=== PATIENT | female | born 1940 | race Caucasian/White ===

== ENCOUNTER 2020-11-10 10:55 | Outpatient (REF) | payer MEDICARE, SELFPAY ==
[2020-11-10 13:52] LABS: MANUAL DIFF FLAG NO
[2020-11-10 13:57] LABS: Basophils Percent Auto 0.5 % (0-2); Eosinophils Absolute Auto 0.3 X10*3/uL (0.0-0.4); Eosinophils Percent Auto 3.8 % (0-4); Hematocrit 45.2 % (37-47); Hemoglobin 14.2 g/dl (12.0-16.0); Imm Gran Abs Auto 0.02 X10*3/uL (0.00-0.03); Imm Gran Pct Auto 0.2 % (0.0-0.4); Lymphocytes Absolute Auto 2.7 X10*3/uL (1.2-4.9); Lymphocytes Percent Auto 29.9 % (20-40); Mean Corpuscular HGB Conc 31.4 g/dl (31.0-35.0); Mean Corpuscular Hemoglobin 29.6 pg (27.0-33.0); Mean Corpuscular Volume 94.2 fL (80-98); Mean Platelet Volume 10.6 fL (9.4-12.3); Monocytes Absolute Auto 0.9 X10*3/uL (0.1-1.2); Monocytes Percent Auto 9.7 % (2-11); Neutrophils Percent Auto 55.9 % (45-73); Platelet Count 286 X10*3/uL (160-400); Red Cell Distribution Width 12.8 % (11.0-16.0); White Blood Count 8.9 X10*3/uL (4.8-10.8)
[2020-11-10 14:20] LABS: Alanine Aminotransferase 17 U/L (0-31); Albumin Level 4.1 g/dL (3.5-5.0); Alkaline Phosphatase 73 U/L (39-117); Anion Gap 13 (12-20); Aspartate Amino Transferase 18 U/L (5-31); Bilirubin Total 0.7 mg/dL (0.0-1.0); Blood Urea Nitrogen 15 mg/dL (9-16); Calcium 9.2 mg/dL (8.4-10.2); Carbon Dioxide 27 mmol/L (22-29); Chloride 104 mmol/L (96-108); Estimated Glomerular Filt Rate > 60; Glucose Random 82 mg/dL (60-115); Magnesium 2.2 mg/dL (1.6-2.6); Potassium 4.8 mmol/l (3.3-5.1); Sodium 139 mmol/L (135-145); Total Protein 6.7 g/dL (6.5-8.0)
== END 2020-11-10 10:56 | disposition home or self-care (01) ==
LOC: HO.10HDL 10:55
PROVIDERS: PCP Internal Medicine; Visit Provider Internal Medicine
DX: E78.00 Pure hypercholesterolemia, unspecified (principal); I10 Essential (primary) hypertension; M85.80 Other specified disorders of bone density and structure, unspecified site; R25.2 Cramp and spasm
CPT/HCPCS: 36415; 80053; 82306; 83735; 85025

== ENCOUNTER 2021-01-19 11:13 | Inpatient (IN) | payer MEDICARE, SELFPAY ==
[2021-01-19] VITALS (10 sets, daily range): BP systolic 111–130; BP diastolic 48–82; PULSE 84–131; RESP 12–18; TEMP 36.9–37.2; O2SAT 96–99; BMI 25.9
--- NOTE | ~2021-01-19 | XR_ITS ---
EXAMINATION: XR CHEST CLINICAL INFORMATION: Palpitations. COMPARISON: 04/12/2018 TECHNIQUE: Frontal view of the chest was obtained. FINDINGS: No cardiomegaly. Mediastinum or ashleigh are stable in appearance. There is peribronchial thickening in the medial aspect of the bilateral upper lobes, which appears similar as compared to the prior study. No effusion or pulmonary edema. There is hazy patchy opacity in the left lung base retrocardiac region, which may represent atelectasis. No pneumothorax is seen. Moderate leftward curvature of the thoracic spine. No acute osseous abnormality seen. XR/XR chest 1V IMPRESSION: Left basilar hazy patchy opacity from atelectasis/infiltrate.
--- NOTE | ~2021-01-19 | NM_ITS ---
Myocardial perfusion study Indication: Recurrent chest pain to evaluate for myocardial ischemia Technique: The patient was brought in for a Lexiscan perfusion study on 01/22/2021. Patient performed low-level exercise and was injected 0.4 mg of Lexiscan intravenously. Within a minute of injection, 25 mCi of sestamibi was given intravenously. Images were obtained using the SPECT gamma camera interlaced with the gating device. Images were obtained in supine position. Resting perfusion study was performed on 01/23/2021. Patient was administered 25 mCi of sestamibi intravenously at rest. Images were then obtained in supine position. Images obtained with and without CT attenuation. Total DLP 112 mGy-cm Images were processed with the software and compared side to side in short axis, horizontal long axis and vertical long axis views. Findings: The stress perfusion study showed on non attenuated images moderately reduced uptake in the distal lateral and minimally reduced uptake in the apex of the LV myocardium. Attenuation corrected images show minimally reduced uptake in the apex of the LV myocardium some thinning of the distal lateral wall.. The gated study shows normal LV systolic function with calculated LVEF of greater than 70 %. LV cavity is normal size. The gated study shows normal systolic wall thickening and contraction of segments. Resting study shows no significant change in perfusion pattern compared to stress perfusion study. Gating at rest reveals normal wall motion with ejection fraction at 56%. The findings are consistent with normal myocardial perfusion. NM/NM coleman perf SPECT rest & str Impression: 1. Myocardial perfusion imaging study shows normal myocardial perfusion 2. Gated LVEF is greater than 70% 3. Transient ischemic dilatation not present EKG is nondiagnostic for ischemia
--- NOTE | 2021-01-19 11:28 | ECG_ITS ---
Test Reason : PALPITATIONS Blood Pressure : / mmHG Vent. Rate : 130 BPM Atrial Rate : 130 BPM P-R Int : 194 ms QRS Dur : 086 ms QT Int : 348 ms P-R-T Axes : 079 039 -06 degrees QTc Int : 512 ms Atrial flutter/tachycardia with 2:1 conduction with PVC Abnormal ECG When compared with ECG of 12-APR-2018 05:43, Atrial flutter/tachycardia has replaced NSR Premature ventricular complexes are now Present Premature atrial complexes are no longer Present Vent. rate has increased BY 53 BPM Referred By: Kami Torres Electronically Signed By:NAZ BANG MD
--- NOTE | 2021-01-19 11:52 | ED.ARRPALP ---
HPI - Arrhythmia/Palpitations General Chief Complaint: Arrhythmia/Palpitations Stated Complaint: palpitations Time Seen by Provider: 01/19/21 11:52 Source: patient Mode of arrival: ambulatory Limitations: no limitations History of Present Illness MD complaint: palpitations Onset (ago): week(s) (3 weeks but worse last night) Duration: intermittent Severity: moderate Context: occurred during rest and occurred during exertion Arrhythmia history: atrial fibrillation (one episode that resolved in the past) Associated symptoms: shortness of breath Related Data Home Medications Medication Instructions Recorded Confirmed amlodipine 5 mg PO BEDTIME 01/19/21 01/19/21 aspirin 81 mg PO BEDTIME 01/19/21 01/19/21 atorvastatin 10 mg PO BEDTIME 01/19/21 01/19/21 dicyclomine 10 mg PO QID PRN 01/19/21 01/19/21 lorazepam 0.5 mg PO BEDTIME 01/19/21 01/19/21 mometasone 1 appl TOPICAL BID PRN 01/19/21 01/19/21 vitamin B complex [B Complex] 1 cap PO BEDTIME 01/19/21 01/19/21 Allergies Allergy/AdvReac Type Severity Reaction Status Date / Time Sulfa (Sulfonamide Allergy Unknown RASH Verified 01/19/21 11:22 Antibiotics) Review of Systems Review of Systems: Constitutional : No Fever, No Chills ENT/Mouth : No sore throat, No Rhinorrhea, No Swallowing Difficulty Eyes: No Eye Pain, No Swelling, No Redness Cardiovascular : No Chest Pain, positive SOB, No Orthopnea, no Edema, pos palpitations Respiratory : No Cough, No Sputum, No Wheezing, positive dyspnea Gastrointestinal : No Nausea, No Vomiting, No Diarrhea, No abdominal Pain, No Hematochezia, No Melena Genitourinary : No Dysuria, No Urinary Frequency, No Hematuria Musculoskeletal : No joint pain, No Myalgias Skin : No Skin Lesions, No rash Neuro : No Weakness, No Numbness, No Dizziness, No Headache Psych : No Anxiety/Panic, No Depression Heme/Lymph: No Bruising, No Lymphadenopathy Endocrine : No Polyuria, No Polydipsia All other systems reviewed and are negative PMFSH Past Medical History Attestation statement: The following information was validated with the patient. Medical History Afib High cholesterol HTN (hypertension) Kidney stone Mitral valve disorder Surgical History H/O: hysterectomy Social History Social History (Updated 01/19/21 @ 12:35 by Kami Torres DO) Smoking Status: Never smoker Use of substances other than those prescribed or required for medical reasons: No Advance Directives: No Advance Directives Information Provided: Yes Physical Exam Vital Signs: Vital Signs: Last Vital Signs Temp 98.4 F 01/19/21 11:23 Pulse 123 H 01/19/21 15:09 Resp 16 01/19/21 15:09 BP 123/78 01/19/21 15:09 Pulse Ox 99 01/19/21 12:43 Body Mass Index 25.9 Appearance: Alert. Oriented X3. No acute distress. Eyes: Pupils equal, round and reactive to light. ENT: Pharynx normal. Neck: Normal inspection. Neck supple. CVS: tachycardic irregular heart rate and rhythm. Pulses normal. Respiratory: No respiratory distress. Breath sounds normal. Abdomen: Soft and nontender. Skin: Skin warm and dry. Normal skin color. Normal skin turgor. Extremities: No lower extremity edema. No calf ttp Neuro: Oriented X 3. No motor deficit. No sensory deficit. Course Course Course Narrative: repeat EKG aflutter with variable AV block - responded well to lopressor will dose with PO metoprolol patient's HAS-BLED score is 2, CHADSvasc2 = 4 we discussed anticoagulation she does not want coumadin as she does not feel she can make her appointments for lab draws - discussed reasons why to anticoagulate and risks of bleeding repeat 2.5mg IV lopressor HR went back up to 120 HR down to 90s HR back up to 120s will need admission for rate control at this time MDM - Arrhythmia/Palpitations MDM Narrative Medical decision making narrative: 80 yo female with symptomatic tachycardia no chest pain but felt short of breath last night and c/o palpitations worsening EKG ? underlying aflutter - will obtain labs, CXR, give IV lopressor repeat EKG once HR has slowed down, has no bleeding issues could go on AC therapy Lab Data Result diagrams: 01/19/21 12:19 01/19/21 12:19 Labs: Lab Results 02/23/21 02/23/21 02/23/21 Range/Units 12:19 12:19 12:19 WBC 7.2 (4.8-10.8) X10*3/uL RBC 4.71 (4.20-5.50) X10*6/uL Hgb 14.3 (12.0-16.0) g/dl Hct 43.9 (37-47) % MCV 93.2 (80-98) fL MCH 30.4 (27.0-33.0) pg MCHC 32.6 (31.0-35.0) g/dl RDW 12.8 (11.0-16.0) % Plt Count 248 (160-400) X10*3/uL MPV 10.9 (9.4-12.3) fL Immature Gran % (Auto) 0.1 (0.0-0.4) % Neut % (Auto) 57.1 (45-73) % Lymph % (Auto) 30.5 (20-40) % [place] % (Auto) 10.0 (2-11) % Eos % (Auto) 1.7 (0-4) % Baso % (Auto) 0.6 (0-2) % Lymph # (Auto) 2.2 (1.2-4.9) X10*3/uL [place] # (Auto) 0.7 (0.1-1.2) X10*3/uL Eos # (Auto) 0.1 (0.0-0.4) X10*3/uL Baso # (Auto) 0.0 (0.0-0.2) X10*3/uL Abs Immat Gran (auto) 0.01 (0.00-0.03) X10*3/uL Absolute Neuts (auto) 4.1 (2.0-8.3) X10*3/uL Absolute Nucleated RBC 0.000 (0.0-0.012) X10*3/uL Nucleated RBC % (auto) 0.0 (0.0-0.2) /100WBC PT 12.8 (10.8-13.0) SEC INR 1.1 (0.9-1.1) APTT 31.2 (24.1-38.0) SEC D-Dimer 223 NG/ML Sodium 143 (135-145) mmol/L Potassium 3.9 (3.3-5.1) mmol/L Chloride 107 (96-108) mmol/L Carbon Dioxide 26 (22-29) mmol/L Anion Gap 14 (12-20) BUN 11 (9-16) mg/dL Creatinine 0.80 (0.5-1.4) mg/dL Estim Creat Clear Calc 49.4 Estimated GFR > 60 Random Glucose 95 (60-115) mg/dL Calcium 9.4 (8.4-10.2) mg/dL Magnesium 2.0 (1.6-2.6) mg/dL Total Bilirubin 0.9 (0.0-1.0) mg/dL Direct Bilirubin 0.3 (0.0-0.5) mg/dL AST 17 (5-31) U/L ALT 14 (0-31) U/L Alkaline Phosphatase 69 (39-117) U/L Troponin I High Sens (<3.5-17.0) ng/L B-Natriuretic Peptide (<100) pg/mL Total Protein 6.9 (6.5-8.0) g/dL Albumin 4.3 (3.5-5.0) g/dL TSH 1.57 (0.32-4.0) uIU/mL COVID-19 (GUILLERMO) (Negative) COVID-19 Clin Com 01/19/21 01/19/21 Range/Units 12:19 12:19 WBC (4.8-10.8) X10*3/uL RBC (4.20-5.50) X10*6/uL Hgb (12.0-16.0) g/dl Hct (37-47) % MCV (80-98) fL MCH (27.0-33.0) pg MCHC (31.0-35.0) g/dl RDW (11.0-16.0) % Plt Count (160-400) X10*3/uL MPV (9.4-12.3) fL Immature Gran % (Auto) (0.0-0.4) % Neut % (Auto) (45-73) % Lymph % (Auto) (20-40) % [place] % (Auto) (2-11) % Eos % (Auto) (0-4) % Baso % (Auto) (0-2) % Lymph # (Auto) (1.2-4.9) X10*3/uL [place] # (Auto) (0.1-1.2) X10*3/uL Eos # (Auto) (0.0-0.4) X10*3/uL Baso # (Auto) (0.0-0.2) X10*3/uL Abs Immat Gran (auto) (0.00-0.03) X10*3/uL Absolute Neuts (auto) (2.0-8.3) X10*3/uL Absolute Nucleated RBC (0.0-0.012) X10*3/uL Nucleated RBC % (auto) (0.0-0.2) /100WBC PT (10.8-13.0) SEC INR (0.9-1.1) APTT (24.1-38.0) SEC D-Dimer NG/ML Sodium (135-145) mmol/L Potassium (3.3-5.1) mmol/L Chloride (96-108) mmol/L Carbon Dioxide (22-29) mmol/L Anion Gap (12-20) BUN (9-16) mg/dL Creatinine (0.5-1.4) mg/dL Estim Creat Clear Calc Estimated GFR Random Glucose (60-115) mg/dL Calcium (8.4-10.2) mg/dL Magnesium (1.6-2.6) mg/dL Total Bilirubin (0.0-1.0) mg/dL Direct Bilirubin (0.0-0.5) mg/dL AST (5-31) U/L ALT (0-31) U/L Alkaline Phosphatase (39-117) U/L Troponin I High Sens < 3.5 (<3.5-17.0) ng/L B-Natriuretic Peptide 182 H (<100) pg/mL Total Protein (6.5-8.0) g/dL Albumin (3.5-5.0) g/dL TSH (0.32-4.0) uIU/mL COVID-19 (GUILLERMO) Negative (Negative) COVID-19 Clin Com See Note ECG Data Attestation: I personally reviewed and interpreted this ECG as follows: ECG interpretation date: 01/19/21 ECG interpretation time: 11:54 Interpretation: Rate: 130 Rhythm: naro complex tachycardia with PVCs Isabela: normal Normal QRS complex. ST T wave : nonspecific, no SNOW qTC: prolonged prior studies: no acute ischemia The study has been interpreted contemporaneously by me. . EKG #2 Rate: 90s Rhythm: aflutter with variable block and PVCs Isabela: normal Normal P waves. Normal SARAH. Normal QRS complex. ST T wave : nonspecific no SNOW qTC: normal prior studies: changed from prior The study has been interpreted contemporaneously by me. . Discharge Plan Discharge Clinical Impression: Acute dyspnea Atrial flutter Qualifiers: Atrial flutter type: unspecified Qualified Code(s): I48.92 - Unspecified atrial flutter Patient Disposition: Admitted As Inpatient
[2021-01-19] MEDS: Metoprolol Tartrate 5 MG/5 ML VIAL IVPUSH (12:26)
[2021-01-19 12:31] LABS: MANUAL DIFF FLAG NO
--- NOTE | 2021-01-19 12:32 | ECG_ITS ---
Test Reason : ARRYTHYMIA Blood Pressure : / mmHG Vent. Rate : 094 BPM Atrial Rate : 254 BPM P-R Int : 000 ms QRS Dur : 090 ms QT Int : 378 ms P-R-T Axes : 085 023 005 degrees QTc Int : 472 ms Atrial flutter with variable A-V block with premature ventricular or aberrantly conducted complexes Abnormal ECG When compared with ECG of 19-JAN-2021 11:28, Vent. rate has decreased Referred By: Kami Torres Electronically Signed By:NAZ BANG MD
[2021-01-19 12:43] LABS: Basophils Percent Auto 0.6 % (0-2); Eosinophils Absolute Auto 0.1 X10*3/uL (0.0-0.4); Eosinophils Percent Auto 1.7 % (0-4); Hematocrit 43.9 % (37-47); Hemoglobin 14.3 g/dl (12.0-16.0); Imm Gran Abs Auto 0.01 X10*3/uL (0.00-0.03); Imm Gran Pct Auto 0.1 % (0.0-0.4); Lymphocytes Absolute Auto 2.2 X10*3/uL (1.2-4.9); Lymphocytes Percent Auto 30.5 % (20-40); Mean Corpuscular HGB Conc 32.6 g/dl (31.0-35.0); Mean Corpuscular Hemoglobin 30.4 pg (27.0-33.0); Mean Corpuscular Volume 93.2 fL (80-98); Mean Platelet Volume 10.9 fL (9.4-12.3); Monocytes Absolute Auto 0.7 X10*3/uL (0.1-1.2); Neutrophils Absolute Auto 4.1 X10*3/uL (2.0-8.3); Neutrophils Percent Auto 57.1 % (45-73); Platelet Count 248 X10*3/uL (160-400); Red Blood Count 4.71 X10*6/uL (4.20-5.50); Red Cell Distribution Width 12.8 % (11.0-16.0); White Blood Count 7.2 X10*3/uL (4.8-10.8)
[2021-01-19] MEDS: Metoprolol Tartrate 25 MG TABLET PO (12:54)
[2021-01-19 12:56] LABS: INTERNATIONAL NORM RATIO 1.1 (0.9-1.1); Prothrombin Time 12.8 SEC (10.8-13.0)
[2021-01-19 12:59] LABS: D Dimer 223 NG/ML; Partial Thromboplastin Time 31.2 SEC (24.1-38.0)
[2021-01-19 13:01] LABS: COVID-19 Test Negative (Negative); IDNOW Serial# 9DD0AD1C
[2021-01-19 13:11] LABS: Alanine Aminotransferase 14 U/L (0-31); Albumin Level 4.3 g/dL (3.5-5.0); Alkaline Phosphatase 69 U/L (39-117); Anion Gap 14 (12-20); Aspartate Amino Transferase 17 U/L (5-31); Bilirubin Direct 0.3 mg/dL (0.0-0.5); Bilirubin Total 0.9 mg/dL (0.0-1.0); Blood Urea Nitrogen 11 mg/dL (9-16); Calcium 9.4 mg/dL (8.4-10.2); Carbon Dioxide 26 mmol/L (22-29); Chloride 107 mmol/L (96-108); Creatinine Clr Calc Pharmacy 49.4; Estimated Glomerular Filt Rate > 60; Glucose Random 95 mg/dL (60-115); Potassium 3.9 mmol/L (3.3-5.1); Sodium 143 mmol/L (135-145); Total Protein 6.9 g/dL (6.5-8.0)
[2021-01-19 13:18] LABS: B Type Natriuretic Peptide 182 pg/mL (<100); Troponin-I High Sensitivity < 3.5 ng/L (<3.5-17.0)
[2021-01-19 13:33] LABS: Thyroid Stimulating Hormone 1.57 uIU/mL (0.32-4.0)
[2021-01-19] MEDS: Metoprolol Tartrate 5 MG/5 ML VIAL 2.5 MG IVPUSH (15:05)
--- NOTE | 2021-01-19 15:17 | PC.NURSE ---
Spoke to daughter Michelle, updated on plan of care with verbal permission of pt. Plan to give additional smaller dose of Metoprolol as HR trending back up to 120s, ?admission
--- NOTE | 2021-01-19 15:18 | PC.NURSE ---
Contact for daughter [phone], will be pts ride home
--- NOTE | 2021-01-19 16:20 | PC.NURSE ---
HR varies but noted from 75-120, plan for admission
[2021-01-19] MEDS: Aspirin Enteric Coated 81 MG TABLET.DR PO (21:24)
[2021-01-19] MEDS: Atorvastatin Calcium 10 MG TABLET PO (21:24)
[2021-01-19] MEDS: LORazepam 0.5 MG TABLET PO (21:24)
[2021-01-19] MEDS: Enoxaparin Sodium 60 MG/0.6 ML SYRINGE 65 MG SUBCUT (21:25)
--- NOTE | 2021-01-19 21:46 | PC.NURSE ---
Addendum entered by Herrera Lopez RN 01/20/21 00:21: Cardizem drip stopped hr below 90. hr at 75. Addendum entered by Herrera Lopez RN 01/20/21 00:18: Report received from mayra William rn. pt on cardizem drip at 10mg/hr, but did not scan. Cardizem drip rate at 5 mg/hr at this time. HR 75-80. Report given to newsroom intern. clear speech. rr even and unlabored. nad. Original Note: diltiazem started
[2021-01-19 22:51] LABS: Hematocrit 43.5 % (37-47); Hemoglobin 14.1 g/dl (12.0-16.0); Mean Corpuscular HGB Conc 32.4 g/dl (31.0-35.0); Mean Corpuscular Hemoglobin 30.1 pg (27.0-33.0); Mean Corpuscular Volume 92.9 fL (80-98); Mean Platelet Volume 10.5 fL (9.4-12.3); Platelet Count 245 X10*3/uL (160-400); Red Blood Count 4.68 X10*6/uL (4.20-5.50); White Blood Count 9.6 X10*3/uL (4.8-10.8)
--- NOTE | 2021-01-19 22:54 | MHC.CM.PN ---
CM met with pt. IMM 01/19/21. A&Ox3. Very pleasant woman. Very talkative. Lives alone and is very independent. Has no services and still drives short distances. Has supportive family that live near by. HCP reviewed and completed. Son, Damian Parada, HCP ([phone]) and daughter, Michelle Valdes ([phone]) as alternate. Uploaded into [employer]. Copies given to pt. Expect home without services. Family to provide transportation home. CM to follow for d/c needs.
[2021-01-19 22:58] LABS: INTERNATIONAL NORM RATIO 1.1 (0.9-1.1); Prothrombin Time 13.3 SEC (10.8-13.0)
[2021-01-19 23:00] LABS: Partial Thromboplastin Time 36.5 SEC (24.1-38.0)
[2021-01-20] VITALS (10 sets, daily range): BP systolic 88–115; BP diastolic 47–74; PULSE 76–129; RESP 13–19; TEMP 36.6–37.3; O2SAT 93–98
[2021-01-20] MEDS: 0.9 % Sodium Chloride Flush 3 ML SYRINGE IVFLUSH ×3 (00:14→14:46)
[2021-01-20] MEDS: dilTIAZem HCL 125 MG in 0.9 % Sodium Chloride 100 ML IVCONT (00:16)
[2021-01-20 04:34] LABS: MANUAL DIFF FLAG NO
[2021-01-20 04:35] LABS: Basophils Absolute Auto 0.1 X10*3/uL (0.0-0.2); Basophils Percent Auto 0.6 % (0-2); Eosinophils Absolute Auto 0.2 X10*3/uL (0.0-0.4); Eosinophils Percent Auto 2.5 % (0-4); Hematocrit 41.2 % (37-47); Hemoglobin 13.6 g/dl (12.0-16.0); Imm Gran Abs Auto 0.02 X10*3/uL (0.00-0.03); Imm Gran Pct Auto 0.2 % (0.0-0.4); Lymphocytes Absolute Auto 3.1 X10*3/uL (1.2-4.9); Lymphocytes Percent Auto 36.1 % (20-40); Mean Corpuscular Hemoglobin 30.6 pg (27.0-33.0); Mean Corpuscular Volume 92.6 fL (80-98); Mean Platelet Volume 10.5 fL (9.4-12.3); Monocytes Absolute Auto 0.8 X10*3/uL (0.1-1.2); Monocytes Percent Auto 9.3 % (2-11); Neutrophils Absolute Auto 4.5 X10*3/uL (2.0-8.3); Neutrophils Percent Auto 51.3 % (45-73); Platelet Count 227 X10*3/uL (160-400); Red Blood Count 4.45 X10*6/uL (4.20-5.50); Red Cell Distribution Width 12.9 % (11.0-16.0); White Blood Count 8.7 X10*3/uL (4.8-10.8)
[2021-01-20 05:01] LABS: Anion Gap 12 (12-20); Blood Urea Nitrogen 15 mg/dL (9-16); Calcium 9.2 mg/dL (8.4-10.2); Carbon Dioxide 26 mmol/L (22-29); Chloride 107 mmol/L (96-108); Creatinine Clr Calc Pharmacy 51.3; Estimated Glomerular Filt Rate > 60; Glucose Random 97 mg/dL (60-115); Potassium 4.3 mmol/L (3.3-5.1); Sodium 141 mmol/L (135-145)
--- NOTE | 2021-01-20 06:25 | PM.IMHP ---
History of Present Illness Date of Service: 01/19/21 Chief Complaint: Palpitations This is an 80-year-old female with past medical history of hypertension, hyperlipidemia, mitral valve regurg,anxiety who presents to the hospital with complaints of racing heart. Patient reports that she went to her PCP with this complaint and he asked her to come to the hospital. This started the night prior to presentation. She was not able to measure her heart rate which is felt a racing heart with dizziness, lightheadedness, and nausea. She did not have any change in vision, no headache, no shortness of breath, She also felt pressure in the chest that lasted for 20 minutes and resolved spontaneously. Although patient reports no previous similar episodes she does have a recorded history in EMR of and on stained AFib. Patient is not on any anticoagulation. She otherwise reports that she has been in good health prior to this, has no shortness of breath, no cough, no abdominal pain, no vomiting, no diarrhea, no lower extremity edema no urinary symptoms. On arrival to the ED hemodynamically stable with heart rate in the 130s, patient received multiple doses of IV metoprolol with no resolution. Blood pressure stable satting 99% on room air Labs unremarkable with troponin negative, BNP slightly elevated at 182. Chest x-ray shows left basilar hazy patchy opacity from atelectasis/infiltrate Review of Systems Review of Systems: Yes all other systems are reviewed and are negative [facility], LAT[facility] Medical History (Updated 01/20/21 @ 06:39 by Duane Ace MD) Afib High cholesterol HTN (hypertension) Kidney stone Mitral valve disorder Pertinent family history: CT in father, CHF in mother Surgical History (Updated 01/20/21 @ 06:31 by Duane Ace MD) H/O lithotripsy H/O: hysterectomy History of carpal tunnel release Social History (Updated 01/19/21 @ 12:35 by Kami Torres DO) Smoking Status: Never smoker Use of substances other than those prescribed or required for medical reasons: No Advance Directives: No Advance Directives Information Provided: Yes service: No Current occupational status: retired Meds Allergies Allergy/AdvReac Type Severity Reaction Status Date / Time Sulfa (Sulfonamide Allergy Unknown RASH Verified 01/19/21 11:22 Antibiotics) Active Medications: Current Medications Generic Name Dose Route Start Last Admin Trade Name Freq PRN Reason Stop Dose Admin Acetaminophen 650 mg 01/19/21 20:47 Acetaminophen 325 Mg Tablet PO Q6H PRN Pain, Mild (Pain Scale 1-3) Aspirin 81 mg 01/19/21 21:00 01/19/21 21:24 Aspirin Enteric Coated 81 Mg Tablet. PO 81 mg BEDTIME RACHEAL Administration Atorvastatin Calcium 10 mg 01/19/21 21:00 01/19/21 21:24 Atorvastatin Calcium 10 Mg Tablet PO 10 mg BEDTIME RACHEAL Administration Dicyclomine HCl 10 mg 01/19/21 20:47 Dicyclomine Hcl 10 Mg Capsule PO QID PRN Abdominal Discomfort Docusate Sodium 100 mg 01/19/21 20:47 Docusate Sodium 100 Mg Capsule PO DAILY PRN Constipation Diltiazem HCl 125 mg/ Sodium 125 mls @ 0 mls/hr 01/19/21 20:47 01/20/21 06:22 Chloride IVCONT 10 mg/hr .Q0M RACHEAL 10 mls/hr Titration Protocol Per Protocol Lorazepam 0.5 mg 01/19/21 21:00 01/19/21 21:24 Lorazepam 0.5 Mg Tablet PO 0.5 mg BEDTIME RACHEAL Administration Ondansetron HCl 4 mg 01/19/21 20:47 Ondansetron Hcl 4 Mg/2 Ml Vial IVPUSH Q8H PRN Nausea and Vomiting Pharmacy Consult 1 each 01/19/21 12:05 Consult Rx Perform Med Rec MISCELLANE ONCE PRN Consult order Sodium Chloride 3 ml 01/20/21 00:00 01/20/21 00:14 0.9 % Sodium Chloride Flush 3 Ml Syringe IVFLUSH 3 ml QSHIFT RACHEAL Administration Home Medications Medication Instructions Recorded Confirmed Last Taken Type amlodipine 5 mg PO BEDTIME 01/19/21 01/19/21 01/18/21 History aspirin 81 mg PO BEDTIME 01/19/21 01/19/21 01/18/21 History atorvastatin 10 mg PO BEDTIME 01/19/21 01/19/21 01/18/21 History dicyclomine 10 mg PO QID PRN 01/19/21 01/19/21 Unknown History lorazepam 0.5 mg PO BEDTIME 01/19/21 01/19/21 01/19/21 History mometasone 1 appl TOPICAL BID PRN 01/19/21 01/19/21 Unknown History vitamin B complex [B Complex] 1 cap PO BEDTIME 01/19/21 01/19/21 01/18/21 History Physical Exam Vital Signs and Narrative: Vital Signs: Last Vital Signs Temp 98 F 01/20/21 06:07 Pulse 111 H 01/20/21 06:07 Resp 14 01/20/21 06:07 BP 114/60 01/20/21 06:07 Pulse Ox 98 01/20/21 06:07 Body Mass Index 25.9 Const: General: cooperative and no acute distress Orientation/consciousness: patient oriented x3 Eyes: General: appearance normal, both eyes and all related structures Resp: Effort & Inspection: normal respiratory effort and able to speak in complete sentences Cardio: Other: Tachycardic, irregular rhythm GI: Palpation (GI): Soft to palpation Auscultation: normal bowel sounds Skin: General skin exam: no rashes or lesions noted Neuro: General: patient oriented x3 Cognition (Neuro): normal cognition Extrem: General: Yes normal to inspection and Yes no pedal edema Results Labs CBC and Chem 7: 01/20/21 04:28 01/20/21 04:28 Labs: Laboratory Results - last 24 hr 01/19/21 01/19/21 01/19/21 12:19 12:19 12:19 MCV 93.2 MCH 30.4 MCHC 32.6 RDW 12.8 Plt Count 248 MPV 10.9 Immature Gran % (Auto) 0.1 Neut % (Auto) 57.1 Lymph % (Auto) 30.5 [place] % (Auto) 10.0 Eos % (Auto) 1.7 Baso % (Auto) 0.6 Lymph # (Auto) 2.2 [place] # (Auto) 0.7 Eos # (Auto) 0.1 Baso # (Auto) 0.0 Abs Immat Gran (auto) 0.01 Absolute Neuts (auto) 4.1 Absolute Nucleated RBC 0.000 Nucleated RBC % (auto) 0.0 PT 12.8 INR 1.1 APTT 31.2 D-Dimer 223 Anion Gap 14 Estim Creat Clear Calc 49.4 Estimated GFR > 60 Random Glucose 95 Calcium 9.4 Magnesium 2.0 Total Bilirubin 0.9 Direct Bilirubin 0.3 AST 17 ALT 14 Alkaline Phosphatase 69 Troponin I High Sens B-Natriuretic Peptide Total Protein 6.9 Albumin 4.3 TSH 1.57 COVID-19 (GUILLERMO) COVID-19 Clin Com 01/19/21 01/19/21 01/19/21 12:19 12:19 22:41 MCV 92.9 MCH 30.1 MCHC 32.4 RDW 13.0 Plt Count 245 MPV 10.5 Immature Gran % (Auto) Neut % (Auto) Lymph % (Auto) [place] % (Auto) Eos % (Auto) Baso % (Auto) Lymph # (Auto) [place] # (Auto) Eos # (Auto) Baso # (Auto) Abs Immat Gran (auto) Absolute Neuts (auto) Absolute Nucleated RBC 0.000 Nucleated RBC % (auto) 0.0 PT INR APTT D-Dimer Anion Gap Estim Creat Clear Calc Estimated GFR Random Glucose Calcium Magnesium Total Bilirubin Direct Bilirubin AST ALT Alkaline Phosphatase Troponin I High Sens < 3.5 B-Natriuretic Peptide 182 H Total Protein Albumin TSH COVID-19 (GUILLERMO) Negative COVID Clin Com See Note 01/19/21 01/20/21 01/20/21 22:41 04:28 04:28 MCV 92.6 MCH 30.6 MCHC 33.0 RDW 12.9 Plt Count 227 MPV 10.5 Immature Gran % (Auto) 0.2 Neut % (Auto) 51.3 Lymph % (Auto) 36.1 [place] % (Auto) 9.3 Eos % (Auto) 2.5 Baso % (Auto) 0.6 Lymph # (Auto) 3.1 [place] # (Auto) 0.8 Eos # (Auto) 0.2 Baso # (Auto) 0.1 Abs Immat Gran (auto) 0.02 Absolute Neuts (auto) 4.5 Absolute Nucleated RBC 0.000 Nucleated RBC % (auto) 0.0 PT 13.3 H INR 1.1 APTT 36.5 D-Dimer Anion Gap 12 Estim Creat Clear Calc 51.3 Estimated GFR > 60 Random Glucose 97 Calcium 9.2 Magnesium Total Bilirubin Direct Bilirubin AST ALT Alkaline Phosphatase Troponin I High Sens B-Natriuretic Peptide Total Protein Albumin TSH COVID-19 (GUILLERMO) COVID-19 Clin Com ECG Interpretation: EKG showed atrial flutter with variable AV block with PVCs, Imaging Radiologist's Impressions: Impressions Chest X-Ray 01/19/21 12:06 IMPRESSION: Left basilar hazy patchy opacity from atelectasis/infiltrate. Assessment and Plan (1) Atrial flutter: Qualifiers: Atrial flutter type: unspecified Qualified Code(s): I48.92 - Unspecified atrial flutter Status: Acute This is an 80-year-old female with past medical history of mitral valve regurg, hypertension who presents to the hospital with complaints of palpitation found to have a flutter with RVR # a flutter - EMR recorded history of AFib although patient aware, - not on any anticoagulation and is not on rate control - currently heart rate in the 130s with stable blood pressure Plan: - will start her on Cardizem drip - discussed the benefit and risk of anticoagulation, patient agreeable to 1 dose of Lovenox until further discussion with body bumper - will obtain echocardiogram - consult cardiology # hypertension - will hold amlodipine given Cardizem drip can resume once Cardizem drip has been titrated off # hyperlipidemia - continue statin # history of mitral valve regurg - reports last echo was 2 years ago DVT prophylaxis: Lovenox
--- NOTE | 2021-01-20 10:11 | PM.CNCAR ---
History of Present Illness History of Present Illness Date of Service: 01/20/21 Requesting physician: Yovanny Amos Consult reason: other (Palpitations, atrial flutter) Chief complaint: A flutter with RVR Narrative: Thank you for calling us in consult on Saundra garcias She is 80-year-old woman with prior history of paroxysmal atrial fibrillation, hypertension, hyperlipidemia and mild mitral regurgitation. She present the hospital with 3 week history of palpitations. She says about a 3 weeks ago when there was of big snowstorm she shows no and after started noticing palpitations. Initially the palpitations were on and off without any clear pattern. She had no associated symptoms of lightheadedness, syncope, shortness of breath. However 2 days ago she noticed that her palpitations were persistent. She went to her primary care physician's office yesterday and she was wheeled over to the emergency room yesterday. She was noted to be in atrial flutter with rapid ventricular response. She was started on Cardizem drip with initial improvement and Cardizem drip was held. When I saw her she was again tachycardia could heart rate of 130 beats per minute. She is not having any major distress. She denies any lightheadedness, syncope. No orthopnea, PND. She got a dose of Lovenox yesterday. She is currently not on oral anticoagulation, I think this is her preference. However she was not much aware of atrial fibrillation. She takes all her medications at home. She is extremely functional at home. She has no symptoms of exertional chest pain or shortness of breath prior to these episodes. Review of Systems Constitutional: Constitutional: Reports no additional constitutional complaints Cardiovascular: Cardiovascular: Denies chest pain, Reports palpitations and Denies dyspnea Respiratory: Respiratory: Denies cough and Denies dyspnea Gastrointestinal: Gastrointestinal: Reports no additional gastrointestinal complaints Genitourinary: Genitourinary: Reports no additional female genitourinary complaints Musculoskeletal: Musculoskeletal: Reports no additional musculoskeletal complaints Neurologic: Reports system reviewed and no additional complaints, except as documented Psychiatric: Psychiatric: Reports no additional psychiatric complaints Endocrine: Endocrine: Reports no additional endocrine complaints and Reports palpitations Hematologic/Lymphatic: Hematologic/Lymphatic: Reports no additional hematologic/lymphatic complaints Allergic/Immunologic: Allergic/Immunologic: Reports no additional allergic/immunologic complaints PMFSH Past Medical History Medical History Afib High cholesterol HTN (hypertension) Kidney stone Mitral valve disorder Surgical History Surgical History H/O lithotripsy H/O: hysterectomy History of carpal tunnel release Social History Social History Smoking Status: Never smoker Use of substances other than those prescribed or required for medical reasons: No Advance Directives: No Advance Directives Information Provided: Yes service: No Current occupational status: retired Meds Allergies Allergy/AdvReac Type Severity Reaction Status Date / Time Sulfa (Sulfonamide Allergy Unknown RASH Verified 01/19/21 11:22 Antibiotics) Active Medications: Current Medications Generic Name Dose Route Start Last Admin Trade Name Freq PRN Reason Stop Dose Admin Acetaminophen 650 mg 01/19/21 20:47 Acetaminophen 325 Mg Tablet PO Q6H PRN Pain, Mild (Pain Scale 1-3) Apixaban 5 mg 01/20/21 09:15 Apixaban 5 Mg Tablet PO BID RACHEAL Atorvastatin Calcium 10 mg 01/19/21 21:00 01/19/21 21:24 Atorvastatin Calcium 10 Mg Tablet PO 10 mg BEDTIME RACHEAL Administration Dicyclomine HCl 10 mg 01/19/21 20:47 Dicyclomine Hcl 10 Mg Capsule PO QID PRN Abdominal Discomfort Docusate Sodium 100 mg 01/19/21 20:47 Docusate Sodium 100 Mg Capsule PO DAILY PRN Constipation Diltiazem HCl 125 mg/ Sodium 125 mls @ 0 mls/hr 01/19/21 20:47 01/20/21 06:43 Chloride IVCONT 0 mg/hr .Q0M RACHEAL 0 mls/hr Titration Protocol Per Protocol Lorazepam 0.5 mg 01/19/21 21:00 01/19/21 21:24 Lorazepam 0.5 Mg Tablet PO 0.5 mg BEDTIME RACHEAL Administration Ondansetron HCl 4 mg 01/19/21 20:47 Ondansetron Hcl 4 Mg/2 Ml Vial IVPUSH Q8H PRN Nausea and Vomiting Pharmacy Consult 1 each 01/19/21 12:05 Consult Rx Perform Med Rec MISCELLANE ONCE PRN Consult order Sodium Chloride 3 ml 01/20/21 00:00 01/20/21 07:38 0.9 % Sodium Chloride Flush 3 Ml Syringe IVFLUSH 3 ml QSHIFT [facility] Administration Home Medications Medication Instructions Recorded Confirmed Last Taken Type amlodipine 5 mg PO BEDTIME 01/19/21 01/19/21 01/18/21 History aspirin 81 mg PO BEDTIME 01/19/21 01/19/21 01/18/21 History atorvastatin 10 mg PO BEDTIME 01/19/21 01/19/21 01/18/21 History dicyclomine 10 mg PO QID PRN 01/19/21 01/19/21 Unknown History lorazepam 0.5 mg PO BEDTIME 01/19/21 01/19/21 01/19/21 History mometasone 1 appl TOPICAL BID PRN 01/19/21 01/19/21 Unknown History vitamin B complex [B Complex] 1 cap PO BEDTIME 01/19/21 01/19/21 01/18/21 History Physical Exam Vital Signs: Vital Signs: Last Vital Signs Temp 98.0 F 01/20/21 08:00 Pulse 129 H 01/20/21 08:00 Resp 15 01/20/21 08:00 BP 111/68 01/20/21 08:00 Pulse Ox 93 01/20/21 08:00 Body Mass Index 25.9 Const: General: cooperative, comfortable, no acute distress, alert, awake and anxious Nutritional Appearance: average body habitus Orientation/consciousness: patient oriented x3 Limitations: no limitations HENMT: Head: Yes normocephalic and Yes atraumatic Neck: Neck: Yes trachea midline, Yes supple and Yes no JVD Resp: Effort & Inspection: normal respiratory effort Auscultation: clear to auscultation bilaterally Cardio: Jugular venous distension: no JVD Palpation: normal PMI Rate: regular rate and tachycardic Rhythm: abnormal rhythm Heart sounds: S1 normal heart sound present and S2 normal heart sound present GI: Auscultation: normal bowel sounds Skin: General skin exam: no rashes or lesions noted Neuro: General: patient oriented x3 and no focal motor deficits Extrem: General: Yes no clubbing, cyanosis or edema Psych: Appearance: grossly normal Results Labs and Meds Result diagrams: 01/20/21 04:28 01/20/21 04:28 Lab results: Laboratory Results - last 24 hr 01/19/21 01/19/21 01/19/21 12:19 12:19 12:19 WBC 7.2 RBC 4.71 Hgb 14.3 Hct 43.9 MCV 93.2 MCH 30.4 MCHC 32.6 RDW 12.8 Plt Count 248 MPV 10.9 Immature Gran % (Auto) 0.1 Neut % (Auto) 57.1 Lymph % (Auto) 30.5 Finney % (Auto) 10.0 Eos % (Auto) 1.7 Baso % (Auto) 0.6 Lymph # (Auto) 2.2 Finney # (Auto) 0.7 Eos # (Auto) 0.1 Baso # (Auto) 0.0 Abs Immat Gran (auto) 0.01 Absolute Neuts (auto) 4.1 Absolute Nucleated RBC 0.000 Nucleated RBC % (auto) 0.0 PT 12.8 INR 1.1 APTT 31.2 D-Dimer 223 Sodium 143 Potassium 3.9 Chloride 107 Carbon Dioxide 26 Anion Gap 14 BUN 11 Creatinine 0.80 Estim Creat Clear Calc 49.4 Estimated GFR > 60 Random Glucose 95 Calcium 9.4 Magnesium 2.0 Total Bilirubin 0.9 Direct Bilirubin 0.3 AST 17 ALT 14 Alkaline Phosphatase 69 Troponin I High Sens B-Natriuretic Peptide Total Protein 6.9 Albumin 4.3 TSH 1.57 COVID-19 (GUILLERMO) COVID-[employer] 01/19/21 01/19/21 01/19/21 12:19 12:19 22:41 WBC 9.6 RBC 4.68 Hgb 14.1 Hct 43.5 MCV 92.9 MCH 30.1 MCHC 32.4 RDW 13.0 Plt Count 245 MPV 10.5 Immature Gran % (Auto) Neut % (Auto) Lymph % (Auto) Finney % (Auto) Eos % (Auto) Baso % (Auto) Lymph # (Auto) Finney # (Auto) Eos # (Auto) Baso # (Auto) Abs Immat Gran (auto) Absolute Neuts (auto) Absolute Nucleated RBC 0.000 Nucleated RBC % (auto) 0.0 PT INR APTT D-Dimer Sodium Potassium Chloride Carbon Dioxide Anion Gap BUN Creatinine Estim Creat Clear Calc Estimated GFR Random Glucose Calcium Magnesium Total Bilirubin Direct Bilirubin AST ALT Alkaline Phosphatase Troponin I High Sens < 3.5 B-Natriuretic Peptide 182 H Total Protein Albumin TSH COVID-19 (GUILLERMO) Negative [email or web address] Clin Com See Note 01/19/21 01/20/21 01/20/21 22:41 04:28 04:28 WBC 8.7 RBC 4.45 Hgb 13.6 Hct 41.2 MCV 92.6 MCH 30.6 MCHC 33.0 RDW 12.9 Plt Count 227 MPV 10.5 Immature Gran % (Auto) 0.2 Neut % (Auto) 51.3 Lymph % (Auto) 36.1 Finney % (Auto) 9.3 Eos % (Auto) 2.5 Baso % (Auto) 0.6 Lymph # (Auto) 3.1 Finney # (Auto) 0.8 Eos # (Auto) 0.2 Baso # (Auto) 0.1 Abs Immat Gran (auto) 0.02 Absolute Neuts (auto) 4.5 Absolute Nucleated RBC 0.000 Nucleated RBC % (auto) 0.0 PT 13.3 H INR 1.1 APTT 36.5 D-Dimer Sodium 141 Potassium 4.3 Chloride 107 Carbon Dioxide 26 Anion Gap 12 BUN 15 Creatinine 0.77 Estim Creat Clear Calc 51.3 Estimated GFR > 60 Random Glucose 97 Calcium 9.2 Magnesium Total Bilirubin Direct Bilirubin AST ALT Alkaline Phosphatase Troponin I High Sens B-Natriuretic Peptide Total Protein Albumin TSH COVID-19 (GUILLERMO) COVID-19 Clin Com EKG shows atrial flutter with 2 is to 1 conduction, repeat EKG shows atrial flutter with variable conduction. Imaging Radiologist's impression: Impressions Chest X-Ray 01/19/21 12:06 IMPRESSION: Left basilar hazy patchy opacity from atelectasis/infiltrate. Assessment and Plan (1) Atrial flutter: Qualifiers: Atrial flutter type: unspecified Qualified Code(s): I48.92 - Unspecified atrial flutter Status: Acute Atrial flutter, recent onset at least for 3 weeks duration. Initially symptoms on and off currently persistent atrial flutter for the last 48 hours at least. She did get 1 dose of Lovenox. However she is out of the window for trying to convert her now without further guidance either by DAVID or 3-4 weeks of anticoagulation. We discussed at length about pathophysiology of atrial flutter. Triggers appears to be sudden exertion with shoveling snow. We discussed about rate control approach is versus rhythm control approach. She is currently not excited about undergoing synchronized cardioversion. We discussed that will start with rate control. Will start on IV Cardizem drip for now. Also concomitantly start on low-dose metoprolol orally. If her symptoms are controlled with rate control and she is feeling well, can be discharged home on rate control therapy. However she remains difficult to control despite adequate rate control therapy, will pursue urgent cardioversion, david guided. This was discussed with her. She is agreeable. Plan was also discussed with her daughter over the phone. CHADSVASc score of 4. Had a long discussion about need for oral anticoagulation for stroke prophylaxis. Aspirin is not adequate therapy. This was discussed with her. She is agreeable. Will start on Eliquis 5 mg b.i.d.. Aspirin will be discontinued to reduce bleeding risk. Minimal elevation BNP, most likely related to atrial flutter. She is not in overt heart failure at this time. Obtain echocardiogram to assess LV systolic and diastolic function once heart rate is better controlled. (2) HTN (hypertension): Status: Acute Hypertension, well optimized. Will continue to monitor. Continue rate control therapy as above. Hold her home antihypertensives at this point in time. Will follow the patient. Thank you for allowing us to partake in her care Procedures Date of Service Date of Service: 01/20/21
[2021-01-20] MEDS: dilTIAZem HCL 125 MG in 0.9 % Sodium Chloride 100 ML 10 MG IVCONT (10:15)
[2021-01-20] MEDS: Apixaban 5 MG TABLET PO ×2 (10:21→20:37)
--- NOTE | 2021-01-20 12:21 | HO.PM.IMPN ---
Subjective Subjective Date of Service: 01/20/21 Interval History: Patient resting in bed denies chest pain or shortness of breath, wants to be home with her family, telemonitor shows persistent atrial fibrillation with ventricular rate fluctuating between 100 to 130 General no headache, no dizziness, no fever chills. CVS no chest pain, no palpitation. Respiratory no cough, no sob Gastrointestinal no nausea, no vomiting, no abdominal pain Physical Exam Vital Signs: Vital Signs: Last Vital Signs Temp 98.0 F 01/20/21 08:00 Pulse 110 H 01/20/21 12:00 Resp 19 01/20/21 12:00 BP 96/47 L 01/20/21 12:00 Pulse Ox 95 01/20/21 12:00 Body Mass Index 25.9 General patient resting comfortably in no acute distress. Neck is supple no JVD. CVS irregular rate rhythm, Respiratory lungs clear to auscultation, no respiratory distress, no wheeze, no rhonchi. Gastrointestinal abdomen soft, nontender, bowel sounds audible, no guarding , no rigidity. Extremities no clubbing cyanosis or edema. Neuro nonfocal Skin no rash Objective Data Current Medications Generic Name Dose Route Start Last Admin Trade Name Freq PRN Reason Stop Dose Admin Acetaminophen 650 mg 01/19/21 20:47 Acetaminophen 325 Mg Tablet PO Q6H PRN Pain, Mild (Pain Scale 1-3) Apixaban 5 mg 01/20/21 09:15 01/20/21 10:21 Apixaban 5 Mg Tablet PO 5 mg BID RACHEAL Administration Atorvastatin Calcium 10 mg 01/19/21 21:00 01/19/21 21:24 Atorvastatin Calcium 10 Mg Tablet PO 10 mg BEDTIME RACHEAL Administration Dicyclomine HCl 10 mg 01/19/21 20:47 Dicyclomine Hcl 10 Mg Capsule PO QID PRN Abdominal Discomfort Docusate Sodium 100 mg 01/19/21 20:47 Docusate Sodium 100 Mg Capsule PO DAILY PRN Constipation Diltiazem HCl 125 mg/ Sodium 125 mls @ 0 mls/hr 01/19/21 20:47 01/20/21 10:15 Chloride IVCONT 10 mg/hr .Q0M RACHEAL 10 mls/hr Administration Protocol Per Protocol Lorazepam 0.5 mg 01/19/21 21:00 01/19/21 21:24 Lorazepam 0.5 Mg Tablet PO 0.5 mg BEDTIME RACHEAL Administration Ondansetron HCl 4 mg 01/19/21 20:47 Ondansetron Hcl 4 Mg/2 Ml Vial IVPUSH Q8H PRN Nausea and Vomiting Pharmacy Consult 1 each 01/19/21 12:05 Consult Rx Perform Med Rec MISCELLANE ONCE PRN Consult order Sodium Chloride 3 ml 01/20/21 00:00 01/20/21 07:38 0.9 % Sodium Chloride Flush 3 Ml Syringe IVFLUSH 3 ml QSHIFT RACHEAL Administration Labs CBC & Chem 7: 01/20/21 04:28 01/20/21 04:28 Assessment and Plan (1) HTN (hypertension): Status: Acute (2) Atrial flutter: Status: Acute Assessment and Plan: 80-year-old female with past medical history of mitral valve regurg, hypertension who presents to the hospital with complaints of palpitation found to have a flutter with RVR # aflutter with rapid RVR Symptoms of dizziness resolved patient continue to have palpitation, case discussed with Dr. Connor from Cardiology will resume IV Cardizem drip, Eliquis started for anticoagulation chadvasc 4 TSH within normal range, follow echo, if patient heart rate improved and she is asymptomatic and patient will be discharged home otherwise will undergo AMMY cardioversion. Continue tele monitor and close follow up. # hypertension blood pressure soft this morning, home dose of amlodipine discontinued since patient on Cardizem drip, will add beta-blockers if BP allows. # hyperlipidemia continue statin. # history of mitral valve regurg will follow echocardiogram. DVT prophylaxis: Eliquis.
[2021-01-20] MEDS: Metoprolol Tartrate 25 MG TABLET PO ×2 (14:45→20:37)
[2021-01-20 20:06] LABS: INTERNATIONAL NORM RATIO 1.3 (0.9-1.1); Prothrombin Time 15.3 SEC (10.8-13.0)
[2021-01-20] MEDS: Atorvastatin Calcium 10 MG TABLET PO (20:37)
[2021-01-20] MEDS: LORazepam 0.5 MG TABLET PO (20:37)
--- NOTE | 2021-01-20 20:47 | CA_ITS ---
Transthoracic Echocardiogram Patient (Last, First, Middle): Saundra Parada, Gender: Female Date of : 1940 Age: 80 Procedure Date: 01/20/2021 Procedure Type: Transthoracic Echocardiogram [place] [facility] [place] Height: 157.48 cm Weight: 64.41 kg BSA: 1.65 m2 Heart Rate: bpm BP: 131 / 79 mmHg Health Promotion Manager: Referring MD: Duane Ace MD Coal Grader: Claudy Rojas MD Symptoms: A flutter with RVR Study Quality: Good ECG Rhythm: Atrial Fibrillation Conclusions: - 1. Normal LV systolic function 2. Moderate left atrial enlargement 3. Moderate mitral and tricuspid regurgitation 4. Ayaf-fc-[id number] elevation of right ventricular systolic pressure 5. No pericardial effusion Findings Left Ventricle Normal left ventricular size, thickness, and systolic function. The visually estimated ejection fraction is between 60-65%. Diastolic function is indeterminate on the basis of available data. Right Ventricle Normal right ventricular cavity size and systolic function. Atria The left atrium is moderately dilated. There is no evidence of interatrial shunt. The right atrium is mildly dilated. Aortic Valve There is mild calcification of the aortic valve. There is no aortic valve stenosis. There is no aortic valve regurgitation. Mitral Valve There is mild anterior and posterior mitral leaflet thickening. There is mild mitral annular calcification. There is moderate mitral valve regurgitation. There is no mitral valve stenosis. Pulmonic Valve The pulmonic valve was not well visualized. Tricuspid Valve Likely normal tricuspid valve structure and function. There is moderate tricuspid valve regurgitation. The right ventricular systolic pressure is 45 mmHg. Normal right atrial pressure. Mild to moderate pulmonary hypertension is present. Great Vessels All visible segments of the aorta are normal in size. The pulmonary artery was not well visualized. Venous The inferior vena cava is normal in size and collapses greater than 50% with inspiration. Pericardium/Pleural There is no evidence of pericardial effusion. Prior Study Comparison Changes noted compared to prior study dated: 04/12/2018. Mitral regurgitation appears to be moderate. RV systolic pressure is elevated Measurements 2D Linear Measurements IVSd: 1.34 0.6-0.9/0.6-1.0 cm LVIDd: 3.16 3.9-5.3/4.2-5.9 cm LVIDd Index: 1.92 2.4-3.2/2.2-3.1 cm/m2 LVIDs: 2.12 2.0-3.6 cm LVPWd: 1.31 0.7-1.1 cm Ao Root: 2.70 2.1-3.5 cm LA Diam: 4.40 2.7-3.8/3.0-4.0 cm LAIDs Index: 2.67 1.5-2.3 cm/m2 LV Mass: 171.15 67-162/88-224 g LV Mass Index: 103.73 43-95/49-115 g/m2 LVOT Diam: 1.90 3.0+(-)1.3 cm Mitral Valve MV Pk E: 1.62 MV Decel Time: 137.00 E'Lateral: 13.50 E'Medial: 7.64 E/E' Med: 21.20 E/E' Lat: 12.00 PHT: 40.00 MVA PHT: 5.50 Decel [place]: 11.83 MR Vol - PW Dopp: 21.08 MR VTI: 1.24 MR ERO: 17.00 MR Alias Willi: 0.39 MR RAD: 0.60 Aortic Valve AoV Pk Willi: 3.44 AoV Mn Willi: 2.53 AoV VTI: 0.77 AoV Pk Grad: 47.00 Aov Mn Grad: 40.00 HERMELINDO Cont.VTI: 0.53 LVOT LVOT Pk Willi: 0.94 LVOT Mn Willi: 0.64 LVOT VTI: 0.15 LVOT Pk Grad: 4.00 LVOT Mn Grad: 2.00 LVOT Diam: 1.90 LVOT Area: 2.84 Diastolic Function MV Pk E: 1.62 E'Medial: 7.64 E/E' Med: 21.20 E' Laterial: 13.50 E/E' Lat: 12.00 Tricuspid Valve TR Pk Willi: 3.04 TR Pk Grad: 37.00 RA Press: 8.00 RVSP: 45.00 Great Vessels Aorta Ao Root-2D: 2.70 2.0-3.7 cm Ao Asc: 3.10 2.1-3.4 cm Pulmonary Valve PV Pk Willi: 0.87 Peak PV Grad: 3.00 Updated in Other Vendor System with Status of Final Claudy Rojas MD electronically signed on 01/20/2021 2:09:56 PM with status of Final
[2021-01-21] VITALS (12 sets, daily range): BP systolic 92–123; BP diastolic 49–62; PULSE 62–114; RESP 14–18; TEMP 36.6–37.2; O2SAT 95–96
--- NOTE | 2021-01-21 | ECG_ITS ---
Test Reason : CHEST PAIN Blood Pressure : / mmHG Vent. Rate : 092 BPM Atrial Rate : 258 BPM P-R Int : 000 ms QRS Dur : 084 ms QT Int : 364 ms P-R-T Axes : 076 019 -10 degrees QTc Int : 450 ms Atrial flutter with variable A-V block Abnormal ECG When compared to the previous EKG of No significant changes seen Referred By: Yovanny Amos Electronically Signed By:NAZ BANG MD
[2021-01-21] MEDS: 0.9 % Sodium Chloride Flush 3 ML SYRINGE IVFLUSH ×3 (03:12→15:08)
[2021-01-21] MEDS: Apixaban 5 MG TABLET PO ×2 (08:53→20:59)
[2021-01-21] MEDS: Metoprolol Tartrate 25 MG TABLET PO ×3 (08:53→21:00)
[2021-01-21] MEDS: dilTIAZem HCL 125 MG in 0.9 % Sodium Chloride 100 ML 10 MG IVCONT (08:58)
--- NOTE | 2021-01-21 10:04 | PM.PNCARD ---
Subjective Subjective Date of Service: 01/21/21 Principal diagnosis: Atrial flutter, recurrent. Interval history: Patient converted spontaneously to sinus rhythm yesterday. However overnight converted back into atrial flutter/fibrillation with rapid ventricular response. She continues to have rapid heart rate. No hemodynamic compromise. No shortness of breath or chest discomfort. No lightheadedness, syncope. Review of Systems Constitutional: Reports no additional constitutional complaints Cardiovascular: Denies chest pain and Denies dyspnea Respiratory: Reports no additional respiratory complaints and Denies dyspnea Gastrointestinal: Reports no additional gastrointestinal complaints Genitourinary: Reports no additional female genitourinary complaints Reports system reviewed and no additional complaints, except as documented Psychiatric: Reports no additional psychiatric complaints Endocrine: Reports no additional endocrine complaints Physical Exam Vital Signs: Last Vital Signs Temp 98.4 F 01/21/21 08:00 Pulse 114 H 01/21/21 08:53 Resp 15 01/21/21 08:00 BP 110/62 01/21/21 08:53 Pulse Ox 95 01/21/21 08:00 Body Mass Index 25.9 Const General: cooperative, comfortable and no acute distress Nutritional Appearance: average body habitus Orientation/consciousness: patient oriented x3 Neck Neck: Yes trachea midline, Yes supple and Yes no JVD Resp Effort & Inspection: normal respiratory effort Auscultation: clear to auscultation bilaterally Cardio Rate: tachycardic Rhythm: abnormal rhythm irregularly irregular Heart sounds: S1 normal heart sound present and S2 normal heart sound present Skin General skin exam: no rashes or lesions noted Neuro General: patient oriented x3 and no focal motor deficits Extrem General: Yes no clubbing, cyanosis or edema Psych Appearance: grossly normal Results Labs and Meds Result diagrams: 01/20/21 04:28 01/20/21 04:28 Lab results: Laboratory Results - last 24 hr 01/20/21 19:45 PT 15.3 H INR 1.3 H Progress Note: A&P Assessment and plan (1) Atrial flutter: Status: Acute Assessment and Plan: Recurrent paroxysmal atrial flutter with rapid ventricular response difficult to control. Patient converted spontaneously with rate control yesterday. If she does that again today with IV Cardizem drip which should be started soon and p.o. metoprolol, switch to oral antiarrhythmic drug therapy with Multaq 400 mg b.i.d.. Please let me know as soon as possible as patient converted back to sinus rhythm will start her antiarrhythmic drug therapy. If she remains in atrial flutter with [id number] rate, maintain NPO past midnight and will perform AMMY guided cardioversion tomorrow to make sure she does not have any intracardiac thrombi prior to cardioversion. We discussed the risks, benefits, alternatives to AMMY as well as cardioversion details with the patient. She understands agrees. Continue full oral anticoagulation with Eliquis. Will follow the patient. Fall Risk Details Current Medications: Current Medications Generic Name Dose Route Start Last Admin Trade Name Freq PRN Reason Stop Dose Admin Acetaminophen 650 mg 01/19/21 20:47 Acetaminophen 325 Mg Tablet PO Q6H PRN Pain, Mild (Pain Scale 1-3) Apixaban 5 mg 01/20/21 09:15 01/21/21 08:53 Apixaban 5 Mg Tablet PO 5 mg BID RACHEAL Administration Atorvastatin Calcium 10 mg 01/19/21 21:00 01/20/21 20:37 Atorvastatin Calcium 10 Mg Tablet PO 10 mg BEDTIME RACHEAL Administration Dicyclomine HCl 10 mg 01/19/21 20:47 Dicyclomine Hcl 10 Mg Capsule PO QID PRN Abdominal Discomfort Docusate Sodium 100 mg 01/19/21 20:47 Docusate Sodium 100 Mg Capsule PO DAILY PRN Constipation Diltiazem HCl 125 mg/ Sodium 125 mls @ 0 mls/hr 01/19/21 20:47 01/21/21 09:51 Chloride IVCONT 5 mg/hr .Q0M RACHEAL 5 mls/hr Titration Protocol Per Protocol Lorazepam 0.5 mg 01/19/21 21:00 01/20/21 20:37 Lorazepam 0.5 Mg Tablet PO 0.5 mg BEDTIME RACHEAL Administration Metoprolol Tartrate 25 mg 01/20/21 12:55 01/21/21 08:53 Metoprolol Tartrate 25 Mg Tablet PO 25 mg BID RACHEAL Administration Protocol Ondansetron HCl 4 mg 01/19/21 20:47 Ondansetron Hcl 4 Mg/2 Ml Vial IVPUSH Q8H PRN Nausea and Vomiting Pharmacy Consult 1 each 01/19/21 12:05 Consult Rx Perform Med Rec MISCELLANE ONCE PRN Consult order Sodium Chloride 3 ml 01/20/21 00:00 01/21/21 08:53 0.9 % Sodium Chloride Flush 3 Ml Syringe IVFLUSH 3 ml QSHIFT RACHEAL Administration Time Spent With Patient Time: Total time spent is greater than 50% in coordination of care (as documented) at patient's floor/unit and/or counseling patient: Time with patient: 25 - 35 minutes Procedures Date of Service Date of Service: 01/21/21
--- NOTE | 2021-01-21 10:43 | ECG_ITS ---
Test Reason : RHYTHM CHANGE Blood Pressure : / mmHG Vent. Rate : 067 BPM Atrial Rate : 267 BPM P-R Int : 000 ms QRS Dur : 088 ms QT Int : 402 ms P-R-T Axes : 080 020 034 degrees QTc Int : 424 ms Atrial flutter with variable A-V block Low voltage QRS Abnormal ECG When compared with ECG of 19-JAN-2021 12:34, ST no longer depressed in Anterior leads QT has shortened Referred By: Yovanny Amos Electronically Signed By:NAZ BANG MD
--- NOTE | 2021-01-21 13:11 | P.PNIM_ITS ---
Subjective Subjective Date of Service: 01/21/21 Interval History: No acute complaints this morning complaining of heart racing with activity otherwise no chest pain no shortness of breath no acute issues overnight patient converted to normal sinus rhythm but subsequently reverted back to atrial fibrillation ROS General no headache, no dizziness, no fever chills. CVS no chest pain, palpitation with activity. Respiratory no cough, no sob Gastrointestinal no nausea, no vomiting, no abdominal pain Physical Exam Vital Signs: Vital Signs: Last Vital Signs Temp 98.9 F 01/21/21 12:00 Pulse 64 01/21/21 12:30 Resp 16 01/21/21 12:00 BP 103/55 L 01/21/21 12:00 Pulse Ox 96 01/21/21 12:00 Body Mass Index 25.9 General patient resting comfortably in no acute distress. Neck is supple no JVD. CVS irregular rate rhythm, Respiratory lungs clear to auscultation, no respiratory distress, no wheeze, no rhonchi. Gastrointestinal abdomen soft, nontender, bowel sounds audible, no guarding , no rigidity. Extremities no clubbing cyanosis or edema. Neuro nonfocal Skin no rash Objective Data Current Medications Generic Name Dose Route Start Last Admin Trade Name Freq PRN Reason Stop Dose Admin Acetaminophen 650 mg 01/19/21 20:47 Acetaminophen 325 Mg Tablet PO Q6H PRN Pain, Mild (Pain Scale 1-3) Apixaban 5 mg 01/20/21 09:15 01/21/21 08:53 Apixaban 5 Mg Tablet PO 5 mg BID RACHEAL Administration Atorvastatin Calcium 10 mg 01/19/21 21:00 01/20/21 20:37 Atorvastatin Calcium 10 Mg Tablet PO 10 mg BEDTIME RACHEAL Administration Dicyclomine HCl 10 mg 01/19/21 20:47 Dicyclomine Hcl 10 Mg Capsule PO QID PRN Abdominal Discomfort Docusate Sodium 100 mg 01/19/21 20:47 Docusate Sodium 100 Mg Capsule PO DAILY PRN Constipation Diltiazem HCl 125 mg/ Sodium 125 mls @ 0 mls/hr 01/19/21 20:47 01/21/21 09:51 Chloride IVCONT 5 mg/hr .Q0M RACHEAL 5 mls/hr Titration Protocol Per Protocol Lorazepam 0.5 mg 01/19/21 21:00 01/20/21 20:37 Lorazepam 0.5 Mg Tablet PO 0.5 mg BEDTIME RACHEAL Administration Metoprolol Tartrate 25 mg 01/20/21 12:55 01/21/21 08:53 Metoprolol Tartrate 25 Mg Tablet PO 25 mg BID RACHEAL Administration Protocol Ondansetron HCl 4 mg 01/19/21 20:47 Ondansetron Hcl 4 Mg/2 Ml Vial IVPUSH Q8H PRN Nausea and Vomiting Pharmacy Consult 1 each 01/19/21 12:05 Consult Rx Perform Med Rec MISCELLANE ONCE PRN Consult order Sodium Chloride 3 ml 01/20/21 00:00 01/21/21 08:53 0.9 % Sodium Chloride Flush 3 Ml Syringe IVFLUSH 3 ml QSHIFT RACHEAL Administration Labs CBC & Chem 7: 01/20/21 04:28 01/20/21 04:28 Assessment and Plan (1) HTN (hypertension): Status: Acute (2) Atrial flutter: Status: Acute (3) Acute dyspnea: Status: Acute Assessment and Plan: 80-year-old female with past medical history of mitral valve regurg, h ypertension who presents to the hospital with complaints of palpitation found to have a flutter with RVR # aflutter with rapid RVR Patient converted to normal sinus rhythm yesterday but reverted back to atrial flutter with rapid ventricular rate this morning therefore will re- initiate IV Cardizem drip and continue metoprolol Symptoms of dizziness resolved patient continue to have palpitation with activity, case discussed with Dr. Connor from Cardiology he recommend to restart IV Cardizem drip, and if patient converted to normal sinus rhythm he recommend Multaq 400 mg b.i.d., but if patient remains in atrial flutter with difficult to control ventricular rate patient will undergo AMMY guided cardioversion TSH within normal range, echo, showed EF 60-65%, with moderate left atrial e nlargement and moderate mitral and tricuspid regurg NPO after midnight. Continue tele monitor and close follow up. # hypertension blood pressure soft this morning, home dose of amlodipine dis continued since patient on Cardizem drip, cont. beta-blockers . # hyperlipidemia continue statin. # history of mitral valve regurg DVT prophylaxis: Eliquis.
--- NOTE | 2021-01-21 15:03 | MHC.CM.NN ---
Met with pt to review d/c plan: Pt continues to support original plan of home, no services and family support with outpt f/u.
[2021-01-21] MEDS: ondansetron HCL 4 MG/2 ML VIAL IVPUSH (15:08)
[2021-01-21] MEDS: Morphine Sulfate 2 MG/ML CARTRIDGE 1 MG IVPUSH (16:24)
[2021-01-21 16:46] LABS: Troponin-I High Sensitivity < 3.5 ng/L (<3.5-17.0)
--- NOTE | 2021-01-21 19:01 | PC.NURSE ---
1505: Pt Hr 130s, bp 136/78, nausea, and c/o 10/10 chest pressure. Cardizem gtt restarted, Zofran given per EMAR. MD haganconnected, order for EKG, 1mg morphine and additional dose of metoprolol ordered. Cardizem gtt titrated per emar. Nausea resolved, pain down to 4/10, HR 60-70s
--- NOTE | 2021-01-21 20:55 | ECG_ITS ---
Test Reason : CHEST PRESSURE Blood Pressure : / mmHG Vent. Rate : 082 BPM Atrial Rate : 254 BPM P-R Int : 000 ms QRS Dur : 092 ms QT Int : 394 ms P-R-T Axes : 085 031 030 degrees QTc Int : 460 ms Atrial flutter with variable A-V block Low voltage QRS Cannot rule out Anterior infarct , age undetermined When compared to the previous EKG of No significant changes seen Referred By: Yovanny Amos Electronically Signed By:NAZ BANG MD
[2021-01-21] MEDS: Atorvastatin Calcium 10 MG TABLET PO (20:58)
[2021-01-21] MEDS: LORazepam 0.5 MG TABLET PO (20:59)
[2021-01-22] VITALS (11 sets, daily range): BP systolic 95–122; BP diastolic 44–78; PULSE 58–121; RESP 12–22; TEMP 36.9–37.4; O2SAT 91–96
--- NOTE | 2021-01-22 | CA_ITS ---
Acquisition Time: 2021-01-22 13:16:53 Total Exercise Time: 00:02:00 Test Indications: Abnormal ECG Medications: SEE EMAR Protocol: LEXISCAN Max HR: 137 BPM 97% of Pred: 140 BPM Max BP: 130/064 mmHG Max Work Load: 1.0 METS Pharmacological stress test using Lexiscan while lying. Pt tolerated well, reported sx of feeling fatiqued and palpitations. A-fib rate in 80's and up to 137 post lexiscan ingection. Pt on cardizem drip. HR in 130's at 14 min in recovery. Drip increased to 10/hr from 8/hr. 10 mg of cardizem IV given. HR down to 110-120's. EKG non-diagnostic for ischemia. Normotensive response to test. Nuclear images to follow. Test reviewed with Dr. Rojas. Referred By: Elenita May Overread By:
[2021-01-22] MEDS: 0.9 % Sodium Chloride Flush 3 ML SYRINGE IVFLUSH ×2 (01:16→20:50)
--- NOTE | 2021-01-22 04:54 | PC.NURSE ---
Approximately 2114 patient HR elevated momentarily to 120's but complained of 8/10 chest pressure. HR down 80-100's Atrial flutter. EKG completed, chest pressure improving scheduled bedtime meds given. MD notified. continue to monitor.
[2021-01-22] MEDS: Apixaban 5 MG TABLET PO ×2 (09:25→20:40)
[2021-01-22] MEDS: Metoprolol Tartrate 25 MG TABLET PO ×2 (09:25→16:57)
--- NOTE | 2021-01-22 09:33 | ECG_ITS ---
Test Reason : CP Blood Pressure : / mmHG Vent. Rate : 090 BPM Atrial Rate : 267 BPM P-R Int : 000 ms QRS Dur : 082 ms QT Int : 354 ms P-R-T Axes : 000 024 -01 degrees QTc Int : 433 ms Atrial flutter with variable A-V block Abnormal ECG When compared with ECG of 21-JAN-2021 20:55, No significant change was found Referred By: Yovanny Amos Electronically Signed By:NAZ BANG MD
[2021-01-22 10:41] LABS: Anion Gap 11 (12-20); Blood Urea Nitrogen 13 mg/dL (9-16); Calcium 9.3 mg/dL (8.4-10.2); Carbon Dioxide 27 mmol/L (22-29); Chloride 107 mmol/L (96-108); Estimated Glomerular Filt Rate > 60; Glucose Random 102 mg/dL (60-115); Potassium 4.3 mmol/L (3.3-5.1); Sodium 141 mmol/L (135-145)
[2021-01-22 10:45] LABS: B Type Natriuretic Peptide 141 pg/mL (<100); Troponin-I High Sensitivity < 3.5 ng/L (<3.5-17.0)
--- NOTE | 2021-01-22 11:09 | P.PNCA_ITS ---
Subjective Subjective Date of Service: 01/22/21 <ROMAN Lo - Last Filed: 01/22/21 12:30> 01/22/21 <Claudy Rjoas MD - Last Filed: 01/22/21 13:15> Principal diagnosis: Atrial flutter, recurrent, CP <ROMAN Lo - Last Filed: 01/22/21 12:30> Interval history: Cardiology follow up for Aflutter, reports CP. Seen at 0830. Today she reports having chest pressure yesterday late afternoon and evening. This am with mild residual pressure. She noticed it more when her heart rates were very elevated. She can feel heart palpitation. Breathing more comfortable. No cough, no orthopnea. Upset and fearful over her current condition. NPO this am. <ROMAN Lo - Last Filed: 01/22/21 12:30> Review of Systems Review of Systems as above <ROMAN Lo - Last Filed: 01/22/21 12:30> Yes all other systems are reviewed and are negative <ROMAN Lo - Last Filed: 01/22/21 12:30> Physical Exam Vital Signs: Last Vital Signs Temp 98.5 F 01/22/21 07:50 Pulse 121 H 01/22/21 09:25 Resp 12 01/22/21 07:50 BP 116/75 01/22/21 09:25 Pulse Ox 95 01/22/21 07:50 Body Mass Index 25.9 <ROMAN Lo - Last Filed: 01/22/21 12:30> Const General: cooperative, alert and awake <ROMAN Lo - Last Filed: 01/22/21 12:30> Orientation/consciousness: patient oriented x3 <ROMAN Lo - Last Filed: 01/22/21 12:30> Neck Neck: Yes normal visual inspection <ROMAN Lo Last Filed: 01/22/21 12:30> Resp Effort & Inspection: normal respiratory effort, able to speak in complete sentences and not labored <ROMAN Lo - Last Filed: 01/22/21 12:30> Auscultation: clear to auscultation bilaterally, no crackles, no rales, no rhonchi and no wheezes <Elenita Jama ROMAN May - Last Filed: 01/22/21 12:30> Cardio Other: heart tones irregularly irregular, rapid <Elenita Jama SYLVIA MayC - Last Filed: 01/22/21 12:30> Jugular venous distension: JVD present <Elenita Jama SYLVIA MayC - Last Filed: 01/22/21 12:30> Palpation: normal PMI <Elenita GaliciaSYLVIA higginbothamC - Last Filed: 01/22/21 12:30> Heart sounds: S1 normal heart sound present and S2 normal heart sound present <Elenita Evita ROMAN Krishna - Last Filed: 01/22/21 12:30> Peripheral pulses: Peripheral pulses 2+ throughout <Elenita Jama SYLVIA MayC - Last Filed: 01/22/21 12:30> GI Inspection: Yes normal to inspection <Elenita Jama SYLVIA MayC - Last Filed: 01/22/21 12:30> Neuro General: patient oriented x3 <Elenita Jama SYLVIA MayC - Last Filed: 01/22/21 12:30> Extrem General: Yes normal to inspection and No edema <Elenita Jama SYLVIA MayC - Last Filed: 01/22/21 12:30> Results Labs and Meds Result diagrams: : 01/20/21 04:28 01/22/21 10:02 <Elenita Jama ROMAN May - Last Filed: 01/22/21 12:30> Lab results: Laboratory Results - last 24 hr 01/21/21 01/22/21 01/22/21 16:10 10:02 10:02 Sodium 141 Potassium 4.3 Chloride 107 Carbon Dioxide 27 Anion Gap 11 L BUN 13 Creatinine 0.79 Estim Creat Clear Calc 50.0 Estimated GFR > 60 Random Glucose 102 Calcium 9.3 Troponin I High Sens < 3.5 < 3.5 B-Natriuretic Peptide 141 H <Elenita Jama SYLVIA MayC - Last Filed: 01/22/21 12:30> Progress Note: A&P Assessment and plan (1) Atrial flutter: Status: Acute <ROMAN Lo - Last Filed: 01/22/21 12:30> Assessment and Plan: Hx afib in past. Admit with 3 weeks of palpitations and increased sob. EKG/ Tele showing atrial flutter with elevate rates. Echo shows normal EF, mod LA enlargment, mod MR/ TR. On Diltiazem drip for rate control and usual home Metoprolol. Started on Eliquis for anticoagulation. Tele showing elevated rates this am. Diltizem drip titrate up. Given dose of Digoxin 0.25mg IV x1. Reports chest discomfort and palpitation. Plan was for AMMY CVR today however having episodes of CP. Ischemia needs to be ruled out first. Ongoing tele monitoring. Continue to treat for rate control. <ROMAN Lo - Last Filed: 01/22/21 12:30> Atrial flutter with difficult control rate, part of the issues patient's anxiety. Treat anxiety effectively and use p.r.n. Ativan as needed. With given 1 mg of Ativan her heart rate reduced significantly. Advised her with stress reduction and anxiety control by herself. Continue current rate control IV Cardizem drip and will give 1 dose of digoxin. If remains with difficult control will require AMMY guided cardioversion. This was discussed with her. <Claudy Rojas MD - Last Filed: 01/22/21 13:15> (2) Chest discomfort: Status: Acute <ROMAN Lo - Last Filed: 01/22/21 12:30> Assessment and Plan: Reports of chest pressure around 5p yesterday lasting 1.5 hr and around 9p lasting 0.5 hr. This am has some mild residual pressure. Will check Troponin and EKG this am. If no acute findings, then plan for pharm nuclear stress test to eval for ischemia. Continue metoprolol. Not given aspirin as she is on Eliquis. <ROMAN Lo - Last Filed: 01/22/21 12:30> Chest pressure last night without any EKG changes and troponin being flat. Given her multiple risk factors would pursue myocardial perfusion manage rule out any significant myocardial ischemia that may impact both management of atrial flutter acutely as well as in the long run. Will perform stress perfusion study today and rest perfusion study tomorrow. Further treatment based on the findings. Will follow with patient closely. <Claudy Rojas MD - Last Filed: 01/22/21 13:15> (3) HTN (hypertension): Status: Acute <ROMAN Lo - Last Filed: 01/22/21 12:30> Assessment and Plan: controlled at present. Continue close monitoring with her rate slowing medications. <ROMAN Lo - Last Filed: 01/22/21 12:30> Fall Risk Details Current Medications: Current Medications Generic Name Dose Route Start Last Admin Trade Name Freq PRN Reason Stop Dose Admin Acetaminophen 650 mg 01/19/21 20:47 Acetaminophen 325 Mg Tablet PO Q6H PRN Pain, Mild (Pain Scale 1-3) Apixaban 5 mg 01/20/21 09:15 01/22/21 09:25 Apixaban 5 Mg Tablet PO 5 mg BID RACHEAL Administration Atorvastatin Calcium 10 mg 01/19/21 21:00 01/21/21 20:58 Atorvastatin Calcium 10 Mg Tablet PO 10 mg BEDTIME RACHEAL Administration Dicyclomine HCl 10 mg 01/19/21 20:47 Dicyclomine Hcl 10 Mg Capsule PO QID PRN Abdominal Discomfort Docusate Sodium 100 mg 01/19/21 20:47 Docusate Sodium 100 Mg Capsule PO DAILY PRN Constipation Diltiazem HCl 125 mg/ Sodium 125 mls @ 0 mls/hr 01/19/21 20:47 01/22/21 09:29 Chloride IVCONT 15 mg/hr .Q0M RACHEAL 15 mls/hr Titration Protocol Per Protocol Lorazepam 0.5 mg 01/19/21 21:00 01/21/21 20:59 Lorazepam 0.5 Mg Tablet PO 0.5 mg BEDTIME RACHEAL Administration Metoprolol Tartrate 25 mg 01/21/21 16:15 01/22/21 09:25 Metoprolol Tartrate 25 Mg Tablet PO 25 mg TID RACHEAL Administration Protocol Morphine Sulfate 1 mg 01/22/21 09:29 Morphine Sulfate 2 Mg/Ml Cartridge IVPUSH Q6H PRN Chest Pain Ondansetron HCl 4 mg 01/19/21 20:47 01/21/21 15:08 Ondansetron Hcl 4 Mg/2 Ml Vial IVPUSH 4 mg Q8H PRN Administration Nausea and Vomiting Pharmacy Consult 1 each 01/19/21 12:05 Consult Rx Perform Med Rec MISCELLANE ONCE PRN Consult order Sodium Chloride 3 ml 01/20/21 00:00 01/22/21 09:28 0.9 % Sodium Chloride Flush 3 Ml Syringe IVFLUSH Not Given QSHIFT RACHEAL <ROMAN Lo - Last Filed: 01/22/21 12:30> Time Spent With Patient Time: Total time spent is greater than 50% in coordination of care (as documented) at patient's floor/unit and/or counseling patient: 20 <ROMAN Lo - Last Filed: 01/22/21 12:30> Time with patient: 15 - 24 minutes <ROMAN Lo - Last Filed: 01/22/21 12:30> Procedures Date of Service Date of Service: 01/22/21 <ROMAN Lo - Last Filed: 01/22/21 12:30>
[2021-01-22] MEDS: LORazepam 0.5 MG TABLET PO ×2 (11:28→20:40)
--- NOTE | 2021-01-22 13:47 | P.PNIM_ITS ---
Subjective Subjective Date of Service: 01/22/21 Interval History: Patient having intermittent chest pain currently improved, feels anxious complaining of back pain no bowel movement since admission has history of chronic irritable bowel disease. ROS General no headache, no dizziness, no fever chills. CVS intermittent chest pain, palpitation . Respiratory no cough, no sob Gastrointestinal no nausea, no vomiting, no abdominal pain Physical Exam Vital Signs: Vital Signs: Last Vital Signs Temp 98.9 F 01/22/21 12:00 Pulse 70 01/22/21 12:00 Resp 21 H 01/22/21 12:00 BP 115/44 L 01/22/21 12:00 Pulse Ox 95 01/22/21 12:00 Body Mass Index 25.9 General no acute distress. Neck is supple no JVD. CVS irregular rate rhythm, Respiratory lungs clear to auscultation, no respiratory distress, no wheeze, no rhonchi. Gastrointestinal abdomen soft, nontender, bowel sounds audible, no guarding , no rigidity. Extremities no clubbing cyanosis or edema. Neuro nonfocal Skin no rash Objective Data Current Medications Generic Name Dose Route Start Last Admin Trade Name Freq PRN Reason Stop Dose Admin Acetaminophen 650 mg 01/19/21 20:47 Acetaminophen 325 Mg Tablet PO Q6H PRN Pain, Mild (Pain Scale 1-3) Apixaban 5 mg 01/20/21 09:15 01/22/21 09:25 Apixaban 5 Mg Tablet PO 5 mg BID RACHEAL Administration Atorvastatin Calcium 10 mg 01/19/21 21:00 01/21/21 20:58 Atorvastatin Calcium 10 Mg Tablet PO 10 mg BEDTIME RACHEAL Administration Dicyclomine HCl 10 mg 01/19/21 20:47 Dicyclomine Hcl 10 Mg Capsule PO QID PRN Abdominal Discomfort Docusate Sodium 100 mg 01/19/21 20:47 Docusate Sodium 100 Mg Capsule PO DAILY PRN Constipation Diltiazem HCl 125 mg/ Sodium 125 mls @ 0 mls/hr 01/19/21 20:47 01/22/21 09:29 Chloride IVCONT 15 mg/hr .Q0M RACHEAL 15 mls/hr Titration Protocol Per Protocol Lorazepam 0.5 mg 01/19/21 21:00 01/21/21 20:59 Lorazepam 0.5 Mg Tablet PO 0.5 mg BEDTIME RACHEAL Administration Metoprolol Tartrate 25 mg 01/21/21 16:15 01/22/21 09:25 Metoprolol Tartrate 25 Mg Tablet PO 25 mg TID RACHEAL Administration Protocol Morphine Sulfate 1 mg 01/22/21 09:29 Morphine Sulfate 2 Mg/Ml Cartridge IVPUSH Q6H PRN Chest Pain Ondansetron HCl 4 mg 01/19/21 20:47 01/21/21 15:08 Ondansetron Hcl 4 Mg/2 Ml Vial IVPUSH 4 mg Q8H PRN Administration Nausea and Vomiting Pharmacy Consult 1 each 01/19/21 12:05 Consult Rx Perform Med Rec MISCELLANE ONCE PRN Consult order Sodium Chloride 3 ml 01/20/21 00:00 01/22/21 09:28 0.9 % Sodium Chloride Flush 3 Ml Syringe IVFLUSH Not Given QSHIFT [facility] Labs CBC & Chem 7: 01/20/21 04:28 01/22/21 10:02 Assessment and Plan (1) Chest discomfort: Status: Acute (2) HTN (hypertension): Status: Acute (3) Atrial flutter: Status: Acute Assessment and Plan: 80-year-old female with past medical history of mitral valve regurg, hypertension who presents to the hospital with complaints of palpitation found to have a flutter with RVR # aflutter with rapid RVR Patient converted to normal sinus rhythm transiently in 1st 24 hours,but reverted back to atrial flutter with rapid ventricular rate, patient symptomatic with palpitations and chest pain Continue IV Cardizem drip and metoprolol, continue Eliquis for chads vascular score of 4 TSH within normal range, echo, showed EF 60-65%, with moderate left atrial enlargement and moderate mitral and tricuspid regurg Continue tele monitor and close follow up. Further management plan as per Cardiology # chest pain intermittently likely related to elevated ventricular rate obtained EKG with episode of chest pain it showed no acute ischemia and troponin were negative cont. Aspirin, beta-blockers and Eliquis further management as per Cardiology # hypertension blood pressure soft this morning, home dose of amlodipine discontinued since patient on Cardizem drip, cont. beta-blockers . # hyperlipidemia continue statin. # history of mitral valve regurg DVT prophylaxis: Eliquis.
[2021-01-22] MEDS: Morphine Sulfate 2 MG/ML CARTRIDGE 1 MG IVPUSH (14:01)
[2021-01-22] MEDS: dilTIAZem HCL 125 MG in 0.9 % Sodium Chloride 100 ML 15 MG IVCONT (16:55)
[2021-01-22] MEDS: Atorvastatin Calcium 10 MG TABLET PO (20:40)
[2021-01-22] MEDS: Lidocaine 4 % Patch ADH..PATCH 0.5 PATCH TRANSDERMA (20:41)
[2021-01-23] VITALS (15 sets, daily range): BP systolic 96–114; BP diastolic 55–66; PULSE 81–131; RESP 18–20; TEMP 36.7–38.2; O2SAT 92–95
[2021-01-23] MEDS: 0.9 % Sodium Chloride Flush 3 ML SYRINGE IVFLUSH ×3 (07:14→23:59)
[2021-01-23] MEDS: Metoprolol Tartrate 25 MG TABLET PO ×4 (07:20→22:21)
[2021-01-23] MEDS: Apixaban 5 MG TABLET PO ×2 (07:20→22:21)
--- NOTE | 2021-01-23 11:19 | PC.NURSE ---
Addendum entered by Melania Hercules RN 01/23/21 12:12: BACK FROM NUCLEAR MED Original Note: OFF UNIT TO NUCLEAR MED
--- NOTE | 2021-01-23 12:08 | PM.PNCARD ---
Subjective Subjective Date of Service: 01/23/21 Principal diagnosis: Atrial flutter, recurrent, CP Interval history: Patient currently not having chest discomfort. Awaiting full completion of myocardial perfusion imaging, resting being performed today. Remains in atrial flutter with very variable rate response and with stress/anxiety goes up very high up to 140 beats per minute. No palpitations. Review of Systems Constitutional: Reports no additional constitutional complaints Cardiovascular: Reports no additional cardiovascular complaints Respiratory: Reports no additional respiratory complaints Genitourinary: Reports no additional female genitourinary complaints Musculoskeletal: Reports no additional musculoskeletal complaints Reports system reviewed and no additional complaints, except as documented Psychiatric: Reports anxiety Physical Exam Vital Signs: Last Vital Signs Temp 98.7 F 01/23/21 07:18 Pulse 102 H 01/23/21 11:17 Resp 20 01/23/21 11:17 BP 114/58 L 01/23/21 11:17 Pulse Ox 95 01/23/21 11:17 Body Mass Index 25.9 Const General: cooperative, alert and awake Orientation/consciousness: patient oriented x3 Neck Neck: Yes trachea midline, Yes supple and Yes no JVD Resp Effort & Inspection: normal respiratory effort Auscultation: clear to auscultation bilaterally Cardio Rhythm: abnormal rhythm irregularly irregular Heart sounds: S1 normal heart sound present and S2 normal heart sound present Skin General skin exam: no rashes or lesions noted Neuro General: patient oriented x3 Psych Appearance: grossly normal Results Labs and Meds Result diagrams: 01/20/21 04:28 01/22/21 10:02 Progress Note: A&P Assessment and plan (1) Chest discomfort: Status: Acute Assessment and Plan: Chest discomfort could be related to atrial flutter with rapid ventricular response. However myocardial ischemia needs to be ruled out. Awaiting full testing with myocardial perfusion imaging to be completed today. We reviewed the results. This is negative will can not pursue treatment of atrial flutter. (2) Atrial flutter: Status: Acute Assessment and Plan: Will digitalize today with 0.25 mg IV push times 3 doses every 6 hours. Continue metoprolol p.o. dose. Antianxiety treatment should be provided. P.r.n. Cardizem IV pushes. Continue full oral anticoagulation with Eliquis. If remains difficult control may require AMMY guided cardioversion. Will follow with the patient. Fall Risk Details Current Medications: Current Medications Generic Name Dose Route Start Last Admin Trade Name Freq PRN Reason Stop Dose Admin Acetaminophen 650 mg 01/19/21 20:47 Acetaminophen 325 Mg Tablet PO Q6H PRN Pain, Mild (Pain Scale 1-3) Apixaban 5 mg 01/20/21 09:15 01/23/21 07:20 Apixaban 5 Mg Tablet PO 5 mg BID RACHEAL Administration Atorvastatin Calcium 10 mg 01/19/21 21:00 01/22/21 20:40 Atorvastatin Calcium 10 Mg Tablet PO 10 mg BEDTIME RACHEAL Administration Dicyclomine HCl 10 mg 01/19/21 20:47 Dicyclomine Hcl 10 Mg Capsule PO QID PRN Abdominal Discomfort Docusate Sodium 100 mg 01/19/21 20:47 Docusate Sodium 100 Mg Capsule PO DAILY PRN Constipation Diltiazem HCl 125 mg/ Sodium 125 mls @ 0 mls/hr 01/19/21 20:47 01/22/21 20:29 Chloride IVCONT 0 mg/hr .Q0M RACHEAL 0 mls/hr Titration Protocol Per Protocol Lorazepam 0.5 mg 01/19/21 21:00 01/22/21 20:40 Lorazepam 0.5 Mg Tablet PO 0.5 mg BEDTIME RACHEAL Administration Metoprolol Tartrate 25 mg 01/22/21 17:00 01/23/21 07:20 Metoprolol Tartrate 25 Mg Tablet PO 25 mg QID RACHEAL Administration Protocol Morphine Sulfate 1 mg 01/22/21 09:29 01/22/21 14:01 Morphine Sulfate 2 Mg/Ml Cartridge IVPUSH 1 mg Q6H PRN Administration Chest Pain Ondansetron HCl 4 mg 01/19/21 20:47 01/21/21 15:08 Ondansetron Hcl 4 Mg/2 Ml Vial IVPUSH 4 mg Q8H PRN Administration Nausea and Vomiting Pharmacy Consult 1 each 01/19/21 12:05 Consult Rx Perform Med Rec MISCELLANE ONCE PRN Consult order Sodium Chloride 3 ml 01/20/21 00:00 01/23/21 07:14 0.9 % Sodium Chloride Flush 3 Ml Syringe IVFLUSH 3 ml QSHIFT RACHEAL Administration Time Spent With Patient Time: Total time spent is greater than 50% in coordination of care (as documented) at patient's floor/unit and/or counseling patient: Time with patient: 25 - 35 minutes Procedures Date of Service Date of Service: 01/23/21
--- NOTE | 2021-01-23 12:15 | HO.PM.IMPN ---
Subjective Subjective Date of Service: 01/23/21 Interval History: Patient resting comfortably denies any chest pain, no palpitations, no other acute issues overnight tele monitor shows persistent atrial flutter with heart rate fluctuating from 80-120 ROS General no headache, no dizziness, no fever chills. CVS intermittent palpitation, no chest pain . Respiratory no cough, no sob Gastrointestinal no nausea, no vomiting, no abdominal pain Physical Exam Vital Signs: Vital Signs: Last Vital Signs Temp 98.7 F 01/23/21 07:18 Pulse 102 H 01/23/21 11:17 Resp 20 01/23/21 11:17 BP 114/58 L 01/23/21 11:17 Pulse Ox 95 01/23/21 11:17 Body Mass Index 25.9 General no acute distress, appears anxious. Neck is supple no JVD. CVS irregular rate rhythm, Respiratory lungs clear to auscultation, no respiratory distress, no wheeze, no rhonchi. Gastrointestinal abdomen soft, nontender, bowel sounds audible, no guarding , no rigidity. Extremities no clubbing cyanosis or edema. Neuro nonfocal Skin no rash Objective Data Current Medications Generic Name Dose Route Start Last Admin Trade Name Freq PRN Reason Stop Dose Admin Acetaminophen 650 mg 01/19/21 20:47 Acetaminophen 325 Mg Tablet PO Q6H PRN Pain, Mild (Pain Scale 1-3) Apixaban 5 mg 01/20/21 09:15 01/23/21 07:20 Apixaban 5 Mg Tablet PO 5 mg BID RACHEAL Administration Atorvastatin Calcium 10 mg 01/19/21 21:00 01/22/21 20:40 Atorvastatin Calcium 10 Mg Tablet PO 10 mg BEDTIME RACHEAL Administration Dicyclomine HCl 10 mg 01/19/21 20:47 Dicyclomine Hcl 10 Mg Capsule PO QID PRN Abdominal Discomfort Digoxin 0.25 mg 01/23/21 12:15 Digoxin 0.5 Mg/2 Ml Ampul IVPUSH 01/24/21 00:16 Q6H RACHEAL Docusate Sodium 100 mg 01/19/21 20:47 Docusate Sodium 100 Mg Capsule PO DAILY PRN Constipation Diltiazem HCl 125 mg/ Sodium 125 mls @ 0 mls/hr 01/19/21 20:47 01/22/21 20:29 Chloride IVCONT 0 mg/hr .Q0M RACHEAL 0 mls/hr Titration Protocol Per Protocol Lorazepam 0.5 mg 01/19/21 21:00 01/22/21 20:40 Lorazepam 0.5 Mg Tablet PO 0.5 mg BEDTIME RACHEAL Administration Metoprolol Tartrate 25 mg 01/22/21 17:00 01/23/21 07:20 Metoprolol Tartrate 25 Mg Tablet PO 25 mg QID RACHEAL Administration Protocol Morphine Sulfate 1 mg 01/22/21 09:29 01/22/21 14:01 Morphine Sulfate 2 Mg/Ml Cartridge IVPUSH 1 mg Q6H PRN Administration Chest Pain Ondansetron HCl 4 mg 01/19/21 20:47 01/21/21 15:08 Ondansetron Hcl 4 Mg/2 Ml Vial IVPUSH 4 mg Q8H PRN Administration Nausea and Vomiting Pharmacy Consult 1 each 01/19/21 12:05 Consult Rx Perform Med Rec MISCELLANE ONCE PRN Consult order Sodium Chloride 3 ml 01/20/21 00:00 01/23/21 07:14 0.9 % Sodium Chloride Flush 3 Ml Syringe IVFLUSH 3 ml QSHIFT RACHEAL Administration Labs CBC & Chem 7: 01/20/21 04:28 01/22/21 10:02 Assessment and Plan (1) Chest discomfort: Status: Acute (2) HTN (hypertension): Status: Acute (3) Atrial flutter: Status: Acute Assessment and Plan: 80-year-old female with past medical history of mitral valve regurg, hypertension who presents to the hospital with complaints of palpitation found to have a flutter with RVR # aflutter with rapid RVR Patient remains in atrial flutter with variable ventricular rate currently on metoprolol 25 mg q.6 hours and IV Cardizem no further episode of chest discomfort. Case discussed with Dr. Rojas he recommend IV digoxin 0.25 mg q.6 hours x3 doses and continue beta-tony Continue Eliquis for chads vascular score of 4 TSH within normal range, echo, showed EF 60-65%, with moderate left atrial enlargement and moderate mitral and tricuspid regurg Continue tele monitor and close follow up. If patient continued to have atrial flutter with difficult to control ventricular rate will undergo AMMY # chest pain intermittently likely related to elevated ventricular rate obtained EKG with episode of chest pain it showed no acute ischemia and troponin were negative cont. Aspirin, beta-blockers and Eliquis , patient undergoing Lexiscan stress test to rule out ischemia. # hypertension blood pressure soft this morning, home dose of amlodipine discontinued since patient on beta-blockers . # hyperlipidemia continue statin. # history of mitral valve regurg # DVT prophylaxis: Eliquis.
[2021-01-23] MEDS: Digoxin 0.5 MG/2 ML AMPUL 0.25 MG IVPUSH ×3 (13:01→23:59)
[2021-01-23] MEDS: Acetaminophen 325 MG TABLET 650 MG PO (15:44)
--- NOTE | 2021-01-23 16:04 | PC.NURSE ---
temp 100.8 orally, heart rate 127 , BP 102/66, )2sat 92 % on RA. , Lungs sounds clear, right lower arm and AC area has some redness, there is a hardened area in the right AC. DR Zuniga was notified. : give the Tylenol now, Right arm will be evaluated by
[2021-01-23] MEDS: Docusate Sodium 100 MG CAPSULE PO (17:04)
--- NOTE | 2021-01-23 18:43 | ECG_ITS ---
Test Reason : RHYTH Blood Pressure : / mmHG Vent. Rate : 081 BPM Atrial Rate : 357 BPM P-R Int : 000 ms QRS Dur : 090 ms QT Int : 382 ms P-R-T Axes : 000 010 016 degrees QTc Int : 443 ms Atrial fibrillation Cannot rule out Inferior infarct , age undetermined Abnormal ECG When compared to the previous EKG of 22 jan 2021, rhythm change from flutter to fibrillation. Referred By: Yovanny Amos Electronically Signed By:JASMINE WILEY
[2021-01-23] MEDS: LORazepam 0.5 MG TABLET PO (22:21)
[2021-01-23] MEDS: Atorvastatin Calcium 10 MG TABLET PO (22:21)
[2021-01-24] VITALS (7 sets, daily range): BP systolic 110–124; BP diastolic 52–68; PULSE 84–118; RESP 18–24; TEMP 37.1–37.4; O2SAT 94–97
--- NOTE | 2021-01-24 03:54 | PC.NURSE ---
CARE ASSUMED 23:15...ALERT..ORIENTED X3...RESPIRATIONS EASY ON ROOM AIR...FINAL DOSE IV DIGOXIN GIVEN AT HS...ATRIAL FLUTTER HR 80'S...OOB TO COMMODE AND VOIDED [place] URINE--BRUSHED TEETH AFTERWARDS...C/O REDNESS AND ITCHY SENSATION TO RIGHT FOREARM WRIST TO AC...MD PREVIOUSLY EVALUATED PER SHIFT REPORT...DAUGHTER CALLED OVERNIGHT AND RELATED DAUGHTER HAD RASH FROM TEMPORARY ID BAND WHEN SHE BROUGHT MOTHER TO HOSPITAL...NEW NAME-BAND OBTAINED...MESH NETTING TO FOREARM AND BAND PLACED OVER DOUBLE LAYER OF MESH..TO MONITOR RESPONSE
[2021-01-24 05:15] LABS: Hematocrit 41.5 % (37-47); Hemoglobin 13.4 g/dl (12.0-16.0); Mean Corpuscular HGB Conc 32.3 g/dl (31.0-35.0); Mean Corpuscular Hemoglobin 30.1 pg (27.0-33.0); Mean Corpuscular Volume 93.3 fL (80-98); Mean Platelet Volume 10.9 fL (9.4-12.3); Platelet Count 229 X10*3/uL (160-400); Red Blood Count 4.45 X10*6/uL (4.20-5.50); Red Cell Distribution Width 12.6 % (11.0-16.0); White Blood Count 10.2 X10*3/uL (4.8-10.8)
[2021-01-24] MEDS: Metoprolol Tartrate 25 MG TABLET PO ×2 (07:55→12:50)
[2021-01-24] MEDS: Apixaban 5 MG TABLET PO (07:55)
[2021-01-24] MEDS: 0.9 % Sodium Chloride Flush 3 ML SYRINGE IVFLUSH (07:55)
[2021-01-24] MEDS: Lidocaine 4 % Patch ADH..PATCH 1 PATCH TRANSDERMA (09:11)
--- NOTE | 2021-01-24 09:48 | PC.NURSE ---
PT OOB TO COMMODE, HR DECREASED TO 40S WHILE HAVING BM. PT BECAME SWEATY. XL BM NOTED. PT BACK TO BED AND RESTING COMFORTABLY. MD NOTIFIED OF EVENT. HR 80S ONCE BACK IN BED. WILL CONTINUE TO MONITOR.
[2021-01-24] MEDS: Digoxin 0.125 MG TABLET PO (10:11)
--- NOTE | 2021-01-24 11:13 | PM.PNCARD ---
Subjective Subjective Date of Service: 01/24/21 Principal diagnosis: Atrial flutter, recurrent, CP Interval history: This morning while having a large bowel movement patient had near syncopal event with bradycardia consistent with vagal episode. Currently feeling well. Rate is much better control with digoxin introduction. Review of Systems Cardiovascular: Denies chest pain Respiratory: Reports no additional respiratory complaints Gastrointestinal: Reports no additional gastrointestinal complaints Musculoskeletal: Reports no additional musculoskeletal complaints Reports system reviewed and no additional complaints, except as documented Psychiatric: Reports anxiety Hematologic/Lymphatic: Reports no additional hematologic/lymphatic complaints Physical Exam Vital Signs: Last Vital Signs Temp 98.8 F 01/24/21 07:54 Pulse 84 01/24/21 10:11 Resp 18 01/24/21 07:54 BP 120/59 L 01/24/21 07:55 Pulse Ox 94 01/24/21 07:54 Body Mass Index 25.9 Const General: cooperative, comfortable, no acute distress, alert and awake Nutritional Appearance: average body habitus Orientation/consciousness: patient oriented x3 Neck Neck: Yes trachea midline, Yes supple and Yes no JVD Resp Effort & Inspection: normal respiratory effort Auscultation: clear to auscultation bilaterally Cardio Jugular venous distension: no JVD Rhythm: abnormal rhythm irregularly irregular Heart sounds: S1 normal heart sound present and S2 normal heart sound present Skin General skin exam: no rashes or lesions noted Neuro General: patient oriented x3 and no focal motor deficits Extrem General: Yes no clubbing, cyanosis or edema Psych Appearance: grossly normal Affect: Anxious affect present Results Labs and Meds Result diagrams: 01/24/21 04:51 01/22/21 10:02 Lab results: Laboratory Results - last 24 hr 01/24/21 04:51 WBC 10.2 RBC 4.45 Hgb 13.4 Hct 41.5 MCV 93.3 MCH 30.1 MCHC 32.3 RDW 12.6 Plt Count 229 MPV 10.9 Absolute Nucleated RBC 0.000 Nucleated RBC % (auto) 0.0 Imaging Radiologist's impression: Impressions Myocardial Perfusion Scan Nuc Med 01/22/21 11:07 Impression: 1. Myocardial perfusion imaging study shows normal myocardial perfusion 2. Gated LVEF is greater than 70% 3. Transient ischemic dilatation not present EKG is nondiagnostic for ischemia Progress Note: A&P Assessment and plan (1) Atrial flutter: Status: Acute Assessment and Plan: New onset atrial flutter with adequate rate control at current time. Continue dual rate control therapy with metoprolol andFull oral anticoagulation with Eliquis. Metoprolol can be switched to 50 mg b.i.d.. Ambulate later today and if rate is adequately controlled can be discharged home with outpatient Holter monitor. Will postpone AMMY guided cardioversion as her rate is adequately controlled. There is no active evidence of myocardial ischemia and/or congestive heart failure. Will eventually most likely require cardioversion in 3 weeks time after adequate anticoagulation. This was discussed with her. She understands and agrees. Blood pressure is well optimized at current time. Vagal episode related to large bowel movement. No interventions required for the same. Fall Risk Details Current Medications: Current Medications Generic Name Dose Route Start Last Admin Trade Name Freq PRN Reason Stop Dose Admin Acetaminophen 650 mg 01/19/21 20:47 01/23/21 15:44 Acetaminophen 325 Mg Tablet PO 650 mg Q6H PRN Administration Pain, Mild (Pain Scale 1-3) Apixaban 5 mg 01/20/21 09:15 01/24/21 07:55 Apixaban 5 Mg Tablet PO 5 mg BID RACHEAL Administration Atorvastatin Calcium 10 mg 01/19/21 21:00 01/23/21 22:21 Atorvastatin Calcium 10 Mg Tablet PO 10 mg BEDTIME RACHEAL Administration Dicyclomine HCl 10 mg 01/19/21 20:47 Dicyclomine Hcl 10 Mg Capsule PO QID PRN Abdominal Discomfort Digoxin 0.125 mg 01/24/21 09:00 01/24/21 10:11 Digoxin 0.125 Mg Tablet PO 0.125 mg DAILY RACHEAL Administration Docusate Sodium 100 mg 01/19/21 20:47 01/23/21 17:04 Docusate Sodium 100 Mg Capsule PO 100 mg DAILY PRN Administration Constipation Lidocaine 1 patch 01/24/21 09:00 01/24/21 09:11 Lidocaine 4 % Patch Adh..Patch TRANSDERMA 1 patch DAILY RACHEAL Administration Protocol Lorazepam 0.5 mg 01/19/21 21:00 01/23/21 22:21 Lorazepam 0.5 Mg Tablet PO 0.5 mg BEDTIME RACHEAL Administration Metoprolol Tartrate 25 mg 01/22/21 17:00 01/24/21 07:55 Metoprolol Tartrate 25 Mg Tablet PO 25 mg QID RACHEAL Administration Protocol Morphine Sulfate 1 mg 01/22/21 09:29 01/22/21 14:01 Morphine Sulfate 2 Mg/Ml Cartridge IVPUSH 1 mg Q6H PRN Administration Chest Pain Ondansetron HCl 4 mg 01/19/21 20:47 01/21/21 15:08 Ondansetron Hcl 4 Mg/2 Ml Vial IVPUSH 4 mg Q8H PRN Administration Nausea and Vomiting Pharmacy Consult 1 each 01/19/21 12:05 Consult Rx Perform Med Rec MISCELLANE ONCE PRN Consult order Sodium Chloride 3 ml 01/20/21 00:00 01/24/21 07:55 0.9 % Sodium Chloride Flush 3 Ml Syringe IVFLUSH 3 ml QSHIFT RACHEAL Administration Time Spent With Patient Time: Total time spent is greater than 50% in coordination of care (as documented) at patient's floor/unit and/or counseling patient: Time with patient: 25 - 35 minutes Procedures Date of Service Date of Service: 01/24/21
--- NOTE | 2021-01-24 12:03 | PM.DS ---
DS: Providers Provider Date of Service: 01/24/21 Date of admission: 01/19/21 20:16 Primary care physician: Agustin Martínez MD Consults: 01/19/21 20:47 Consult to Cardiology Routine Consulting Provider: Claudy Rojas Reason for consultation: new onset A flutter w RVR Has provider been notified: No DS: Diagnosis Discharge Diagnosis (1) Atrial flutter: Status: Acute DS: Medications Discharge Medications Home Medications: Home Medications Medication Instructions Recorded Confirmed atorvastatin 10 mg PO BEDTIME 01/19/21 01/19/21 dicyclomine 10 mg PO QID PRN 01/19/21 01/19/21 lorazepam 0.5 mg PO BEDTIME 01/19/21 01/19/21 mometasone 1 appl TOPICAL BID PRN 01/19/21 01/19/21 vitamin B complex 1 cap PO BEDTIME 01/19/21 01/19/21 Previous Rx's Medication Instructions Recorded apixaban [Eliquis] 5 mg PO BID #60 tab 01/24/21 digoxin 0.125 mg PO DAILY #30 tab 01/24/21 metoprolol tartrate 50 mg PO BID #60 tab 01/24/21 DS: Summary Hospital Course Hospital Course: History of presenting illness 80-year-old female with past medical history of hypertension, hyperlipidemia, mitral valve regurg,anxiety who presents to the hospital with complaints of racing heart. Patient reports that she went to her PCP with this complaint and he asked her to come to the hospital. This started the night prior to presentation. She was not able to measure her heart rate which is felt a racing heart with dizziness, lightheadedness, and nausea. She did not have any change in vision, no headache, no shortness of breath, She also felt pressure in the chest that lasted for 20 minutes and resolved spontaneously. Although patient reports no previous similar episodes she does have a recorded history in EMR of and on stained AFib. Patient is not on any anticoagulation. She otherwise reports that she has been in good health prior to this, has no shortness of breath, no cough, no abdominal pain, no vomiting, no diarrhea, no lower extremity edema no urinary symptoms. On arrival to the ED hemodynamically stable with heart rate in the 130s, patient received multiple doses of IV metoprolol with no resolution. Blood pressure stable satting 99% on room air Labs unremarkable with troponin negative, BNP slightly elevated at 182. Chest x-ray shows left basilar hazy patchy opacity from atelectasis/infiltrate Hospital course Atrial flutter with rapid ventricular response Patient was admitted to intermediate care unit and was treated with IV Cardizem drip patient converted to normal sinus rhythm transiently and reverted back to atrial flutter therefore was placed on metoprolol 25 mg q.i.d. due to persistent rapid ventricular rate digoxin loading dose was given patient ventricular rate has now stabilized somewhere between 80-120 range currently she is asymptomatic with no chest pain or shortness of breath therefore being discharged home on by mouth digoxin, metoprolol 50 mg b.i.d. and Eliquis for anticoagulation due to chads vascular score of 4 patient has been instructed to follow-up with Cardiology for outpatient Holter monitor and possible cardioversion after 3 weeks. Chest pain due to episodes of chest pain with rapid ventricular response patient underwent Lexiscan stress test that showed no evidence of ischemia, aspirin discontinued patient has been continued on beta-blockers and statins Hypertension well controlled Back pain recommend to use Tylenol Time Spent with Patient Time attestation: Total time spent providing and/or coordinating discharge services: Discharge coordination time: Greater than 30 minutes Physical Exam Vital Signs: Vital Signs: Last Vital Signs Temp 98.8 F 01/24/21 07:54 Pulse 99 01/24/21 11:45 Resp 24 H 01/24/21 11:45 BP 114/68 01/24/21 11:45 Pulse Ox 97 01/24/21 11:45 Body Mass Index 25.9 General no acute distress, appears anxious. Neck is supple no JVD. CVS irregular rate rhythm, Respiratory lungs clear to auscultation, no respiratory distress, no wheeze, no rhonchi. Gastrointestinal abdomen soft, nontender, bowel sounds audible, no guarding , no rigidity. Extremities no edema. Right upper extremity mild induration and erythema at site of prior IV, small area of redness at wrist, consistent with skin irritation Neuro nonfocal Skin no rash DS: Data Data Completed and Pending Labs on day of discharge: Laboratory Results - last 24 hr 01/24/21 04:51 WBC 10.2 RBC 4.45 Hgb 13.4 Hct 41.5 MCV 93.3 MCH 30.1 MCHC 32.3 RDW 12.6 Plt Count 229 MPV 10.9 Absolute Nucleated RBC 0.000 Nucleated RBC % (auto) 0.0 Discharge Plan Discharge Patient Disposition: Home, Self-Care Referrals: Agustin Martínez MD [Primary Care Provider] - Discharge Medications: New digoxin 125 mcg (0.125 mg) Tablet 0.125 mg PO DAILY Qty: 30 RF: 0 Eliquis 5 mg Tablet 5 mg PO BID Qty: 60 RF: 0 metoprolol tartrate 25 mg Tablet 50 mg PO BID Qty: 60 RF: 0 Continued atorvastatin 10 mg Tablet 10 mg PO BEDTIME RF: 0 lorazepam 0.5 mg Tablet 0.5 mg PO BEDTIME RF: 0 mometasone 0.1 % Ointment 1 appl TOPICAL BID PRN (Reason: Rash) RF: 0 dicyclomine 10 mg Capsule 10 mg PO QID PRN (Reason: Abdominal Discomfort) RF: 0 vitamin B complex Capsule 1 cap PO BEDTIME RF: 0 Discontinued amlodipine 5 mg Tablet 5 mg PO BEDTIME RF: 0 aspirin 81 mg Tablet,Delayed Release (Dr/Ec) 81 mg PO BEDTIME RF: 0 Discharge Orders: Discharge Order (Routine); Ordered 01/24/21 Ordered By: Yovanny Amos Diet: advance to usual diet Activity on Discharge: As tolerated Stand Alone Forms: Patient Portal Discharge page Care Plan Goals: Return to hospital with any symptoms of chest pain, shortness of breath lightheadedness dizziness or sensation of passing out, stop using Norvasc Health Concerns: Atrial flutter Plan of Treatment: Outpatient follow-up with PCP and Cardiology
--- NOTE | 2021-01-24 12:13 | PC.NURSE ---
AMBULATED IN [facility] WITH RN TO MONITOR HR. PEAK HR WAS 105. MD NOTIFIED OF RESULTS.
--- NOTE | 2021-01-24 13:00 | MHC.CM.PN ---
Received notification patient will be discharged today. Met with patient. IMM explained and signed. Patient verified she will be returning home without services and her family will transport home. Continue to monitor for d/c needs.
== END 2021-01-24 13:40 | disposition home or self-care (01) | DRG 310 ==
LOC: HO.ED 15:58 → HO.EDOVER 21:11 → HO.ICU 23:02 → HO.IMC 01-24 10:27 → HO.ICU 01-24 12:19
PROVIDERS: Nurse Practitioner Family; Admitting Provider Internal Medicine; Emergency Provider Emergency Medicine; PCP Internal Medicine; Visit Provider Hospitalist
DX: I48.92 Unspecified atrial flutter (principal); I10 Essential (primary) hypertension; R55 Syncope and collapse; Z20.822 Contact with and (suspected) exposure to COVID-19; Z87.442 Personal history of urinary calculi; Z79.01 Long term (current) use of anticoagulants; Z79.899 Other long term (current) drug therapy
CPT/HCPCS: 36415; 71045; 78452; 80048; 80076; 83735; 83880; 84443; 84484; 85025; 85027; 85379; 85610; 85730; 87635; 93005; 93017; 93306; 96374; 96376; 99285; A9500; J0280; J1160; J1650; J2270; J2405; J2785

== ENCOUNTER 2021-02-20 07:32 | Outpatient (REF) | payer MEDICARE, SELFPAY ==
[2021-02-20 08:16] LABS: MANUAL DIFF FLAG NO
[2021-02-20 08:19] LABS: Basophils Percent Auto 0.5 % (0-2); Eosinophils Absolute Auto 0.3 X10*3/uL (0.0-0.4); Eosinophils Percent Auto 3.9 % (0-4); Hematocrit 46.7 % (37-47); Hemoglobin 14.9 g/dl (12.0-16.0); Imm Gran Abs Auto 0.01 X10*3/uL (0.00-0.03); Imm Gran Pct Auto 0.2 % (0.0-0.4); Lymphocytes Absolute Auto 2.3 X10*3/uL (1.2-4.9); Lymphocytes Percent Auto 36.3 % (20-40); Mean Corpuscular HGB Conc 31.9 g/dl (31.0-35.0); Mean Corpuscular Hemoglobin 30.3 pg (27.0-33.0); Mean Corpuscular Volume 95.1 fL (80-98); Mean Platelet Volume 10.7 fL (9.4-12.3); Monocytes Absolute Auto 0.6 X10*3/uL (0.1-1.2); Monocytes Percent Auto 8.8 % (2-11); Neutrophils Absolute Auto 3.2 X10*3/uL (2.0-8.3); Neutrophils Percent Auto 50.3 % (45-73); Platelet Count 220 X10*3/uL (160-400); Red Blood Count 4.91 X10*6/uL (4.20-5.50); Red Cell Distribution Width 13.2 % (11.0-16.0); White Blood Count 6.4 X10*3/uL (4.8-10.8)
[2021-02-20 08:44] LABS: Alanine Aminotransferase 17 U/L (0-31); Albumin Level 4.2 g/dL (3.5-5.0); Alkaline Phosphatase 71 U/L (39-117); Anion Gap 15 (12-20); Aspartate Amino Transferase 16 U/L (5-31); Bilirubin Total 0.9 mg/dL (0.0-1.0); Blood Urea Nitrogen 12 mg/dL (9-16); C Reactive Protein 0.19 mg/dL (< or = 0.50); Calcium 9.4 mg/dL (8.4-10.2); Carbon Dioxide 27 mmol/L (22-29); Chloride 105 mmol/L (96-108); Estimated Glomerular Filt Rate > 60; Glucose Random 109 mg/dL (60-115); Magnesium 2.2 mg/dL (1.6-2.6); Potassium 4.5 mmol/L (3.3-5.1); Sodium 142 mmol/L (135-145); Total Protein 6.7 g/dL (6.5-8.0)
[2021-02-20 09:07] LABS: Free T4 (Free Thyroxine) 0.98 ng/dL (0.71-1.85)
== END 2021-02-20 07:33 | disposition home or self-care (01) ==
LOC: HO.LAB 07:32
PROVIDERS: PCP Internal Medicine; Visit Provider Internal Medicine
DX: I10 Essential (primary) hypertension (principal); R00.2 Palpitations; I48.92 Unspecified atrial flutter
CPT/HCPCS: 36415; 80053; 83735; 84439; 85025; 86140

== ENCOUNTER → 2021-03-09 09:20 | Outpatient (BNVA) | payer MEDICARE, SELFPAY | PROVIDERS: PCP Internal Medicine; Visit Provider Nurse Practitioner Family | DX: R07.89 Other chest pain (principal); I48.92 Unspecified atrial flutter; I10 Essential (primary) hypertension; Z79.899 Other long term (current) drug therapy | CPT/HCPCS: 93005; 99212 ==

== ENCOUNTER 2021-03-20 09:19 | Outpatient (REF) | payer MEDICARE, SELFPAY ==
[2021-03-20 12:07] LABS: Digoxin 0.3 ng/mL (0.8-2.0)
== END 2021-03-20 09:20 | disposition home or self-care (01) ==
LOC: HO.LAB 09:19
PROVIDERS: PCP Internal Medicine; Visit Provider Nurse Practitioner Family
DX: I48.92 Unspecified atrial flutter (principal); R06.00 Dyspnea, unspecified; Z79.899 Other long term (current) drug therapy
CPT/HCPCS: 36415; 80162

== ENCOUNTER → 2021-04-14 10:30 | Outpatient (BNVA) | payer MEDICARE, SELFPAY | PROVIDERS: PCP Internal Medicine; Visit Provider Nurse Practitioner Family | DX: I48.92 Unspecified atrial flutter (principal); R07.89 Other chest pain; I10 Essential (primary) hypertension | CPT/HCPCS: Q3014 ==

== ENCOUNTER 2021-05-07 10:06 | Day surgery (SDC) | payer MEDICARE, SELFPAY ==
--- NOTE | 2021-05-05 13:29 | HO.ANESPROP2 ---
Documented by User: Kaela Eagle 05/05/21 13:33 HPI - Anesthesia Eval Consult details Narrative: 80yo F for Cardioversion Eliquis for afib PMFSH Active Problems Active Problems: All Active Problems (Updated 03/09/21 @ 17:07 by Elenita May NP-C) Chest discomfort (Acute) Atrial flutter (Acute) Acute dyspnea (Acute) Past Medical History Medical History Afib High cholesterol HTN (hypertension) Kidney stone Mitral valve disorder Surgical History Surgical History H/O lithotripsy H/O: hysterectomy History of carpal tunnel release Social History Social History Household Members: None Housing: House Do you presently have visiting nurse or other home services: No Patient Tobacco Use Status: Never used Tobacco Second Hand Smoke Exposure: No Use of substances other than those prescribed or required for medical reasons: No Are you DNR?: No Advance Directives: Yes Advance Directives Information Provided: No Advance Directives on File: Yes Advance Directives Date on File: 05/07/21 Nutrition Risks: No Nutritional Risk Patient : No service: No Current occupational status: retired Meds Allergies Allergy/AdvReac Type Severity Reaction Status Date / Time Sulfa (Sulfonamide Allergy Unknown RASH Verified 04/14/21 10:34 Antibiotics) Home Medications Medication Instructions Recorded Confirmed Last Taken Type atorvastatin 10 mg PO BEDTIME 01/19/21 04/14/21 01/18/21 History dicyclomine 10 mg PO QID PRN 01/19/21 04/14/21 Unknown History lorazepam 0.5 mg PO BEDTIME 01/19/21 04/14/21 05/07/21 History mometasone 1 appl TOPICAL BID PRN 01/19/21 04/14/21 Unknown History vitamin B complex 1 cap PO BEDTIME 01/19/21 04/14/21 01/18/21 History Exam Exam Date and Time: May 05, 2021 1329 Pertinent Lab Results Pertinent Lab Results: Laboratory Tests 02/20/21 02/20/21 07:52 07:52 WBC 6.4 Hgb 14.9 Hct 46.7 Plt Count 220 Sodium 142 Potassium 4.5 Chloride 105 Carbon Dioxide 27 BUN 12 Creatinine 0.84 Narrative Narrative: ECHO 2020 Conclusions: - 1. Normal LV systolic function 2. Moderate left atrial enlargement 3. Moderate mitral and tricuspid regurgitation 4. [id number] elevation of right ventricular systolic pressure 5. No pericardial effusion EKG 02/2021 atrial flutter with variable AV block, rate 71, QTC 386 millisecond, low-voltage QRS Assessment and Plan Assessment Anesthesia Assessment: Chart Reviewed Documented by User: Marleni Kaba 05/07/21 12:16 PMFSH Past Medical History Medical History Afib High cholesterol HTN (hypertension) Kidney stone Mitral valve disorder Surgical History Surgical History H/O lithotripsy H/O: hysterectomy History of carpal tunnel release Social History Social History Household Members: None Housing: House Do you presently have visiting nurse or other home services: No Patient Tobacco Use Status: Never used Tobacco Second Hand Smoke Exposure: No Use of substances other than those prescribed or required for medical reasons: No Are you DNR?: No Advance Directives: Yes Advance Directives Information Provided: No Advance Directives on File: Yes Advance Directives Date on File: 05/07/21 Nutrition Risks: No Nutritional Risk Patient : No service: No Current occupational status: retired Meds Allergies Allergy/AdvReac Type Severity Reaction Status Date / Time Sulfa (Sulfonamide Allergy Unknown RASH Verified 04/14/21 10:34 Antibiotics) Home Medications Medication Instructions Recorded Confirmed Last Taken Type atorvastatin 10 mg PO BEDTIME 01/19/21 04/14/21 01/18/21 History dicyclomine 10 mg PO QID PRN 01/19/21 04/14/21 Unknown History lorazepam 0.5 mg PO BEDTIME 01/19/21 04/14/21 05/07/21 History mometasone 1 appl TOPICAL BID PRN 01/19/21 04/14/21 Unknown History vitamin B complex 1 cap PO BEDTIME 01/19/21 04/14/21 01/18/21 History Exam Airway Mallampati Class: II TM Dist: >3cm Neck ROM: Full Loose/Missing/Broken Teeth: No Heart: RRR Lungs: CTA Assessment and Plan Assessment Anesthesia Assessment: Anesthesia Plan Discussed and Chart Reviewed Final Anesthetic Review NPO: Yes ASA Class: III Final Preanesthetic Review: Meds/Allgs Chart Reviewed, Consent Obtained/Reviewed and Anes Risks/Benef Reviewed Patient Risk: Intermediate Procedure Risk: Intermediate Anesthetic Plan Anesthetic Plan: GA Disposition: Standard PACU
[2021-05-07] VITALS (8 sets, daily range): BP systolic 90–139; BP diastolic 49–69; PULSE 58–75; RESP 15–18; TEMP 36.8–36.9; O2SAT 96–99; BMI 25.2
[2021-05-07] MEDS: Lactated Ringers 1,000 ML 50 ML IVCONT (10:32)
--- NOTE | 2021-05-07 11:59 | MHC.SHP ---
Pre-Procedural Eval Section A The patient is an INPATIENT: No Changes since office visit: Yes Patient answered all questions; No Cold of Flu in the past 2 weeks, No New Medical Problems and No Changes in Medication Section B Chief Complaint: Paroxysmal Afib Allergies: Allergies Allergy/AdvReac Type Severity Reaction Status Date / Time Sulfa (Sulfonamide Allergy Unknown RASH Verified 04/14/21 10:34 Antibiotics) Plan I have reviewed the history and physical and performed a pertinent physical examination on my patient. No changes have occurred unless specified.
--- NOTE | 2021-05-07 12:04 | ECG_ITS ---
Test Reason : POST CARDIOVERSION Blood Pressure : / mmHG Vent. Rate : 057 BPM Atrial Rate : 057 BPM P-R Int : 204 ms QRS Dur : 080 ms QT Int : 420 ms P-R-T Axes : 071 005 020 degrees QTc Int : 408 ms Sinus bradycardia with Premature atrial complexes Low voltage QRS Cannot rule out Inferior infarct (cited on or before 23-JAN-2021) Abnormal ECG When compared with ECG of 23-JAN-2021 18:52, Sinus rhythm has replaced Atrial fibrillation Referred By: Claudy Rojas Electronically Signed By:CLAUDY RJOAS MD
--- NOTE | 2021-05-07 12:05 | HO.CARDIVERS ---
Cardioversion Procedure Note Cardioversion Date of Procedure: 05/07/2021 Ordering Provider: Elenita May Performing Provider: Myself Indication for Procedure: Persistent symptomatic atrial fibrillation Pre-Op Diagnosis: Same Post-Op Diagnosis: Sign out from Performed with Transesophageal Echo: No History: See history and physical Consent: Verbal and Written consent was obtained from the patient before starting and confirmed oral anticoagulation.. The patient was made aware of the risk of the procedure including benefits and alternatives. Procedure: After consent obtained, cardioversion pads were attached in AP configuration and the patient was sedated by the anesthesia team. Once adequate sedation achieved, patient was delivered 200 joules of biphasic synchronized energy x2. Complications: None Impression: Successful conversion to sinus bradycardia after 2nd attempt Recommendations: 1. 12 lead EKG 2. Continue full oral anticoagulation 3. Continue all medications 4. Follow-up in the office in 4 weeks after Holter monitor.
== END 2021-05-07 13:55 ==
LOC: HO.SSS 10:07
PROVIDERS: PCP Internal Medicine; Visit Provider Internal Medicine Cardiovascular Disease
PROC: 5A2204Z Restoration of Cardiac Rhythm, Single (ICD-10-PCS; principal; 2021-05-07 10:30)
DX: I48.19 Other persistent atrial fibrillation (principal); Z79.01 Long term (current) use of anticoagulants; I10 Essential (primary) hypertension; Z79.899 Other long term (current) drug therapy; Z88.2 Allergy status to sulfonamides
CPT/HCPCS: 92960; 93005

== ENCOUNTER 2021-05-10 17:02 | Outpatient (REF) | payer MEDICARE, SELFPAY ==
--- NOTE | ~2021-05-10 | XR_ITS ---
EXAMINATION: XR CHEST CLINICAL INFORMATION: Dyspnea COMPARISON: Chest x-ray 01/19/2021 TECHNIQUE: 2 views of the chest were obtained. FINDINGS: Lungs are clear. No pulmonary vascular congestion. There is no pleural effusion. The heart size is normal. The cardiac and mediastinal contours are normal. There are calcifications of the thoracic aorta. S-shaped scoliosis of the spine. There are multilevel degenerative changes of dorsal spine. XR/XR chest 2V IMPRESSION: There is no acute abnormality of the chest.
[2021-05-10 18:35] LABS: B Type Natriuretic Peptide 311 pg/mL (<100)
== END 2021-05-10 17:03 | disposition home or self-care (01) ==
LOC: HO.XRAY 17:02
PROVIDERS: PCP Internal Medicine; Visit Provider Internal Medicine Cardiovascular Disease
DX: R06.00 Dyspnea, unspecified (principal)
CPT/HCPCS: 36415; 71046; 83880

== ENCOUNTER 2021-05-11 16:50 | Outpatient (REF) | payer MEDICARE, SELFPAY ==
[2021-05-11 17:39] LABS: Influenza A PCR NEGATIVE (Negative); Influenza B PCR NEGATIVE (Negative); Resp Syncy Virus RNA Qual PCR NEGATIVE (Negative); SARS COV2 PCR INHOUSE NEGATIVE (Negative)
== END 2021-05-11 16:51 | disposition home or self-care (01) ==
LOC: HO.LNP 16:50
PROVIDERS: Visit Provider Internal Medicine
DX: Z20.822 Contact with and (suspected) exposure to COVID-19 (principal); R06.02 Shortness of breath; R50.9 Fever, unspecified
CPT/HCPCS: 0241U

== ENCOUNTER → 2021-05-21 10:00 | Outpatient (REF) | payer MEDICARE, SELFPAY ==
--- NOTE | 2021-05-21 14:30 | ECG_ITS ---
Hook-up date: 2021-05-21 10:14:00 Duration: 47:59:00 Test Indications: UNSPEC. ATRIAL FLUTTER Medications: 99507 QRS complexes 53 Ventricular ectopics which represent <1 % of total QRS comp. 401 Supraventricular ectopics which represent <1 % of total QRS comp. * Paced QRS complexs which represent % of total QRS comp. VENTRICULAR ECTOPY 46 Isolated 0 Bigeminal Cycles 0 Couplets 1 Runs 7 Beats in Runs 7 Beats LONGEST at 54 BPM at 23:51:28 2021-05-21 7 Beats FASTEST at 54 BPM at 23:51:28 2021-05-21 SUPRAVENTRICULAR ECTOPY 134 Isolated 19 Couplets 13 Runs 229 Beats in Runs 157 Beats LONGEST at 64 BPM at 17:18:19 2021-05-21 3 Beats FASTEST at 151 BPM at 07:33:03 2021-05-22 HEART RATES 59 MIN at 00:51:06 2021-05-22 57 AVG 79 MAX at 07:19:42 2021-05-22 LONGEST RR 1.6000 secs at 20:22:23 2021-05-21 S-T LEVELS Channel 1 - 128 mm at 10:14:00 2021-05-21 - 128 mm at 10:14:00 2021-05-21 Channel 2 - 128 mm at 10:14:00 2021-05-21 - 128 mm at 10:14:00 2021-05-21 Channel 3 - 128 mm at 02:93:31 -- - 128 mm at 02:93:31 Basic rhythm Normal sinus rhythm Frequent Sinus bradycardia , 75% of HR < 60 bpm One run of AIVR No sustained Atrial fibrillation Referred By: Claudy Rojas Overread By: CLUADY ROJAS MD
== END ==
LOC: HO.CARD 10:00
PROVIDERS: PCP Internal Medicine; Referring Provider Internal Medicine; Visit Provider Internal Medicine Cardiovascular Disease
DX: I48.92 Unspecified atrial flutter (principal)
CPT/HCPCS: 93226

== ENCOUNTER → 2021-06-07 15:25 | Outpatient (BNVA) | payer MEDICARE, SELFPAY | PROVIDERS: PCP Internal Medicine; Referring Provider Internal Medicine; Visit Provider Internal Medicine Cardiovascular Disease | DX: I48.92 Unspecified atrial flutter (principal) | CPT/HCPCS: 93005; 99212 ==

== ENCOUNTER 2021-06-09 12:00 | Day surgery (SDC) | payer MEDICARE, SELFPAY ==
--- NOTE | 2021-06-08 10:57 | HO.ANESPROP2 ---
Documented by User: Kaela Owusuney 06/08/21 10:59 HPI - Anesthesia Eval Consult details Narrative: 80yo F for Cardioversion Eliquis for afib Last cardioversion 05/07/21 with MAC PMFSH Active Problems Active Problems: All Active Problems (Updated 03/09/21 @ 17:07 by ROMAN Lo) Chest discomfort (Acute) Atrial flutter (Acute) Acute dyspnea (Acute) Past Medical History Medical History Afib High cholesterol HTN (hypertension) Kidney stone Mitral valve disorder Surgical History Surgical History H/O lithotripsy H/O: hysterectomy History of carpal tunnel release Social History Social History Household Members: None Housing: House Do you presently have visiting nurse or other home services: No Patient Tobacco Use Status: Never used Tobacco Second Hand Smoke Exposure: No Use of substances other than those prescribed or required for medical reasons: No Are you DNR?: No Advance Directives: Yes Advance Directives on File: Yes Advance Directives Date on File: 05/07/21 Recently lost weight without trying: Yes How much weight loss: 2-13 pounds Eating poorly because of decreased appetite: No Nutrition screen score: 3 Nutrition Risks: No Nutritional Risk Patient : No service: No Current occupational status: retired Meds Allergies Allergy/AdvReac Type Severity Reaction Status Date / Time Sulfa (Sulfonamide Allergy Intermediate RASH Verified 06/09/21 12:08 Antibiotics) Home Medications Medication Instructions Recorded Confirmed Last Taken Type atorvastatin 10 mg PO BEDTIME 01/19/21 06/07/21 01/18/21 History dicyclomine 10 mg PO QID PRN 01/19/21 06/07/21 Unknown History lorazepam 0.5 mg PO BEDTIME 01/19/21 06/07/21 06/09/21 06:45 History mometasone 1 appl TOPICAL BID PRN 01/19/21 06/07/21 Unknown History vitamin B complex 1 cap PO BEDTIME 01/19/21 06/07/21 01/18/21 History dronedarone [Multaq] mg PO BID 06/09/21 06/09/21 06:45 History Exam Exam Date and Time: June 08, 2021 1057 Narrative Narrative: ECHO 2020 Conclusions: - 1. Normal LV systolic function 2. Moderate left atrial enlargement 3. Moderate mitral and tricuspid regurgitation 4. [id number] elevation of right ventricular systolic pressure 5. No pericardial effusion EKG 02/2021 atrial flutter with variable AV block, rate 71, QTC 386 millisecond, low-voltage QRS Assessment and Plan Assessment Anesthesia Assessment: Chart Reviewed Documented by User: Patel Bush MD 06/09/21 13:03 PMFSH Past Medical History Medical History Afib High cholesterol HTN (hypertension) Kidney stone Mitral valve disorder Family History Family history of problems with anesthesia: No Surgical History Surgical History H/O lithotripsy H/O: hysterectomy History of carpal tunnel release History of Problems with Anesthesia: No Social History Social History Household Members: None Housing: House Do you presently have visiting nurse or other home services: No Patient Tobacco Use Status: Never used Tobacco Second Hand Smoke Exposure: No Use of substances other than those prescribed or required for medical reasons: No Are you DNR?: No Advance Directives: Yes Advance Directives on File: Yes Advance Directives Date on File: 05/07/21 Recently lost weight without trying: Yes How much weight loss: 2-13 pounds Eating poorly because of decreased appetite: No Nutrition screen score: 3 Nutrition Risks: No Nutritional Risk Patient : No service: No Current occupational status: retired Meds Allergies Allergy/AdvReac Type Severity Reaction Status Date / Time Sulfa (Sulfonamide Allergy Intermediate RASH Verified 06/09/21 12:08 Antibiotics) Home Medications Medication Instructions Recorded Confirmed Last Taken Type atorvastatin 10 mg PO BEDTIME 01/19/21 06/07/2101/18/21 History dicyclomine 10 mg PO QID PRN 01/19/21 06/07/21 Unknown History lorazepam 0.5 mg PO BEDTIME 01/19/21 06/07/21 06/09/21 06:45 History mometasone 1 appl TOPICAL BID PRN 01/19/21 06/07/21 Unknown History vitamin B complex 1 cap PO BEDTIME 01/19/21 06/07/21 01/18/21 History dronedarone [Multaq] mg PO BID 06/09/21 06/09/21 06:45 History Exam Airway Mallampati Class: II (Pt. has TMJ problems, mouth opening limited to 2 cm.) TM Dist: >3cm Neck ROM: Full Assessment and Plan Assessment Anesthesia Assessment: Anesthesia Plan Discussed and Chart Reviewed Final Anesthetic Review NPO: Yes ASA Class: III Final Preanesthetic Review: No Changes in Pt Med Stat, Meds/Allgs Chart Reviewed, Consent Obtained/Reviewed and Anes Risks/Benef Reviewed Patient Risk: Intermediate Procedure Risk: Low Anesthetic Plan Anesthetic Plan: MAC: and Agree w/ Assess. and Plan Disposition: Standard PACU
--- NOTE | 2021-06-09 10:26 | MHC.SHP ---
Pre-Procedural Eval Section A Date of Service: 06/09/21 The patient is an INPATIENT: No Changes since office visit: Yes Patient answered all questions; No Cold of Flu in the past 2 weeks, No New Medical Problems and No Changes in Medication The History & Physical has been completed within 30 days and I have reviewed it.: Yes Section B Chief Complaint: aflutter Allergies: Allergies Allergy/AdvReac Type Severity Reaction Status Date / Time Sulfa (Sulfonamide Allergy Unknown RASH Verified 04/14/21 10:34 Antibiotics) Plan I have reviewed the history and physical and performed a pertinent physical examination on my patient. No changes have occurred unless specified.
[2021-06-09 12:13] VITALS: BMI 24.5
[2021-06-09 12:24] VITALS: BP 116/73; PULSE 86; RESP 16; TEMP 36.6; O2SAT 98
[2021-06-09] MEDS: Lactated Ringers 1,000 ML 50 ML IVCONT (12:34)
--- NOTE | 2021-06-09 13:40 | ECG_ITS ---
Test Reason : CARDIOVVERSION Blood Pressure : / mmHG Vent. Rate : 057 BPM Atrial Rate : 057 BPM P-R Int : 178 ms QRS Dur : 080 ms QT Int : 466 ms P-R-T Axes : 057 002 018 degrees QTc Int : 453 ms Sinus bradycardia Low voltage QRS Borderline ECG When compared with ECG of 07-MAY-2021 12:19, Premature atrial complexes are no longer Present Referred By: Claudy Rojas Electronically Signed By:Williams Rosario
--- NOTE | 2021-06-09 13:40 | HO.CARDIVERS ---
Cardioversion Procedure Note Cardioversion Date of Procedure: 06/09/2021 Ordering Provider: Myself Performing Provider: Myself Indication for Procedure: Recurrent persistent atrial flutter, symptomatic Pre-Op Diagnosis: Same Post-Op Diagnosis: Sinus rhythm Performed with Transesophageal Echo: No History: See my note Consent: Verbal and Written consent was obtained from the patient before starting and confirming oral anticoagulation. The patient was made aware of the risk of of the procedure including risks, benefits, alternatives and 2nd opinion. Procedure: After consent obtained, cardioversion pads were attached in AP and the patient was sedated by the anesthesia team. Once adequate sedation achieved, patient was deliver 75 joules of biphasic synchronized energy in anteroposterior configuration. Complications: None Impression: Successful conversion to sinus rhythm Recommendations: 1. 12 lead EKG 2. Holter monitor in 2 weeks 3. Continue Multaq and Eliquis. 4. Office visit in 4 weeks
[2021-06-09 13:57] VITALS: BP 111/56; PULSE 57; RESP 15; TEMP 36.6; O2SAT 98
--- NOTE | 2021-06-09 14:00 | P.CONAN_ITS ---
[facility] Active Problems Active Problems: All Active Problems (Updated 03/09/21 @ 17:07 by Elenita palomares, [employer]) Chest discomfort (Acute) Atrial flutter (Acute) Acute dyspnea (Acute) Past Medical History Medical History Afib High cholesterol HTN (hypertension) Kidney stone Mitral valve disorder Family History Family history of problems with anesthesia: No Surgical History Surgical History H/O lithotripsy H/O: hysterectomy History of carpal tunnel release History of Problems with Anesthesia: No Social History Social History Household Members: None Housing: House Do you presently have visiting nurse or other home services: No Patient Tobacco Use Status: Never used Tobacco Second Hand Smoke Exposure: No Use of substances other than those prescribed or required for medical reasons: No Are you DNR?: No Advance Directives: Yes Advance Directives on File: Yes Advance Directives Date on File: 05/07/21 Recently lost weight without trying: Yes How much weight loss: 2-13 pounds Eating poorly because of decreased appetite: No Nutrition screen score: 3 Nutrition Risks: No Nutritional Risk Patient : No service: No Current occupational status: retired Meds Allergies Allergy/AdvReac Type Severity Reaction Status Date / Time Sulfa (Sulfonamide Allergy Intermediate RASH Verified 06/09/21 12:08 Antibiotics) Active Medications: Current Medications Generic Name Dose Route Start Last Admin Trade Name Freq PRN Reason Stop Dose Admin Acetaminophen 650 mg 06/09/21 13:04 Acetaminophen 325 Mg Tablet PO ONCE PRN Pain, Mild (Pain Scale 1-3) Lactated Ringer's 1,000 mls @ 50 mls/hr 06/09/21 12:00 06/09/21 12:34 Lr IVCONT 50 mls/hr .Q20H RACHEAL Administration Ondansetron HCl 4 mg 06/09/21 13:04 Ondansetron Hcl 4 Mg/2 Ml Vial IVPUSH ONCE PRN Nausea and Vomiting Sodium Chloride 3 ml 06/09/21 16:00 0.9 % Sodium Chloride Flush 3 Ml [facility] Home Medications Medication Instructions Recorded Confirmed Last Taken Type atorvastatin 10 mg PO BEDTIME 01/19/21 06/07/21 01/18/21 History dicyclomine 10 mg PO QID PRN 01/19/21 06/07/21 Unknown History lorazepam 0.5 mg PO BEDTIME 01/19/21 06/07/21 06/09/21 06:45 History mometasone 1 appl TOPICAL BID PRN 01/19/21 06/07/21 Unknown History vitamin B complex 1 cap PO BEDTIME 01/19/21 06/07/21 01/18/21 History Exam Exam Date and Time: June 09, 2021 1400 Height,Weight and Vital Signs: Height 5 ft 2 in Weight 60.781 kg Last Vital Signs Temp 97.8 F 06/09/21 12:24 Pulse 86 06/09/21 12:24 Resp 16 06/09/21 12:24 BP 116/73 06/09/21 12:24 Pulse Ox 98 06/09/21 12:24 Airway Mallampati Class: II (Pt. has TMJ pain, mouth open limited to 2 cm.) TM Dist: <=3cm Neck ROM: Full Loose/Missing/Broken Teeth: No Assessment and Plan Assessment Anesthesia Assessment: Anesthesia Plan Discussed and Chart Reviewed Final Anesthetic Review NPO: Yes ASA Class: III Final Preanesthetic Review: No Changes in Pt Med Stat, Meds/Allgs Chart Reviewed, Consent Obtained/Reviewed and Anes Risks/Benef Reviewed Patient Risk: Intermediate Procedure Risk: Low Anesthetic Plan Anesthetic Plan: MAC: and Agree w/ Assess. and Plan Disposition: Standard PACU
[2021-06-09 14:11] VITALS: BP 109/55; PULSE 58; RESP 16; O2SAT 98
== END 2021-06-09 14:40 ==
LOC: HO.SSS 12:03
PROVIDERS: PCP Internal Medicine; Visit Provider Internal Medicine Cardiovascular Disease
PROC: 5A2204Z Restoration of Cardiac Rhythm, Single (ICD-10-PCS; principal; 2021-06-09 13:30)
DX: I48.92 Unspecified atrial flutter (principal); Z79.01 Long term (current) use of anticoagulants; Z79.899 Other long term (current) drug therapy; Z88.2 Allergy status to sulfonamides; I10 Essential (primary) hypertension
CPT/HCPCS: 92960; 93005

== ENCOUNTER 2021-06-20 15:02 | Emergency (ER) | payer MEDICARE, SELFPAY ==
--- NOTE | 2021-06-20 | ECG_ITS ---
Test Reason : CHEST PAIN Blood Pressure : / mmHG Vent. Rate : 058 BPM Atrial Rate : 058 BPM P-R Int : 172 ms QRS Dur : 088 ms QT Int : 482 ms P-R-T Axes : 052 034 028 degrees QTc Int : 473 ms Sinus bradycardia Low voltage QRS Borderline ECG When compared with ECG of 09-JUN-2021 13:47, No significant change was found Referred By: Generic ED Physician Electronically Signed By:JASMINE WILEY
--- NOTE | ~2021-06-20 | XR_ITS ---
EXAMINATION: XR CHEST CLINICAL INFORMATION: Chest pain with shortness of breath COMPARISON: May 10, 2021 TECHNIQUE: 2 views of the chest were obtained. FINDINGS: There is no significant change in appearance of minimal bibasilar disease and what appears to be small bilateral pleural effusions left greater than right which are minimally larger than on previous study. No significant acute parenchymal disease is noted. No pneumothorax. Heart normal size. No evidence of pulmonary edema. XR/XR chest 2V IMPRESSION: Minimal basilar atelectasis with trace bilateral pleural effusions.
[2021-06-20 15:44] VITALS: BP 156/60; PULSE 57; RESP 18; TEMP 36.6; O2SAT 97; BMI 24.7
[2021-06-20 16:27] LABS: Basophils Percent Auto 0.5 % (0-2); Eosinophils Absolute Auto 0.3 X10*3/uL (0.0-0.4); Eosinophils Percent Auto 3.2 % (0-4); Hematocrit 40.6 % (37-47); Hemoglobin 13.1 g/dl (12.0-16.0); Imm Gran Abs Auto 0.03 X10*3/uL (0.00-0.03); Imm Gran Pct Auto 0.4 % (0.0-0.4); Lymphocytes Absolute Auto 1.9 X10*3/uL (1.2-4.9); Lymphocytes Percent Auto 23.8 % (20-40); MANUAL DIFF FLAG NO; Mean Corpuscular HGB Conc 32.3 g/dl (31.0-35.0); Mean Corpuscular Hemoglobin 30.3 pg (27.0-33.0); Mean Platelet Volume 9.8 fL (9.4-12.3); Monocytes Absolute Auto 0.6 X10*3/uL (0.1-1.2); Monocytes Percent Auto 7.6 % (2-11); Neutrophils Absolute Auto 5.2 X10*3/uL (2.0-8.3); Neutrophils Percent Auto 64.5 % (45-73); Platelet Count 301 X10*3/uL (160-400); Red Blood Count 4.32 X10*6/uL (4.20-5.50); White Blood Count 8.1 X10*3/uL (4.8-10.8)
--- NOTE | 2021-06-20 16:27 | ED_ITS ---
HPI - Chest Pain General Chief Complaint: Chest Pain Stated Complaint: CHEST PAIN Time Seen by Provider: 06/20/21 16:25 Source: patient and family Mode of arrival: ambulatory Limitations: no limitations History of Present Illness HPI narrative: 80-year-old female presents with prior history of AFib, hypertension, hyperlipidemia, mitral regurgitation, recent cardioversion on 05/07/2021 and 06/09/2021 presents with chest pressure and shortness of breath for several days. Stated that she was prescribed Lasix however was unable to pick the prescription up because the pharmacy stated that she could not take Lasix because of a sulfa allergy. complaint: chest pain Onset (ago): day(s) (2) Timing of current episode: episodic Prior episodes: Yes Onset: during rest Pain location: substernal Pain radiation: none Severity: mild Quality: tightness Relieving factors: nothing Exacerbating factors: exertion Context: recent surgery (Cardioversion) Associated symptoms: dyspnea Treatment prior to arrival: none Risk Factors Coronary artery disease risk factors: hyperlipidemia and hypertension Thoracic aortic dissection risk factors: none Related Data Home Medications Medication Instructions Recorded Confirmed atorvastatin 10 mg PO BEDTIME 01/19/21 06/07/21 dicyclomine 10 mg PO QID PRN 01/19/21 06/07/21 lorazepam 0.5 mg PO BEDTIME 01/19/21 06/07/21 mometasone 1 appl TOPICAL BID PRN 01/19/21 06/07/21 vitamin B complex 1 cap PO BEDTIME 01/19/21 06/07/21 Previous Rx's Medication Instructions Recorded Eliquis 5 mg PO BID #60 tab 01/24/21 metoprolol tartrate 50 mg PO BID #60 tab 01/24/21 silver sulfadiazine 1 % topical 1 appl TOPICAL BID #20 g 05/07/21 cream furosemide 20 mg tablet 20 mg PO DAILY #30 tab 05/11/21 dronedarone 400 mg tablet 400 mg PO Q12H #60 tab 06/07/21 furosemide [Lasix] 20 mg PO DAILY #15 tab 06/20/21 Allergies Allergy/AdvReac Type Severity Reaction Status Date / Time Sulfa (Sulfonamide Allergy Intermediate RASH Verified 06/09/21 12:08 Antibiotics) Review of Systems Review of Systems: Constitutional: No Fever, No Chills ENT/Mouth: No Ear Pain, No Hoarseness, No sore throat Eyes: No Eye Pain, No Swelling, No Redness, No Foreign Body Cardiovascular: Positive Chest Pain, positive SOB Respiratory: No Cough, No Dyspnea Gastrointestinal: No Nausea, No Vomiting, No Diarrhea, No abdominal Pain Genitourinary: No Dysuria, No Hematuria Musculoskeletal: positive joint pain, No Myalgias, No Joint Swelling Skin: No Skin lacerations, No rash Neuro: No Weakness, No Numbness, No Paresthesias, No Loss of Consciousness, No Dizziness, No Headache Psych: No Anxiety/Panic, No Depression Heme/Lymph: no easy bruising, no Lymphadenopathy Endocrine: No Polyuria, No Polydipsia Yes all other systems are reviewed and are negative [facility] Past Medical History Attestation statement: The following information was validated with the patient. Source: old records reviewed Medical History Afib High cholesterol HTN (hypertension) Kidney stone Mitral valve disorder Surgical History H/O lithotripsy H/O: hysterectomy History of carpal tunnel release Social History Social History Household Members: None Housing: House Do you presently have visiting nurse or other home services: No Patient Tobacco Use Status: Never used Tobacco Second Hand Smoke Exposure: No Advance Directives: Yes Advance Directives on File: Yes Advance Directives Date on File: 05/07/21 service: No Current occupational status: retired Physical Exam Vital Signs: Vital Signs: Last Vital Signs Temp 98.1 F 06/20/21 17:03 Pulse 54 06/20/21 17:03 Resp 16 06/20/21 17:03 BP 133/49 L 06/20/21 17:03 Pulse Ox 98 06/20/21 17:03 Body Mass Index 24.7 Appearance: Alert. Oriented X3. No acute distress. Head: Normal external exam. Normocephalic. Atraumatic. No Luong signs noted. No raccoon eyes noted Eyes: PERRLA. EOMI. Conjunctiva and sclera normal. Eyelids normal. ENT: Pharynx normal. Uvula midline. Moist mucous membranes. Neck: Normal inspection. Neck supple. No adenopathy. Thy CVS: Normal heart rate and rhythm. Mitral murmur noted. Pulses equal to all extremities. Respiratory: No respiratory distress. Painless inspiration. Lung sounds clear to auscultation all lobes. Chest nontender. No accessory muscle usage noted or decreased air movement noted. Abdomen: Soft and nontender. Bowel sounds normal in all 4 quadrants. No distention noted. No organomegaly noted. No visible injury noted. Back: No CVA tenderness. Full range of motion noted. Skin: Skin warm and dry. Normal skin color. Normal skin turgor. Extremities: No lower extremity edema. Extremities exhibit normal range of motion. Extremities nontender. Neuro: cranial nerves 2-12 intact, no focal neural deficits, strength 5/5 to all extremities, No motor deficit. No sensory deficit. Course Course Course Narrative: 80-year-old female presents with chest pressure and shortness of breath for the past 2 days. Patient is resting comfortably, respirations are even unlabored, no acute distress. Patient appears nontoxic. Labs are completed in the emergency department waiting room along with EKG. No significant changes the EKG compared to prior, troponins are 0, CBCs unremarkable. Will order BNP, as patient was prescribed Lasix but never started taking it. BNP is 438, chest x-ray shows small pleural effusions probably consistent with CHF, will give p.o. Lasix 40 mg and provide script for 20 mg Lasix tablets for home. She does have an appointment with Cardiology on Monday. She does understand that if symptoms return that she should return to the emergency department immediately. Patient was offered possible admission for evaluation, however patient stated that she feels fine and would really like to be sent home. Patient verbalized understanding of and agrees to plan of care discharge home. MDM - Chest Pain Differential Diagnosis Differential diagnosis: Likely pneumothorax, atypical chest pain, st elevation myocardial infarction, costochondritis and chest pain Differential diagnosis: CHF Medical Records Data Attestation: I reviewed the patient's medical records. Lab Data Attestation: I reviewed the patient's lab results. Result diagrams: 06/20/21 16:21 06/20/21 16:20 Labs: Lab Results 06/20/21 06/20/21 06/20/21 Range/Units 16:20 16:21 16:21 WBC 8.1 (4.8-10.8) X10*3/uL RBC 4.32 (4.20-5.50) X10*6/uL Hgb 13.1 (12.0-16.0) g/dl Hct 40.6 (37-47) % MCV 94.0 (80-98) fL MCH 30.3 (27.0-33.0) pg MCHC 32.3 (31.0-35.0) g/dl RDW 13.0 (11.0-16.0) % Plt Count 301 D (160-400) X10*3/uL MPV 9.8 (9.4-12.3) fL Immature Gran % (Auto) 0.4 (0.0-0.4) % Neut % (Auto) 64.5 (45-73) % Lymph % (Auto) 23.8 (20-40) % [place] % (Auto) 7.6 (2-11) % Eos % (Auto) 3.2 (0-4) % Baso % (Auto) 0.5 (0-2) % Lymph # (Auto) 1.9 (1.2-4.9) X10*3/uL [place] # (Auto) 0.6 (0.1-1.2) X10*3/uL Eos # (Auto) 0.3 (0.0-0.4) X10*3/uL Baso # (Auto) 0.0 (0.0-0.2) X10*3/uL Abs Immat Gran (auto) 0.03 (0.00-0.03) X10*3/uL Absolute Neuts (auto) 5.2 (2.0-8.3) X10*3/uL Absolute Nucleated RBC 0.000 (0.0-0.012) X10*3/uL Nucleated RBC % (auto) 0.0 (0.0-0.2) /100WBC Sodium 143 (135-145) mmol/L Potassium 4.8 (3.3-5.1) mmol/L Chloride 109 H (96-108) mmol/L Carbon Dioxide 27 (22-29) mmol/L Anion Gap 12 (12-20) BUN 11 (9-16) mg/dL Creatinine 0.86 (0.5-1.4) mg/dL Estim Creat Clear Calc 44.9 Estimated GFR > 60 Random Glucose 97 (60-115) mg/dL Calcium 9.4 (8.4-10.2) mg/dL Troponin I High Sens < 3.5 (<3.5-17.0) ng/L B-Natriuretic Peptide 438 H (<100) pg/mL Imaging Data Chest x-ray: Attestation: I personally reviewed and interpreted this imaging study as follows: Radiologist's impression: EXAMINATION: XR CHEST CLINICAL INFORMATION: Chest pain with shortness of breath COMPARISON: May 10, 2021 TECHNIQUE: 2 views of the chest were obtained. FINDINGS: There is no significant change in appearance of minimal bibasilar disease and what appears to be small bilateral pleural effusions left greater than right which are minimally larger than on previous study. No significant acute parenchymal disease is noted. No pneumothorax. Heart normal size. No evidence of pulmonary edema. XR/XR chest 2V IMPRESSION: Minimal basilar atelectasis with trace bilateral pleural effusions. ECG Data ECG #1: Attestation: I personally reviewed and interpreted this ECG as follows: ECG interpretation date: 06/20/21 ECG interpretation time: 15:10 Interpretation: Vent. rate 58 BPM [place] interval 172 ms QRS duration 88 ms QT/QTc 482/473 ms P-R-T axes 52 34 28 Sinus bradycardia Low voltage QRS Borderline ECG When compared with ECG of 09-JUN-2021 13:47, No significant change was found Scores Heart Score History: -1- moderately suspicious ECG: -1- non specific repolarization disturbance Age: -2- > or = 65 Risk factory: -1- 1 or 2 risk factors Troponin: -0- < or = normal limit Score: 5 Risk: 16.6% Discharge Plan Discharge Clinical Impression: Chest discomfort, Mild shortness of breath Patient Disposition: Home, Self-Care Instructions: Chest Pain (ED), Shortness of Breath (ED) Additional Instructions: You were evaluated for chest pain and shortness of breath. Your EKG is does not show any changes indicating ST elevation or depression indicating ischemia. There were no significant changes between the EKG today and prior EKGs. Your cardiac enzymes are negative. Your chest x-ray was consistent with prior exams showing atelectasis and mild bi basilar pleural effusions, consistent with fluid overload. Your BNP is elevated at 438. I gave you 1 dose of Lasix 40 mg p.o. today. I sent in a script for Lasix 20 mg to your pharmacy. I gave you 14 tablets, you must follo w-up with either Cardiology or your primary care for repeat lab work, and script refill. Please continue to follow-up with Dr. Rojas on Monday. Thank you for choosing this emergency department for evaluation. Please follow-up with primary care physician as needed. Return to the emergency depar tment for any new, concerning, or worsening symptoms. Prescriptions: New furosemide [Lasix] 20 mg tablet 20 mg PO DAILY Qty: 15 RF: 0 No Action silver sulfadiazine [Silvadene] 1 % cream 1 appl topical BID Qty: 20 RF: 0 furosemide [Lasix] 20 mg tablet 20 mg PO DAILY Qty: 30 RF: 1 atorvastatin 10 mg Tablet 10 mg PO BEDTIME RF: 0 lorazepam 0.5 mg Tablet 0.5 mg PO BEDTIME RF: 0 mometasone 0.1 % Ointment 1 appl TOPICAL BID PRN (Reason: Rash) RF: 0 dicyclomine 10 mg Capsule 10 mg PO QID PRN (Reason: Abdominal Discomfort) RF: 0 vitamin B complex Capsule 1 cap PO BEDTIME RF: 0 Eliquis 5 mg Tablet 5 mg PO BID Qty: 60 RF: 0 metoprolol tartrate 25 mg Tablet 50 mg PO BID Qty: 60 RF: 0 Multaq 400 mg tablet 400 mg PO Q12H Qty: 60 RF: 2 Interventions: ED Discharge Assessment Last Done: 06/20/21 17:37 Discharge Date/Time: 06/20/21 17:38
[2021-06-20 16:46] LABS: Anion Gap 12 (12-20); Blood Urea Nitrogen 11 mg/dL (9-16); Calcium 9.4 mg/dL (8.4-10.2); Carbon Dioxide 27 mmol/L (22-29); Chloride 109 mmol/L (96-108); Creatinine Clr Calc Pharmacy 44.9; Estimated Glomerular Filt Rate > 60; Glucose Random 97 mg/dL (60-115); Potassium 4.8 mmol/L (3.3-5.1); Sodium 143 mmol/L (135-145)
[2021-06-20 16:54] LABS: Troponin-I High Sensitivity < 3.5 ng/L (<3.5-17.0)
[2021-06-20 17:03] VITALS: BP 133/49; PULSE 54; RESP 16; TEMP 36.7; O2SAT 98
[2021-06-20 17:12] LABS: B Type Natriuretic Peptide 438 pg/mL (<100)
--- NOTE | 2021-06-20 17:38 | PC.NURSE ---
pt refusing offered dose of lasix here in er, concerned pt may have urinary incontinence before arriving home. sts they will bead picker prescription and begin this evening.
== END 2021-06-20 17:38 | disposition home or self-care (01) ==
PROVIDERS: Nurse Practitioner Family; Emergency Provider Emergency Medicine; PCP Internal Medicine
DX: R07.89 Other chest pain (principal); R06.02 Shortness of breath; I48.91 Unspecified atrial fibrillation; I10 Essential (primary) hypertension; E78.5 Hyperlipidemia, unspecified; Z79.02 Long term (current) use of antithrombotics/antiplatelets; Z79.899 Other long term (current) drug therapy; Z79.01 Long term (current) use of anticoagulants
CPT/HCPCS: 36415; 71046; 80048; 83880; 84484; 85025; 93005; 99283

== ENCOUNTER → 2021-06-25 09:23 | Outpatient (REF) | payer MEDICARE, SELFPAY ==
--- NOTE | 2021-06-25 10:56 | ECG_ITS ---
Hook-up date: 2021-06-25 09:46:00 Duration: 47:59:00 Test Indications: ATRIAL FLUTTER Medications: 38402 QRS complexes 6 Ventricular ectopics which represent <1 % of total QRS comp. 66 Supraventricular ectopics which represent <1 % of total QRS comp. * Paced QRS complexs which represent % of total QRS comp. VENTRICULAR ECTOPY 6 Isolated 0 Bigeminal Cycles 0 Couplets 0 Runs 0 Beats in Runs * Beats LONGEST at * BPM at :: -- * Beats FASTEST at * BPM at :: -- SUPRAVENTRICULAR ECTOPY 43 Isolated 3 Couplets 5 Runs 17 Beats in Runs 5 Beats LONGEST at 87 BPM at 00:25:22 2021-06-26 3 Beats FASTEST at 97 BPM at 04:58:03 2021-06-26 HEART RATES 48 MIN at 03:11:50 2021-06-26 52 AVG 74 MAX at 09:41:22 2021-06-26 LONGEST RR 1.6960 secs at 09:18:32 2021-06-26 S-T LEVELS Channel 1 - 128 mm at 09:46:00 2021-06-25 - 128 mm at 09:46:00 2021-06-25 Channel 2 - 128 mm at 09:46:00 2021-06-25 - 128 mm at 09:46:00 2021-06-25 Channel 3 - 128 mm at 02:90:51 -- - 128 mm at 02:90:51 Underlying rhythm is sinus bradycardia; Average ventricular rate 52/min; range 48-74/min; About 97% of the time, rate <60/min; Rare PACs/PVCs; Patient did not report any symptoms in the diary Referred By: Claudy Rojas Overread By: JASMINE WILEY
== END ==
LOC: HO.CARD 09:23
PROVIDERS: PCP Internal Medicine; Referring Provider Internal Medicine; Visit Provider Internal Medicine Cardiovascular Disease
DX: I48.92 Unspecified atrial flutter (principal)
CPT/HCPCS: 93226

== ENCOUNTER 2021-07-09 09:58 | Outpatient (REF) | payer MEDICARE, SELFPAY ==
[2021-07-09 12:04] LABS: Anion Gap 12 (12-20); Blood Urea Nitrogen 14 mg/dL (9-16); Calcium 9.6 mg/dL (8.4-10.2); Carbon Dioxide 28 mmol/L (22-29); Chloride 109 mmol/L (96-108); Estimated Glomerular Filt Rate > 60; Glucose Random 88 mg/dL (60-115); Potassium 4.6 mmol/L (3.3-5.1); Sodium 144 mmol/L (135-145)
[2021-07-09 12:10] LABS: B Type Natriuretic Peptide 346 pg/mL (<100)
== END 2021-07-09 09:59 | disposition home or self-care (01) ==
LOC: HO.LAB 09:58
PROVIDERS: PCP Internal Medicine; Referring Provider Internal Medicine; Visit Provider Internal Medicine Cardiovascular Disease
DX: R06.00 Dyspnea, unspecified (principal); I50.32 Chronic diastolic (congestive) heart failure; I48.92 Unspecified atrial flutter; Z79.899 Other long term (current) drug therapy
CPT/HCPCS: 36415; 80048; 83880; 93005; 99212

== ENCOUNTER 2021-07-24 07:49 | Outpatient (REF) | payer MEDICARE, SELFPAY ==
[2021-07-24 09:28] LABS: Anion Gap 11 (12-20); Blood Urea Nitrogen 14 mg/dL (9-16); Calcium 9.8 mg/dL (8.4-10.2); Carbon Dioxide 30 mmol/L (22-29); Chloride 104 mmol/L (96-108); Estimated Glomerular Filt Rate 55; Glucose Random 99 mg/dL (60-115); Sodium 141 mmol/L (135-145)
[2021-07-24 09:34] LABS: B Type Natriuretic Peptide 87 pg/mL (<100)
== END 2021-07-24 07:50 | disposition home or self-care (01) ==
LOC: HO.LAB 07:49
PROVIDERS: PCP Internal Medicine; Visit Provider Internal Medicine Cardiovascular Disease
DX: R07.89 Other chest pain (principal)
CPT/HCPCS: 36415; 80048; 83880

== ENCOUNTER → 2021-10-05 09:55 | Outpatient (BNVA) | payer MEDICARE, SELFPAY | PROVIDERS: PCP Internal Medicine; Referring Provider Internal Medicine; Visit Provider Internal Medicine Cardiovascular Disease | DX: I50.32 Chronic diastolic (congestive) heart failure (principal); I48.92 Unspecified atrial flutter | CPT/HCPCS: 93005; 99212 ==

== ENCOUNTER 2021-10-19 12:50 | Outpatient (REF) | payer MEDICARE, SELFPAY ==
[2021-10-20 11:36] LABS: Influenza A PCR NEGATIVE (Negative); Influenza B PCR NEGATIVE (Negative); Resp Syncy Virus RNA Qual PCR NEGATIVE (Negative); SARS COV2 PCR INHOUSE NEGATIVE (Negative)
== END 2021-10-19 12:51 | disposition home or self-care (01) ==
LOC: HO.LNP 12:50
PROVIDERS: Visit Provider Internal Medicine
DX: Z20.822 Contact with and (suspected) exposure to COVID-19 (principal)
CPT/HCPCS: 0241U

== ENCOUNTER 2021-12-11 08:32 | Outpatient (REF) | payer MEDICARE, SELFPAY ==
[2021-12-11 08:46] LABS: Hematocrit 44.8 % (37.0-47.0); Hemoglobin 14.5 g/dl (12.0-16.0); Mean Corpuscular HGB Conc 32.4 g/dl (31.0-35.0); Mean Corpuscular Hemoglobin 30.9 pg (27.0-33.0); Mean Corpuscular Volume 95.3 fL (80.0-98.0); Mean Platelet Volume 9.7 fL (9.4-12.3); Platelet Count 259 X10*3/uL (160-400); Red Cell Distribution Width 12.6 % (11.0-16.0); White Blood Count 7.6 X10*3/uL (4.8-10.8)
[2021-12-11 09:03] LABS: Anion Gap 12 (12-20); Blood Urea Nitrogen 11 mg/dL (9-16); Calcium 9.7 mg/dL (8.4-10.2); Carbon Dioxide 29 mmol/L (22-29); Chloride 105 mmol/L (96-108); Estimated Glomerular Filt Rate 59; Glucose Random 114 mg/dL (60-115); Magnesium 2.2 mg/dL (1.6-2.6); Potassium 4.5 mmol/L (3.3-5.1); Sodium 141 mmol/L (135-145)
[2021-12-11 09:07] LABS: B Type Natriuretic Peptide 154 pg/mL (<100)
== END 2021-12-11 08:33 | disposition home or self-care (01) ==
LOC: HO.LAB 08:32
PROVIDERS: PCP Internal Medicine; Visit Provider Internal Medicine Cardiovascular Disease
DX: I50.32 Chronic diastolic (congestive) heart failure (principal)
CPT/HCPCS: 36415; 80048; 83735; 83880; 85027

== ENCOUNTER 2021-12-30 08:07 | Outpatient (REF) | payer MEDICARE, SELFPAY ==
[2021-12-30 10:34] LABS: Appearance Urine HAZY; Color Urine YELLOW; Glucose Urine UA NEG (NEG); Leukocyte Esterase Urine NEG (NEG); Nitrite Urine NEG (NEG); Urine Blood NEG (NEG); Urine Ketones NEG (NEG); Urine Protein NEG (NEG-TRACE)
[2021-12-30 10:35] LABS: MANUAL DIFF FLAG NO
[2021-12-30 10:43] LABS: Basophils Percent Auto 0.5 % (0-2); Eosinophils Absolute Auto 0.5 X10*3/uL (0.0-0.4); Eosinophils Percent Auto 8.8 % (0-4); Hemoglobin 13.9 g/dl (12.0-16.0); Imm Gran Abs Auto 0.02 X10*3/uL (0.00-0.03); Imm Gran Pct Auto 0.3 % (0.0-0.4); Lymphocytes Absolute Auto 1.2 X10*3/uL (1.2-4.9); Lymphocytes Percent Auto 20.6 % (20-40); Mean Corpuscular HGB Conc 32.3 g/dl (31.0-35.0); Mean Corpuscular Hemoglobin 30.5 pg (27.0-33.0); Mean Corpuscular Volume 94.5 fL (80.0-98.0); Mean Platelet Volume 11.5 fL (9.4-12.3); Monocytes Absolute Auto 0.7 X10*3/uL (0.1-1.2); Monocytes Percent Auto 11.3 % (2-11); Neutrophils Absolute Auto 3.5 x10*3/uL (2.0-8.3); Neutrophils Percent Auto 58.5 % (45-73); Platelet Count 235 X10*3/uL (160-400); Red Blood Count 4.55 X10*6/uL (4.20-5.50); Red Cell Distribution Width 12.5 % (11.0-16.0)
[2021-12-30 10:49] LABS: Anion Gap 12 (12-20); Blood Urea Nitrogen 13 mg/dL (9-16); Calcium 9.5 mg/dL (8.4-10.2); Carbon Dioxide 28 mmol/L (22-29); Chloride 104 mmol/L (96-108); Estimated Glomerular Filt Rate 58; Glucose Random 101 mg/dL (60-115); Potassium 3.8 mmol/L (3.3-5.1); Sodium 140 mmol/L (135-145)
[2021-12-30 10:50] LABS: Magnesium 2.3 mg/dL (1.6-2.6)
[2021-12-30 11:04] LABS: B Type Natriuretic Peptide 107 pg/mL (<100)
== END 2021-12-30 08:08 | disposition home or self-care (01) ==
LOC: HO.10HDL 08:07
PROVIDERS: Nurse Practitioner Family; Absent Provider Internal Medicine; Visit Provider Internal Medicine Cardiovascular Disease
DX: I50.32 Chronic diastolic (congestive) heart failure (principal); I48.92 Unspecified atrial flutter; R30.0 Dysuria
CPT/HCPCS: 36415; 80048; 81003; 83735; 83880; 85025; 87086

== ENCOUNTER → 2022-01-04 10:21 | Outpatient (REF) | payer MEDICARE, SELFPAY ==
--- NOTE | 2022-01-04 10:25 | CA_ITS ---
Transthoracic Echocardiogram Patient (Last, First, Middle): Saundra Parada, Gender: Female Date of : 1940 Age: 81 Procedure Date: 01/04/2022 Procedure Type: Transthoracic Echocardiogram Location: OP Height: 157.48 cm Weight: 62.6 kg BSA: 1.63 m2 Heart Rate: bpm BP: 130 / 64 mmHg Adjunct Psychology Faculty Member: CHRISTOPHER Referring MD: Claudy Rojas MD Symptoms: I50.32 - Chronic diastolic (congestive) heart failure Study Quality: Fair ECG Rhythm: Sinus Conclusions: - The left ventricular systolic function is normal. The calculated ejection fraction is 60% by biplane method. - Evidence suggests grade II (moderate) diastolic dysfunction. - The left atrium is severely dilated. - There is mild calcification of the aortic valve. - There is mild mitral valve regurgitation. Findings Left Ventricle Normal left ventricular cavity size. The left ventricular systolic function is normal. The calculated ejection fraction is 60% by biplane method. There is no evidence of regional wall motion abnormalities. E/E prime ratio is >15, consistent with elevated filling pressures. Evidence suggests grade II (moderate) diastolic dysfunction. There is mild septal asymmetric hypertrophy. Right Ventricle Normal right ventricular cavity size and systolic function. Atria The left atrium is severely dilated. The right atrium is normal in size. Aortic Valve There is mild calcification of the aortic valve. There is no aortic valve stenosis. The peak aortic gradient is 9 mmHg.There is trace (trivial) aortic valve regurgitation. Mitral Valve There is mild anterior and posterior mitral leaflet thickening. The posterior mitral leaflet has restricted mobility. There is mild mitral valve regurgitation. There is no mitral valve stenosis. Pulmonic Valve The pulmonic valve was not well visualized. Tricuspid Valve Normal tricuspid valve structure. There is trace tricuspid valve regurgitation. The pulmonary artery systolic pressure is normal. Great Vessels The aorta was not well visualized. The aortic annulus is normal in size. Small plaque is seen in the sino tubular ridge. Venous The inferior vena cava is normal in size and collapses greater than 50% with inspiration. Pericardium/Pleural There is no evidence of pericardial effusion. Prior Study Comparison Changes noted compared to prior study dated: 01/20/2021. Measurements 2D Linear Measurements IVSd: 1.53 0.6-0.9/0.6-1.0 cm LVIDd: 4.49 3.9-5.3/4.2-5.9 cm LVIDd Index: 2.75 2.4-3.2/2.2-3.1 cm/m2 LVIDs: 3.05 2.0-3.6 cm LVPWd: 0.96 0.7-1.1 cm Ao Root: 2.80 2.1-3.5 cm LA Diam: 4.30 2.7-3.8/3.0-4.0 cm LAIDs Index: 2.64 1.5-2.3 cm/m2 LV Mass: 258.77 67-162/88-224 g LV Mass Index: 158.76 43-95/49-115 g/m2 LVOT Diam: 1.80 3.0+(-)1.3 cm 2D Systolic Function EF 4C: 65.80 >55% EF 2C: 51.90 >55% EF BiP: 60.40 >55% Mitral Valve MV Pk E: 1.32 MV PK A: 0.83 MV Decel Time: 211.00 E/A: 1.60 E'Lateral: 6.64 E'Medial: 6.53 E/E' Med: 20.20 E/E' Lat: 19.90 PHT: 62.00 MVA PHT: 3.55 Decel Sac: 6.27 MR Vol - PW Dopp: 10.35 MR VTI: 2.07 MR ERO: 5.00 MR Alias Willi: 0.23 MR RAD: 0.40 Aortic Valve AoV Pk Willi: 1.49 AoV Pk Grad: 9.00 AI Pk Willi: 3.03 AI Sac: 0.75 LVOT LVOT Pk Willi: 0.91 LVOT Mn Willi: 0.56 LVOT VTI: 0.20 LVOT Pk Grad: 3.00 LVOT Mn Grad: 2.00 LVOT Diam: 1.80 LVOT Area: 2.54 Diastolic Function MV Pk E: 1.32 MV Pk A: 0.83 E/A: 1.60 E'Medial: 6.53 E/E' Med: 20.20 E' Laterial: 6.64 E/E' Lat: 19.90 Right Ventricle TAPSE (mm): 2.12 TVS' Willi: 12.40 Tricuspid Valve TR Pk Willi: 2.74 TR Pk Grad: 30.00 RA Press: 3.00 RVSP: 33.00 Great Vessels Aorta Ao Root-2D: 2.80 2.0-3.7 cm Updated in Other Vendor System with Status of Final Efren Austin MD electronically signed on 01/05/2022 11:13:44 AM with status of Final
== END ==
LOC: HO.CARD 10:21
PROVIDERS: PCP Internal Medicine; Visit Provider Internal Medicine Cardiovascular Disease
DX: I50.32 Chronic diastolic (congestive) heart failure (principal)
CPT/HCPCS: 93306

== ENCOUNTER → 2022-01-06 09:34 | Outpatient (BNVA) | payer MEDICARE, SELFPAY | PROVIDERS: PCP Internal Medicine; Referring Provider Internal Medicine; Visit Provider Internal Medicine Cardiovascular Disease | DX: I48.92 Unspecified atrial flutter (principal); I50.32 Chronic diastolic (congestive) heart failure | CPT/HCPCS: 93005; 99212 ==

== ENCOUNTER 2022-02-26 07:47 | Outpatient (REF) | payer MEDICARE, SELFPAY ==
[2022-02-26 08:13] LABS: MANUAL DIFF FLAG NO
[2022-02-26 09:30] LABS: Appearance Urine CLEAR; Color Urine YELLOW; Glucose Urine UA NEG (NEG); Leukocyte Esterase Urine NEG (NEG); Nitrite Urine NEG (NEG); Urine Blood NEG (NEG); Urine Ketones NEG (NEG); Urine Protein NEG (NEG-TRACE)
[2022-02-26 09:31] LABS: Basophils Percent Auto 0.6 % (0-2); Eosinophils Absolute Auto 0.3 X10*3/uL (0.0-0.4); Eosinophils Percent Auto 3.5 % (0-4); Hematocrit 42.8 % (37.0-47.0); Hemoglobin 13.7 g/dl (12.0-16.0); Imm Gran Abs Auto 0.03 X10*3/uL (0.00-0.03); Imm Gran Pct Auto 0.4 % (0.0-0.4); Lymphocytes Absolute Auto 2.3 X10*3/uL (1.2-4.9); Lymphocytes Percent Auto 31.5 % (20-40); Mean Corpuscular Hemoglobin 30.5 pg (27.0-33.0); Mean Corpuscular Volume 95.3 fL (80.0-98.0); Mean Platelet Volume 10.8 fL (9.4-12.3); Monocytes Absolute Auto 0.7 X10*3/uL (0.1-1.2); Monocytes Percent Auto 10.3 % (2-11); Neutrophils Absolute Auto 3.9 x10*3/uL (2.0-8.3); Neutrophils Percent Auto 53.7 % (45-73); Platelet Count 248 X10*3/uL (160-400); Red Blood Count 4.49 X10*6/uL (4.20-5.50); Red Cell Distribution Width 12.7 % (11.0-16.0); White Blood Count 7.2 X10*3/uL (4.8-10.8)
[2022-02-26 09:56] LABS: B Type Natriuretic Peptide 192 pg/mL (<100)
[2022-02-26 10:02] LABS: Alanine Aminotransferase 38 U/L (0-31); Alkaline Phosphatase 58 U/L (39-117); Anion Gap 11 (12-20); Aspartate Amino Transferase 23 U/L (5-31); Bilirubin Total 0.9 mg/dL (0.0-1.0); Blood Urea Nitrogen 16 mg/dL (9-16); Calcium 9.4 mg/dL (8.4-10.2); Carbon Dioxide 29 mmol/L (22-29); Chloride 107 mmol/L (96-108); Cholesterol 164 mg/dL; Estimated Glomerular Filt Rate > 60; Glucose Fasting 89 mg/dL (60-99); HDL Cholesterol 59 mg/dL; LDL Cholesterol Calculated 90 mg/dl; Magnesium 2.3 mg/dL (1.6-2.6); Potassium 4.7 mmol/L (3.3-5.1); Sodium 142 mmol/L (135-145); Total Protein 6.5 g/dL (6.5-8.0); Triglycerides 78 mg/dL
== END 2022-02-26 07:48 | disposition home or self-care (01) ==
LOC: HO.LAB 07:47
PROVIDERS: PCP Internal Medicine; Visit Provider Internal Medicine
DX: I48.0 Paroxysmal atrial fibrillation (principal); I11.0 Hypertensive heart disease with heart failure; I50.9 Heart failure, unspecified; E78.00 Pure hypercholesterolemia, unspecified; Z87.442 Personal history of urinary calculi
CPT/HCPCS: 36415; 80053; 80061; 81003; 83735; 83880; 85025

== ENCOUNTER → 2022-04-05 09:17 | Outpatient (BNVA) | payer MEDICARE, SELFPAY | PROVIDERS: PCP Internal Medicine; Referring Provider Internal Medicine; Visit Provider Internal Medicine Cardiovascular Disease | DX: R00.1 Bradycardia, unspecified (principal) | CPT/HCPCS: 93005 ==

== ENCOUNTER → 2022-07-11 09:56 | Outpatient (BNVA) | payer MEDICARE, SELFPAY | PROVIDERS: PCP Internal Medicine; Referring Provider Internal Medicine; Visit Provider Internal Medicine Cardiovascular Disease | DX: R00.1 Bradycardia, unspecified (principal); I48.92 Unspecified atrial flutter; I50.32 Chronic diastolic (congestive) heart failure | CPT/HCPCS: 93005; 99212 ==

== ENCOUNTER 2022-10-25 11:05 | Outpatient (REF) | payer MEDICARE, SELFPAY ==
[2022-10-25 13:34] LABS: MANUAL DIFF FLAG NO
[2022-10-25 13:36] LABS: Basophils Percent Auto 0.5 % (0-2); Eosinophils Absolute Auto 0.3 X10*3/uL (0.0-0.4); Eosinophils Percent Auto 4.5 % (0-4); Hematocrit 43.9 % (37.0-47.0); Hemoglobin 14.1 g/dl (12.0-16.0); Imm Gran Abs Auto 0.02 X10*3/uL (0.00-0.03); Imm Gran Pct Auto 0.3 % (0.0-0.4); Lymphocytes Absolute Auto 2.7 X10*3/uL (1.2-4.9); Lymphocytes Percent Auto 36.6 % (20-40); Mean Corpuscular HGB Conc 32.1 g/dl (31.0-35.0); Mean Corpuscular Hemoglobin 30.4 pg (27.0-33.0); Mean Corpuscular Volume 94.6 fL (80.0-98.0); Mean Platelet Volume 10.5 fL (9.4-12.3); Monocytes Absolute Auto 0.7 X10*3/uL (0.1-1.2); Monocytes Percent Auto 9.5 % (2-11); Neutrophils Absolute Auto 3.5 x10*3/uL (2.0-8.3); Neutrophils Percent Auto 48.6 % (45-73); Platelet Count 243 X10*3/uL (160-400); Red Blood Count 4.64 X10*6/uL (4.20-5.50); Red Cell Distribution Width 12.6 % (11.0-16.0); White Blood Count 7.3 X10*3/uL (4.8-10.8)
[2022-10-25 13:53] LABS: Alanine Aminotransferase 18 U/L (0-31); Alkaline Phosphatase 60 U/L (39-117); Anion Gap 11 (12-20); Aspartate Amino Transferase 16 U/L (5-31); Bilirubin Total 0.9 mg/dL (0.0-1.0); Blood Urea Nitrogen 13 mg/dL (9-16); Calcium 9.5 mg/dL (8.4-10.2); Carbon Dioxide 30 mmol/L (22-29); Chloride 102 mmol/L (96-108); Estimated Glomerular Filt Rate > 60; Glucose Random 86 mg/dL (60-115); Potassium 4.6 mmol/L (3.3-5.1); Sodium 138 mmol/L (135-145); Total Protein 6.5 g/dL (6.5-8.0)
== END 2022-10-25 11:06 | disposition home or self-care (01) ==
LOC: HO.10HDL 11:05
PROVIDERS: Visit Provider Internal Medicine
DX: I48.0 Paroxysmal atrial fibrillation (principal); I11.0 Hypertensive heart disease with heart failure; I50.9 Heart failure, unspecified; R30.0 Dysuria
CPT/HCPCS: 36415; 80053; 85025

== ENCOUNTER → 2023-01-03 09:14 | Outpatient (REF) | payer MEDICARE, SELFPAY ==
--- NOTE | 2023-01-03 09:31 | CA_ITS ---
Transthoracic Echocardiogram Patient (Last, First, Middle): Saundra Parada, Gender: Female Date of : 1940 Age: 82 Procedure Date: 01/03/2023 Procedure Type: Transthoracic Echocardiogram Location: OP Height: 157.48 cm Weight: 63.5 kg BSA: 1.64 m2 Heart Rate: bpm BP: 130 / 70 mmHg Basketball Assembler: TO/VH Referring MD: Claudy Rojas MD Car Stereo Installer: Claudy Rojas MD Symptoms: I50.32 - Chronic diastolic (congestive) heart failure Study Quality: Fair ECG Rhythm: Sinus Conclusions: - 1. Normal LV systolic function with grade 2 diastolic dysfunction 2. Moderately dilated left atrium 3. Bclg-ov-odhfssrr mitral regurgitation 4. Normal RV systolic pressure 5. No pericardial effusion Findings Left Ventricle Normal left ventricular size, thickness, and systolic function. The visually estimated ejection fraction is between 65-70%. Spectral Doppler is indicative of a pseudonormal filling pattern. E/E prime ratio is >15, consistent with elevated filling pressures. Evidence suggests grade II (moderate) diastolic dysfunction. There is mild septal asymmetric hypertrophy. Right Ventricle Normal right ventricular cavity size and systolic function. Atria The left atrium is moderately dilated. Interatrial shunt cannot be excluded. The right atrium is normal in size. Aortic Valve There is mild calcification of the aortic valve. There is no aortic valve stenosis. There is mild aortic valve regurgitation. Mitral Valve There is mild anterior and posterior mitral leaflet thickening. The posterior mitral leaflet has restricted mobility. There is mild to moderate mitral valve regurgitation. There is no mitral valve stenosis. Pulmonic Valve The pulmonic valve was not well visualized. Tricuspid Valve Likely normal tricuspid valve structure and function. There is mild tricuspid valve regurgitation. The right ventricular systolic pressure is normal. The right ventricular systolic pressure is 32 mmHg. Normal right atrial pressure. There is no evidence of pulmonary hypertension. Great Vessels All visible segments of the aorta are normal in size. The pulmonary artery was not well visualized. Venous The inferior vena cava is normal in size and collapses greater than 50% with inspiration. Pericardium/Pleural There is no evidence of pericardial effusion. Prior Study Comparison Changes noted compared to prior study dated: 01/04/2022. left atrium appears to be moderately dilated on this study Measurements 2D Linear Measurements IVSd: 1.32 0.6-0.9/0.6-1.0 cm LVIDd: 4.53 3.9-5.3/4.2-5.9 cm LVIDd Index: 2.76 2.4-3.2/2.2-3.1 cm/m2 LVIDs: 2.69 2.0-3.6 cm LVPWd: 0.93 0.7-1.1 cm LA Diam: 4.60 2.7-3.8/3.0-4.0 cm LAIDs Index: 2.80 1.5-2.3 cm/m2 LV Mass: 227.31 67-162/88-224 g LV Mass Index: 138.60 43-95/49-115 g/m2 LVOT Diam: 1.80 3.0+(-)1.3 cm 2D Systolic Function EF 4C: 67.00 >55% EF 2C: 66.50 >55% EF BiP: 67.50 >55% Mitral Valve MV VTI: 0.59 MV Pk Willi: 1.66 MV Mn Willi: 0.78 MV Pk Grad: 11.00 MV Mn Grad: 3.00 MV Pk E: 1.36 MV PK A: 0.81 MV Decel Time: 489.00 E/A: 1.70 E'Lateral: 7.29 E'Medial: 5.22 E/E' Med: 26.10 E/E' Lat: 18.70 PHT: 143.00 MVA PHT: 1.54 MVA Continuity: 1.10 Decel Cottle: 2.78 MR Vol - PW Dopp: 34.88 MR VTI: 2.18 MR ERO: 16.00 MR Alias Willi: 0.39 MR RAD: 0.60 Aortic Valve AoV Pk Willi: 1.72 AoV Mn Willi: 1.17 AoV VTI: 0.41 AoV Pk Grad: 12.00 Aov Mn Grad: 6.00 HERMELINDO Cont.VTI: 1.57 LVOT LVOT Pk Willi: 1.00 LVOT Mn Willi: 0.67 LVOT VTI: 0.25 LVOT Pk Grad: 4.00 LVOT Mn Grad: 2.00 LVOT Diam: 1.80 LVOT Area: 2.54 Diastolic Function MV Pk E: 1.36 MV Pk A: 0.81 E/A: 1.70 E'Medial: 5.22 E/E' Med: 26.10 E' Laterial: 7.29 E/E' Lat: 18.70 Right Ventricle TAPSE (mm): 20.00 TVS' Willi: 11.00 Tricuspid Valve TR Pk Willi: 2.70 TR Pk Grad: 29.00 RA Press: 3.00 RVSP: 32.00 Great Vessels Aorta Sinus of Valsalva: 3.26 2.0-3.[address] [place]: 2.41 1.7-3.4 cm Ao Asc: 3.20 2.1-3.4 cm Updated in Other Vendor System with Status of Final Claudy Rojas MD electronically signed on 01/04/2023 9:10:56 AM with status of Final
== END ==
LOC: HO.CARD 09:14
PROVIDERS: PCP Internal Medicine; Visit Provider Internal Medicine Cardiovascular Disease
DX: I50.32 Chronic diastolic (congestive) heart failure (principal)
CPT/HCPCS: 93306

== ENCOUNTER 2023-02-21 10:33 | Outpatient (REF) | payer MEDICARE, SELFPAY ==
--- NOTE | ~2023-02-21 | XR_ITS ---
EXAMINATION: XR chest 2V CLINICAL INFORMATION: Reason for Exam COUGH,? PNEUMONIA COMPARISON: Chest radiograph 06/20/2021 TECHNIQUE: 2 views of the chest FINDINGS: Left lung base hazy opacity may reflect atelectasis, aspiration, or infection. Trace left effusion. No pneumothorax. Unchanged cardiomediastinal silhouette. XR/XR chest 2V Impression: Left lung base hazy opacity may reflect atelectasis, aspiration, or infection. Trace left effusion.
[2023-02-21 12:32] LABS: Influenza A PCR NEGATIVE (Negative); Influenza B PCR NEGATIVE (Negative); Resp Syncy Virus RNA Qual PCR NEGATIVE (Negative); SARS COV2 PCR INHOUSE NEGATIVE (Negative)
== END 2023-02-21 10:34 | disposition home or self-care (01) ==
LOC: HO.XRAY 10:33
PROVIDERS: PCP Internal Medicine; Visit Provider Internal Medicine
DX: R05.9 Cough, unspecified (principal); R09.89 Other specified symptoms and signs involving the circulatory and respiratory systems; Z20.822 Contact with and (suspected) exposure to COVID-19
CPT/HCPCS: 0241U; 71046

== ENCOUNTER 2023-03-16 13:25 | Outpatient (REF) | payer MEDICARE, SELFPAY ==
[2023-03-16 15:11] LABS: Anion Gap 13 (12-20); Blood Urea Nitrogen 14 mg/dL (9-16); Calcium 9.6 mg/dL (8.4-10.2); Carbon Dioxide 29 mmol/L (22-29); Chloride 105 mmol/L (96-108); Estimated Glomerular Filt Rate 48; Glucose Random 90 mg/dL (60-115); Potassium 4.8 mmol/L (3.3-5.1); Sodium 142 mmol/L (135-145)
[2023-03-16 15:22] LABS: B Type Natriuretic Peptide 74 pg/mL (<100)
== END 2023-03-16 13:26 | disposition home or self-care (01) ==
LOC: HO.LAB 13:25
PROVIDERS: PCP Internal Medicine; Referring Provider Internal Medicine; Visit Provider Internal Medicine Cardiovascular Disease
DX: I50.32 Chronic diastolic (congestive) heart failure (principal); I48.92 Unspecified atrial flutter; Z79.899 Other long term (current) drug therapy
CPT/HCPCS: 36415; 80048; 83880; 93005; 99212

== ENCOUNTER 2023-05-05 08:15 | Outpatient (REF) | payer MEDICARE, SELFPAY ==
[2023-05-05 10:55] LABS: Appearance Urine Clear; Color Urine Yellow; Glucose Urine UA Negative (Negative); Leukocyte Esterase Urine Moderate (2+) (Negative); Nitrite Urine Positive (Negative); UMIC TRIGGER UACC YES; Urine Blood Negative (Negative); Urine Ketones Negative (Negative); Urine Protein Negative (Neg-Trace)
[2023-05-05 10:59] LABS: Bacteria Urine 4+ (None Seen); RBC Urine 0-2 /HPF (0-2); UACC Culture Trigger YES; WBC Urine >50 /HPF (0-5)
[2023-05-05 11:00] LABS: Hyaline Casts Urine 0-2 /LPF (0-2)
== END 2023-05-05 08:16 | disposition home or self-care (01) ==
LOC: HO.10HDLNP 08:15
PROVIDERS: Visit Provider Internal Medicine
DX: R30.0 Dysuria (principal)
CPT/HCPCS: 81001; 87086; 87088; 87186

== ENCOUNTER 2023-06-15 09:26 | Outpatient (AMB) | payer MEDICARE, SELFPAY ==
--- NOTE | 2023-06-15 09:52 | AM.OFFVISNUR ---
Intake Intake Visit Reasons: 3 MON EKG Mix Crusher Operator Required: No Accompanied by: Self / Same As Patient Allergies Sulfa (Sulfonamide Antibiotics) Allergy (Intermediate, Verified 06/15/23 09:53) RASH Nursing Note Pt was seen in office for routine 3 month EKG. She is currently on Multaq 400mg BID. She feels well has no cardiac complaints. EKG today shows auto reading of sinus bradycardia with heart rate of 58BPM. EKG reviewed by Dr. Rojas, no changes pt aware. Workload message created and sent to Dr. Rojas for documention purposes. Office Procedures EKG [id number], Complete Coding Diagnoses CPT Codes EKG - CPT: 13841-[id number], Complete ([id number])
== END 2023-06-15 10:07 | disposition home or self-care (01) ==
PROVIDERS: Visit Provider Internal Medicine Cardiovascular Disease
DX: R00.1 Bradycardia, unspecified (principal)
CPT/HCPCS: 93010

== ENCOUNTER → 2023-06-15 09:26 | Outpatient (BNVA) | payer MEDICARE, SELFPAY | PROVIDERS: Visit Provider Internal Medicine Cardiovascular Disease | DX: R00.1 Bradycardia, unspecified (principal); Z79.899 Other long term (current) drug therapy | CPT/HCPCS: 93005 ==

== ENCOUNTER 2023-09-20 14:39 | Outpatient (AMB) | payer MEDICARE, SELFPAY ==
--- NOTE | 2023-09-20 14:41 | A.OFFVIS_ITS ---
Intake Vital Signs 09/20/23 14:42 Height 5 ft 2 in Weight 145 lb 8.081 oz BMI 26.6 BP 130/76 Blood Pressure Location Lt brachial Position Sitting Pulse 85 Intake Visit Reasons: 6 MON FUP W/ EKG Intake Note: 6 month follow-up with ekg c/o heart racing over the weekend Body Service Team Member Required: No Tie Knitter Helper: Tie Knitter Helper Present Accompanied by: Daughter Allergies Sulfa (Sulfonamide Antibiotics) Allergy (Intermediate, Verified 06/15/23 09:53) RASH Medication List - Last Reconciled 09/20/23 by Claudy Rojas MD apixaban (Eliquis) 5 mg PO BID 90 days atorvastatin 10 mg PO BEDTIME cholecalciferol (vitamin D3) 10 mcg PO DAILY dicyclomine 10 mg PO QID PRN dronedarone (Multaq) 400 mg PO Q12H furosemide (Lasix) 20 mg PO .everyother day 90 days lorazepam 0.5 mg PO BEDTIME vitamin B complex 1 cap PO BEDTIME HPI HPI Comments History of Present Illness Details Saundra comes for follow-up. She has over the last 2 weeks around 03:30 the morning she would notice palpitations have subsided. Over the weekend she started not feeling well felt fatigue and tired and had irregular heartbeat and rapid heart rate she notice. She came for an urgent follow-up visit today. She is noted to be in atrial flutter with controlled ventricular response. Patient denies any worsening orthopnea, PND, leg edema. Takes all her medications. No bleeding issues or neurologic events. She has been taking her oral anticoagulation religiously. [facility] Medical History (Updated 09/20/23 @ 15:22 by Claudy Rojas MD) Atrial flutter Paroxysmal atrial flutter Chronic heart failure with preserved ejection fraction (HFpEF) Kidney stone High cholesterol HTN (hypertension) Mitral valve disorder Afib Surgical History History of carpal tunnel release H/O lithotripsy H/O: hysterectomy Social History Household Members: None Housing: House Do you presently have visiting nurse or other home services: No Patient Tobacco Use Status: Never used Tobacco Second Hand Smoke Exposure: No Advance Directives Date on File: 05/07/21 service: No Current occupational status: retired Review of Systems Const Denies chills, Denies fatigue, Denies fever(s), Denies frequent falls, Denies weakness, Denies weight gain and Denies weight loss ENT Denies dizziness Card Denies chest pain, Denies leg edema, Denies lightheadedness, Denies pal pitations, Denies dyspnea, Denies dyspnea on exertion, Denies orthopnea and Denies other (loss of consciousness) Resp Denies cough, Denies dyspnea and Denies dyspnea on exertion GI Denies hematochezia and Denies change in stool character Musc Denies abnormal gait, Denies muscle weakness, Denies numbness, Denies radiating pain into limb and Denies tingling Neuro Denies abnormal gait, Denies dizziness, Denies frequent falls, Denies numbness, Denies tingling and Denies weakness Endo Denies fatigue and Denies palpitations Physical Exam Vital Signs: Last Vital Signs Pulse 85 09/20/23 14:42 BP 130/76 09/20/23 14:42 BMI result Body Mass Index 26.6 Const General: cooperative, comfortable, no acute distress, alert, awake, Physically active and well groomed Nutritional Appearance: average body habitus Orientation/consciousness: patient oriented x3 Limitations: no limitations Neck Neck: Yes trachea midline, Yes supple and Yes no JVD Resp Effort & Inspection: normal respiratory effort Auscultation: clear to auscultation bilaterally Cardio Jugular venous distension: no JVD Rate: regular rate Rhythm: abnormal rhythm irregularly irregular Heart sounds: S1 normal heart sound present and S2 normal heart sound present GI Auscultation: normal bowel sounds Skin General skin exam: no rashes or lesions noted Neuro General: patient oriented x3 and no focal motor deficits Extrem General: Yes no clubbing, cyanosis or edema Assessment & Plan Assessment & Plan (1) Atrial flutter: Comment: Status post cardioversion on Multaq Code(s): I48.92 - Unspecified atrial flutter Qualifiers: Atrial flutter type: unspecified Qualified Code(s): I48.92 - Unspecified atrial flutter Plan: Recurrent atrial flutter with symptoms. Rate is adequately controlled. At this point time she has failed Multaq therapy. She require an alternative antiarrhythmic drug therapy. We discussed about other agents such as sotalol as well as amiodarone and potential side effects of each agent. Will start her on sotalol therapy after washout of Multaq. She will require inpatient initiation for 48 hours. This was discussed with her. Meanwhile will discontinue Multaq and start on metoprolol 50 mg b.i.d. for rate control. Admit to her on September 25 for inpatient initiation of sotalol, 80 mg b.i.d.. Continue uninterrupted oral anticoagulation therapy with Eliquis. She has done very well with rhythm control approach will continue pursue rhythm control approach. (2) Chronic heart failure with preserved ejection fraction (HFpEF): Code(s): I50.32 - Chronic diastolic (congestive) heart failure Plan: Chronic heart failure preserved ejection fraction has done well with rhythm control approach. Clinically euvolemic and well compensated. Continue rate control for now but eventually will pursue rhythm control approach which has helped her. Continue current diuretic dose of Lasix. Daily weight monitoring avoidance of salt loading was discussed. Additional diuretics as need be. Will follow up in the clinic after cardioversion. Thank you for allowing me to partake in her care Medications: New metoprolol tartrate 50 mg PO BID 30 tabs 0RF Discontinued dronedarone (Multaq) Discontinued Reason: Doctor's Order 400 mg PO Q12H 60 tabs 5RF Coding Level of Care Code Est Pt Level 4 (83439) Diagnoses Atrial flutter I48.92 Atrial flutter type: unspecified Chronic heart failure with preserved ejection fraction (HFpEF) I50.32
[2023-09-20 14:42] VITALS: BP 130/76; PULSE 85; BMI 26.6
== END 2023-09-20 15:11 | disposition home or self-care (01) ==
PROVIDERS: PCP Internal Medicine; Visit Provider Internal Medicine Cardiovascular Disease
DX: I48.92 Unspecified atrial flutter (principal); I50.32 Chronic diastolic (congestive) heart failure
CPT/HCPCS: 93010; 99214

== ENCOUNTER → 2023-09-20 14:39 | Outpatient (BNVA) | payer MEDICARE, SELFPAY | PROVIDERS: PCP Internal Medicine; Visit Provider Internal Medicine Cardiovascular Disease | DX: I48.92 Unspecified atrial flutter (principal); I50.32 Chronic diastolic (congestive) heart failure | CPT/HCPCS: 93005; 99212 ==

== ENCOUNTER 2023-09-26 10:51 | Inpatient (IN) | payer MEDICARE, SELFPAY ==
--- NOTE | 2023-08-28 | ECG_ITS ---
Test Reason : SOTOLOL PROCOTOL Blood Pressure : / mmHG Vent. Rate : 056 BPM Atrial Rate : 056 BPM P-R Int : 188 ms QRS Dur : 080 ms QT Int : 484 ms P-R-T Axes : 065 -04 025 degrees QTc Int : 467 ms Sinus bradycardia Nonspecific ST abnormality Abnormal ECG Sinus bradycardia has replaced aflutter Referred By: Dora Spiecr Electronically Signed By:ANAND BERNARD MD
--- NOTE | ~2023-09-26 | US_ITS ---
EXAMINATION: US SOFT TISSUE NECK CLINICAL INFORMATION: Right-sided neck swelling COMPARISON: None available. TECHNIQUE: Ultrasound of the neck soft tissues is performed with high- frequency rubio-scale imaging and color Doppler. FINDINGS: No fluid collection or suspicious soft tissue mass. Few subcentimeter cervical nodes are seen which maintain normal hilar architecture, not pathologically enlarged or otherwise suspicious in morphology. US/US soft tiss head and/or neck IMPRESSION: 1. No fluid collection or suspicious soft tissue mass. 2. Few subcentimeter cervical nodes are seen which maintain normal hilar architecture, not pathologically enlarged or otherwise suspicious in morphology.
[2023-09-26 11:04] VITALS: BMI 24.7
[2023-09-26 11:12] VITALS: BP 138/82; PULSE 113; TEMP 36.8; O2SAT 97
--- NOTE | 2023-09-26 11:19 | ECG_ITS ---
Test Reason : medication Blood Pressure : / mmHG Vent. Rate : 060 BPM Atrial Rate : 060 BPM P-R Int : 266 ms QRS Dur : 082 ms QT Int : 420 ms P-R-T Axes : 086 007 031 degrees QTc Int : 420 ms Rhythm shows atrial flutter with variable block RSR' or QR pattern in V1 suggests right ventricular conduction delay Abnormal ECG When compared with ECG of 26-SEP-2023 16:00, No significant changes seen Referred By: Dora Spicer Electronically Signed By:ANAND BERNARD MD
--- NOTE | 2023-09-26 11:46 | PHA.MEDREC ---
Addendum entered by Gwen Jaramillo RPh 09/26/23 11:47: Of note, pt was discontinued from multaq very recently per last proof coin collector note Original Note: Pharmacy Consult ? Medication Reconciliation Pharmacy has completed the medication reconciliation.
[2023-09-26 12:45] LABS: Anion Gap 11 (12-20); Blood Urea Nitrogen 13 mg/dL (9-16); Calcium 9.8 mg/dL (8.4-10.2); Carbon Dioxide 30 mmol/L (22-29); Chloride 106 mmol/L (96-108); Creatinine Clr Calc Pharmacy 42.7; Estimated Glomerular Filt Rate > 60; Glucose Random 88 mg/dL (60-115); Potassium 4.1 mmol/L (3.3-5.1); Sodium 143 mmol/L (135-145)
[2023-09-26] MEDS: Sotalol HCL 80 MG TABLET PO (13:52)
[2023-09-26] MEDS: Cholecalciferol (Vitamin D3) 10 MCG TABLET PO (14:02)
[2023-09-26] MEDS: 0.9 % Sodium Chloride Flush 3 ML SYRINGE IVFLUSH ×2 (15:06→23:36)
[2023-09-26 15:31] VITALS: BP 142/69; PULSE 62; RESP 18; TEMP 35.9; O2SAT 96
[2023-09-26 15:34] VITALS: TEMP 37
--- NOTE | 2023-09-26 16:00 | ECG_ITS ---
Test Reason : sotalol protocol Blood Pressure : / mmHG Vent. Rate : 062 BPM Atrial Rate : 250 BPM P-R Int : 000 ms QRS Dur : 084 ms QT Int : 414 ms P-R-T Axes : 112 016 023 degrees QTc Int : 420 ms Atrial flutter with variable A-V block Low voltage QRS Nonspecific ST abnormality Abnormal ECG No previous ECGs available Referred By: Dora Spicer Electronically Signed By:ANAND BERNARD MD
--- NOTE | 2023-09-26 16:24 | PC.NURSE ---
QTC 426 at 11;36; QTC 420 at 16:00
--- NOTE | 2023-09-26 18:47 | PM.IMHP ---
History of Present Illness Date of Service: 09/26/23 Attending physician on admission: Dora Spicer Chief Complaint: For sotalol loading 83-year-old female with past medical history of paroxysmal artery aflutter, CHF, hypertension-came to the hospital because palpitations have subsided(1-2 week back). 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 Patient denies any worsening orthopnea, PND, leg edema. Takes all her medications. No bleeding issues or neurologic events. She has been compliant with oral anticoagulation . Subsequently her Multaq was discontinued and decided for Patient was called for direct admission-for sotalol loading. Denies any new complaint of chest pain or palpitation or shortness of breath or abdominal pain or fever or chills or nausea or vomiting Denies any cough Denies any weakness or numbness. Review of Systems Review of Systems: As above. [facility] Medical History Atrial flutter Paroxysmal atrial flutter Chronic heart failure with preserved ejection fraction (HFpEF) Kidney stone High cholesterol HTN (hypertension) Mitral valve disorder Afib Surgical History History of carpal tunnel release H/O lithotripsy H/O: hysterectomy Social History Household Members: None Housing: House Do you presently have visiting nurse or other home services: No Patient Tobacco Use Status: Never used Tobacco Smoked in Last 30 Days: No Patient Interested in Nicotine Replacement: No Patient Given Instructions on How to Stop Smoking: No Second Hand Smoke Exposure: No Use of substances other than those prescribed or required for medical reasons: No Currently Displaying Signs/Symptoms of Drug Intoxication Withdrawal: No Any prior treatment program specific to substance use: No Have you been hit, kicked, punched, or otherwise hurt by someone within the past year? If so, by whom?: No Do you feel safe in your current relationship?: No Current Relationship Is there a partner from a previous relationship who is making you feel unsafe now?: No Advance Directives: Yes Advance Directives on File: Yes Advance Directives Date on File: 05/07/21 Do you have thoughts of harming others: None Do you have a plan to hurt others: No Plan Recently lost weight without trying: Unsure How much weight loss: Unsure Eating poorly because of decreased appetite: Yes Nutrition screen score: 5 Nutrition Risks: No Nutritional Risk Patient : No : No Poor oral hygiene: No service: No Current occupational status: retired Meds Allergies Allergy/AdvReac Type Severity Reaction Status Date / Time Sulfa (Sulfonamide Allergy Intermediate RASH Verified 06/15/23 09:53 Antibiotics) Active Medications: Current Medications Apixaban (Apixaban 5 Mg Tablet) 5 mg PO BID [facility] Last Admin: 09/26/23 13:57 Dose: Not Given Atorvastatin Calcium (Atorvastatin Calcium 10 Mg Tablet) 10 mg PO BEDTIME [facility] Dicyclomine HCl (Dicyclomine Hcl 10 Mg Capsule) 10 mg PO QID PRN PRN Reason: Abdominal Discomfort Furosemide (Furosemide 20 Mg Tablet) 20 mg PO Q48H [facility]; Protocol Last Admin: 09/26/23 14:00 Dose: Not Given Lorazepam (Lorazepam 0.5 Mg Tablet) 0.5 mg PO BEDTIME [facility] Metoprolol Tartrate (Metoprolol Tartrate 50 Mg Tablet) 50 mg PO BID [facility]; Protocol Last Admin: 09/26/23 13:57 Dose: Not Given Multivitamins/Vitamin C (Multivitamin Tablet) 1 tab PO BEDTIME [facility] Sodium Chloride (0.9 % Sodium Chloride Flush 3 Ml Syringe) 3 ml IVFLUSH QSHIFT [facility] Last Admin: 09/26/23 15:06 Dose: 3 ml Sotalol HCl (Sotalol Hcl 80 Mg Tablet) 80 mg PO Q24H [facility] Vitamin D (Cholecalciferol (Vitamin D3) 10 Mcg Tablet) 10 mcg PO DAILY [facility] Last Admin: 09/26/23 14:02 Dose: 10 mcg Home Medications Medication Instructions Recorded Confirmed Last Taken Type atorvastatin 10 mg tablet 10 mg PO BEDTIME 01/19/21 09/26/23 01/18/21 History dicyclomine 10 mg capsule 10 mg PO QID PRN Abdominal 01/19/21 09/26/23 Unknown History Discomfort lorazepam 0.5 mg tablet 0.5 mg PO BEDTIME 01/19/21 09/26/23 06/09/21 06:45 History vitamin B complex 1 cap PO BEDTIME 01/19/21 09/26/23 01/18/21 History cholecalciferol (vitamin D3) 10 10 mcg PO DAILY 07/11/22 09/26/23 Unknown History mcg (400 unit) capsule Physical Exam Vital Signs and Narrative: Vital Signs: Last Vital Signs Temp 98.6 F 09/26/23 15:34 Pulse 62 09/26/23 15:31 Resp 18 09/26/23 15:31 BP 142/69 H 09/26/23 15:31 Pulse Ox 96 09/26/23 15:31 O2 Del Method Room Air 09/26/23 15:31 BMI result Body Mass Index 24.7 Appearance: Alert.? Oriented X3.? not in distress.? Eyes: Pupils equal, round and reactive to light.? Sclera nonicteric.? ENT: Pharynx normal.? Moist mucous membranes. cvs: irregular rythem, [id number] . res: clear to auscultation ,no rhonchii or wheezing abd: no rebound or guarding ,nt, bs present. ext pulses present , no cyanosis . neuro: axo3 , nonfocal. Results Labs 09/26/23 12:03 Labs: Laboratory Results - last 24 hr 09/26/23 12:03 Hold Purple Top SEE NOTE Anion Gap 11 L Estim Creat Clear Calc 42.7 Estimated GFR > 60 Random Glucose 88 Calcium 9.8 Magnesium 2.0 Assessment and Plan (1) Atrial flutter: Qualifiers: Atrial flutter type: unspecified Qualified Code(s): I48.92 - Unspecified atrial flutter Status: Acute Plan 1. PAF: hr 60-100 Asymptomatic, monitor on tele Discussed with Cardiology-started sotalol. Baseline EKG-initial: QTC is 426 millisecond, repeated EKG 2 hours after sotalol QTC is 420 millisecond. Patient is asymptomatic. Continue Eliquis, continue metoprolol. sotalol dose adjusted as per renal gfr. 2.HFpef: Continue home Lasix 3. Hypertension: Continue lisinopril. 4.HLP: continue statin. dvt porphylax: on eliquis Ongoing hospitalization need: PAF-need STAOLOL LOADING, cardio eval.tele monitering Time Spent With Patient Time: Total time managing care of this patient today ____ minutes. Quality Stroke Does the patient have a stroke diagnosis?: No VTE Prior VTE?: No VTE Risk Level:: Medical - moderate - high VTE Device Contraindication: N/A - Device Ordered VTE Drug Contraindication: N/A - Med Ordered
[2023-09-26 19:27] VITALS: BP 111/56; PULSE 66; RESP 12; TEMP 36.5; O2SAT 96
[2023-09-26] MEDS: Atorvastatin Calcium 10 MG TABLET PO (20:11)
[2023-09-26] MEDS: Metoprolol Tartrate 50 MG TABLET PO (20:11)
[2023-09-26] MEDS: Apixaban 5 MG TABLET PO (20:11)
[2023-09-26] MEDS: LORazepam 0.5 MG TABLET PO (20:11)
[2023-09-26 23:53] VITALS: BP 112/57; PULSE 56; RESP 20; TEMP 36.1; O2SAT 97
[2023-09-27] VITALS (7 sets, daily range): BP systolic 113–160; BP diastolic 60–75; PULSE 62–80; RESP 20; TEMP 36.1–37.1; O2SAT 95–99
[2023-09-27 07:21] LABS: Anion Gap 10 (12-20); Blood Urea Nitrogen 11 mg/dL (9-16); Calcium 9.4 mg/dL (8.4-10.2); Carbon Dioxide 28 mmol/L (22-29); Chloride 108 mmol/L (96-108); Creatinine Clr Calc Pharmacy 44.2; Estimated Glomerular Filt Rate > 60; Glucose Random 95 mg/dL (60-115); Magnesium 2.1 mg/dL (1.6-2.6); Potassium 4.3 mmol/L (3.3-5.1); Sodium 142 mmol/L (135-145)
[2023-09-27] MEDS: Cholecalciferol (Vitamin D3) 10 MCG TABLET PO (08:40)
[2023-09-27] MEDS: Metoprolol Tartrate 50 MG TABLET PO ×2 (08:40→21:15)
[2023-09-27] MEDS: 0.9 % Sodium Chloride Flush 3 ML SYRINGE IVFLUSH ×2 (08:41→21:16)
[2023-09-27] MEDS: Apixaban 5 MG TABLET PO ×2 (08:41→21:16)
--- NOTE | 2023-09-27 09:00 | MHC.CM.PN ---
CM met with Patient at bedside and addressed IMM with her, providing Patient with the original and a copy has been placed on the chart. 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 CM has initiated and will follow for dc planning, PCP is Dr. Agustin Martínez and Patient's Son/Damian is the HCP.
[2023-09-27] MEDS: Sotalol HCL 80 MG TABLET PO (14:08)
--- NOTE | 2023-09-27 15:13 | P.PNIM_ITS ---
Subjective Subjective Date of Service: 09/27/23 Interval History: afib -hr improving Review of Systems overnight wa s bradycardic but asymptomatic Denies any chest pain or shortness of breath Physical Exam 2 Vital Signs: Vital Signs: Last Vital Signs Temp 97.3 F 09/27/23 15:04 Pulse 80 09/27/23 15:04 Resp 20 09/27/23 15:04 BP 129/72 09/27/23 15:04 Pulse Ox 95 09/27/23 15:04 O2 Del Method Room Air 09/27/23 15:04 BMI result Body Mass Index 24.7 Appearance: Alert.? Oriented X3.? not in distress.? Eyes: Pupils equal, round and reactive to light.? Sclera nonicteric.? ENT: Pharynx normal.? Moist mucous membranes. cvs: irregular rythem, [id number] . res: clear to auscultation ,no rhonchii or wheezing abd: no rebound or guarding ,nt, bs present. ext pulses present , no cyanosis . neuro: axo3 , nonfocal. Objective Data Active Medications Apixaban (Apixaban 5 Mg Tablet) 5 mg PO BID [facility] Last Admin: 09/27/23 08:41 Dose: 5 mg Documented By: ABDELRAHMAN Atorvastatin Calcium (Atorvastatin Calcium 10 Mg Tablet) 10 mg PO BEDTIME [facility] Last Admin: 09/26/23 20:11 Dose: 10 mg Documented By: SUZANNE Dicyclomine HCl (Dicyclomine Hcl 10 Mg Capsule) 10 mg PO QID PRN PRN Reason: Abdominal Discomfort Furosemide (Furosemide 20 Mg Tablet) 20 mg PO Q48H [facility]; Protocol Last Admin: 09/26/23 14:00 Dose: Not Given Documented By: ANKUSH Non-Admin Reason: pt took yesterday Lorazepam (Lorazepam 0.5 Mg Tablet) 0.5 mg PO BEDTIME [facility] Last Admin: 09/26/23 20:11 Dose: 0.25 mg Documented By: SUZANNE Comments: pt requested 1/2 dose Metoprolol Tartrate (Metoprolol Tartrate 50 Mg Tablet) 50 mg PO BID [facility]; Protocol Last Admin: 09/27/23 08:40 Dose: 50 mg Documented By: ABDELRAHMAN Multivitamins/Vitamin C (Multivitamin Tablet) 1 tab PO BEDTIME [facility] Last Admin: 09/26/23 20:11 Dose: Not Given Documented By: SUZANNE Non-Admin Reason: Patient Refused Sodium Chloride (0.9 % Sodium Chloride Flush 3 Ml Syringe) 3 ml IVFLUSH QSHIFT [facility] Last Admin: 09/27/23 08:41 Dose: 3 ml Documented By: ABDELRAHMAN Sotalol HCl (Sotalol Hcl 80 Mg Tablet) 80 mg PO Q24H [facility] Last Admin: 09/27/23 14:08 Dose: 80 mg Documented By: ABDELRAHMAN Vitamin D (Cholecalciferol (Vitamin D3) 10 Mcg Tablet) 10 mcg PO DAILY [facility] Last Admin: 09/27/23 08:40 Dose: 10 mcg Documented By: ABDELRAHMAN Labs 09/27/23 06:12 Labs: Laboratory Results - last 24 hr 09/27/23 06:12 Hold Purple Top SEE NOTE Anion Gap 10 L Estim Creat Clear Calc 44.2 Estimated GFR > 60 Random Glucose 95 Calcium 9.4 Magnesium 2.1 Assessment and Plan (1) Paroxysmal atrial flutter: Status: Acute Plan 1. PAF: Patient had asymptomatic bradycardia overnight. Asymptomatic, monitor on tele Discussed with Cardiology-started sotalol. today QTC is 420 millisecond, will repeat EKG 2 hours after sotalol. Patient is asymptomatic. Continue Eliquis, continue metoprolol. sotalol dose adjusted as per renal gfr. 2.HFpef: Continue home Lasix 3. Hypertension: Continue lisinopril. 4.HLP: continue statin. dvt porphylax: on eliquis Ongoing hospitalization need: PAF-need STAOLOL LOADING, cardio eval.tele monitering Quality Stroke Does the patient have a stroke diagnosis?: No VTE Prior VTE?: No VTE Risk Level:: Medical - moderate - high VTE Device Contraindication: N/A - Device Ordered VTE Drug Contraindication: N/A - Med Ordered
--- NOTE | 2023-09-27 16:00 | ECG_ITS ---
Test Reason : on sotalol Blood Pressure : / mmHG Vent. Rate : 062 BPM Atrial Rate : 220 BPM P-R Int : 000 ms QRS Dur : 090 ms QT Int : 424 ms P-R-T Axes : 081 016 043 degrees QTc Int : 430 ms Atrial flutter with variable A-V block RSR' or QR pattern in V1 suggests right ventricular conduction delay Abnormal ECG When compared with ECG of 27-SEP-2023 11:55, No significant changes seen Referred By: Dora Spicer Electronically Signed By:ANAND BERNARD MD
[2023-09-27] MEDS: LORazepam 0.5 MG TABLET PO (21:15)
[2023-09-27] MEDS: Atorvastatin Calcium 10 MG TABLET PO (21:15)
[2023-09-28] VITALS (8 sets, daily range): BP systolic 113–150; BP diastolic 47–75; PULSE 59–73; RESP 13–20; TEMP 35.9–36.8; O2SAT 97–100
[2023-09-28 07:38] LABS: Anion Gap 12 (12-20); Blood Urea Nitrogen 12 mg/dL (9-16); Calcium 9.8 mg/dL (8.4-10.2); Carbon Dioxide 26 mmol/L (22-29); Chloride 109 mmol/L (96-108); Estimated Glomerular Filt Rate > 60; Glucose Random 102 mg/dL (60-115); Potassium 3.8 mmol/L (3.3-5.1); Sodium 143 mmol/L (135-145)
[2023-09-28] MEDS: Metoprolol Tartrate 50 MG TABLET PO (08:19)
[2023-09-28] MEDS: Cholecalciferol (Vitamin D3) 10 MCG TABLET PO (08:20)
[2023-09-28] MEDS: 0.9 % Sodium Chloride Flush 3 ML SYRINGE IVFLUSH (08:20)
[2023-09-28] MEDS: Apixaban 5 MG TABLET PO ×2 (08:20→20:06)
--- NOTE | 2023-09-28 10:46 | PM.CNCAR ---
History of Present Illness History of Present Illness Date of Service: 09/28/23 Requesting physician: Dora Spicer Chief complaint: Atrial flutter Narrative: 83-year-old female who is admitted to the hospital for atrial flutter and sotalol load. She was previously on Multaq and was seen in the office by Dr. Rojas which she was complaining of palpitations an EKG showed atrial flutter. She was advised to be admitted to the hospital and was admitted on 09/26/2023. She has been on sotalol 80 mg daily. EKGs have been stable. She has heart rates in 50s to 60s but continues to get palpitation. Denying chest pain or shortness of breath. She has been on apixaban on interrupted 4 months. No bleeding concerns. [facility] Past Medical History Medical History Atrial flutter Paroxysmal atrial flutter Chronic heart failure with preserved ejection fraction (HFpEF) Kidney stone High cholesterol HTN (hypertension) Mitral valve disorder Afib Surgical History Surgical History History of carpal tunnel release H/O lithotripsy H/O: hysterectomy Social History Social History Household Members: None Housing: House Do you presently have visiting nurse or other home services: No Patient Tobacco Use Status: Never used Tobacco Smoked in Last 30 Days: No Patient Interested in Nicotine Replacement: No Patient Given Instructions on How to Stop Smoking: No Second Hand Smoke Exposure: No Use of substances other than those prescribed or required for medical reasons: No Currently Displaying Signs/Symptoms of Drug Intoxication Withdrawal: No Any prior treatment program specific to substance use: No Have you been hit, kicked, punched, or otherwise hurt by someone within the past year? If so, by whom?: No Do you feel safe in your current relationship?: No Current Relationship Is there a partner from a previous relationship who is making you feel unsafe now?: No Advance Directives: Yes Advance Directives on File: Yes Advance Directives Date on File: 05/07/21 Do you have thoughts of harming others: None Do you have a plan to hurt others: No Plan Recently lost weight without trying: Unsure How much weight loss: Unsure Eating poorly because of decreased appetite: Yes Nutrition screen score: 5 Nutrition Risks: No Nutritional Risk Patient : No : No Poor oral hygiene: No service: No Current occupational status: retired Meds Allergies Allergy/AdvReac Type Severity Reaction Status Date / Time Sulfa (Sulfonamide Allergy Intermediate RASH Verified 06/15/23 09:53 Antibiotics) Active Medications: Current Medications Apixaban (Apixaban 5 Mg Tablet) 5 mg PO BID [facility] Last Admin: 09/28/23 08:20 Dose: 5 mg Atorvastatin Calcium (Atorvastatin Calcium 10 Mg Tablet) 10 mg PO BEDTIME [facility] Last Admin: 09/27/23 21:15 Dose: 10 mg Dicyclomine HCl (Dicyclomine Hcl 10 Mg Capsule) 10 mg PO QID PRN PRN Reason: Abdominal Discomfort Furosemide (Furosemide 20 Mg Tablet) 20 mg PO Q48H [facility]; Protocol Last Admin: 09/26/23 14:00 Dose: Not Given Lorazepam (Lorazepam 0.5 Mg Tablet) 0.5 mg PO BEDTIME [facility] Last Admin: 09/27/23 21:15 Dose: 0.25 mg Metoprolol Tartrate (Metoprolol Tartrate 50 Mg Tablet) 50 mg PO BID [facility]; Protocol Last Admin: 09/28/23 08:19 Dose: 50 mg Multivitamins/Vitamin C (Multivitamin Tablet) 1 tab PO BEDTIME [facility] Last Admin: 09/27/23 22:10 Dose: Not Given Sodium Chloride (0.9 % Sodium Chloride Flush 3 Ml Syringe) 3 ml IVFLUSH QSHIFT [facility] Last Admin: 09/28/23 08:20 Dose: 3 ml Sotalol HCl (Sotalol Hcl 80 Mg Tablet) 80 mg PO Q24H [facility] Last Admin: 09/27/23 14:08 Dose: 80 mg Vitamin D (Cholecalciferol (Vitamin D3) 10 Mcg Tablet) 10 mcg PO DAILY [facility] Last Admin: 09/28/23 08:20 Dose: 10 mcg Home Medications Medication Instructions Recorded Confirmed Last Taken Type atorvastatin 10 mg tablet 10 mg PO BEDTIME 01/19/21 09/26/23 01/18/21 History dicyclomine 10 mg capsule 10 mg PO QID PRN Abdominal 01/19/21 09/26/23 Unknown History Discomfort lorazepam 0.5 mg tablet 0.5 mg PO BEDTIME 01/19/21 09/26/23 06/09/21 06:45 History vitamin B complex 1 cap PO BEDTIME 01/19/21 09/26/23 01/18/21 History cholecalciferol (vitamin D3) 10 10 mcg PO DAILY 07/11/22 09/26/23 Unknown History mcg (400 unit) capsule Physical Exam Vital Signs: Vital Signs: Last Vital Signs Temp 97.5 F 09/28/23 07:03 Pulse 59 09/28/23 07:03 Resp 20 09/28/23 07:03 BP 143/73 H 09/28/23 07:03 Pulse Ox 98 09/28/23 07:03 O2 Del Method Room Air 09/28/23 07:03 BMI result Body Mass Index 24.7 GENERAL APPEARANCE: in no acute distress, pleasant. NECK: no carotid bruit, no jugular venous distention. SKIN: no suspicious lesions, warm and dry. HEART: no murmurs, regular rate and rhythm. Bradycardic. LUNGS: clear to auscultation bilaterally. ABDOMEN: soft, nontender. EXTREMITIES: no edema. PERIPHERAL PULSES: equal. NEUROLOGIC: No gross deficits, AAO X 3 Objective Labs and Meds 09/28/23 06:48 Lab results: Laboratory Results - last 24 hr 09/28/23 06:48 Hold Purple Top SEE NOTE Sodium 143 Potassium 3.8 Chloride 109 H Carbon Dioxide 26 Anion Gap 12 BUN 12 Creatinine 0.75 Estim Creat Clear Calc 49.0 Estimated GFR > 60 Random Glucose 102 Calcium 9.8 Magnesium 2.0 Assessment and Plan (1) Atrial flutter: Qualifiers: Atrial flutter type: unspecified Qualified Code(s): I48.92 - Unspecified atrial flutter Status: Acute Plan Pleasant 83-year-old female who is here for sotalol loading for atrial flutter. She was previously on Multaq but was stopped as outpatient and she was advised to get admitted to the hospital. She will get 5 doses inpatient and we will monitor heart rate and QT intervals closely. So far the QT intervals are stable. I had a discussion with Dr. Rojas and we have decided to do cardioversion on her. She will be NPO going forward and we will hopefully do cardioversion by end of the day. Continue apixaban 5 mg twice a day. Stop the metoprolol. Thank you for allowing me to participate in the care of your patient. Please feel free to contact me if you have any questions. Procedures Date of Service Date of Service: 09/28/23
--- NOTE | 2023-09-28 13:44 | ECG_ITS ---
Test Reason : medication administration Blood Pressure : / mmHG Vent. Rate : 068 BPM Atrial Rate : 068 BPM P-R Int : 276 ms QRS Dur : 084 ms QT Int : 428 ms P-R-T Axes : 083 -06 004 degrees QTc Int : 455 ms Rhythm shows atrial flutter with variable block Nonspecific ST abnormality Abnormal ECG When compared with ECG of 27-SEP-2023 15:49, No significant changes seen Referred By: Dora Spicer Electronically Signed By:ANAND BERNARD MD
[2023-09-28] MEDS: Sotalol HCL 80 MG TABLET PO (14:17)
--- NOTE | 2023-09-28 15:16 | HO.PM.IMPN ---
Subjective Subjective Date of Service: 09/28/23 Interval History: afib -hr improving Review of Systems seems similar ,still has palpatations Physical Exam Vital Signs: Vital Signs: Last Vital Signs Temp 98.2 F 09/28/23 15:10 Pulse 69 09/28/23 15:10 Resp 18 09/28/23 15:10 BP 135/69 09/28/23 15:10 Pulse Ox 98 09/28/23 15:10 O2 Del Method Room Air 09/28/23 15:10 BMI result Body Mass Index 24.7 Appearance: Alert.? Oriented X3.? not in distress.? cvs: irregular rythem, [id number] . res: clear to auscultation ,no rhonchii or wheezing abd: no rebound or guarding ,nt, bs present. ext pulses present , no cyanosis . neuro: axo3 , nonfocal. Objective Data Active Medications Apixaban (Apixaban 5 Mg Tablet) 5 mg PO BID [facility] Last Admin: 09/28/23 08:20 Dose: 5 mg Documented By: ABDELRAHMAN Atorvastatin Calcium (Atorvastatin Calcium 10 Mg Tablet) 10 mg PO BEDTIME [facility] Last Admin: 09/27/23 21:15 Dose: 10 mg Documented By: SUZANNE Dicyclomine HCl (Dicyclomine Hcl 10 Mg Capsule) 10 mg PO QID PRN PRN Reason: Abdominal Discomfort Furosemide (Furosemide 20 Mg Tablet) 20 mg PO Q48H [facility]; Protocol Last Admin: 09/28/23 14:19 Dose: Not Given Documented By: ABDELRAHMAN Non-Admin Reason: Patient Refused Lorazepam (Lorazepam 0.5 Mg Tablet) 0.5 mg PO BEDTIME [facility] Last Admin: 09/27/23 21:15 Dose: 0.25 mg Documented By: SUZANNE Multivitamins/Vitamin C (Multivitamin Tablet) 1 tab PO BEDTIME [facility] Last Admin: 09/27/23 22:10 Dose: Not Given Documented By: SUZANNE Non-Admin Reason: Patient Refused Sodium Chloride (0.9 % Sodium Chloride Flush 3 Ml Syringe) 3 ml IVFLUSH QSHIFT [facility] Last Admin: 09/28/23 08:20 Dose: 3 ml Documented By: ABDELRAHMAN Sotalol HCl (Sotalol Hcl 80 Mg Tablet) 80 mg PO Q24H [facility] Last Admin: 09/28/23 14:17 Dose: 80 mg Documented By: ABDELRAHMAN Vitamin D (Cholecalciferol (Vitamin D3) 10 Mcg Tablet) 10 mcg PO DAILY [facility] Last Admin: 09/28/23 08:20 Dose: 10 mcg Documented By: ABDELRAHMAN Labs 09/28/23 06:48 Labs: Laboratory Results - last 24 hr 09/28/23 06:48 Hold Purple Top SEE NOTE Anion Gap 12 Estim Creat Clear Calc 49.0 Estimated GFR > 60 Random Glucose 102 Calcium 9.8 Magnesium 2.0 Assessment and Plan (1) Paroxysmal atrial flutter: Status: Acute Plan 1. PAF: Patient had asymptomatic bradycardia overnight. Asymptomatic, monitor on tele Discussed with Cardiology-started sotalol. today QTC is 455 millisecond, will repeat EKG 2 hours after sotalol. Patient is asymptomatic. Continue Eliquis, continue metoprolol. sotalol dose adjusted as per renal gfr. 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 Hypertension: Continue lisinopril. 4.HLP: continue statin. dvt porphylax: on eliquis Ongoing hospitalization need: PAF-need STAOLOL LOADING, cardio eval.tele monitering Quality Stroke Does the patient have a stroke diagnosis?: No VTE Prior VTE?: No VTE Risk Level:: Medical - moderate - high VTE Device Contraindication: N/A - Device Ordered VTE Drug Contraindication: N/A - Med Ordered
--- NOTE | 2023-09-28 16:16 | MHC.SHP ---
Pre-Procedural Eval Section A Date of Service: 09/28/23 The patient is an INPATIENT: Yes Section B Chief Complaint: Atrial flutter Details of Present Illness: For cardioversion Allergies: Allergies Allergy/AdvReac Type Severity Reaction Status Date / Time Sulfa (Sulfonamide Allergy Intermediate RASH Verified 06/15/23 09:53 Antibiotics) Plan Diagnosis/Plan: Unchanged I have reviewed the history and physical and performed a pertinent physical examination on my patient. No changes have occurred unless specified. Time Spent With Patient Time: Total time managing care of this patient today ____ minutes.
--- NOTE | 2023-09-28 16:34 | P.CONAN_ITS ---
HPI - Anesthesia Eval Consult details Narrative: 83 F for Cardioversion atrial flutter , CHF . Left TMJ Discussed with the patient her narrow mouth opening and partially broken tooth . Will do procedure with MAC with light sedation . Patient understands and agrees with the plan . PMFSH Active Problems Active Problems: All Active Problems (Updated 09/20/23 @ 15:22 by Claudy Rojas MD) Atrial flutter (Acute) Sinus bradycardia (Acute) Paroxysmal atrial flutter (Acute) Chronic heart failure with preserved ejection fraction (HFpEF) (Acute) Chest discomfort (Acute) Acute dyspnea (Acute) Past Medical History Medical History Atrial flutter Paroxysmal atrial flutter Chronic heart failure with preserved ejection fraction (HFpEF) Kidney stone High cholesterol HTN (hypertension) Mitral valve disorder Afib Family History Family history of problems with anesthesia: No Surgical History Surgical History History of carpal tunnel release H/O lithotripsy H/O: hysterectomy History of Problems with Anesthesia: No Social History Social History Household Members: None Housing: House Do you presently have visiting nurse or other home services: No Patient Tobacco Use Status: Never used Tobacco Second Hand Smoke Exposure: No Advance Directives Date on File: 05/07/21 service: No Current occupational status: retired Meds Allergies Allergy/AdvReac Type Severity Reaction Status Date / Time Sulfa (Sulfonamide Allergy Intermediate RASH Verified 06/15/23 09:53 Antibiotics) Active Medications: Current Medications Apixaban (Apixaban 5 Mg Tablet) 5 mg PO BID [facility] Last Admin: 09/28/23 08:20 Dose: 5 mg Atorvastatin Calcium (Atorvastatin Calcium 10 Mg Tablet) 10 mg PO BEDTIME [facility] Last Admin: 09/27/23 21:15 Dose: 10 mg Dicyclomine HCl (Dicyclomine Hcl 10 Mg Capsule) 10 mg PO QID PRN PRN Reason: Abdominal Discomfort Furosemide (Furosemide 20 Mg Tablet) 20 mg PO Q48H [facility]; Protocol Last Admin: 09/28/23 14:19 Dose: Not Given Lorazepam (Lorazepam 0.5 Mg Tablet) 0.5 mg PO BEDTIME [facility] Last Admin: 09/27/23 21:15 Dose: 0.25 mg Multivitamins/Vitamin C (Multivitamin Tablet) 1 tab PO BEDTIME [facility] Last Admin: 09/27/23 22:10 Dose: Not Given Sodium Chloride (0.9 % Sodium Chloride Flush 3 Ml Syringe) 3 ml IVFLUSH QSHIFT [facility] Last Admin: 09/28/23 08:20 Dose: 3 ml Sotalol HCl (Sotalol Hcl 80 Mg Tablet) 80 mg PO Q24H [facility] Last Admin: 09/28/23 14:17 Dose: 80 mg Vitamin D (Cholecalciferol (Vitamin D3) 10 Mcg Tablet) 10 mcg PO DAILY [facility] Last Admin: 09/28/23 08:20 Dose: 10 mcg Home Medications Medication Instructions Recorded Confirmed Last Taken Type atorvastatin 10 mg tablet 10 mg PO BEDTIME 01/19/21 09/26/23 01/18/21 History dicyclomine 10 mg capsule 10 mg PO QID PRN Abdominal 01/19/21 09/26/23 Unknown History Discomfort lorazepam 0.5 mg tablet 0.5 mg PO BEDTIME 01/19/21 09/26/23 06/09/21 06:45 History vitamin B complex 1 cap PO BEDTIME 01/19/21 09/26/23 01/18/21 History cholecalciferol (vitamin D3) 10 10 mcg PO DAILY 07/11/22 09/26/23 Unknown History mcg (400 unit) capsule Exam Exam Date and Time: September 28, 2023 1634 Height,Weight and Vital Signs: Height 5 ft 2 in Weight 61.3 kg Last Vital Signs Temp 97.5 F 09/28/23 15:49 Pulse 67 09/28/23 15:49 Resp 17 09/28/23 15:49 BP 150/72 H 09/28/23 15:49 Pulse Ox 100 09/28/23 15:49 O2 Del Method Room Air 09/28/23 15:49 Pertinent Lab Results Pertinent Lab Results: Laboratory Tests 09/26/23 09/27/23 09/28/23 12:03 06:12 06:48 Hold Purple Top SEE NOTE SEE NOTE SEE NOTE Sodium 143 142 143 Potassium 4.1 4.3 3.8 Chloride 106 108 109 H Carbon Dioxide 30 H 28 26 Anion Gap 11 L 10 L 12 BUN 13 11 12 Creatinine 0.86 0.83 0.75 Estim Creat Clear Calc 42.7 44.2 49.0 Estimated GFR > 60 > 60 > 60 Random Glucose 88 95 102 Calcium 9.8 9.4 9.8 Magnesium 2.0 2.1 2.0 Narrative Narrative: Date of Service: 09/28/23 Procedure(s): ECG 12 lead EKG Vent. Rate : 068 BPM Atrial Rate : 068 BPM P-R Int : 276 ms QRS Dur : 084 ms QT Int : 428 ms P-R-T Axes : 083 -06 004 degrees QTc Int : 455 ms Rhythm shows atrial flutter with variable block Nonspecific ST abnormality Abnormal ECG When compared with ECG of 27-SEP-2023 15:49, No significant changes seen Date of Service: 01/03/23 Transthoracic Echocardiogram Conclusions: - 1. Normal LV systolic function with grade 2 diastolic dysfunction 2. Moderately dilated left atrium 3. Peku-sq-emfvbpet mitral regurgitation 4. Normal RV systolic pressure 5. No pericardial effusion Airway Mallampati Class: IV (narrow mouth opening .) Loose/Missing/Broken Teeth: Yes (broken tooth #5 partially . Recently had repaired ) Other: Slight rash over the medial left clavicle . Assessment and Plan Assessment Anesthesia Assessment: Anesthesia Plan Discussed and Chart Reviewed Final Anesthetic Review Family History of Problems with Anesthesia: No History of Problems with Anesthesia: No NPO: Yes ASA Class: IV and Emergency Final Preanesthetic Review: Meds/Allgs Chart Reviewed, Consent Obtained/Reviewed and Anes Risks/Benef Reviewed Patient Risk: High Procedure Risk: Intermediate Anesthetic Plan Anesthetic Plan: MAC: and Agree w/ Assess. and Plan Disposition: Standard PACU and Inp. Admit - [facility]
--- NOTE | 2023-09-28 16:53 | PC.NURSE ---
time out at bedside. suction, nrb, and ambubag equipment at bedside. dr. mclean and dr. lopez at bedside
--- NOTE | 2023-09-28 16:59 | HO.CARDIVERS ---
Cardioversion Procedure Note Cardioversion Date of Procedure: 09/28/2023 Ordering Provider: Claudy Rojas MD Performing Provider: Williams Rosario MD Indication for Procedure: Atrial flutter Performed with Transesophageal Echo: No Consent: Verbal and Written consent was obtained from the patient before starting. The patient was made aware of the risk of stroke, aspiration and failure to achieve sinus rhythm Procedure: After consent obtained, defib pads were attached and the patient was sedated by the anesthesia team. Once adequate sedation achieved, single synchronized shock of 150 joules was delivered. The patient converted to sinus rhythm. She was left with anesthesia for recovery in a stable condition. Recommendations: Continue the sotalol. Stop metoprolol. c/w Apixaban.
--- NOTE | 2023-09-28 17:01 | PC.NURSE ---
1700 patient arouseable to voice, resp easy regular no report of pain. bedside ekg completed post cardioversion. dr. soria remains at bedside. sb 57-nsr 60;s occasional pvc
--- NOTE | 2023-09-28 19:16 | PC.NURSE ---
Patient came back to the room from OR at 1730, called for help c/o swelling to the right side of her neck, stating it is painful to touch and painful when chewing. Request sent to provider to see patient.
[2023-09-28] MEDS: LORazepam 0.5 MG TABLET PO (20:06)
[2023-09-28] MEDS: Atorvastatin Calcium 10 MG TABLET PO (20:06)
[2023-09-29] VITALS (7 sets, daily range): BP systolic 114–129; BP diastolic 55–61; PULSE 56–84; RESP 18–20; TEMP 36.1–37; O2SAT 96–99
[2023-09-29 06:00] LABS: Anion Gap 9 (12-20); Blood Urea Nitrogen 14 mg/dL (9-16); Calcium 9.1 mg/dL (8.4-10.2); Carbon Dioxide 30 mmol/L (22-29); Chloride 108 mmol/L (96-108); Creatinine Clr Calc Pharmacy 38.6; Estimated Glomerular Filt Rate 56; Glucose Random 102 mg/dL (60-115); Magnesium 2.1 mg/dL (1.6-2.6); Sodium 143 mmol/L (135-145)
[2023-09-29] MEDS: Apixaban 5 MG TABLET PO ×2 (08:55→20:34)
[2023-09-29] MEDS: Cholecalciferol (Vitamin D3) 10 MCG TABLET PO (08:55)
--- NOTE | 2023-09-29 10:46 | PM.PNCARD ---
Subjective Subjective Date of Service: 09/29/23 Interval history: Seen and examined at bedside. In sinus rhythm at this point. She was cardioverted yesterday. Physical Exam Vital Signs: Last Vital Signs Temp 98.6 F 09/29/23 08:00 Pulse 56 09/29/23 08:00 Resp 18 09/29/23 08:00 BP 126/58 L 09/29/23 08:00 Pulse Ox 99 09/29/23 08:00 O2 Del Method Room Air 09/29/23 08:00 O2 Flow Rate 5 09/29/23 03:18 BMI result Body Mass Index 24.7 GENERAL APPEARANCE: in no acute distress, pleasant. NECK: no carotid bruit, no jugular venous distention. SKIN: no suspicious lesions, warm and dry. HEART: no murmurs, regular rate and rhythm. Bradycardic. LUNGS: clear to auscultation bilaterally. ABDOMEN: soft, nontender. EXTREMITIES: no edema. PERIPHERAL PULSES: equal. NEUROLOGIC: No gross deficits, AAO X 3 Objective Labs and Meds 09/29/23 05:23 Lab results: Laboratory Results - last 24 hr 09/29/23 05:23 Hold Purple Top SEE NOTE Sodium 143 Potassium 4.0 Chloride 108 Carbon Dioxide 30 H Anion Gap 9 L BUN 14 Creatinine 0.95 Estim Creat Clear Calc 38.6 Estimated GFR 56 Random Glucose 102 Calcium 9.1 D Magnesium 2.1 Progress Note: A&P Assessment and plan (1) Atrial flutter: Status: Acute Plan 83-year-old female who was admitted to hospital for sotalol loading. She was cardioverted yesterday to sinus rhythm. Continue sotalol 80 mg once a day. Stop the metoprolol. Continue apixaban 5 mg twice a day. Can be discharged home. She will follow-up with Dr. Rojas. Thank you for allowing me to participate in the care of your patient. Please feel free to contact me if you have any questions. Time Spent With Patient Time: Total time managing care of this patient today ____ minutes. Progress Note: Quality Stroke Does the patient have a stroke diagnosis?: No Procedures Date of Service Date of Service: 09/29/23
--- NOTE | 2023-09-29 11:54 | ECG_ITS ---
Test Reason : sotolol prot Blood Pressure : / mmHG Vent. Rate : 063 BPM Atrial Rate : 063 BPM P-R Int : 190 ms QRS Dur : 088 ms QT Int : 368 ms P-R-T Axes : 079 013 044 degrees QTc Int : 376 ms Sinus rhythm with occasional Premature ventricular complexes Low voltage QRS Nonspecific T wave abnormality Abnormal ECG When compared with ECG of 28-SEP-2023 16:57, Premature ventricular complexes are now Present QT has shortened Referred By: Dora Spicer Electronically Signed By:ANAND BERNARD MD
--- NOTE | 2023-09-29 13:48 | HO.POSTANES ---
Post Anesthesia Evaluation Post Anesthesia Evaluation Date of Service: 09/29/23 Vital Signs: Vital Signs Temp Pulse Resp BP Pulse Ox O2 Del Method O2 Flow Rate 09/29/23 12:00 97.7 F 59 18 119/59 L 98 Room Air 09/29/23 08:00 98.6 F 56 18 126/58 L 99 Room Air 09/29/23 03:18 96.9 F 84 20 117/61 97 Nasal Cannula 5 Anesthesia: General Mental Status: Awake Pain Control: Satisfactory Nausea/Vomiting: None Hydration: Adequate Anesthesia-Related Issues: No Anes. Related Issues
[2023-09-29] MEDS: Sotalol HCL 80 MG TABLET PO (13:57)
--- NOTE | 2023-09-29 14:22 | PM.DS ---
DS: Providers Provider Date of Service: 09/29/23 Date of admission: 09/26/23 10:51 Date of discharge: 09/29/23 Primary care physician: Agustin Martínez MD Consults: 09/27/23 15:17 Consult to Cardiology Routine Consulting Provider: [facility] Reason for consultation: afib on sotalol loading Has provider been notified: No Attending physician on discharge: Dora Spicer Discharging clinician: Dora Spicer DS: Diagnosis Discharge Diagnosis (1) Atrial flutter: Status: Acute DS: Summary Hospital Course Hospital Course: 83-year-old female with past medical history of paroxysmal artery aflutter, CHF, hypertension-came to the hospital because palpitations have subsided(1-2 week back). 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 Patient denies any worsening orthopnea, PND, leg edema. Takes all her medications. No bleeding issues or neurologic events. She has been compliant with oral anticoagulation . Subsequently her Multaq was discontinued and decided for Patient was called for direct admission-for sotalol loading. Denies any new complaint of chest pain or palpitation or shortness of breath or abdominal pain or fever or chills or nausea or vomiting Denies any cough Denies any weakness or numbness. Hospital course: Patient was admitted forPAF-needed sotalol loading, her Multaq was stopped out patiently, subsequently patient needed cardioversion now in sinus rhythm and asymptomatic. Sotalol loading done and also EKG reviewed QTC-432ms. Right side neck mild sweeling(Few subcentimeter cervical nodes are seen which maintain normal hilar architecture, not pathologically enlarged or otherwise suspicious in morphology.)-strep group A serology negative ,strep throat culture -pending she has some throat and neck discomfort which is improving. started on augmentin ,follow up with pcp for strep throat culture as well as any further workup if neck swelling persists. Patient is to follow up outpatient with PCP And Cardiology. plan: continue sotalol 80 mg daily ,moniter bmp outpatient , adjust total accordingly. complete augmentin for 7days Cardiology may arrange their own appointment. Assessment and plan coordination time spent 50 minute. Time Attestation Discharge coordination time: Greater than 30 minutes Quality: Safe Use of Opioids Does Pt have an Active Cancer Diagnosis on the Problem List?: No Quality: Stroke Does the patient have a stroke diagnosis?: No Physical Exam Vital Signs: Vital Signs: Last Vital Signs Temp 97.7 F 09/29/23 12:00 Pulse 59 09/29/23 12:00 Resp 18 09/29/23 12:00 BP 119/59 L 09/29/23 12:00 Pulse Ox 98 09/29/23 12:00 O2 Del Method Room Air 09/29/23 12:00 O2 Flow Rate 5 09/29/23 03:18 BMI result Body Mass Index 24.7 Appearance: Alert.? Oriented X3.? not in distress.? cvs: regular rythem, [id number] . neck-right sded swellin/discomfort improving res: clear to auscultation ,no rhonchii or wheezing abd: no rebound or guarding ,nt, bs present. ext pulses present , no cyanosis . neuro: axo3 , nonfocal. DS: Data Data Completed and Pending Labs on day of discharge: Laboratory Results - last 24 hr 09/29/23 05:23 Hold Purple Top SEE NOTE Sodium 143 Potassium 4.0 Chloride 108 Carbon Dioxide 30 H Anion Gap 9 L BUN 14 Creatinine 0.95 Estim Creat Clear Calc 38.6 Estimated GFR 56 Random Glucose 102 Calcium 9.1 D Magnesium 2.1 Discharge Plan Discharge Anticipated Discharge Date/Time: 09/29/23 14:17 Patient Disposition: Home, Self-Care Discharge Diagnosis: arterial flutter Referrals: Agustin Martínez MD [Primary Care Provider] - 1 Week Discharge Medications: New sotalol 80 mg Tablet 80 mg PO Q24H Qty: 30 0RF amoxicillin-pot clavulanate 500-125 mg Tablet 1 tab PO Q12H Qty: 14 0RF Continued Eliquis 5 mg tablet 5 mg PO BID 90 Days Qty: 180 3RF furosemide [Lasix] 20 mg tablet 20 mg PO .everyother day 90 Days Qty: 45 3RF atorvastatin 10 mg Tablet 10 mg PO BEDTIME lorazepam 0.5 mg Tablet 0.5 mg PO BEDTIME dicyclomine 10 mg Capsule 10 mg PO QID PRN (Reason: Abdominal Discomfort) vitamin B complex Capsule 1 cap PO BEDTIME cholecalciferol (vitamin D3) 10 mcg (400 unit) capsule 10 mcg PO DAILY Discontinued metoprolol tartrate 50 mg tablet 50 mg PO BID Qty: 30 0RF Discharge Orders: Discharge Order (Routine); Ordered 09/29/23 Ordered By: Dora Spicer Diet: Advance to usual diet Activity on Discharge: As tolerated Stand Alone Forms: Patient Portal Discharge page Care Plan Goals: Patient was admitted forPAF-needed sotalol loading, her Multaq was stopped out patiently, subsequently patient needed cardioversion now in sinus rhythm and asymptomatic. Sotalol loading done and also EKG reviewed QTC-432ms. Right side neck mild sweeling(Few subcentimeter cervical nodes are seen which maintain normal hilar architecture, not pathologically enlarged or otherwise suspicious in morphology.)-strep group A serology negative ,strep throat culture -pending she has some throat and neck discomfort which is improving. started on augmentin ,follow up with pcp for strep throat culture as well as any further workup if neck swelling persists. Patient is to follow up outpatient with PCP And Cardiology. Health Concerns: As above. Plan of Treatment: As above. Assessment: As above. Patient Instructions: Sotalol (By mouth)
--- NOTE | 2023-09-29 14:39 | MHC.CM.PN ---
Patient has been medically cleared for dc to home today, self care.
--- NOTE | 2023-09-29 15:22 | ECG_ITS ---
Test Reason : sotolol Blood Pressure : / mmHG Vent. Rate : 056 BPM Atrial Rate : 056 BPM P-R Int : 162 ms QRS Dur : 086 ms QT Int : 448 ms P-R-T Axes : 060 009 035 degrees QTc Int : 432 ms Sinus bradycardia with occasional Premature ventricular complexes Low voltage QRS Otherwise normal ECG When compared with ECG of 29-SEP-2023 12:07, QT has lengthened Referred By: Dora Spicer Electronically Signed By:ANAND BERNARD MD
--- NOTE | 2023-09-29 16:50 | HO.PM.IMPN ---
Subjective Subjective Date of Service: 09/30/23 Interval History: Acute hypoxic respiratory failure due to covid Physical Exam Vital Signs: Vital Signs: Last Vital Signs Temp 98.3 F 09/29/23 16:00 Pulse 57 09/29/23 16:00 Resp 20 09/29/23 16:00 BP 114/55 L 09/29/23 16:00 Pulse Ox 98 09/29/23 16:00 O2 Del Method Room Air 09/29/23 16:00 O2 Flow Rate 5 09/29/23 03:18 BMI result Body Mass Index 24.7 Appearance: Alert.? Oriented X3.? not in distress.? right neck swellin throat-minimum erythema cvs: irregular rythem, [id number] . res: clear to auscultation ,no rhonchii or wheezing abd: no rebound or guarding ,nt, bs present. ext pulses present , no cyanosis . neuro: axo3 , nonfocal. Objective Data Active Medications Apixaban (Apixaban 5 Mg Tablet) 5 mg PO BID [facility] Last Admin: 09/29/23 08:55 Dose: 5 mg Documented By: ARGELIA Atorvastatin Calcium (Atorvastatin Calcium 10 Mg Tablet) 10 mg PO BEDTIME [facility] Last Admin: 09/28/23 20:06 Dose: 10 mg Documented By: JOANNE Dicyclomine HCl (Dicyclomine Hcl 10 Mg Capsule) 10 mg PO QID PRN PRN Reason: Abdominal Discomfort Furosemide (Furosemide 20 Mg Tablet) 20 mg PO Q48H [facility]; Protocol Last Admin: 09/28/23 14:19 Dose: Not Given Documented By: ABDELRAHMAN Non-Admin Reason: Patient Refused Lorazepam (Lorazepam 0.5 Mg Tablet) 0.5 mg PO BEDTIME [facility] Last Admin: 09/28/23 20:06 Dose: 0.5 mg Documented By: JOANNE Multivitamins/Vitamin C (Multivitamin Tablet) 1 tab PO BEDTIME [facility] Last Admin: 09/28/23 20:07 Dose: Not Given Documented By: JOANNE Non-Admin Reason: Patient Refused Sodium Chloride (0.9 % Sodium Chloride Flush 3 Ml Syringe) 3 ml IVFLUSH QSHIFT [facility] Last Admin: 09/29/23 11:36 Dose: Not Given Documented By: ARGELIA Non-Admin Reason: See Note Sotalol HCl (Sotalol Hcl 80 Mg Tablet) 80 mg PO Q24H [facility] Last Admin: 09/29/23 13:57 Dose: 80 mg Documented By: ARGELIA Vitamin D (Cholecalciferol (Vitamin D3) 10 Mcg Tablet) 10 mcg PO DAILY [facility] Last Admin: 09/29/23 08:55 Dose: 10 mcg Documented By: ARGELIA Labs 09/30/23 05:45 Labs: Laboratory Results - last 24 hr 09/29/23 05:23 Hold Purple Top SEE NOTE Anion Gap 9 L Estim Creat Clear Calc 38.6 Estimated GFR 56 Random Glucose 102 Calcium 9.1 D Magnesium 2.1 Assessment and Plan (1) Paroxysmal atrial flutter: Status: Acute Plan 1. PAF: Patient had asymptomatic bradycardia overnight. Asymptomatic, monitor on tele Discussed with Cardiology-started sotalol. today QTC is 430 Patient is asymptomatic. Continue Eliquis, continue metoprolol. sotalol dose adjusted as per renal gfr. 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 Hypertension: Continue lisinopril. 4.HLP: continue statin. 5.right neck swelling-? infectious added asoo and strep throat culture amoxicillin d/w cardio and anesthesia -less likely due to cardioversion. dvt porphylax: on eliquis Ongoing hospitalization need: PAF-need STAOLOL LOADING, cardio eval.tele monitering Quality Stroke Does the patient have a stroke diagnosis?: No VTE Prior VTE?: No VTE Risk Level:: Medical - moderate - high VTE Device Contraindication: N/A - Device Ordered VTE Drug Contraindication: N/A - Med Ordered
[2023-09-29] MEDS: Amoxicillin/Potassium Clav 500 MG TABLET PO (18:03)
[2023-09-29] MEDS: 0.9 % Sodium Chloride Flush 3 ML SYRINGE IVFLUSH (20:35)
[2023-09-29] MEDS: Atorvastatin Calcium 10 MG TABLET PO (20:35)
[2023-09-29] MEDS: LORazepam 0.5 MG TABLET PO (20:35)
[2023-09-29 23:52] LABS: IDNOW Serial# 6674DD1D; Strep A Nucleic Acid Negative (Negative)
[2023-09-30 03:53] VITALS: BP 127/61; PULSE 55; RESP 18; TEMP 36.7; O2SAT 97
[2023-09-30] MEDS: Amoxicillin/Potassium Clav 500 MG TABLET PO (04:40)
[2023-09-30 06:59] LABS: Anion Gap 9 (12-20); Blood Urea Nitrogen 11 mg/dL (9-16); Calcium 8.8 mg/dL (8.4-10.2); Carbon Dioxide 27 mmol/L (22-29); Chloride 108 mmol/L (96-108); Creatinine Clr Calc Pharmacy 49.6; Estimated Glomerular Filt Rate > 60; Glucose Random 117 mg/dL (60-115); Magnesium 1.9 mg/dL (1.6-2.6); Potassium 3.6 mmol/L (3.3-5.1); Sodium 140 mmol/L (135-145)
[2023-09-30 07:36] VITALS: BP 135/63; PULSE 51; RESP 18; TEMP 36.3; O2SAT 98
--- NOTE | 2023-09-30 08:38 | MHC.CM.PN ---
PT MEDICALLY CLEARED FOR DC HOME SELF CARE, PER PREVIOUS CM [facility] WILL TRANSPORT
[2023-09-30] MEDS: Apixaban 5 MG TABLET PO (09:53)
[2023-09-30] MEDS: Cholecalciferol (Vitamin D3) 10 MCG TABLET PO (09:53)
[2023-09-30] MEDS: 0.9 % Sodium Chloride Flush 3 ML SYRINGE IVFLUSH (09:54)
--- NOTE | 2023-09-30 10:55 | PM.PNCARD ---
Subjective Subjective Date of Service: 09/30/23 Interval history: Seen examined at bedside. She is complaining of some palpitations and has some PVCs on telemetry. QTC is stable on sotalol. Continues to be in sinus rhythm. Physical Exam Vital Signs: Last Vital Signs Temp 97.4 F 09/30/23 07:36 Pulse 51 09/30/23 07:36 Resp 18 09/30/23 07:36 BP 135/63 09/30/23 07:36 Pulse Ox 98 09/30/23 07:36 O2 Del Method Room Air 09/30/23 07:36 O2 Flow Rate 5 09/29/23 03:18 BMI result Body Mass Index 24.7 GENERAL APPEARANCE: in no acute distress, pleasant. NECK: no carotid bruit, no jugular venous distention. SKIN: no suspicious lesions, warm and dry. HEART: no murmurs, regular rate and rhythm. Bradycardic. LUNGS: clear to auscultation bilaterally. ABDOMEN: soft, nontender. EXTREMITIES: no edema. PERIPHERAL PULSES: equal. NEUROLOGIC: No gross deficits, AAO X 3 Objective Labs and Meds 09/30/23 05:45 Lab results: Laboratory Results - last 24 hr 09/29/23 09/30/23 23:03 05:45 Hold Purple Top SEE NOTE Sodium 140 Potassium 3.6 Chloride 108 Carbon Dioxide 27 Anion Gap 9 L BUN 11 Creatinine 0.74 Estim Creat Clear Calc 49.6 Estimated GFR > 60 Random Glucose 117 H Calcium 8.8 Magnesium 1.9 S. pyogenes GrpA TONY Negative Imaging Radiologist's impression: Impressions Head/Neck Ultrasound 09/29/23 15:24 IMPRESSION: 1. No fluid collection or suspicious soft tissue mass. 2. Few subcentimeter cervical nodes are seen which maintain normal hilar architecture, not pathologically enlarged or otherwise suspicious in morphology. Progress Note: A&P Assessment and plan (1) Atrial flutter: Status: Acute Plan 83-year-old female with atrial flutter status post cardioversion and on sotalol. Potassium and magnesium are borderline. Please replete both. She has some PVCs on telemetry. She is taking Lasix every other day. Add spironolactone 12.5 mg once a day to her regimen. Can be discharged home and follow-up with Dr. Rojas. Time Spent With Patient Time: Total time managing care of this patient today ____ minutes. Progress Note: Quality Stroke Does the patient have a stroke diagnosis?: No Procedures Date of Service Date of Service: 09/30/23
== END 2023-09-30 11:02 | disposition home or self-care (01) | DRG 309 ==
PROVIDERS: Internal Medicine Cardiovascular Disease; Admitting Provider Internal Medicine; PCP Internal Medicine; Visit Provider Internal Medicine
PROC: 5A2204Z Restoration of Cardiac Rhythm, Single (ICD-10-PCS; principal; 2023-09-28 16:30)
DX: I48.92 Unspecified atrial flutter (principal); I50.32 Chronic diastolic (congestive) heart failure; R22.1 Localized swelling, mass and lump, neck; I49.3 Ventricular premature depolarization; I11.0 Hypertensive heart disease with heart failure; E78.5 Hyperlipidemia, unspecified; I48.0 Paroxysmal atrial fibrillation; Z79.01 Long term (current) use of anticoagulants; Z79.899 Other long term (current) drug therapy
CPT/HCPCS: 36415; 76536; 80048; 83735; 87070; 87651; 92960; 93005

== ENCOUNTER → 2023-09-26 10:51 | Outpatient (BNV) | payer MEDICARE, SELFPAY | PROVIDERS: Admitting Provider Internal Medicine; PCP Internal Medicine; Visit Provider Internal Medicine Cardiovascular Disease | DX: I48.92 Unspecified atrial flutter (principal) | CPT/HCPCS: 92960; 99222; 99232 ==

== ENCOUNTER → 2023-09-26 10:51 | Outpatient (BNV) | payer MEDICARE, SELFPAY | PROVIDERS: Admitting Provider Internal Medicine; PCP Internal Medicine; Visit Provider Internal Medicine | DX: I48.92 Unspecified atrial flutter (principal) | CPT/HCPCS: 99222; 99232; 99239; 99499 ==

== ENCOUNTER → 2023-10-03 15:12 | Outpatient (BNVA) | payer MEDICARE, SELFPAY | PROVIDERS: PCP Internal Medicine; Visit Provider Internal Medicine Cardiovascular Disease ==

== ENCOUNTER 2023-10-24 11:06 | Outpatient (REF) | payer MEDICARE, SELFPAY ==
--- NOTE | ~2023-10-24 | XR_ITS ---
EXAMINATION: XR CHEST 2 VIEWS CLINICAL INFORMATION: Atrial flutter. COMPARISON: Chest radiographs dated 02/13/2023. TECHNIQUE: Frontal and lateral views of the chest were obtained. FINDINGS: The heart, great vessels, pulmonary vasculature and mediastinum are normal. The lungs show no focal infiltrate, effusion or pneumothorax. There is bilateral bronchiolar wall thickening. Within the left upper lobe laterally, a 3 mm noncalcified nodule is seen. There is no acute osseous abnormality. There is a marked lower thoracic levoscoliosis. XR/XR chest 2V IMPRESSION: 1. No focal infiltrate or congestive heart failure is seen. 2. There is bilateral bronchiolar wall thickening, which may be associated with acute bronchiolitis or reactive airways disease.
[2023-10-24 13:07] LABS: Alanine Aminotransferase 17 U/L (0-31); Albumin Level 4.2 g/dL (3.5-5.0); Alkaline Phosphatase 59 U/L (39-117); Aspartate Amino Transferase 20 U/L (5-31); Bilirubin Direct 0.3 mg/dL (0.0-0.5); Bilirubin Total 0.9 mg/dL (0.0-1.0); Total Protein 7.2 g/dL (6.5-8.0)
[2023-10-24 13:20] LABS: TSH reflex Free T4 1.49 uIU/mL (0.32-4.0)
== END 2023-10-24 11:07 | disposition home or self-care (01) ==
LOC: HO.LAB 11:06
PROVIDERS: PCP Internal Medicine; Visit Provider Internal Medicine Cardiovascular Disease
DX: I48.92 Unspecified atrial flutter (principal); Z79.899 Other long term (current) drug therapy
CPT/HCPCS: 36415; 71046; 80076; 84443

== ENCOUNTER 2023-11-08 11:40 | Day surgery (SDC) | payer MEDICARE, SELFPAY ==
--- NOTE | 2023-11-07 08:44 | P.CONAN_ITS ---
HPI - Anesthesia Eval Consult details Narrative: 83yo F for Cardioversion Eliquis for afib PMFSH Active Problems Active Problems: All Active Problems (Updated 10/08/23 @ 00:03 by Robin Cage) Atrial flutter (Acute) Sinus bradycardia (Acute) Paroxysmal atrial flutter (Acute) Chronic heart failure with preserved ejection fraction (HFpEF) (Acute) Chest discomfort (Acute) Acute dyspnea (Acute) Past Medical History Medical History Atrial flutter Paroxysmal atrial flutter Chronic heart failure with preserved ejection fraction (HFpEF) Kidney stone High cholesterol HTN (hypertension) Mitral valve disorder Afib Family History Family history of problems with anesthesia: No Surgical History Surgical History History of carpal tunnel release H/O lithotripsy H/O: hysterectomy History of Problems with Anesthesia: No Social History Social History Household Members: None Housing: House Do you presently have visiting nurse or other home services: No [place] [facility] [place] Tobacco Use Status: Never used Tobacco Second Hand Smoke Exposure: No Advance Directives Date on File: 05/07/21 service: No Current occupational status: retired Meds Allergies Allergy/AdvReac Type Severity Reaction Status Date / Time Sulfa (Sulfonamide Allergy Intermediate RASH Verified 06/15/23 09:53 Antibiotics) Home Medications Medication Instructions Recorded Confirmed Last Taken Type atorvastatin 10 mg tablet 10 mg PO BEDTIME 01/19/21 09/26/23 01/18/21 History dicyclomine 10 mg capsule 10 mg PO QID PRN Abdominal 01/19/21 09/26/23 Unknown History Discomfort lorazepam 0.5 mg tablet 0.5 mg PO BEDTIME 01/19/21 09/26/23 06/09/21 06:45 History vitamin B complex 1 cap PO BEDTIME 01/19/21 09/26/23 01/18/21 History cholecalciferol (vitamin D3) 10 10 mcg PO DAILY 07/11/22 09/26/23 Unknown History mcg (400 unit) capsule Exam Narrative Narrative: EKG 09/2023 Aflutter 2:[address] abn Non QRS-T angle, Consider primary T wave abnormality Prolonged QT ECHO 12/2022 Conclusions: - 1. Normal LV systolic function with grade 2 diastolic dysfunction 2. Moderately dilated left atrium 3. Fujq-[id number] mitral regurgitation 4. Normal RV systolic pressure 5. No pericardial effusion Assessment and Plan Assessment Anesthesia Assessment: Chart Reviewed Final Anesthetic Review Family History of Problems with Anesthesia: No History of Problems with Anesthesia: No
[2023-11-08 12:48] VITALS: BP 147/83; PULSE 93; RESP 18; TEMP 37.1; O2SAT 99; BMI 24.1
--- NOTE | 2023-11-08 13:05 | MHC.SHP ---
Pre-Procedural Eval Section A Date of Service: 11/08/23 The patient is an INPATIENT: No Changes since office visit: Yes Patient answered all questions; No Cold of Flu in the past 2 weeks, No New Medical Problems and No Changes in Medication The History & Physical has been completed within 30 days and I have reviewed it.: Yes Section B Chief Complaint: Unspecified atrial flutter Allergies: Allergies Allergy/AdvReac Type Severity Reaction Status Date / Time Sulfa (Sulfonamide Allergy Intermediate RASH Verified 06/15/23 09:53 Antibiotics) Plan I have reviewed the history and physical and performed a pertinent physical examination on my patient. No changes have occurred unless specified. Time Spent With Patient Time: Total time managing care of this patient today ____ minutes.
--- NOTE | 2023-11-08 13:20 | P.CONAN_ITS ---
HPI - Anesthesia Eval Consult details Narrative: for cardioversion [facility] Active Problems Active Problems: All Active Problems (Updated 10/08/23 @ 00:03 by Background Fauzia) Atrial flutter (Acute) Sinus bradycardia (Acute) Paroxysmal atrial flutter (Acute) Chronic heart failure with preserved ejection fraction (HFpEF) (Acute) Chest discomfort (Acute) Acute dyspnea (Acute) Past Medical History Medical History Atrial flutter Paroxysmal atrial flutter Chronic heart failure with preserved ejection fraction (HFpEF) Kidney stone High cholesterol HTN (hypertension) Mitral valve disorder Afib Family History Family history of problems with anesthesia: No Surgical History Surgical History History of carpal tunnel release H/O lithotripsy H/O: hysterectomy History of Problems with Anesthesia: No Social History Social History Household Members: None Housing: House Do you presently have visiting nurse or other home services: No Comment[place] [facility] [place] Tobacco Use Status: Never used Tobacco Second Hand Smoke Exposure: No Use of substances other than those prescribed or required for medical reasons: No Are you DNR?: No Advance Directives: No Advance Directives Information Provided: Yes Advance Directives Date on File: 05/07/21 Recently lost weight without trying: No service: No Current occupational status: retired Meds Allergies Allergy/AdvReac Type Severity Reaction Status Date / Time Sulfa (Sulfonamide Allergy Intermediate RASH Verified 06/15/23 09:53 Antibiotics) Home Medications Medication Instructions Recorded Confirmed Last Taken Type atorvastatin 10 mg tablet 10 mg PO BEDTIME 01/19/21 09/26/23 01/18/21 History dicyclomine 10 mg capsule 10 mg PO QID PRN Abdominal 01/19/21 09/26/23 Unknown History Discomfort lorazepam 0.5 mg tablet 0.5 mg PO BEDTIME 01/19/21 09/26/23 06/09/21 06:45 History vitamin B complex 1 cap PO BEDTIME 01/19/21 09/26/23 01/18/21 History cholecalciferol (vitamin D3) 10 10 mcg PO DAILY 07/11/22 09/26/23 Unknown History mcg (400 unit) capsule Exam Height,Weight and Vital Signs: Height 5 ft 2 in Weight 59.874 kg Last Vital Signs Temp 98.8 F 11/08/23 12:48 Pulse 93 11/08/23 12:48 Resp 18 11/08/23 12:48 BP 147/83 H 11/08/23 12:48 Pulse Ox 99 11/08/23 12:48 O2 Del Method Room Air 11/08/23 12:48 Airway Mallampati Class: II TM Dist: >3cm Neck ROM: Limited Heart: a flutter Lungs: cta Assessment and Plan Assessment Anesthesia Assessment: Anesthesia Plan Discussed Final Anesthetic Review Family History of Problems with Anesthesia: No History of Problems with Anesthesia: No ASA Class: III Final Preanesthetic Review: No Changes in Pt Med Stat, Meds/Allgs Chart Reviewed, Consent Obtained/Reviewed and Anes Risks/Benef Reviewed Patient Risk: Intermediate Procedure Risk: Low Anesthetic Plan Anesthetic Plan: MAC: Disposition: Standard PACU
[2023-11-08 14:05] VITALS: BP 114/58; PULSE 68; RESP 16; TEMP 36.6; O2SAT 98
--- NOTE | 2023-11-08 14:08 | ECG_ITS ---
Test Reason : post cardioversion Blood Pressure : / mmHG Vent. Rate : 063 BPM Atrial Rate : 063 BPM P-R Int : 200 ms QRS Dur : 088 ms QT Int : 470 ms P-R-T Axes : 080 -07 026 degrees QTc Int : 480 ms Normal sinus rhythm Low voltage QRS Cannot rule out Inferior infarct , age undetermined Abnormal ECG When compared with ECG of 29-SEP-2023 15:23, Premature ventricular complexes are no longer Present QT has lengthened Referred By: Claudy Rojas Electronically Signed By:Williams Rosario
--- NOTE | 2023-11-08 14:08 | HO.CARDIVERS ---
Cardioversion Procedure Note Cardioversion Date of Procedure: Today Ordering Provider: Myself Performing Provider: Myself Indication for Procedure: Persistent symptomatic atrial fibrillation Pre-Op Diagnosis: Same Post-Op Diagnosis: Normal sinus rhythm Performed with Transesophageal Echo: No Consent: Verbal and Written consent was obtained from the patient before starting and after obtaining informed consent. The patient was made aware of the risk of synchronized cardioversion including benefits and alternatives Procedure: After consent obtained, cardioversion pads were attached in anteroposterior configuration and the patient was sedated by the anesthesia team. Once adequate sedation achieved, patient was delivered 200 joules of biphasic synchronized energy in anteroposterior configuration Complications: None Impression: Successful conversion to sinus rhythm Recommendations: 1. Continue amiodarone and change to maintain his dose of 200 mg daily starting tomorrow 2. Continue full oral anticoagulation 3. Twelve lead EKG 4. Follow up in the office after Holter
[2023-11-08 14:10] VITALS: BP 138/60; PULSE 65; RESP 16; O2SAT 98
[2023-11-08 14:15] VITALS: BP 152/72; PULSE 62; RESP 16; O2SAT 98
[2023-11-08 14:20] VITALS: BP 151/64; PULSE 63; RESP 16; O2SAT 99
[2023-11-08 14:35] VITALS: BP 145/67; PULSE 67; RESP 16; TEMP 36.4; O2SAT 98
== END 2023-11-08 15:47 | disposition home or self-care (01) ==
PROVIDERS: PCP Internal Medicine; Visit Provider Internal Medicine Cardiovascular Disease
PROC: 5A2204Z Restoration of Cardiac Rhythm, Single (ICD-10-PCS; principal; 2023-11-08 13:30)
DX: I48.92 Unspecified atrial flutter (principal); Z79.01 Long term (current) use of anticoagulants
CPT/HCPCS: 92960; 93005; J2371; J2704

== ENCOUNTER → 2023-11-08 11:40 | Outpatient (BNV) | payer MEDICARE, SELFPAY | PROVIDERS: PCP Internal Medicine; Visit Provider Internal Medicine Cardiovascular Disease | DX: I48.19 Other persistent atrial fibrillation (principal) | CPT/HCPCS: 92960 ==

== ENCOUNTER → 2023-11-22 11:12 | Outpatient (REF) | payer MEDICARE, SELFPAY ==
--- NOTE | 2023-11-22 11:17 | HM_ITS ---
Conclusion: 1. Patient was monitored for total period of 3 days 2. Baseline was normal sinus with average heart rate of 64 beats per minute 3. Frequent PVCs noted with total burden of 15%, could represent PACs with aberrancy 4. No significant pauses noted 5. Patient reported 1 event that probably correlates with PVCs MTDD
== END ==
LOC: HO.CARD 11:12
PROVIDERS: PCP Internal Medicine; Visit Provider Nurse Practitioner
DX: I48.92 Unspecified atrial flutter (principal); R00.1 Bradycardia, unspecified
CPT/HCPCS: 93242

== ENCOUNTER → 2023-11-22 11:17 | Outpatient (BNV) | payer MEDICARE, SELFPAY | PROVIDERS: PCP Internal Medicine; Visit Provider Internal Medicine Cardiovascular Disease | DX: I49.3 Ventricular premature depolarization (principal) | CPT/HCPCS: 93244 ==

== ENCOUNTER 2023-12-07 15:44 | Outpatient (AMB) | payer MEDICARE, SELFPAY ==
[2023-12-07 15:46] VITALS: BP 120/82; BMI 25.7
--- NOTE | 2023-12-07 15:46 | A.OFFVIS_ITS ---
Intake Vital Signs 12/07/23 15:46 Height 5 ft 2 in Weight 140 lb 10.479 oz BMI 25.7 BP 120/82 Blood Pressure Location Lt brachial Position Sitting Intake Visit Reasons: 4 wk s/p cvr 2 wk/ s/p holter NS Avionics Mechanic Required: No Geriatric Assistant: Geriatric Assistant Present Allergies Sulfa (Sulfonamide Antibiotics) Allergy (Intermediate, Verified 12/07/23 15:48) RASH Medication List - Last Reconciled 12/07/23 by SYLVIA LoC amiodarone 200 mg PO DAILY apixaban (Eliquis) 5 mg PO BID 90 days atorvastatin 10 mg PO BEDTIME dicyclomine 10 mg PO QID PRN furosemide (Lasix) 20 mg PO .everyother day 90 days lorazepam 0.5 mg PO BEDTIME silver sulfadiazine 1% 1 appl topical DAILY PRN vitamin B complex 1 cap PO BEDTIME HPI 4 wk s/p cvr 2 wk/ s/p holter NS HPI Details Saundra is an 83-year-old female with past medical history of hypertension, hyperlipidemia, paroxysmal atrial fibrillation, recent recurrent atrial fibrillation. She had been [place] [facility] [place] and underwent cardioversion. Follow-up EKG in our office showed recurrent age fl utter. She was then taken off sotalol and started on amiodarone. Repeat cardioversion was done, Holter monitor ordered. She now presents for follow-up. Today she reports that she is noticing fluttering in her chest today. She did not notice it yesterday. She was very busy yesterday and going up and down the stairs doing things in her home. She does report being anxious about a tooth extraction which is scheduled for tomorrow. Today she feels weaker than usual and fatigued. No chest discomfort at rest or with activity. No concerning shortness of breath, PND, orthopnea or edema. No presyncope, syncope, falls. Taking meds as directed. No missed doses of her anticoagulation. Daughter present REPLACED BY [facility] Medical History Atrial flutter Paroxysmal atrial flutter Chronic heart failure with preserved ejection fraction (HFpEF) Kidney stone High cholesterol HTN (hypertension) Mitral valve disorder Afib Surgical History History of carpal tunnel release H/O lithotripsy H/O: hysterectomy Social History Household Members: None Housing: House Do you presently have visiting nurse or other home services: No Comment[place] [facility] [place] Tobacco Use Status: Never used Tobacco Second Hand Smoke Exposure: No Advance Directives Date on File: 05/07/21 service: No Current occupational status: retired Review of Systems Const All systems reviewed & are unremarkable except as noted in HPI and below Reports fatigue and Reports weakness ENT Denies dizziness Card Details: heart palpitations Denies chest pain, Denies chest pain at rest, Denies chest pain with activity, Denies rapid heart rate, Denies pedal edema, Denies edema, Denies leg edema, Denies lightheadedness, Denies palpitations, Denies dyspnea, Denies dyspnea on exertion and Denies orthopnea Resp Denies cough, Denies dyspnea and Denies dyspnea on exertion GI Denies hematochezia and Denies change in stool character Musc Denies abnormal gait, Denies limited range of motion, Denies muscle cramps, Denies muscle weakness, Denies numbness, Denies radiating pain into limb, Denies stiffness and Denies tingling Neuro Denies abnormal gait, Denies dizziness, Denies numbness, Denies tingling and Reports weakness Endo Reports fatigue and Denies palpitations Physical Exam Vital Signs: Last Vital Signs BP 120/82 12/07/23 15:46 BMI result Body Mass Index 25.7 Const General: cooperative, healthy appearing, comfortable and no acute distress Orientation/consciousness: patient oriented x3 Neck Neck: Yes normal visual inspection Resp Effort & Inspection: normal respiratory effort Auscultation: clear to auscultation bilaterally, no crackles, no rales, no rhonchi and no wheezes Cardio Jugular venous distension: no JVD Rate: regular rate Rhythm: abnormal rhythm Heart sounds: S1 normal heart sound present, S2 normal heart sound present, no murmurs and no rubs Neuro General: patient oriented x3 Extrem General: Yes normal to inspection, No no pedal edema and No calf tenderness Psych Appearance: grossly normal Mental Status: mental status grossly normal Speech and movement: Normal speech and movement present Office Procedures EKG Details: Today, read by me, atrial fibrillation/flutter, rate 94, QTC 475 milliseconds [id number], Complete Assessment & Plan Assessment & Plan (1) Atrial flutter: Comment: Status post cardioversion on Multaq Code(s): I48.92 - Unspecified atrial flutter Qualifiers: Atrial flutter type: unspecified Qualified Code(s): I48.92 - Unspecified atrial flutter Plan: History of AFib/flutter. Had been suppressed with Multaq. On visit in August she was noted to have recurrent atrial flutter and was taken off Multaq and put on metoprolol for rate control. She was admitted to [facility] [place] for sotalol loading. She underwent cardioversion during that admission with successful conversion to sinus rhythm. She was discharged on sotalol 80 mg daily. A follow-up EKG in our office showed atrial flutter. She then was taken off sotalol and started on amiodarone loading dose. She again underwent cardioversion, 11/08/2023 with successful conversion to sinus rhythm. An outpatient Holter monitor was done on 11/22/2023 for 3 days showing sinus rhythm with average heart rate 64, PVCs versus PACs with aberrancy 15% of time. Today she reports heart palpitation and fatigue that started today. EKG confirms atrial flutter though atrial fibrillation not entirely excluded, rate 94, QTC 475 [address]. Case reviewed with Dr[address] Rojas. Will start on diltiazem 30 mg b.i.d. to help with heart rate control. Continue amiodarone. Continue Eliquis without interruption. Will obtain office EKG in 1 week to assess heart rhythm. If she continues to be in atrial flutter then will plan for repeat cardioversion. Patient is agreeable to this plan. Follow-up office visit to be determined based on next EKG. (2) Sinus bradycardia: Code(s): R00.1 - Bradycardia, unspecified Plan: History of sinus bradycardia. Now with atrial flutter. Using caution with heart rate slowing agents. Diltiazem being used at very low dose. (3) Chronic heart failure with preserved ejection fraction (HFpEF): Code(s): I50.32 - Chronic diastolic (congestive) heart failure Plan: No clinical signs of heart failure on examination today. Last echocardiogram done 01/03/2023 showing normal LV, grade 2 diastolic dysfunction, [id number] MR. Recurrent atrial flutter noted as above. Breathing is normal at this time. She does report fatigue and weakness. Signs and symptoms of heart failure reviewed with her. Emergency care if ever needed for symptoms. (4) Fatigue: Code(s): R53.83 - Other fatigue Plan: As above Plan Time spent on chart review, documentation, interview and assessment Medications: New diltiazem HCl 30 mg PO BID 60 tabs 3RF Coding Level of Care Code Est Pt Level 4 (07591) Diagnoses Atrial flutter I48.92 Atrial flutter type: unspecified Sinus bradycardia R00.1 Chronic heart failure with preserved ejection fraction (HFpEF) I50.32 Fatigue R53.83 CPT Codes EKG - CPT: 32709-[id number], Complete ([id number]) Time Spent (min) 28
== END 2023-12-07 16:37 | disposition home or self-care (01) ==
PROVIDERS: PCP Internal Medicine; Visit Provider Nurse Practitioner Family
DX: I48.92 Unspecified atrial flutter (principal); R00.1 Bradycardia, unspecified; I50.32 Chronic diastolic (congestive) heart failure; R53.83 Other fatigue
CPT/HCPCS: 93010; 99214

== ENCOUNTER → 2023-12-07 15:44 | Outpatient (BNVA) | payer MEDICARE, SELFPAY | PROVIDERS: PCP Internal Medicine; Visit Provider Nurse Practitioner Family | DX: I48.92 Unspecified atrial flutter (principal); I50.32 Chronic diastolic (congestive) heart failure; R00.1 Bradycardia, unspecified; R53.83 Other fatigue | CPT/HCPCS: 93005; 99212 ==

== ENCOUNTER → 2023-12-14 14:51 | Outpatient (BNVA) | payer MEDICARE, SELFPAY | PROVIDERS: PCP Internal Medicine; Visit Provider Nurse Practitioner Family ==

== ENCOUNTER 2023-12-27 12:52 | Day surgery (SDC) | payer MEDICARE, SELFPAY ==
[2023-12-25 10:24] VITALS: BMI 25.6
--- NOTE | 2023-12-26 10:44 | P.CONAN_ITS ---
Documented by User: Kaela Eagle NP 12/26/23 10:45 HPI - Anesthesia Eval Consult details Narrative: 83yo F for Cardioversion s/p same 10/2023 with MAC Eliquis for afib PMFSH Active Problems Active Problems: All Active Problems (Updated 12/07/23 @ 16:37 by Elenita May NP-C) Fatigue (Acute) Atrial flutter (Acute) Sinus bradycardia (Acute) Paroxysmal atrial flutter (Acute) Chronic heart failure with preserved ejection fraction (HFpEF) (Acute) Chest discomfort (Acute) Acute dyspnea (Acute) Past Medical History Medical History (Updated 12/26/23 @ 11:25 by Edith Osborn RN) History of cardioversion Paroxysmal atrial flutter Chronic heart failure with preserved ejection fraction (HFpEF) Atrial flutter Kidney stone High cholesterol HTN (hypertension) Mitral valve disorder Afib Family History Family history of problems with anesthesia: No Surgical History Surgical History History of carpal tunnel release H/O lithotripsy H/O: hysterectomy History of Problems with Anesthesia: No Social History Social History Household Members: None Housing: House Do you presently have visiting nurse or other home services: [place] [facility] [place] Tobacco Use Status: Never used Tobacco Second Hand Smoke Exposure: No Use of substances other than those prescribed or required for medical reasons: No Are you DNR?: No Advance Directives: No Advance Directives Information Provided: Yes Advance Directives Date on File: 05/07/21 service: No Current occupational status: retired Meds Allergies Allergy/AdvReac Type Severity Reaction Status Date / Time Sulfa (Sulfonamide Allergy Intermediate RASH Verified 12/27/23 13:27 Antibiotics) Home Medications Medication Instructions Recorded Confirmed Last Taken Type atorvastatin 10 mg tablet 10 mg PO BEDTIME 01/19/21 12/27/23 01/18/21 History dicyclomine 10 mg capsule 10 mg PO QID PRN Abdominal 01/19/21 12/27/23 Unknown History Discomfort lorazepam 0.5 mg tablet 0.5 mg PO BEDTIME 01/19/21 12/27/23 12/27/23 08:00 History vitamin B complex 1 cap PO BEDTIME 01/19/21 12/27/23 01/18/21 History Exam Height,Weight and Vital Signs: Height 5 ft 2 in Weight 63.503 kg Pertinent Lab Results Pertinent Lab Results: Laboratory Tests 10/25/22 09/30/23 09/30/23 11:10 05:45 05:45 WBC 7.3 Hgb 14.1 Hct 43.9 Plt Count 243 Sodium 140 Potassium 3.6 Chloride 108 Carbon Dioxide 27 BUN 11 Creatinine 0.74 Narrative Narrative: EKG 09/2023 Aflutter 2:[address] abn Non QRS-T angle, Consider primary T wave abnormality Prolonged QT ECHO 12/2022 Conclusions: - 1. Normal LV systolic function with grade 2 diastolic dysfunction 2. Moderately dilated left atrium 3. [id number] mitral regurgitation 4. Normal RV systolic pressure 5. No pericardial effusion Assessment and Plan Assessment Anesthesia Assessment: Chart Reviewed Final Anesthetic Review Family History of Problems with Anesthesia: No History of Problems with Anesthesia: No Documented by User: Vi Majano MD 12/27/23 14:17 [facility] Past Medical History Medical History (Updated 12/26/23 @ 11:25 by Edith Osborn RN) History of cardioversion Paroxysmal atrial flutter Chronic heart failure with preserved ejection fraction (HFpEF) Atrial flutter Kidney stone High cholesterol HTN (hypertension) Mitral valve disorder Afib Surgical History Surgical History History of carpal tunnel release H/O lithotripsy H/O: hysterectomy Social History Social History Household Members: None Housing: House Do you presently have visiting nurse or other home services: No [place] [facility] [place] Patient Tobacco Use Status: Never used Tobacco Second Hand Smoke Exposure: No Use of substances other than those prescribed or required for medical reasons: No Are you DNR?: No Advance Directives: No Advance Directives Information Provided: Yes Advance Directives Date on File: 05/07/21 service: No Current occupational status: retired Meds Allergies Allergy/AdvReac Type Severity Reaction Status Date / Time Sulfa (Sulfonamide Allergy Intermediate RASH Verified 12/27/23 13:27 Antibiotics) Home Medications Medication Instructions Recorded Confirmed Last Taken Type atorvastatin 10 mg tablet 10 mg PO BEDTIME 01/19/21 12/27/23 01/18/21 History dicyclomine 10 mg capsule 10 mg PO QID PRN Abdominal 01/19/21 12/27/23 Unknown History Discomfort lorazepam 0.5 mg tablet 0.5 mg PO BEDTIME 01/19/21 12/27/23 12/27/23 08:00 History vitamin B complex 1 cap PO BEDTIME 01/19/21 12/27/23 01/18/21 History Exam Airway Mallampati Class: II (multiple caps, broken back right, tmj, left side dislocates) TM Dist: >3cm Neck ROM: Full Heart: rrr Lungs: cts Assessment and Plan Assessment Anesthesia Assessment: Anesthesia Plan Discussed Final Anesthetic Review NPO: Yes ASA Class: III Final Preanesthetic Review: No Changes in Pt Med Stat, Meds/Allgs Chart Reviewed and Consent Obtained/Reviewed Patient Risk: Intermediate Procedure Risk: Intermediate Anesthetic Plan Anesthetic Plan: MAC: Disposition: Standard PACU
[2023-12-27 13:08] VITALS: BMI 24.5
[2023-12-27 13:31] VITALS: BP 112/83; PULSE 104; RESP 16; TEMP 36.3; O2SAT 99
[2023-12-27] MEDS: Lactated Ringers 1,000 ML 50 ML IVCONT (13:42)
--- NOTE | 2023-12-27 15:05 | MHC.SHP ---
Pre-Procedural Eval Section A - 24 Hr Update-Section A only Date of Service: 12/27/23 The patient is an INPATIENT: No Changes since office visit: Yes Patient answered all questions; No Cold of Flu in the past 2 weeks, No New Medical Problems and No Changes in Medication The patient has been examined within 24 hours of the surgical procedure. The History & Physical has been completed within 30 days and I have reviewed it.: Yes Section B - Complete if H&P > 30 days Chief Complaint: Unspecified atrial flutter Allergies: Allergies Allergy/AdvReac Type Severity Reaction Status Date / Time Sulfa (Sulfonamide Allergy Intermediate RASH Verified 12/27/23 13:27 Antibiotics) Plan I have reviewed the history and physical and performed a pertinent physical examination on my patient. No changes have occurred unless specified. Time Spent With Patient Time: Total time managing care of this patient today ____ minutes.
[2023-12-27 15:21] VITALS: BP 115/54; PULSE 89; RESP 16; TEMP 36.4; O2SAT 95
--- NOTE | 2023-12-27 15:23 | ECG_ITS ---
Test Reason : S/P CARDIOVERSION Blood Pressure : / mmHG Vent. Rate : 065 BPM Atrial Rate : 065 BPM P-R Int : 210 ms QRS Dur : 090 ms QT Int : 474 ms P-R-T Axes : 069 -02 030 degrees QTc Int : 492 ms Sinus rhythm with 1st degree A-V block Prolonged QT Abnormal ECG When compared with ECG of 08-NOV-2023 14:07, No significant change was found Referred By: Claudy Rojas Electronically Signed By:CLAUDY ROAJS MD
--- NOTE | 2023-12-27 15:25 | HO.CARDIVERS ---
Cardioversion Procedure Note Cardioversion Date of Procedure: Myself Ordering Provider: Elenita May Performing Provider: Myself Indication for Procedure: Persistent atrial flutter with symptoms Pre-Op Diagnosis: Same Post-Op Diagnosis: Normal sinus rhythm Performed with Transesophageal Echo: No Consent: Verbal and Written consent was obtained from the patient before starting and after confirming oral anticoagulation use. The patient was made aware of the risk of synchronized cardioversion including benefits and alternatives Procedure: After consent obtained, cardioversion pads were attached in anteroposterior configuration and the patient was sedated by the anesthesia team. Once adequate sedation achieved, patient was delivered 200 joules of biphasic synchronized energy in anteroposterior configuration x2 Complications: None Impression: Successful conversion after 2nd attempt Recommendations: 1. Continue amiodarone and Eliquis 2. Twelve lead EKG 3. If remains in sinus rhythm for some time will proceed with EPS consultation for consideration for ablation
[2023-12-27 15:26] VITALS: BP 128/62; PULSE 66; RESP 15; O2SAT 97
[2023-12-27 15:31] VITALS: BP 113/58; PULSE 68; RESP 16; O2SAT 96
[2023-12-27 15:36] VITALS: BP 116/53; PULSE 71; RESP 18
[2023-12-27 15:56] VITALS: BP 124/67; PULSE 66; RESP 17; TEMP 36.4; O2SAT 97
== END 2023-12-27 16:00 | disposition home or self-care (01) ==
PROVIDERS: PCP Internal Medicine; Visit Provider Internal Medicine Cardiovascular Disease
PROC: 5A2204Z Restoration of Cardiac Rhythm, Single (ICD-10-PCS; principal; 2023-12-27 14:30)
DX: I48.92 Unspecified atrial flutter (principal); I11.0 Hypertensive heart disease with heart failure; I50.32 Chronic diastolic (congestive) heart failure; Z79.01 Long term (current) use of anticoagulants
CPT/HCPCS: 92960; 93005; J2704

== ENCOUNTER → 2023-12-27 12:52 | Outpatient (BNV) | payer MEDICARE, SELFPAY | PROVIDERS: PCP Internal Medicine; Visit Provider Internal Medicine Cardiovascular Disease | DX: I48.92 Unspecified atrial flutter (principal) | CPT/HCPCS: 92960 ==

== ENCOUNTER 2024-01-12 09:14 | Outpatient (AMB) | payer MEDICARE, SELFPAY ==
[2024-01-12 09:15] VITALS: BP 120/76; PULSE 58; BMI 25.4
--- NOTE | 2024-01-12 09:15 | A.OFFVIS_ITS ---
<Statement entered by ROMAN Lo - 01/12/24 18:17> Pt was seen in office by Dr Rojas. I did not see this pt or contribute to this note. Intake Vital Signs 01/12/24 09:15 Height 5 ft 2 in Weight 138 lb 14.259 oz BMI 25.4 BP 120/76 Blood Pressure Location Lt brachial Position Sitting Pulse 58 Intake Visit Reasons: Follow up post cardioversion Intake Note: Follow-up after cardioversion with ekg feeling good Software Engineering Supervisor Required: No Allergies Sulfa (Sulfonamide Antibiotics) Allergy (Intermediate, Verified 12/27/23 13:27) RASH Medication List - Last Reconciled 01/12/24 by Claudy Rojas MD amiodarone 200 mg PO DAILY apixaban (Eliquis) 5 mg PO BID 90 days atorvastatin 10 mg PO BEDTIME dicyclomine 10 mg PO QID PRN diltiazem HCl 30 mg PO BID furosemide (Lasix) 20 mg PO .everyother day 90 days lorazepam 0.5 mg PO BEDTIME silver sulfadiazine 1% 1 appl topical DAILY PRN vitamin B complex 1 cap PO BEDTIME HPI HPI Comments History of Present Illness Details Saundra comes for follow-up. Since last cardioversion addition of Cardizem she has predominantly normal sinus rhythm. There was 1 episode when heart rate was in the 70s and she felt not well. Although this corrected quickly. She has not had any other heart failure symptoms. She takes all her medications. Denies any lightheadedness, syncope. No bleeding issues or n eurologic events. Has upcoming appointment with electrophysiology in January. Denies any chest pain. [facility] Medical History History of cardioversion Paroxysmal atrial flutter Chronic heart failure with preserved ejection fraction (HFpEF) Atrial flutter Kidney stone High cholesterol HTN (hypertension) Mitral valve disorder Afib Surgical History History of carpal tunnel release H/O lithotripsy H/O: hysterectomy Social History Household Members: None Housing: House Do you presently have visiting nurse or other home services: No Comment: [facility] [place] overfolw Patient Tobacco Use Status: Never used Tobacco Second Hand Smoke Exposure: No Advance Directives Date on File: 05/07/21 service: No Current occupational status: retired Review of Systems Const Denies chills, Denies fatigue, Denies fever(s), Denies frequent falls, Denies weakness, Denies weight gain and Denies weight loss ENT Denies dizziness Card Denies chest pain, Denies leg edema, Denies lightheadedness, Denies palpitations, Denies dyspnea, Denies dyspnea on exertion, Denies orthopnea and Denies other (loss of consciousness) Resp Denies cough, Denies dyspnea and Denies dyspnea on exertion GI Denies hematochezia and Denies change in stool character Musc Denies abnormal gait, Denies muscle weakness, Denies numbness, Denies radiating pain into limb and Denies tingling Neuro Denies abnormal gait, Denies dizziness, Denies frequent falls, Denies numbness, Denies tingling and Denies weakness Endo Denies fatigue and Denies palpitations Physical Exam Vital Signs: Last Vital Signs Pulse 58 01/12/24 09:15 BP 120/76 01/12/24 09:15 BMI result Body Mass Index 25.4 Const General: cooperative, healthy appearing, comfortable and no acute distress Orientation/consciousness: patient oriented x3 Neck Neck: Yes normal visual inspection Resp Effort & Inspection: normal respiratory effort Auscultation: clear to auscultation bilaterally, no crackles, no rales, no rhonchi and no wheezes Cardio Jugular venous distension: no JVD Rate: regular rate Rhythm: regular rhythm Heart sounds: S1 normal heart sound present, S2 normal heart sound present, no murmurs and no rubs Neuro General: patient oriented x3 Extrem General: Yes normal to inspection, No no pedal edema and No calf tenderness Psych Appearance: grossly normal Mental Status: mental status grossly normal Speech and movement: Normal speech and movement present Office Procedures EKG Details: EKG shows sinus bradycardia at 58 beats per minute otherwise normal EKG [id number], Complete Assessment & Plan Assessment & Plan (1) Paroxysmal atrial flutter: Code(s): I48.92 - Unspecified atrial flutter Plan: Paroxysmal atrial flutter/fibrillation, difficult control. Currently has done extremely well with rhythm control approach has done very well with rhythm control approach. Currently on amiodarone therapy and concomitant Cardizem therapy. She is tolerating this therapy well. Scheduled to see electrophysiology in near future. 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 Generally lower success rate with ablation was discussed with her as well. However I think she requires a combined pharmaco-ablative approach to manage her atrial arrhythmias and prevent heart failure symptoms and syndrome. She is agreeable. We discuss the risks associated with catheter ablation and possible reduced efficacy. Continue full oral anticoagulation, currently on Eliquis 5 mg b.i.d.. Quarterly renal function test should be pursued. (2) Chronic heart failure with preserved ejection fraction (HFpEF): Code(s): I50.32 - Chronic diastolic (congestive) heart failure Plan: Heart failure preserved ejection fraction, clinically euvolemic and well compensated current diuretic dose. Daily weight monitoring avoidance of salt loading was discussed continue rhythm control approach. Importance of regular diuretic therapy was discussed. Additional diuretics as need be. Advised to call me with worsening symptoms. Will follow up in the clinic in 3 months time, sooner p.r.n.. Thank you for allowing me to partake in her care Coding Level of Care Code Est Pt Level 4 (53913) Diagnoses Paroxysmal atrial flutter I48.92 Chronic heart failure with preserved ejection fraction (HFpEF) I50.32 CPT Codes EKG - CPT: 09243-[id number], Complete ([id number])
== END 2024-01-12 09:44 | disposition home or self-care (01) ==
PROVIDERS: PCP Internal Medicine; Visit Provider Nurse Practitioner Family
DX: I48.92 Unspecified atrial flutter (principal); I50.32 Chronic diastolic (congestive) heart failure
CPT/HCPCS: 93010; 99214

== ENCOUNTER → 2024-01-12 09:14 | Outpatient (BNVA) | payer MEDICARE, SELFPAY | PROVIDERS: PCP Internal Medicine; Visit Provider Nurse Practitioner Family | DX: I48.92 Unspecified atrial flutter (principal); I50.32 Chronic diastolic (congestive) heart failure | CPT/HCPCS: 93005; 99212 ==

== ENCOUNTER 2024-01-20 07:11 | Outpatient (REF) | payer MEDICARE, SELFPAY ==
[2024-01-20 07:23] LABS: MANUAL DIFF FLAG NO
[2024-01-20 07:48] LABS: Basophils Percent Auto 0.8 % (0-2); Eosinophils Absolute Auto 0.2 X10*3/uL (0.0-0.4); Hematocrit 47.9 % (37.0-47.0); Hemoglobin 15.6 g/dl (12.0-16.0); Imm Gran Abs Auto 0.01 X10*3/uL (0.00-0.03); Imm Gran Pct Auto 0.2 % (0.0-0.4); Lymphocytes Absolute Auto 1.9 X10*3/uL (1.2-4.9); Lymphocytes Percent Auto 35.6 % (20-40); Mean Corpuscular HGB Conc 32.6 g/dl (31.0-35.0); Mean Corpuscular Hemoglobin 30.9 pg (27.0-33.0); Mean Corpuscular Volume 94.9 fL (80.0-98.0); Mean Platelet Volume 10.5 fL (9.4-12.3); Monocytes Absolute Auto 0.4 X10*3/uL (0.1-1.2); Monocytes Percent Auto 8.1 % (2-11); Neutrophils Absolute Auto 2.7 x10*3/uL (2.0-8.3); Neutrophils Percent Auto 51.3 % (45-73); Platelet Count 260 X10*3/uL (160-400); Red Blood Count 5.05 X10*6/uL (4.20-5.50); Red Cell Distribution Width 13.1 % (11.0-16.0); White Blood Count 5.3 X10*3/uL (4.8-10.8)
[2024-01-20 08:20] LABS: Alanine Aminotransferase 22 U/L (0-31); Albumin Level 4.5 g/dL (3.5-5.0); Alkaline Phosphatase 67 U/L (39-117); Anion Gap 15 (12-20); Aspartate Amino Transferase 21 U/L (5-31); Bilirubin Total 0.8 mg/dL (0.0-1.0); Blood Urea Nitrogen 15 mg/dL (9-16); Calcium 9.8 mg/dL (8.4-10.2); Carbon Dioxide 28 mmol/L (22-29); Chloride 105 mmol/L (96-108); Cholesterol 246 mg/dL (<200); Estimated Glomerular Filt Rate 52; Glucose Fasting 100 mg/dL (60-99); HDL Cholesterol 78 mg/dL (>40); LDL Cholesterol Calculated 148 mg/dL (<100); Potassium 3.8 mmol/L (3.3-5.1); Sodium 144 mmol/L (135-145); Total Protein 7.5 g/dL (6.5-8.0); Triglycerides 101 mg/dL (<150)
[2024-01-20 08:38] LABS: Thyroid Stimulating Hormone 1.53 uIU/mL (0.32-4.0)
== END 2024-01-20 07:12 | disposition home or self-care (01) ==
LOC: HO.LAB 07:11
PROVIDERS: PCP Internal Medicine; Visit Provider Internal Medicine
DX: I10 Essential (primary) hypertension (principal); I48.0 Paroxysmal atrial fibrillation; E78.00 Pure hypercholesterolemia, unspecified; K58.9 Irritable bowel syndrome, unspecified; I50.9 Heart failure, unspecified
CPT/HCPCS: 36415; 80053; 80061; 84443; 85025

== ENCOUNTER 2024-01-22 16:54 | Outpatient (REF) | payer MEDICARE, SELFPAY ==
--- NOTE | ~2024-01-22 | XR_ITS ---
EXAMINATION: XR SINUSES CLINICAL INFORMATION: Sinus pressure. COMPARISON: No similar priors. TECHNIQUE: 3 views of the sinuses were obtained. FINDINGS: Nonspecific radiopacity projecting over the medial aspect of the left maxillary sinus on the water's view. Otherwise, grossly clear paranasal sinuses. No displaced mandibular fractures. No unexpected radiopaque foreign bodies. XR/XR sinus min 3V IMPRESSION: Nonspecific radiopacity projecting over the medial aspect of the left maxillary sinus on the water's view. Recommend further characterization with paranasal sinus CT protocol.
== END 2024-01-22 16:55 | disposition home or self-care (01) ==
LOC: HO.XRAY 16:54
PROVIDERS: PCP Internal Medicine; Visit Provider Internal Medicine
DX: J34.89 Other specified disorders of nose and nasal sinuses (principal)
CPT/HCPCS: 70220

== ENCOUNTER 2024-03-27 09:03 | Outpatient (AMB) | payer MEDICARE, SELFPAY ==
[2024-03-27 09:00] VITALS: BP 120/74; PULSE 54; BMI 25.4
--- NOTE | 2024-03-27 09:00 | MHC.OFFVIS ---
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 She has been doing well with no recurrent episodes of atrial fibrillation or flutter since been started on Cardizem and since the last cardioversion. She has been feeling well. Back to her activity level and walking more. She did see electrophysiology and wanted a 2nd opinion. She is scheduled to see [facility] electrophysiology in the future. She denies any heart failure symptoms. Takes all her medications as prescribed. No bleeding issues or neurologic events. [facility] Medical History History of cardioversion Paroxysmal atrial flutter Chronic heart failure with preserved ejection fraction (HFpEF) Atrial flutter Kidney stone High cholesterol HTN (hypertension) Mitral valve disorder Afib Surgical History History of carpal tunnel release H/O lithotripsy H/O: hysterectomy Social History Household Members: None Housing: House Do you presently have visiting nurse or other home services: No Comment: [facility] [place] Patient Tobacco Use Status: Never used Tobacco Second Hand Smoke Exposure: No Advance Directives Date on File: 05/07/21 service: No Current occupational status: retired Review of Systems Const Denies chills, Denies fatigue, Denies fever(s), Denies frequent falls, Denies weakness, Denies weight gain and Denies weight loss ENT Denies dizziness Card Denies chest pain, Denies leg edema, Denies lightheadedness, Denies palpitations, Denies dyspnea, Denies dyspnea on exertion, Denies orthopnea and Denies other (loss of consciousness) Resp Denies cough, Denies dyspnea and Denies dyspnea on exertion GI Denies hematochezia and Denies change in stool character Musc Denies abnormal gait, Denies muscle weakness, Denies numbness, Denies radiating pain into limb and Denies tingling Neuro Denies abnormal gait, Denies dizziness, Denies frequent falls, Denies numbness, Denies tingling and Denies weakness Endo Denies fatigue and Denies palpitations Physical Exam Vital Signs: Last Vital Signs Pulse 54 03/27/24 09:00 BP 120/74 03/27/24 09:00 BMI result Body Mass Index 25.4 Const General: cooperative, healthy appearing, comfortable and no acute distress Orientation/consciousness: patient oriented x3 Neck Neck: Yes normal visual inspection Resp Effort & Inspection: normal respiratory effort Auscultation: clear to auscultation bilaterally, no crackles, no rales, no rhonchi and no wheezes Cardio Jugular venous distension: no JVD Rate: regular rate Rhythm: regular rhythm Heart sounds: S1 normal heart sound present, S2 normal heart sound present, no murmurs and no rubs Neuro General: patient oriented x3 Extrem General: Yes normal to inspection, No no pedal edema and No calf tenderness Psych Appearance: grossly normal Mental Status: mental status grossly normal Speech and movement: Normal speech and movement present Office Procedures EKG Details: EKG shows sinus bradycardia first-degree AV block otherwise normal EKG with normal QT interval [id number], Complete Assessment & Plan Assessment & Plan (1) Chronic heart failure with preserved ejection fraction (HFpEF): Code(s): I50.32 - Chronic diastolic (congestive) heart failure Category: Medical Plan: Heart failure preserved ejection fraction especially in the setting of atrial flutter/fibrillation. She is done well with rhythm control approach. Continue current diuretics every other day. Daily weight monitoring avoidance of salt loading was discussed management of heart failure were discussed. Additional diuretics as need be. Continue rhythm control approach, see below. Continue aggressive blood pressure control which is currently well optimized. Encouraged to participate in regular physical activity as tolerated. (2) Paroxysmal atrial flutter: Code(s): I48.92 - Unspecified atrial flutter Category: Medical Plan: Difficult control atrial flutter fibrillation requiring multiple cardioversion currently stable on combination of amiodarone and Cardizem therapy. Full oral anticoagulation with Eliquis was discussed. I think she will benefit from ablation therapy from to purposes to help maintain rhythm in the long run which has significantly benefitted her as well as try to come off amiodarone therapy in the long run. Avoidance of stimulants was discussed. Advised to call me with worsening symptoms. She will wait to have the 2nd opinion consult in the future. Will follow up in the clinic in 3 months time, sooner p.r.n.. Thank you for allowing me to partake in her care Coding Level of Care Code Est Pt Level 4 (43506) Diagnoses Chronic heart failure with preserved ejection fraction (HFpEF) I50.32 Paroxysmal atrial flutter I48.92 CPT Codes EKG - CPT: 13878-[id number], Complete ([id number])
== END 2024-03-27 09:30 | disposition home or self-care (01) ==
PROVIDERS: PCP Internal Medicine; Visit Provider Internal Medicine Cardiovascular Disease
DX: I50.32 Chronic diastolic (congestive) heart failure (principal); I48.92 Unspecified atrial flutter
CPT/HCPCS: 93010; 99214

== ENCOUNTER → 2024-03-27 09:03 | Outpatient (BNVA) | payer MEDICARE, SELFPAY | PROVIDERS: PCP Internal Medicine; Visit Provider Internal Medicine Cardiovascular Disease | DX: I50.32 Chronic diastolic (congestive) heart failure (principal); I48.92 Unspecified atrial flutter | CPT/HCPCS: 93005; 99212 ==

== ENCOUNTER 2024-07-18 08:50 | Outpatient (AMB) | payer MEDICARE, SELFPAY ==
--- NOTE | 2024-07-18 09:02 | A.OFFVIS_ITS ---
Vital Signs 07/18/24 09:03 Height 5 ft 2 in Weight 136 lb 10.986 oz BMI 25.0 BP 178/68 H Blood Pressure Location Lt brachial Position Sitting Pulse 58 Pulse Source Pulse Oximeter Intake Visit Reasons: 3 mth f/up Allergies Sulfa (Sulfonamide Antibiotics) Allergy (Intermediate, Verified 12/27/23 13:27) RASH Medication List - Last Reconciled 07/18/24 by Claudy Rojas MD amiodarone 200 mg PO DAILY apixaban (Eliquis) 5 mg PO BID atorvastatin 10 mg PO BEDTIME dicyclomine 10 mg PO QID PRN diltiazem HCl 30 mg PO BID furosemide 20 mg PO Q OTHER DAY 90 days lorazepam 0.5 mg PO BEDTIME silver sulfadiazine 1% 1 appl topical DAILY PRN HPI Comments Details: Saundra comes for follow-up. She had recent evaluation by electrophysiology and was recommended ablation therapy. She declined to perform EKG today. She says she has been feeling well overall. No heart failure symptoms. No irregular heartbeat. Currently taking all her medications. No orthopnea, PND, leg edema. No lightheadedness, syncope. No bleeding issues or neurologic events. She says she had a prolonged course of viral syndrome and cough related to it. Still recuperating from the same [facility] Medical History History of cardioversion Paroxysmal atrial flutter Chronic heart failure with preserved ejection fraction (HFpEF) Atrial flutter Kidney stone High cholesterol HTN (hypertension) Mitral valve disorder Afib Surgical History History of carpal tunnel release H/O lithotripsy H/O: hysterectomy Social History Household Members: None Housing: House Do you presently have visiting nurse or other home services: No Comment: [facility] [place] overfolw Patient Tobacco Use Status: Never used Tobacco Second Hand Smoke Exposure: No Advance Directives Date on File: 05/07/21 service: No Current occupational status: retired Review of Systems Const Denies weakness ENT Denies dizziness Card Denies chest pain, Denies chest pain with activity, Denies syncope, Denies rapid heart rate, Denies pedal edema, Denies edema, Denies leg edema, Denies lighthea dedness, Denies palpitations, Denies dyspnea, Denies dyspnea on exertion and Denies orthopnea Resp Denies cough, Denies dyspnea and Denies dyspnea on exertion GI Denies hematochezia and Denies change in stool character Musc Denies abnormal gait, Denies muscle cramps, Denies muscle weakness, Denies numbness, Denies radiating pain into limb and Denies tingling Neuro Denies abnormal gait, Denies dizziness, Denies syncope, Denies numbness, Denies tingling and Denies weakness Endo Denies palpitations Physical Exam Vital Signs: Last Vital Signs Pulse 58 07/18/24 09:03 BP 178/68 H 07/18/24 09:03 BMI result Body Mass Index 25.0 Const General: cooperative, healthy appearing, comfortable and no acute distress Orientation/consciousness: patient oriented x3 Neck Neck: Yes normal visual inspection Resp Effort & Inspection: normal respiratory effort Auscultation: clear to auscultation bilaterally, no crackles, no rales, no rhonchi and no wheezes Cardio Jugular venous distension: no JVD Rate: regular rate Rhythm: regular rhythm Heart sounds: S1 normal heart sound present, S2 normal heart sound present, no murmurs and no rubs Neuro General: patient oriented x3 Extrem General: Yes normal to inspection, No no pedal edema and No calf tenderness Psych Appearance: grossly normal Mental Status: mental status grossly normal Speech and movement: Normal speech and movement present Assessment & Plan Assessment & Plan (1) Paroxysmal atrial flutter: Code(s): I48.92 - Unspecified atrial flutter Category: Medical Plan: Paroxysmal atrial flutter, fibrillation has remained suppressed on amiodarone therapy. Given her overall general good health I strongly recommend that she undergo ablation therapy so we can eventually switch her back to a less toxic therapy such as Multaq. Would avoid reducing amiodarone 200 mg daily due to high likelihood of recurrent atrial flutter given her structural abnormalities. Once she has an ablation done, I think she would benefit from lowering amiodarone eventually switching to an alternative agent. This was discussed with her. She understands. Recommend strongly to pursue ablation. Continue annual check for amiodarone toxicity. Continue full oral anticoagulation, currently on apixaban 5 mg b.i.d.. (2) Chronic heart failure with preserved ejection fraction (HFpEF): Code(s): I50.32 - Chronic diastolic (congestive) heart failure Category: Medical Plan: Heart failure preserved ejection fraction secondary to atrial fibrillation. Clinically currently euvolemic and well compensated. Continue current low-dose Lasix therapy. Daily weight monitoring avoidance of salt loading was discussed. Continue aggressively rhythm control approach. Continue aggressive blood pressure control which appears to be well optimized. Will follow up in the clinic in 6 months time, sooner p.r.n.. Thank you for allowing me to partake in his care Orders: Orders CA echo transthoracic complete Today I48.92 - Unspecified atrial flutter Coding Level of Care Code Est Pt Level 4 (08980) Diagnoses Paroxysmal atrial flutter I48.92 Chronic heart failure with preserved ejection fraction (HFpEF) I50.32
[2024-07-18 09:03] VITALS: BP 178/68; PULSE 58; BMI 25.0
== END 2024-07-18 09:30 | disposition home or self-care (01) ==
PROVIDERS: PCP Internal Medicine; Visit Provider Internal Medicine Cardiovascular Disease
DX: I48.92 Unspecified atrial flutter (principal); I50.32 Chronic diastolic (congestive) heart failure
CPT/HCPCS: 99214

== ENCOUNTER → 2024-07-18 08:50 | Outpatient (BNVA) | payer MEDICARE, SELFPAY | PROVIDERS: PCP Internal Medicine; Visit Provider Internal Medicine Cardiovascular Disease | DX: I48.92 Unspecified atrial flutter (principal); I11.0 Hypertensive heart disease with heart failure; I50.32 Chronic diastolic (congestive) heart failure | CPT/HCPCS: 99212 ==

== ENCOUNTER 2024-08-09 06:55 | Outpatient (REF) | payer MEDICARE, SELFPAY ==
[2024-08-09 07:06] LABS: MANUAL DIFF FLAG NO
[2024-08-09 07:26] LABS: Basophils Absolute Auto 0.1 X10*3/uL (0.0-0.2); Eosinophils Absolute Auto 0.2 X10*3/uL (0.0-0.4); Eosinophils Percent Auto 3.7 % (0-4); Hematocrit 46.2 % (37.0-47.0); Hemoglobin 15.1 g/dl (12.0-16.0); Imm Gran Abs Auto 0.01 X10*3/uL (0.00-0.03); Imm Gran Pct Auto 0.2 % (0.0-0.4); Lymphocytes Absolute Auto 1.9 X10*3/uL (1.2-4.9); Lymphocytes Percent Auto 39.5 % (20-40); Mean Corpuscular HGB Conc 32.7 g/dl (31.0-35.0); Mean Corpuscular Hemoglobin 31.3 pg (27.0-33.0); Mean Corpuscular Volume 95.7 fL (80.0-98.0); Mean Platelet Volume 10.5 fL (9.4-12.3); Monocytes Absolute Auto 0.5 X10*3/uL (0.1-1.2); Monocytes Percent Auto 11.1 % (2-11); Neutrophils Absolute Auto 2.2 x10*3/uL (2.0-8.3); Neutrophils Percent Auto 44.5 % (45-73); Platelet Count 239 X10*3/uL (160-400); Red Blood Count 4.83 X10*6/uL (4.20-5.50); Red Cell Distribution Width 13.2 % (11.0-16.0); White Blood Count 4.9 X10*3/uL (4.8-10.8)
[2024-08-09 07:51] LABS: Alanine Aminotransferase 21 U/L (0-31); Albumin Level 4.2 g/dL (3.5-5.0); Alkaline Phosphatase 62 U/L (39-117); Anion Gap 13 (12-20); Aspartate Amino Transferase 21 U/L (5-31); Bilirubin Total 0.7 mg/dL (0.0-1.0); Blood Urea Nitrogen 13 mg/dL (9-16); Calcium 10.1 mg/dL (8.4-10.2); Carbon Dioxide 26 mmol/L (22-29); Chloride 108 mmol/L (96-108); Estimated Glomerular Filt Rate 54; Glucose Random 100 mg/dL (60-115); Magnesium 2.3 mg/dL (1.6-2.6); Potassium 4.4 mmol/L (3.3-5.1); Sodium 143 mmol/L (135-145)
[2024-08-09 08:06] LABS: Thyroid Stimulating Hormone 1.21 uIU/mL (0.32-4.0); Vitamin D 25-OH Total 14.4 ng/mL (>30)
== END 2024-08-09 06:56 | disposition home or self-care (01) ==
LOC: HO.LAB 06:55
PROVIDERS: PCP Internal Medicine; Visit Provider Internal Medicine
DX: I10 Essential (primary) hypertension (principal); R79.82 Elevated C-reactive protein (CRP); M85.80 Other specified disorders of bone density and structure, unspecified site
CPT/HCPCS: 36415; 80053; 82306; 83735; 84443; 85025

== ENCOUNTER → 2024-08-16 08:45 | Outpatient (REF) | payer MEDICARE, SELFPAY ==
--- NOTE | 2024-08-16 08:48 | CA_ITS ---
Transthoracic Echocardiogram Patient (Last, First, Middle): Saundra Parada, Gender: Female Date of : 1940 Age: 84 Procedure Date: 08/16/2024 Procedure Type: Transthoracic Echocardiogram Location: OP Height: 157.48 cm Weight: 61.69 kg BSA: 1.62 m2 Heart Rate: 52 bpm BP: 182 / 80 mmHg Budget Engineer: SB Referring MD: Claudy Rojas MD Mining Detail Draftsperson: Claudy Rojas MD Symptoms: I48.92 - Unspecified atrial flutter Study Quality: Adequate ECG Rhythm: Bradycardia Conclusions: - 1. Normal LV ejection fraction of 65-70% with grade 2 diastolic dysfunction 2. Moderately dilated left atrium 3. Mild aortic and mitral regurgitation 4. Moderate to severe elevation of right ventricular systolic pressure 5. No gross pericardial effusion Findings Left Ventricle Normal left ventricular size, thickness, and systolic function. The visually estimated ejection fraction is between 65-70%. Spectral Doppler is indicative of a pseudonormal filling pattern. E/E prime ratio is >15, consistent with elevated filling pressures. Evidence suggests grade II (moderate) diastolic dysfunction. There is moderate septal asymmetric hypertrophy. Right Ventricle Normal right ventricular cavity size and systolic function. Atria The left atrium is moderately dilated. There is no evidence of interatrial shunt. The right atrium is mildly dilated. Aortic Valve There is mild calcification of the aortic valve. There is mild aortic valve stenosis. The peak aortic gradient is 11 mmHg.The mean gradient is 7 mmHg. The aortic valve area is 1.67 cm2. There is mild aortic valve regurgitation. Mitral Valve There is mild anterior and posterior mitral leaflet thickening. There is mild posterior mitral annular calcification. There is mild mitral annular calcification. There is mild mitral valve regurgitation. There is no mitral valve stenosis. Pulmonic Valve The pulmonic valve is likely normal. There is trace to mild pulmonic valve regurgitation. Tricuspid Valve Normal tricuspid valve structure. There is mild to moderate tricuspid valve regurgitation. Normal right atrial pressure. Moderate to severe pulmonary hypertension is present. Great Vessels The pulmonary artery was not well visualized. There is no dilatation of the ascending aorta measuring 3.20 cm. Venous The inferior vena cava is normal in size and collapses greater than 50% with inspiration. Pericardium/Pleural There is no evidence of pericardial effusion. Prior Study Comparison Changes noted compared to prior study dated: 01/03/2023. RV systolic pressure is significantly elevated Measurements 2D Linear Measurements IVSd: 1.59 0.6-0.9/0.6-1.0 cm LVIDd: 4.85 3.9-5.3/4.2-5.9 cm LVIDd Index: 2.99 2.4-3.2/2.2-3.1 cm/m2 LVIDs: 3.10 2.0-3.6 cm LVPWd: 0.87 0.7-1.1 cm LA Diam: 4.80 2.7-3.8/3.0-4.0 cm LAIDs Index: 2.96 1.5-2.3 cm/m2 LV Mass: 287.76 67-162/88-224 g LV Mass Index: 177.63 43-95/49-115 g/m2 LVOT Diam: 1.90 3.0+(-)1.3 cm 2D Systolic Function EF 4C: 61.70 >55% EF 2C: 73.30 >55% EF BiP: 69.90 >55% Mitral Valve MV VTI: 0.57 MV Pk Willi: 1.99 MV Mn Willi: 0.90 MV Pk Grad: 16.00 MV Mn Grad: 4.00 MV Pk E: 1.78 MV PK A: 0.77 MV Decel Time: 335.00 E/A: 2.30 E'Lateral: 6.09 E'Medial: 6.20 E/E' Med: 28.70 E/E' Lat: 29.20 PHT: 98.00 MVA PHT: 2.24 MVA Continuity: 1.31 Decel [place]: 5.31 Aortic Valve AoV Pk Willi: 1.68 AoV Mn Willi: 1.22 AoV VTI: 0.45 AoV Pk Grad: 11.00 Aov Mn Grad: 7.00 HERMELINDO Cont.VTI: 1.67 AI Pk Willi: 4.04 AI [place]: 1.83 LVOT LVOT Pk Willi: 1.01 LVOT Mn Willi: 0.71 LVOT VTI: 0.26 LVOT Pk Grad: 4.00 LVOT Mn Grad: 2.00 LVOT Diam: 1.90 LVOT Area: 2.84 Diastolic Function MV Pk E: 1.78 MV Pk A: 0.77 E/A: 2.30 E'Medial: 6.20 E/E' Med: 28.70 E' Laterial: 6.09 E/E' Lat: 29.20 Right Ventricle TAPSE (mm): 25.40 TVS' Willi: 9.79 Tricuspid Valve TR Pk Willi: 3.79 TR Pk Grad: 57.00 RA Press: 3.00 RVSP: 60.00 Great Vessels Aorta Sinus of Valsalva: 3.20 2.0-3.5 cm Ao Asc: 3.20 2.1-3.4 cm Pulmonary Veins Pulm Vein S/D 0.80 Pulmonary Valve PV Pk Willi: 0.85 Peak PV Grad: 3.00 DC Pk Willi: 1.84 Updated in Other Vendor System with Status of Final Claudy Rojas MD electronically signed on 08/16/2024 1:40:19 PM with status of Final
== END ==
LOC: HO.CARD 08:45
PROVIDERS: PCP Internal Medicine; Visit Provider Internal Medicine Cardiovascular Disease
DX: I48.92 Unspecified atrial flutter (principal)
CPT/HCPCS: 93306

== ENCOUNTER → 2024-08-16 08:48 | Outpatient (BNV) | payer MEDICARE, SELFPAY | PROVIDERS: PCP Internal Medicine; Visit Provider Internal Medicine Cardiovascular Disease | DX: I42.2 Other hypertrophic cardiomyopathy (principal); I35.2 Nonrheumatic aortic (valve) stenosis with insufficiency; I36.1 Nonrheumatic tricuspid (valve) insufficiency; I34.0 Nonrheumatic mitral (valve) insufficiency | CPT/HCPCS: 93306 ==

== ENCOUNTER 2025-01-15 09:45 | Outpatient (AMB) | payer MEDICARE, SELFPAY ==
--- NOTE | 2025-01-15 09:47 | A.OFFVIS_ITS ---
Vital Signs 01/15/25 09:48 Height 5 ft 2 in Weight 132 lb 4.438 oz BMI 24.2 BP 118/60 Blood Pressure Location Lt brachial Position Sitting Pulse 64 Pulse Source Monitor Intake Visit Reasons: 6m follow up Allergies Sulfa (Sulfonamide Antibiotics) Allergy (Intermediate, Verified 12/27/23 13:27) RASH Medication List - Last Reconciled 01/15/25 by Claudy Rojas MD amiodarone 200 mg PO ONCE apixaban (Eliquis) 5 mg PO BID atorvastatin 10 mg PO BEDTIME dicyclomine 10 mg PO QID PRN diltiazem HCl 30 mg PO BID furosemide 20 mg PO Q OTHER DAY 90 days lorazepam 0.5 mg PO BEDTIME silver sulfadiazine 1% 1 appl topical DAILY PRN HPI Comments Details: Saundra comes for follow-up. She has been doing very well with rhythm control approach. She has not noticed any significant prolonged irregular heartbeat or palpitation persistent atrial flutter. She occasionally notices elevated heart rate when she measures her blood pressure. Blood pressure is elevated in the upper 130s to 140 range. Patient denies any orthopnea, PND, leg edema. Has good functional capacity. Occasional lightheadedness. No syncopal episodes. No leg swelling. Weight is remaining at 107772 lb. [facility] Medical History (Updated 01/15/25 @ 10:14 by Claudy Rojas MD) Atrial flutter History of cardioversion Paroxysmal atrial flutter Chronic heart failure with preserved ejection fraction (HFpEF) Kidney stone High cholesterol HTN (hypertension) Mitral valve disorder Afib Surgical History History of carpal tunnel release H/O lithotripsy H/O: hysterectomy Social History Household Members: None Housing: House Do you presently have visiting nurse or other home services: No Comment: [facility] [place] overfolw Patient Tobacco Use Status: Never used Tobacco Second Hand Smoke Exposure: No Advance Directives Date on File: 05/07/21 service: No Current occupational status: retired Review of Systems Const Denies weakness ENT Denies dizziness Card Denies chest pain, Denies chest pain with activity, Denies syncope, Denies rapid heart rate, Denies pedal edema, Denies edema, Denies leg edema, Denies lightheadedness, Denies palpitations, Denies dyspnea, Denies dyspnea on exertion and Denies orthopnea Resp Denies cough, Denies dyspnea and Denies dyspnea on exertion GI Denies hematochezia and Denies change in stool character Musc Denies abnormal gait, Denies muscle cramps, Denies muscle weakness, Denies numbness, Denies radiating pain into limb and Denies tingling Neuro Denies abnormal gait, Denies dizziness, Denies syncope, Denies numbness, Denies tingling and Denies weakness Endo Denies palpitations Physical Exam Vital Signs: Last Vital Signs Pulse 64 01/15/25 09:48 BP 118/60 01/15/25 09:48 BMI result Body Mass Index 24.2 Const General: cooperative, healthy appearing, comfortable and no acute distress Orientation/consciousness: patient oriented x3 Neck Neck: Yes normal visual inspection Resp Effort & Inspection: normal respiratory effort Auscultation: clear to auscultation bilaterally, no crackles, no rales, no rhonchi and no wheezes Cardio Jugular venous distension: no JVD Rate: regular rate Rhythm: regular rhythm Heart sounds: S1 normal heart sound present, S2 normal heart sound present, no murmurs and no rubs Neuro General: patient oriented x3 Extrem General: Yes normal to inspection, No no pedal edema and No calf tenderness Psych Appearance: grossly normal Mental Status: mental status grossly normal Speech and movement: Normal speech and movement present Office Procedures EKG Details: EKG shows sinus bradycardia with rightward axis otherwise normal EKG [id number], Complete Assessment & Plan Assessment & Plan (1) Chronic heart failure with preserved ejection fraction (HFpEF): Code(s): I50.32 - Chronic diastolic (congestive) heart failure Category: Medical Plan: Heart failure preserved ejection fraction predominantly in the setting of atrial flutter with significant symptoms. Has done well with rhythm control approach. Currently using Lasix every other day. Continue the same. Needs better blood pressure control. Will add spironolactone 12.5 mg to her regimen. Daily weight monitoring avoidance salt loading was discussed. She understands management of heart failure well. (2) Paroxysmal atrial flutter: Code(s): I48.92 - Unspecified atrial flutter Category: Medical Plan: Paroxysmal atrial flutter has remained suppressed on current amiodarone and Cardizem therapy has done extremely well with rhythm control approach will continue pursue rhythm control approach. Check for amiodarone toxicity. Continue full oral anticoagulation, currently on apixaban 5 mg b.i.d.. Advised to call me for weight drops consistently below 130 at which time Eliquis will need to be reduced to 2.5 mg b.i.d.. (3) Sinus bradycardia: Code(s): R00.1 - Bradycardia, unspecified Category: Medical Plan: Sinus bradycardia due to pharmacotherapy suggestive of sinoatrial khadar dysfunction. Clinically without any symptoms. No indication for pacing therapy. Advised to call me with any new symptoms. Will follow up in the clinic in 6 months time, sooner p.r.n.. Thank you for allowing me to partake in her care Orders: Orders Basic Metabolic Panel Today I48.92 - Unspecified atrial flutter Complete Blood Count no Diff Today I48.92 - Unspecified atrial flutter TSH reflex Free T4 Today I48.92 - Unspecified atrial flutter XR chest 2V Today I48.92 - Unspecified atrial flutter Liver Panel Today I48.92 - Unspecified atrial flutter Coding Level of Care Code Est Pt Level 4 (40508) Complex EM visit Add On G2211 Diagnoses Chronic heart failure with preserved ejection fraction (HFpEF) I50.32 Paroxysmal atrial flutter I48.92 Sinus bradycardia R00.1 CPT Codes EKG - CPT: 21209-[id number], Complete ([id number])
[2025-01-15 09:48] VITALS: BP 118/60; PULSE 64; BMI 24.2
== END 2025-01-15 10:07 | disposition home or self-care (01) ==
PROVIDERS: PCP Internal Medicine; Visit Provider Internal Medicine Cardiovascular Disease
DX: I50.32 Chronic diastolic (congestive) heart failure (principal); I48.92 Unspecified atrial flutter; R00.1 Bradycardia, unspecified
CPT/HCPCS: 93010; 99214; G2211

== ENCOUNTER 2025-01-15 09:45 | Outpatient (REF) | payer MEDICARE, SELFPAY ==
--- NOTE | ~2025-01-15 | XR_ITS ---
EXAMINATION: XR CHEST CLINICAL INFORMATION: I48.92 - Unspecified atrial flutter COMPARISON: 10/24/2023. TECHNIQUE: 2 views of the chest were obtained. FINDINGS: Borderline cardiac enlargement. Aortic mural calcification and tortuosity. Mediastinal and hilar contours are normal. The lungs are diffusely hyperaerated, however clear bilaterally. There is no pneumothorax or pleural effusion. There is no focal osseous or soft tissue abnormality. S-shaped thoracolumbar scoliosis with associated degenerative spondylosis and exaggerated kyphosis. XR/XR chest 2V IMPRESSION: No active pulmonary disease. Electronically signed by: Jason Chambers MD 01/15/2025 03:36 PM [facility]
[2025-01-15 11:06] LABS: Hematocrit 44.5 % (37.0-47.0); Hemoglobin 14.5 g/dl (12.0-16.0); Mean Corpuscular HGB Conc 32.6 g/dl (31.0-35.0); Mean Corpuscular Volume 95.1 fL (80.0-98.0); Platelet Count 217 X10*3/uL (160-400); Red Blood Count 4.68 X10*6/uL (4.20-5.50); Red Cell Distribution Width 12.7 % (11.0-16.0); White Blood Count 7.2 X10*3/uL (4.8-10.8)
[2025-01-15 11:38] LABS: Alanine Aminotransferase 160 U/L (0-31); Alkaline Phosphatase 61 U/L (39-117); Anion Gap 12 (12-20); Aspartate Amino Transferase 60 U/L (5-31); Bilirubin Direct 0.2 mg/dL (0.0-0.5); Bilirubin Total 0.6 mg/dL (0.0-1.0); Blood Urea Nitrogen 17 mg/dL (9-16); Calcium 9.1 mg/dL (8.4-10.2); Carbon Dioxide 28 mmol/L (22-29); Chloride 108 mmol/L (96-108); Estimated Glomerular Filt Rate > 60; Glucose Random 100 mg/dL (60-115); Potassium 4.1 mmol/L (3.3-5.1); Sodium 144 mmol/L (135-145); Total Protein 6.9 g/dL (6.5-8.0)
== END 2025-01-15 09:46 | disposition home or self-care (01) ==
LOC: HO.LAB 09:45
PROVIDERS: PCP Internal Medicine; Visit Provider Internal Medicine Cardiovascular Disease
DX: I48.92 Unspecified atrial flutter (principal); I50.32 Chronic diastolic (congestive) heart failure; R00.1 Bradycardia, unspecified
CPT/HCPCS: 36415; 71046; 80048; 80076; 84443; 85027; 93005; 99212

== ENCOUNTER → 2025-01-15 10:28 | Outpatient (BNV) | payer MEDICARE, SELFPAY | PROVIDERS: PCP Internal Medicine; Visit Provider Radiology Diagnostic Radiology | DX: I51.7 Cardiomegaly (principal); I48.92 Unspecified atrial flutter | CPT/HCPCS: 71046 ==

== ENCOUNTER 2025-02-15 11:39 | Outpatient (AMB) | payer MEDICARE, SELFPAY ==
[2025-02-15 11:53] VITALS: BP 150/72; PULSE 52; RESP 15; TEMP 36.5; O2SAT 96; BMI 24.5
--- NOTE | 2025-02-15 11:53 | MHC.OFFWIV ---
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 Intake Note: Pt is here today c/o Lt ear blocked [id number] Patient Tobacco Use Status: Never used Tobacco Allergies Sulfa (Sulfonamide Antibiotics) Allergy (Intermediate, Verified 02/15/25 12:03) RASH Medication List - Last Reconciled 02/15/25 by Dominic Ivory MD amiodarone 200 mg PO ONCE apixaban (Eliquis) 5 mg PO BID atorvastatin 10 mg PO BEDTIME dicyclomine 10 mg PO QID PRN diltiazem HCl 30 mg PO BID furosemide 20 mg PO Q OTHER DAY 90 days lorazepam 0.5 mg PO BEDTIME spironolactone 12.5 mg (1/2 x 25 mg) PO DAILY HPI 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 She formerly a patient of Dr. Mejía and she says he has removed ear wax from her ears in the past and noted at her last visit with him that this was building up again. She says when she manipulates the front of her ear (tragus) that she gets a crackling sound and changes in hearing. She also notes some rhinitis. denies sore throat or fevers. Blood pressure elevated today. She says it fluctuates sometimes but was okay at home when checked recently she notes she had corn beef for dinner last night and was quite salty Otherwise feels well today. [facility] Medical History (Updated 02/15/25 @ 12:12 by Dominic Ivory MD) Atrial flutter History of cardioversion Paroxysmal atrial flutter Chronic heart failure with preserved ejection fraction (HFpEF) Kidney stone High cholesterol HTN (hypertension) Mitral valve disorder Afib Surgical History History of carpal tunnel release H/O lithotripsy H/O: hysterectomy Social History Household Members: None Housing: House Do you presently have visiting nurse or other home services: No Comment: [facility] [place] overfolw Patient Tobacco Use Status: Never used Tobacco Second Hand Smoke Exposure: No Advance Directives Date on File: 05/07/21 service: No Current occupational status: retired Review of Systems Const Denies chills, Denies fatigue, Denies fever(s), Denies headache(s) and Denies weakness ENT Details: runny nose and mildly itchy eyes blocked left ear-see HPI Denies dizziness and Denies headache(s) Card Denies dyspnea Resp Denies cough, Denies dyspnea, Denies wheezing and Denies other ( shortness of breath) Musc Denies numbness and Denies tingling Neuro Denies dizziness, Denies headache(s), Denies numbness, Denies tingling, Denies paresthesias and Denies weakness Psych Denies anxiety and Denies depression Endo Denies fatigue Aller/Immun Denies wheezing Physical Exam Vital Signs: Last Vital Signs Temp 97.7 F 02/15/25 11:53 Pulse 52 02/15/25 11:53 Resp 15 02/15/25 11:53 BP 150/72 H 02/15/25 11:53 Pulse Ox 96 02/15/25 11:53 Oxygen Delivery Method Room Air 02/15/25 11:53 BMI result Body Mass Index 24.5 Const General: no acute distress and well developed Nutritional Appearance: well nourished Orientation/consciousness: patient oriented x3 HEENT Other: left ear cerumen impaction. TM normal without effusion after irrigation mild nasal discharge without significant congestion Head: Yes normocephalic and Yes atraumatic Eyes General: appearance normal, both eyes and all related structures Pupils: Equal, round and reactive pupils present EOM: EOMs intact bilaterally Resp Effort & Inspection: normal respiratory effort Auscultation: clear to auscultation bilaterally Neuro General: patient oriented x3 and gait normal Cranial nerves: Yes Equal, round and reactive pupils present Psych Affect: normal affect Assessment & Plan Assessment & Plan (1) Impacted cerumen, left ear: Code(s): H61.22 - Impacted cerumen, left ear Plan: symptoms improved after irrigation of left ear canal mild rhinitis but no TM effusion Blocked ear sensation resolved she is using a daytime antihistamine for rhinitis. She has a perfumed body lotion on and I advised she hold off on this until those symptoms resolve as well. (2) Elevated blood pressure reading: Code(s): R03.0 - Elevated blood-pressure reading, without diagnosis of hypertension Plan: blood pressure is elevated today. no headaches or vision changes. No chest pain or shortness of breath or dizziness. Take diltiazem and spironolactone as prescribed avoid salt/sodium follow-up with PCP as recommended Coding Level of Care Code Est Pt Level 3 (89809) Diagnoses Impacted cerumen, left ear H61.22 Elevated blood pressure reading R03.0
== END 2025-02-15 13:04 | disposition home or self-care (01) ==
PROVIDERS: PCP Internal Medicine; Visit Provider Family Medicine
DX: H61.22 Impacted cerumen, left ear (principal); R03.0 Elevated blood-pressure reading, without diagnosis of hypertension

== ENCOUNTER → 2025-02-15 11:39 | Outpatient (BNVA) | payer MEDICARE, SELFPAY | PROVIDERS: PCP Internal Medicine | DX: H61.22 Impacted cerumen, left ear (principal); R03.0 Elevated blood-pressure reading, without diagnosis of hypertension | CPT/HCPCS: 99212 ==

== ENCOUNTER 2025-02-22 09:26 | Outpatient (REF) | payer MEDICARE, SELFPAY ==
[2025-02-22 10:51] LABS: Alanine Aminotransferase 30 U/L (0-31); Albumin Level 4.1 g/dL (3.5-5.0); Alkaline Phosphatase 67 U/L (39-117); Aspartate Amino Transferase 26 U/L (5-31); Bilirubin Direct 0.2 mg/dL (0.0-0.5); Bilirubin Total 0.6 mg/dL (0.0-1.0); Total Protein 6.8 g/dL (6.5-8.0)
== END 2025-02-22 09:27 | disposition home or self-care (01) ==
LOC: HO.LAB 09:26
PROVIDERS: Visit Provider Internal Medicine Cardiovascular Disease
DX: E78.00 Pure hypercholesterolemia, unspecified (principal)
CPT/HCPCS: 36415; 80076

== ENCOUNTER → 2025-03-26 09:07 | Outpatient (BNVA) | payer MEDICARE, SELFPAY | PROVIDERS: Visit Provider Internal Medicine Cardiovascular Disease | DX: Z13.89 Encounter for screening for other disorder (principal) ==

== ENCOUNTER 2025-04-11 13:00 | Day surgery (SDC) | payer MEDICARE, SELFPAY ==
--- NOTE | 2025-04-09 12:18 | HO.ANESPROP2 ---
HPI - Anesthesia Eval Consult details Narrative: 84yo F for Cardioversion s/p same 11/2023 with MAC Barbpj for afib PMFSH Active Problems Active Problems: All Active Problems Elevated blood pressure reading (Acute) Impacted cerumen, left ear (Acute) Fatigue (Acute) Sinus bradycardia (Acute) Chest discomfort (Acute) Acute dyspnea (Acute) Paroxysmal atrial flutter (Acute) Chronic heart failure with preserved ejection fraction (HFpEF) (Acute) Past Medical History Medical History (Updated 02/15/25 @ 12:12 by Dominic Ivory MD) Atrial flutter History of cardioversion Paroxysmal atrial flutter Chronic heart failure with preserved ejection fraction (HFpEF) Kidney stone High cholesterol HTN (hypertension) Mitral valve disorder Afib Family History Family history of problems with anesthesia: No Surgical History Surgical History History of carpal tunnel release H/O lithotripsy H/O: hysterectomy History of Problems with Anesthesia: No Social History Social History Household Members: None Housing: House Do you presently have visiting nurse or other home services: No Comment: [facility] [place] Tobacco Use Status: Never used Tobacco Second Hand Smoke Exposure: No Advance Directives Date on File: 05/07/21 service: No Current occupational status: retired Meds Allergies Allergy/AdvReac Type Severity Reaction Status Date / Time Sulfa (Sulfonamide Allergy Intermediate RASH Verified 02/15/25 12:03 Antibiotics) Home Medications ?Medication ?Instructions ?Recorded ?Confirmed ?Last Taken ?Type atorvastatin 10 mg tablet 10 mg PO BEDTIME 01/19/21 02/15/25 01/18/21 History dicyclomine 10 mg capsule 10 mg PO QID PRN Abdominal 07/18/24 02/15/25 Unknown History Discomfort Exam Pertinent Lab Results Pertinent Lab Results: Laboratory Tests 01/15/25 10:27 WBC 7.2 Hgb 14.5 Hct 44.5 Plt Count 217 Sodium 144 Potassium 4.1 Chloride 108 Carbon Dioxide 28 BUN 17 H Creatinine 0.85 Narrative Narrative: EKG 02/2025 Afib @ 81 Low voltage QRS Nonspecific ST-T wave abnormality ECHO 2023 Conclusions: - 1. Normal LV ejection fraction of 65-70% with grade 2 diastolic dysfunction 2. Moderately dilated left atrium 3. Mild aortic and mitral regurgitation 4. Moderate to severe elevation of right ventricular systolic pressure 5. No gross pericardial effusion Assessment and Plan Assessment Anesthesia Assessment: Chart Reviewed Final Anesthetic Review Family History of Problems with Anesthesia: No History of Problems with Anesthesia: No
[2025-04-09 15:43] VITALS: BMI 24.3
[2025-04-11 13:02] VITALS: BP 152/75; PULSE 99; RESP 18; TEMP 36.3; O2SAT 99
[2025-04-11] MEDS: Lactated Ringers 1,000 ML 50 ML IVCONT (13:36)
--- NOTE | 2025-04-11 14:06 | HO.ANESPROP2 ---
[facility] Active Problems Active Problems: All Active Problems Elevated blood pressure reading (Acute) Impacted cerumen, left ear (Acute) Fatigue (Acute) Sinus bradycardia (Acute) Chest discomfort (Acute) Acute dyspnea (Acute) Paroxysmal atrial flutter (Acute) Chronic heart failure with preserved ejection fraction (HFpEF) (Acute) Past Medical History Medical History History of cardioversion Low back pain Cough (~03/26/25) History of cardioversion Paroxysmal atrial flutter Chronic heart failure with preserved ejection fraction (HFpEF) Atrial flutter Kidney stone High cholesterol HTN (hypertension) Mitral valve disorder Afib Cognitive capacity: normal Functional capacity: independent ambulation Patient : No Family History Family history of problems with anesthesia: No Surgical History Surgical History Hx of cystoscopy History of carpal tunnel release H/O lithotripsy H/O: hysterectomy History of Problems with Anesthesia: No Social History Social History Household Members: None Housing: House Are you a primary patient care technician instructor to a significant other at home: No Do you presently have visiting nurse or other home services: No Comment: [facility] [place] overfolw Patient Tobacco Use Status: Never used Tobacco Second Hand Smoke Exposure: No Use of substances other than those prescribed or required for medical reasons: No Have you been hit, kicked, punched, or otherwise hurt by someone within the past year? If so, by whom?: No Are you DNR?: No Advance Directives: Yes Advance Directives Information Provided: No Advance Directives on File: Yes Advance Directives Date on File: 01/19/21 Recently lost weight without trying: No Poor oral hygiene: No service: No Current occupational status: retired Meds Allergies Allergy/AdvReac Type Severity Reaction Status Date / Time Sulfa (Sulfonamide Allergy Intermediate RASH Verified 04/09/25 15:47 Antibiotics) Active Medications: Current Medications Lactated Ringer's (Lr) 1,000 mls @ 50 mls/hr IVCONT .Q20H RACHEAL Last Admin: 04/11/25 13:36 Dose: 50 mls/hr Home Medications ?Medication ?Instructions ?Recorded ?Confirmed ?Last Taken ?Type atorvastatin 10 mg tablet 10 mg PO BEDTIME 01/19/21 04/09/25 03/02/25 History dicyclomine 10 mg capsule 10 mg PO QID PRN Abdominal 07/18/24 04/09/25 03/12/25 History Discomfort amiodarone 200 mg tablet 200 mg PO DAILY 04/09/25 04/09/25 04/11/25 History Exam Height,Weight and Vital Signs: Height 5 ft 2 in Weight 60.328 kg Last Vital Signs Temp 97.3 F 04/11/25 13:02 Pulse 99 04/11/25 13:02 Resp 18 04/11/25 13:02 BP 152/75 H 04/11/25 13:02 Pulse Ox 99 04/11/25 13:02 O2 Del Method Room Air 04/11/25 13:02 Pertinent Lab Results Pertinent Lab Results: wnl Narrative Narrative: ormal Airway Mallampati Class: II TM Dist: >3cm Neck ROM: Full Heart: irregular Lungs: cta Assessment and Plan Final Anesthetic Review Family History of Problems with Anesthesia: No History of Problems with Anesthesia: No Final Preanesthetic Review: No Changes in Pt Med Stat, Meds/Allgs Chart Reviewed, Consent Obtained/Reviewed and Anes Risks/Benef Reviewed Procedure Risk: Low Anesthetic Plan Anesthetic Plan: MAC: Disposition: Standard PACU
--- NOTE | 2025-04-11 14:10 | MHC.SHP ---
Pre-Procedural Eval Section A - 24 Hr Update-Section A only Date of Service: 04/11/25 The patient is an INPATIENT: No Changes since office visit: Yes Patient answered all questions; No Cold of Flu in the past 2 weeks, No New Medical Problems and No Changes in Medication The patient has been examined within 24 hours of the surgical procedure. The History & Physical has been completed within 30 days and I have reviewed it.: Yes Section B - Complete if H&P > 30 days Chief Complaint: Paroxysmal atrial fibrillation Allergies: Allergies Allergy/AdvReac Type Severity Reaction Status Date / Time Sulfa (Sulfonamide Allergy Intermediate RASH Verified 04/09/25 15:47 Antibiotics) Plan I have reviewed the history and physical and performed a pertinent physical examination on my patient. No changes have occurred unless specified. Time Spent With Patient Time: Total time managing care of this patient today ____ minutes.
--- NOTE | 2025-04-11 14:43 | ECG_ITS ---
Test Reason : post op Blood Pressure : */* mmHG Vent. Rate : 70 BPM Atrial Rate : 70 BPM P-R Int : 224 ms QRS Dur : 92 ms QT Int : 432 ms P-R-T Axes : 81 1 24 degrees QTcB Int : 466 ms Sinus rhythm with 1st degree A-V block with Premature supraventricular complexes Otherwise normal ECG When compared with ECG of 27-Dec-2023 15:17, Premature supraventricular complexes are now Present Referred By: Claudy Rojas Electronically Signed By: CLAUDY ROJAS MD
--- NOTE | 2025-04-11 14:44 | HO.CARDIVERS ---
Cardioversion Procedure Note Cardioversion Date of Procedure: 04/11/2025 Ordering Provider: Tyler Rojas Performing Provider: Tyler Rojas Indication for Procedure: Recurrent atrial flutter symptomatic Pre-Op Diagnosis: Same Performed with Transesophageal Echo: No Consent: Verbal and Written consent was obtained from the patient before starting and after confirming oral anticoagulation use. The patient was made aware of the risk of synchronized cardioversion including benefits and alternatives Procedure: After consent obtained, cardioversion pads were attached in anteroposterior configuration and the patient was sedated by the anesthesia team. Once adequate sedation achieved, patient was delivered 200 joules of biphasic synchronized energy in anteroposterior configuration. Complications: None Impression: Successful conversion to sinus rhythm Recommendations: 1. Continue amiodarone and Cardizem therapy. 2. Continue full oral anticoagulation with apixaban 3. Twelve lead EKG 4. Follow up in the office
[2025-04-11 14:47] VITALS: BP 111/44; PULSE 70; RESP 12; TEMP 37; O2SAT 97
[2025-04-11 15:02] VITALS: BP 135/84; PULSE 74; RESP 16; O2SAT 97
[2025-04-11 15:17] VITALS: BP 125/65; PULSE 69; RESP 18; TEMP 36.8; O2SAT 97
== END 2025-04-11 15:25 | disposition home or self-care (01) ==
PROVIDERS: Visit Provider Internal Medicine Cardiovascular Disease
PROC: 5A2204Z Restoration of Cardiac Rhythm, Single (ICD-10-PCS; principal; 2025-04-11 14:30)
DX: I48.92 Unspecified atrial flutter (principal); I48.0 Paroxysmal atrial fibrillation; I11.0 Hypertensive heart disease with heart failure; I50.32 Chronic diastolic (congestive) heart failure; E78.00 Pure hypercholesterolemia, unspecified; I05.9 Rheumatic mitral valve disease, unspecified; R00.1 Bradycardia, unspecified; Z79.01 Long term (current) use of anticoagulants; Z79.899 Other long term (current) drug therapy; Z88.2 Allergy status to sulfonamides; Z87.442 Personal history of urinary calculi
CPT/HCPCS: 92960; 93005

== ENCOUNTER → 2025-04-11 13:00 | Outpatient (BNV) | payer MEDICARE, SELFPAY | PROVIDERS: Visit Provider Internal Medicine Cardiovascular Disease | DX: I48.92 Unspecified atrial flutter (principal); I44.0 Atrioventricular block, first degree; I49.3 Ventricular premature depolarization | CPT/HCPCS: 92960; 93010 ==

== ENCOUNTER 2025-05-09 08:51 | Outpatient (AMB) | payer MEDICARE, SELFPAY ==
--- NOTE | 2025-05-09 08:53 | A.OFFPC_ITS ---
Vital Signs 05/09/25 08:56 Height 5 ft 2 in Weight 138 lb BMI 25.2 BP 130/76 Blood Pressure Location Lt brachial Position Sitting Pulse 56 Pulse Source Pulse Oximeter Temp 97.8 F Temp Source Axillary Pulse Oximetry (%) 96 Oxygen Delivery Method Room Air Intake Visit Reasons: Routine Client Technologies Specialist Required: No Accompanied by: Self / Same As Patient Allergies Sulfa (Sulfonamide Antibiotics) Allergy (Intermediate, Verified 05/09/25 08:54) RASH Tobacco use date assessed: 05/09/25 Fall risk assessment: No Falls in past year Last assessed Fall Risk: 05/09/25 Dental Screening Dental Screen Date: 05/09/25 Did you have a dental visit in the last 12 months?: Yes Did you have a dental problem in the last 6 months where you did not have access to dental care?: No HPI HPI Comments History of Present Illness Details The patient is an 84 year old female with a past medical history of afib, dCHF, hyperlipidemia, MR anxiety presenting for follow up CV: Follows with cardiology. On amiodarone, eliquis, diltiazem, furosemide. She underwent cardioversion. Blood pressure is well controlled. Is having some shortness of breath, especially with stairs. Sinus congestion, pressure. +rhinitis Anxiety: stable on lorazepam. ROS see HPI PHYSICAL EXAM: GENERAL: Alert and oriented x 3. NAD EYES: EOMI. Anicteric. HENT: Moist mucous membranes. LUNGS: Clear to auscultation bilaterally. CARDIOVASCULAR: Regular rate and rhythm. + murmur. No JVD. ABDOMEN: Soft, non-tender +bs EXTREMITIES: No edema. Non-tender. SKIN: No rashes or lesions. Warm. NEUROLOGIC: No focal neurological deficits. CN II-XII grossly intact PSYCHIATRIC: Cooperative. Appropriate mood and affect [facility] Medical History (Updated 05/09/25 @ 09:55 by Mikayla Lam MD) HTN (hypertension) History of cardioversion Low back pain Cough (~03/26/25) History of cardioversion Paroxysmal atrial flutter Chronic heart failure with preserved ejection fraction (HFpEF) Atrial flutter Kidney stone High cholesterol Mitral valve disorder Afib Surgical History History of colonoscopy (~01/12/18) Hx of cystoscopy History of carpal tunnel release H/O lithotripsy H/O: hysterectomy Family History Mother No problems noted. Father No problems noted. Social History Household Members: None Housing: House Are you a primary foster care social worker to a significant other at home: No Do you presently have visiting nurse or other home services: No [place] [facility] [place] [facility] Patient Tobacco Use Status: Never used Tobacco e-Cigarette/Vaping Use: Never Used Second Hand Smoke Exposure: No Advance Directives Date on File: 01/19/21 service: No Current occupational status: retired Cognitive needs: No Hearing needs: No Vision needs: No Questionnaire PHQ-9 Over the last 2 weeks, how often have you been bothered by any of the following problems? 1. Little interest or pleasure in doing things: not at all 2. Feeling down, depressed, or hopeless: not at all 3. Trouble falling or staying asleep, or sleeping too much: not at all 4. Feeling tired or having little energy: not at all 5. Poor appetite or overeating: not at all 6. Feeling bad about yourself - or that you are a failure or have let yourself or your family down: not at all 7. Trouble concentrating on things, such as reading the newspaper or watching television: not at all 8. Moving or speaking so slowly that other people could have noticed. Or the opposite - being so fidgety or restless that you have been moving around a lot more than usual: not at all 9. Thoughts that you would be better off or of hurting yourself in some way: not at all Total score: 0 Depression Screening Interpretation: Negative Depression Screening Done: Yes 69764 - PHQ-9 Billing: Yes Source: Developed by Drs. Jordon Balbuena, Ju Rojo, Emmanuel Sweeney and colleagues, with an educational debbie from [employer] ([employer]: [place]). Thrive Questionnaire Date Thrive assessed: 05/09/25 I am a: Patient Within the past 12 months, did the food you bought not last and you didn't have the money to get more?: Never true Within the past 12 months, did you worry whether your food would run out before you got money to buy more?: Never true Do you have trouble paying for medicines?: No Do you have trouble getting transportation to medical appointments?: No Do you have trouble paying your heating and electricity bill?: No Do you have trouble taking care of your child, family member or friend?: No Do you have trouble with day-to-day activities such as bathing, preparing meals, shopping, managing finances, etc.?: No Are you currently unemployed and looking for a job?: No Are you interested in more education?: No THRIVE Score: 0 AUDIT C Alcohol Use Questionnaire (AUDIT-C) 1. How often do you have a drink containing alcohol?: Never 3. How often do you have six or more drinks on one occasion?: Never Total Score: 0 ANTWAN-7 AMB Questionnaire ANTWAN-7 Date ANTWAN - 7 assessed: 05/09/25 Feeling nervous, anxious, or on edge: 0 = Not at all Not being able to stop or control worryin = Not at all Worrying too much about different things: 0 = Not at all Trouble relaxin = Not at all Being so restless that it is hard to sit still: 0 = Not at all Becoming easily annoyed or irritable: 0 = Not at all Feeling afraid as if something awful might happen: 0 = Not at all Total ANTWAN-7 score (0-4 normal; 5-9 mild; 10-14 moderate; 15-21 severe): 0 Source: Developed by Drs. Jordon Balbuena, Ju Rojo, Emmanuel Sweeney and colleagues, with an educational debbie from [employer] ([employer]: [place]). Physical exam (Primary Care) Vital Signs: Last Vital Signs Temp 97.8 F 05/09/25 08:56 Pulse 56 05/09/25 08:56 BP 130/76 05/09/25 08:56 Pulse Ox 96 05/09/25 08:56 Oxygen Delivery Method Room Air 05/09/25 08:56 BMI result Body Mass Index 25.2 Tobacco/Smoking Status: Tobacco use Status Tobacco use date assessed 05/09/25 05/09/25 08:55 Patient Tobacco Use Status Never used Tobacco 05/09/25 08:55 e-Cigarette/Vaping Use Never Used 05/09/25 08:55 PHQ-9: PHQ-9 Score PHQ-9: Total score 0 05/09/25 08:55 Depression Screening Interpretation: Negative Thrive Assessment: Date of Thrive Assessment Date Thrive assessed 05/09/25 05/09/25 08:55 Coding Level of Care Code New Pt Level 4 (26292) Complex EM visit Add On G2211 Diagnoses Paroxysmal atrial flutter I48.92 Chronic heart failure with preserved ejection fraction (HFpEF) I50.32 Fatigue, unspecified type R53.83 Fatigue type: unspecified Additional Codes PHQ-9 - 20323 - PHQ-9 Billing: Yes ([id number]) Assessment & Plan Assessment & Plan (1) Paroxysmal atrial flutter: Code(s): I48.92 - Unspecified atrial flutter Category: Medical (2) Chronic heart failure with preserved ejection fraction (HFpEF): Code(s): I50.32 - Chronic diastolic (congestive) heart failure Category: Medical (3) Fatigue: Code(s): R53.83 - Other fatigue Category: Medical Qualifiers: Fatigue type: unspecified Qualified Code(s): R53.83 - Other fatigue Plan 84 year old female to establish care past medical surgical social reviewed HTN-continue current medications Shortness of breath-upcoming cardiology appt. exam is benign Sinusitis-doxy sent. start xyzal Orders: Orders Complete Blood Count Auto Diff Today R06.00 - Dyspnea, unspecified Lipid Panel Today I48.92 - Unspecified atrial flutter, R53.83 - Other fatigue Medications: New doxycycline hyclate 100 mg PO BID 7 days 14 tabs 0RF mometasone 0.1% 1 appl topical DAILY PRN 45 grams 3RF skin irritation levocetirizine (Xyzal) 5 mg PO DAILY PRN 90 tabs 1RF allergy symptoms
[2025-05-09 08:56] VITALS: BP 130/76; PULSE 56; TEMP 36.6; O2SAT 96; BMI 25.2
== END 2025-05-09 09:26 | disposition home or self-care (01) ==
LOC: HO.HMCHD 08:52
PROVIDERS: Visit Provider Internal Medicine
DX: I48.92 Unspecified atrial flutter (principal); I50.32 Chronic diastolic (congestive) heart failure; R53.83 Other fatigue

== ENCOUNTER → 2025-05-09 08:51 | Outpatient (BNVA) | payer MEDICARE, SELFPAY | PROVIDERS: Visit Provider Internal Medicine | DX: I48.91 Unspecified atrial fibrillation (principal); I11.0 Hypertensive heart disease with heart failure; I50.32 Chronic diastolic (congestive) heart failure; R53.83 Other fatigue; E78.5 Hyperlipidemia, unspecified; F41.9 Anxiety disorder, unspecified; Z79.01 Long term (current) use of anticoagulants; Z79.899 Other long term (current) drug therapy | CPT/HCPCS: 96127; 99202 ==

== ENCOUNTER 2025-05-23 06:38 | Outpatient (REF) | payer MEDICARE, SELFPAY ==
[2025-05-23 06:51] LABS: MANUAL DIFF FLAG NO
[2025-05-23 06:58] LABS: Basophils Percent Auto 0.7 % (0-2); Eosinophils Absolute Auto 0.3 X10*3/uL (0.0-0.4); Eosinophils Percent Auto 5.5 % (0-4); Hematocrit 45.8 % (37.0-47.0); Hemoglobin 14.7 g/dl (12.0-16.0); Imm Gran Abs Auto 0.01 X10*3/uL (0.00-0.03); Imm Gran Pct Auto 0.2 % (0.0-0.4); Lymphocytes Absolute Auto 1.7 X10*3/uL (1.2-4.9); Lymphocytes Percent Auto 30.4 % (20-40); Mean Corpuscular HGB Conc 32.1 g/dl (31.0-35.0); Mean Corpuscular Hemoglobin 30.4 pg (27.0-33.0); Mean Corpuscular Volume 94.8 fL (80.0-98.0); Mean Platelet Volume 10.4 fL (9.4-12.3); Monocytes Absolute Auto 0.5 X10*3/uL (0.1-1.2); Monocytes Percent Auto 9.7 % (2-11); Neutrophils Absolute Auto 2.9 x10*3/uL (2.0-8.3); Neutrophils Percent Auto 53.5 % (45-73); Platelet Count 231 X10*3/uL (160-400); Red Blood Count 4.83 X10*6/uL (4.20-5.50); Red Cell Distribution Width 13.2 % (11.0-16.0); White Blood Count 5.5 X10*3/uL (4.8-10.8)
[2025-05-23 07:20] LABS: Anion Gap 13 (12-20); Blood Urea Nitrogen 12 mg/dL (9-16); Calcium 9.4 mg/dL (8.4-10.2); Carbon Dioxide 26 mmol/L (22-29); Chloride 108 mmol/L (96-108); Cholesterol 281 mg/dL (<200); Estimated Glomerular Filt Rate 55; Glucose Random 102 mg/dL (60-115); HDL Cholesterol 71 mg/dL (>40); LDL Cholesterol Calculated 191 mg/dL (<100); Potassium 4.5 mmol/L (3.3-5.1); Sodium 142 mmol/L (135-145); Triglycerides 98 mg/dL (<150)
[2025-05-23 07:21] LABS: B Type Natriuretic Peptide 156 pg/mL (<100)
== END 2025-05-23 06:39 | disposition home or self-care (01) ==
LOC: HO.LAB 06:38
PROVIDERS: Absent Provider Internal Medicine; PCP Internal Medicine; Visit Provider Internal Medicine Cardiovascular Disease
DX: R53.83 Other fatigue (principal); I48.92 Unspecified atrial flutter; R06.00 Dyspnea, unspecified; I50.32 Chronic diastolic (congestive) heart failure; R06.02 Shortness of breath
CPT/HCPCS: 36415; 80048; 80061; 83880; 85025

== ENCOUNTER → 2025-06-27 09:21 | Outpatient (REF) | payer MEDICARE, SELFPAY ==
--- NOTE | 2025-06-27 09:29 | CA_ITS ---
Transthoracic Echocardiogram Patient (Last, First, Middle): Saundra Parada, Gender: Female Date of : 1940 Age: 84 Procedure Date: 06/27/2025 Procedure Type: Transthoracic Echocardiogram Location: OP Height: 157. cm Weight: 60.78 kg BSA: 1.61 m2 Heart Rate: 45 bpm BP: 176 / 70 mmHg Web Site Admin: MARIA LUZ Saenz MD: Claudy Rojas MD Search Engine Marketing Specialist: Claudy Rojas MD Symptoms: I50.32 - Chronic diastolic (congestive) heart failure Study Quality: Fair ECG Rhythm: Bradycardia Conclusions: - 1. Normal LV ejection fraction of 65-70% with moderate left ventricular hypertrophy with at least grade 2 diastolic dysfunction 2. Moderate left atrial enlargement 3. Mild aortic and mitral regurgitation 4. Normal measured RV systolic pressure 5. No gross pericardial effusion Findings Left Ventricle Normal left ventricular size and systolic function. There is moderately increased left ventricular wall thickness. The visually estimated ejection fraction is between 65-70%. Spectral Doppler is indicative of a pseudonormal filling pattern. E/E prime ratio is >15, consistent with elevated filling pressures. Evidence suggests grade II (moderate) diastolic dysfunction. Right Ventricle Normal right ventricular cavity size and systolic function. Atria The left atrium is moderately dilated. There is no evidence of interatrial shunt. The right atrium is likely dilated. Aortic Valve There is mild thickening of the aortic valve. There is no aortic valve stenosis. There is mild aortic valve regurgitation. Mitral Valve There is moderate anterior and posterior mitral leaflet thickening. There is mild mitral annular calcification. There is mild mitral valve regurgitation. There is no mitral valve stenosis. Pulmonic Valve The pulmonic valve was not well visualized. Tricuspid Valve Likely normal tricuspid valve structure and function. There is trace tricuspid valve regurgitation. The right ventricular systolic pressure is normal. The right ventricular systolic pressure is 14 mmHg. Normal right atrial pressure. There is no evidence of pulmonary hypertension. Great Vessels The pulmonary artery was not well visualized. There is no dilatation of the ascending aorta measuring 3.30 cm. Small plaque is seen in the sino tubular ridge. Venous The inferior vena cava is normal in size and collapses greater than 50% with inspiration. Pericardium/Pleural There is no evidence of pericardial effusion. Prior Study Comparison Significant changes compared to prior study dated: 08/16/2024. RV systolic pressure is normalized on this study, question underestimated Measurements 2D Linear Measurements IVSd: 1.47 0.6-0.9/0.6-1.0 cm LVIDd: 4.31 3.9-5.3/4.2-5.9 cm LVIDd Index: 2.68 2.4-3.2/2.2-3.1 cm/m2 LVIDs: 2.51 2.0-3.6 cm LVPWd: 1.35 0.7-1.1 cm LA Diam: 4.70 2.7-3.8/3.0-4.0 cm LAIDs Index: 2.92 1.5-2.3 cm/m2 LV Mass: 293.70 67-162/88-224 g LV Mass Index: 182.42 43-95/49-115 g/m2 LVOT Diam: 1.80 3.0+(-)1.3 cm 2D Systolic Function EF 4C: 69.00 >55% EF 2C: 77.80 >55% EF BiP: 75.10 >55% Mitral Valve MV VTI: 0.56 MV Pk Willi: 1.64 MV Mn Willi: 0.67 MV Pk Grad: 11.00 MV Mn Grad: 2.00 MV Pk E: 1.66 MV PK A: 0.57 MV Decel Time: 302.00 E/A: 2.90 E'Lateral: 7.04 E'Medial: 5.64 E/E' Med: 29.40 E/E' Lat: 23.60 PHT: 89.00 MVA PHT: 2.47 MVA Continuity: 0.93 Decel Wilson: 5.50 Aortic Valve AoV Pk Willi: 1.68 AoV Mn Willi: 1.13 AoV VTI: 0.46 AoV Pk Grad: 11.00 Aov Mn Grad: 6.00 HERMELINDO Cont.VTI: 1.15 LVOT LVOT Pk Willi: 0.88 LVOT Mn Willi: 0.55 LVOT VTI: 0.21 LVOT Pk Grad: 3.00 LVOT Mn Grad: 1.00 LVOT Diam: 1.80 LVOT Area: 2.54 Diastolic Function MV Pk E: 1.66 MV Pk A: 0.57 E/A: 2.90 E'Medial: 5.64 E/E' Med: 29.40 E' Laterial: 7.04 E/E' Lat: 23.60 Right Ventricle TAPSE (mm): 23.90 TVS' Willi: 9.86 Tricuspid Valve TR Pk Willi: 1.68 TR Pk Grad: 11.00 RA Press: 3.00 RVSP: 14.00 Great Vessels Aorta Sinus of Valsalva: 3.10 2.0-3.5 cm Ao Asc: 3.30 2.1-3.4 cm Ao Arch: 2.60 Pulmonary Valve PV Pk Willi: 0.94 Peak PV Grad: 4.00 Updated in Other Vendor System with Status of Final Claudy Rojas MD electronically signed on 06/27/2025 2:48:08 PM with status of Final
--- OUTSIDE RECORDS SUMMARY | 2025-06-27 09:34 | XMS_ITS | Patient Health Record ---
[facility] Organization [facility] Address [address] [place] [address] Care Team Providers Care Facilities Engineer Name Role Phone Janette(inactive) Mark TANG Primary Care Provider U Ariel Albert Jr Unavailable Allergies Allergen (clinical drug ingredient) Drug/Non Drug Allergy documented on EMR Reaction Allergy Type Onset Date Status Sulfa Unknown Drug Allergy Active Reason For Referral No Information Medications Medication SIG (Take, Route, Frequency, Duration) Notes Start Date End Date Status Klor-Con 10 10 MEQ 1 tablet with food O rally once a day Active Lipitor 10 MG 1 tablet Orally Once a day Active hydroCHLOROthiazide 25 MG 1 tablet in th e morning Orally Once a day Active Vitamin B Complex - 1 Orally QD Active Dicyclomine HCl 10 MG 2 capsules Orally prn Active Aspir-81 81 MG 1 tablet Orally Once a day Active LORazepam 0.5 MG 1 tablet as needed O rally Once a day Active Norvasc 5 MG 1 tablet Orally Once a day Active Social History Tobacco Use: Social History Observation Description Date Details (start date - stop date) Never Smoker NA - NA Tobacco Use/Smoking Question Answer Notes Patient is a nonsmoker Alcohol Screen Question Answer Notes Did you have a drink containing alcohol in the p ast year? No Points 0 Interpretation Negative Problems Problem Type SNOMED Code ICD Code Onset Dates Problem Status W/U Status Risk Notes Problem 824861397 Colon cancer screening (Z12.11) Active confirmed Problem 225459235 Long-term use of aspirin therapy (Z79.82) Active confirmed Problem 510566820 Irritable bowel syndrome with constipation (K58.1) Active confirmed Problem 04631993 Hypertension, unspecified type (I10) Active confirmed Plan Of Treatment Future Test Test Name Order Date COLONOSCOPY 09/29/2017 Insurance Providers Payer Name Payer Address Payer Phone Subscriber Number Group Number Insured Name Patient Relationship to Insured Coverage Start Date Coverage End Date MEDICARE OF [place] [address] [place] [id number] [phone] [id number] SIMIN DE GUZMAN Self - patient is the insured MED[employer] ATTN CLAIMS [address] [place] [address] [id number] SIMIN DE GUZMAN Self - patient is the insured Medical (General) History Medical History History ICD Code irritable bowel syndrome kidney stones Atrial fibrillation, single episode, res olved, not on anticoagulation hypertension elevated cholesterol osteoarthritis valvular heart disease Surgical History Surgery Date(Month/Year) hemorrhoidectomy hysterectomy carpal tunnel release dilatation and curettage appendectomy bladder suspension
--- OUTSIDE RECORDS SUMMARY | 2025-06-27 09:34 | XMS_ITS | Clinical Summary ---
Author Organization [facility] Address [address] [place] [address] Phone Care Team Providers Care Infrastructure Architect Name Role Phone Agustin Martínez MD Primary Care Provider Allergies Active Allergy Reactions Criticality Noted Date Comments Sulfa (Sulfonamide Antibiotics) 01/25 Medications amiodarone (PACERONE) 200 MG tablet Take 200 mg by mouth daily. 4 Active ELIQUIS 5 mg tablet Take 5 mg by mouth 2 (two) times a day. 4 Active dilTIAZem (CARDIZEM) 30 MG immediate release tablet Take 30 mg by mouth 2 (two) times a day. 4 Active doxycycline hyclate (VIBRAMYCIN) 100 MG capsule Take 1 capsule by mouth as needed. 4 Active furosemide (LASIX) 20 MG tablet Take 20 mg by mouth every other day. 4 Active LORazepam (ATIVAN) 0.5 MG tablet Take 1 tablet by mouth every morning. 4 Active mometasone (ELOCON) 0.1 % ointment Apply topically as needed. 4 Active atorvastatin (LIPITOR) 10 MG tablet Take 10 mg by mouth daily. Active acetaminophen (TYLENOL) 500 MG tablet Take 500 mg by mouth as needed for pain (specific location in comments). Active Active Problems Problem Noted Date Diagnosed Date Persistent atrial fibrillation 02/19/2024 Assessment & Plan (02/19/2024 8:18 AM EDT): We had a detailed discussion with the patient with regards to rate control versus rhythm control. Patient at this point opted for rhythm control with ablation. Will schedule the patient for ablation with the radiofrequency energy. Counseled about diet and lifestyle modification On amiodarone therapy 02/19/2024 Assessment & Plan (02/19/2024 8:20 AM EDT): Continue amiodarone. No clear evidence of side effects currently. QTc interval within normal limits Typical atrial flutter 02/19/2024 Assessment & Plan (02/19/2024 8:21 AM EDT): Patient has history of typical atrial flutter. Will have to do CTI ablation along with ablation for atrial fibrillation Social History Tobacco Use Types Packs/Day Years Used Date Smoking Tobacco: Never Assessed Education Answer Date Recorded Are you interested in more education? Not on max e 12/21/2023 Are you concerned about learning? Not on file 12/21/2023 No 12/21/2023 No 12/21/2023 Digital Access Answer Date Recorded No 12/21/2023 No 12/21/2023 Reliable internet access at home? Not on file 12/21/2023 Device with a working camera? Not on file Comments Unknown Sex and Gender Information Value Date Recorded Sex Assigned at Not on file Legal Sex Female 9:20 AM EST Gender Identity Not on file Sexual Orientation Not on file Last Filed Vital Signs Vital Sign Reading Time Taken Comments Blood Pressure 152/82 02/09/2024 8:31 AM EDT Pulse 60 02/09/2024 8:31 AM EDT Temperature - - Respiratory Rate - - Oxygen Saturation 99% 02/09/2024 8:31 AM EDT Inhaled Oxygen Concentration - - Weight 63.5 kg (140 lb) 02/09/2024 8:31 AM EDT Height 157.5 cm (5' 2 ) 02/09/2024 8:31 AM EDT Body Mass Index 25.61 02/09/2024 8:31 AM EDT Plan of Treatment Health Maintenance Due Date Last Done Comments ALT LEVEL (ALANINE AMINOTRANSFERASE) 1940 Adult Td,Tdap Booster 1940 CREATININE LEVEL 1940 TSH LEVEL 1940 DEPRESSION SCREENING 1952 PNEUMOCOCCAL VACCINES (50+ y ears) (1 of 1 - PCV) 1990 ZOSTER VACCINES (1 of 2) 1990 OSTEOPOROSIS SCREENING INITI AL (ONE-TIME) 2005 RSV VACCINE (1 - 1-dose 75+ series) 2015 COVID-19 VACCINE (1 - 2023-2 5 season) 2024 HEPATITIS A VACCINES Aged Out No long er eligible based on patient's age to complete this topic HIB VACCINES Aged Out No longer eligi ble based on patient's age to complete this topic MENINGOCOCCAL VACCINES (ACWY) Aged Out No longer eligible based on patient's age to complete this topic MENINGOCOCCAL VACCINES (B) Aged Out N o longer eligible based on patient's age to complete this topic Medical Devices Not on file Insurance MEDICARE PART A & B [place] [employer] MEDEX SUPPLEMENT MEDICARE PART A & B [employer] MEDEX SUPPLEMENT MEDICARE PART A & B [employer] MEDEX SUPPLEMENT MEDICARE PART A & B [facility] MEDEX SUPPLEMENT MEDICARE PART A & B [email or web address] MEDEX SUPPLEMENT MEDICARE PART A & B [employer] MEDEX SUPPLEMENT Care Teams Infrastructure Architect Relationship Specialty Start Date End Date Agustin Martínez MD [address] [place] [address] [place] [address] PCP - General Internal Medicine 02/09/24 Additional Source Comments The information contained in this document represents components of the legal health record. It is not the complete legal health record.[facility]
== END ==
LOC: HO.CARD 09:21
PROVIDERS: PCP Internal Medicine; Visit Provider Internal Medicine Cardiovascular Disease
DX: I50.32 Chronic diastolic (congestive) heart failure (principal); I48.92 Unspecified atrial flutter; R06.02 Shortness of breath
CPT/HCPCS: 93306

== ENCOUNTER → 2025-06-27 09:29 | Outpatient (BNV) | payer MEDICARE, SELFPAY | PROVIDERS: PCP Internal Medicine; Visit Provider Internal Medicine Cardiovascular Disease | DX: I50.32 Chronic diastolic (congestive) heart failure (principal); I35.1 Nonrheumatic aortic (valve) insufficiency; I34.0 Nonrheumatic mitral (valve) insufficiency; I51.7 Cardiomegaly | CPT/HCPCS: 93306 ==

== ENCOUNTER 2025-07-22 11:27 | Outpatient (AMB) | payer MEDICARE, SELFPAY ==
--- NOTE | 2025-07-22 11:29 | A.OFFVIS_ITS ---
Vital Signs 07/22/25 11:30 Height 5 ft 2 in Weight 134 lb 7.712 oz BMI 24.6 BP 124/78 Blood Pressure Location Lt brachial Position Sitting Pulse 51 Intake Visit Reasons: 6m follow up w EKG (rs) Intake Note: 6 month follow-up with ekg feeling good Puppet Engineer Required: No Allergies Sulfa (Sulfonamide Antibiotics) Allergy (Intermediate, Verified 05/09/25 08:54) RASH Medication List - Last Reconciled 07/22/25 by Claudy Rojas MD amiodarone 200 mg PO DAILY apixaban (Eliquis) 5 mg PO BID dicyclomine 10 mg PO QID PRN diltiazem HCl 30 mg PO BID furosemide 20 mg PO Q OTHER DAY levocetirizine (Xyzal) 5 mg PO DAILY PRN lorazepam 0.5 mg PO BEDTIME mometasone 0.1% 1 appl topical DAILY PRN HPI Comments Details: Saundra comes for follow-up. She has been doing well since cardioversion. Feels better in sinus rhythm. She has not had any recurrent episodes of atrial fibrillation/flutter. Currently taking amiodarone as well as Cardizem therapy. She has no orthopnea, PND, leg edema. Taking her diuretics 20 mg every other day. She has no lightheadedness, syncope. Denies any chest pain. No bleeding issues or neurologic events. Echocardiogram shows normal LV ejection fraction with moderately increased LV wall thickness with grade 2 diastolic dysfunction. [facility] Medical History HTN (hypertension) History of cardioversion Low back pain Cough (~03/26/25) History of cardioversion Paroxysmal atrial flutter Chronic heart failure with preserved ejection fraction (HFpEF) Atrial flutter Kidney stone High cholesterol Mitral valve disorder Afib Surgical History History of colonoscopy (~01/12/18) Hx of cystoscopy History of carpal tunnel release H/O lithotripsy H/O: hysterectomy Family History Mother No problems noted. Father No problems noted. Social History Household Members: None Housing: House Are you a primary nonfarm animal caretaker to a significant other at home: No Do you presently have visiting nurse or other home services: No [place] [facility] [place] Tobacco Use Status: Never used Tobacco e-Cigarette/Vaping Use: Never Used Second Hand Smoke Exposure: No Advance Directives Date on File: 01/19/21 service: No Current occupational status: retired Cognitive needs: No Hearing needs: No Vision needs: No Review of Systems Const Denies chills, Denies fatigue, Denies fever(s), Denies frequent falls, Denies weakness, Denies weight gain and Denies weight loss ENT Denies dizziness Card Denies chest pain, Denies leg edema, Denies lightheadedness, Denies palpitations, Denies dyspnea, Denies dyspnea on exertion, Denies orthopnea and Denies other (loss of consciousness) Resp Denies cough, Denies dyspnea and Denies dyspnea on exertion GI Denies hematochezia and Denies change in stool character Musc Denies abnormal gait, Denies muscle weakness, Denies numbness, Denies radiating pain into limb and Denies tingling Neuro Denies abnormal gait, Denies dizziness, Denies frequent falls, Denies numbness, Denies tingling and Denies weakness Endo Denies fatigue and Denies palpitations Physical Exam Vital Signs: Last Vital Signs Pulse 51 07/22/25 11:30 BP 124/78 07/22/25 11:30 BMI result Body Mass Index 24.6 Const General: cooperative, healthy appearing, comfortable and no acute distress Orientation/consciousness: patient oriented x3 Neck Neck: Yes normal visual inspection Resp Effort & Inspection: normal respiratory effort Auscultation: clear to auscultation bilaterally, no crackles, no rales, no rhonchi and no wheezes Cardio Jugular venous distension: no JVD Rate: regular rate Rhythm: regular rhythm Heart sounds: S1 normal heart sound present, S2 normal heart sound present, no murmurs and no rubs Neuro General: patient oriented x3 Extrem General: Yes normal to inspection, No no pedal edema and No calf tenderness Psych Appearance: grossly normal Mental Status: mental status grossly normal Speech and movement: Normal speech and movement present Office Procedures EKG Details: EKG shows sinus bradycardia with first-degree AV block , otherwise normal EKG 73022-[id number], Complete Assessment & Plan Assessment & Plan (1) Chronic heart failure with preserved ejection fraction (HFpEF): Code(s): I50.32 - Chronic diastolic (congestive) heart failure Category: Medical Plan: Chronic heart failure preserved ejection fraction with moderately increased wall thickness with relatively low EKGs voltage on the EKG. Could represent hypertensive heart disease but infiltrative disorder such as amyloidosis needs to be ruled out. Will send her for serum and urine testing for abnormal light chain proteins and also suggest a PYP scan to rule out ATTR type of amyloidosis. Continue current diuretic dose. She is best felt when she is in normal rhythm. Continue pursue rhythm control approach. Continue aggressive blood pressure control which is well optimized. Low-salt diet and daily weight monitoring was advised. Additional diuretics as needed. (2) Paroxysmal atrial flutter: Code(s): I48.92 - Unspecified atrial flutter Category: Medical Plan: Paroxysmal atrial flutter which has done well with rhythm control approach. She recently underwent cardioversion as maintaining rhythm. However this is short term solution. She is on amiodarone 200 mg daily as well as Cardizem 30 mg b.i.d.. Has baseline sinus bradycardia. We discussed about pursuing ablation again as a way to try to reduce long-term amiodarone use. She showed understanding but she is still skeptical about it and wants to think about it. Continue current medications. Continue full oral anticoagulation, currently on Eliquis 5 mg b.i.d.. Quarterly renal function test should be pursued. Will follow up in the clinic in 3 months time, sooner p.r.n.. Thank you for allowing me to partake in her care Orders: Orders Protein Electrophoresis, Serum Today I50.32 - Chronic diastolic (congestive) heart failure NM PYP Card Amyld SPECT w CT 1 Week I48.92 - Unspecified atrial flutter, I50.32 - Chronic diastolic (congestive) heart failure Movico/Lambda Light Chain Serum Today I50.32 - Chronic diastolic (congestive) heart failure Protein Electrophoresis,Ran Ur Today I50.32 - Chronic diastolic (congestive) heart failure Coding Level of Care Code Est Pt Level 4 (70727) Complex EM visit Add On G2211 Diagnoses Chronic heart failure with preserved ejection fraction (HFpEF) I50.32 Paroxysmal atrial flutter I48.92 CPT Codes EKG - CPT: 84339-Yjawspjrgxauacynx, Complete ([id number])
[2025-07-22 11:30] VITALS: BP 124/78; PULSE 51; BMI 24.6
--- OUTSIDE RECORDS SUMMARY | 2025-07-22 12:24 | XMS_ITS | Clinical Summary ---
Author Organization [facility] Address [address] [place] [address] Phone Care Team Providers Care Type Bar And Segment Assembler Name Role Phone Agustin Martínez MD Primary [...] file Insurance MEDICARE PART A & B [place] [employer] MEDEX SUPPLEMENT MEDICARE PART A & B [employer] MEDEX SUPPLEMENT MEDICARE PART A & B [employer] MEDEX SUPPLEMENT MEDICARE PART A & B [facility] MEDEX SUPPLEMENT MEDICARE PART A & B [employer] MEDEX SUPPLEMENT MEDICARE PART A & B Est[employer] MEDEX SUPPLEMENT Care Teams Type Bar And Segment Assembler Relationship Specialty Start Date End Date Agustin Martínez MD [address] [place] [address] [place] [address] PCP - General Internal Medicine 02/09/24 Additional Source Comments The information contained in this document represents components of the legal health record. It is not the complete legal health record.[facility]
--- OUTSIDE RECORDS SUMMARY | 2025-07-22 12:24 | XMS_ITS | Patient Health Record ---
Author Organization [facility] Address [address] [place] [address] Care Team Providers Care Office Manager Executive Assistant Name Role Phone Janette(inactive) Mark TANG Primary Care Provider U Ariel Albert Jr Unavailable [phone] Allergies Allergen (clinical drug ingredient) Drug/Non Drug [...] Problem Status W/U Status Risk Notes Problem 261487210 Colon cancer screening (Z12.11) Active confirmed Problem 089992926 Long-term use of aspirin therapy (Z79.82) Active confirmed Problem 893668418 Irritable bowel syndrome with constipation (K58.1) Active confirmed Problem 51578222 Hypertension, unspecified type (I10) Active confirmed Plan Of Treatment Future Test Test Name Order Date COLONOSCOPY 09/29/2017 Insurance Providers Payer Name Payer Address Payer Phone Subscriber Number Group Number Insured Name Patient Relationship to Insured Coverage Start Date Coverage End Date MEDICARE OF [place] [address] [place] [id number] SIMIN DE GUZMAN Self - patient is the insured MEDEX ATTN CLAIMS [address] [place] [phone] [id number] SIMIN DE GUZMAN Self - patient is the insured Medical (General) History Medical History History ICD Code irritable bowel syndrome kidney stones Atrial fibrillation, single episode, res olved, not on anticoagulation hypertension elevated cholesterol osteoarthritis valvular heart disease Surgical History Surgery Date(Month/Year) hemorrhoidectomy hysterectomy carpal tunnel release dilatation and curettage appendectomy bladder suspension
== END 2025-07-22 12:06 | disposition home or self-care (01) ==
LOC: HO.HCS 11:28
PROVIDERS: PCP Internal Medicine; Visit Provider Internal Medicine Cardiovascular Disease
DX: I50.32 Chronic diastolic (congestive) heart failure (principal); I48.92 Unspecified atrial flutter
CPT/HCPCS: 93010; 99214; G2211

== ENCOUNTER → 2025-07-22 11:27 | Outpatient (BNVA) | payer MEDICARE, SELFPAY | PROVIDERS: PCP Internal Medicine; Visit Provider Internal Medicine Cardiovascular Disease | DX: I11.0 Hypertensive heart disease with heart failure (principal); I50.32 Chronic diastolic (congestive) heart failure; I48.92 Unspecified atrial flutter; R00.1 Bradycardia, unspecified; I44.0 Atrioventricular block, first degree | CPT/HCPCS: 93005; 99212 ==

== ENCOUNTER 2025-07-26 07:07 | Outpatient (REF) | payer MEDICARE, SELFPAY ==
--- OUTSIDE RECORDS SUMMARY | 2025-07-26 07:10 | XMS_ITS | Patient Health Record ---
Author Organization [facility] Address [address] [place] [address] Care Team Providers Care Diffusion Operator Name Role Phone Janette(inactive) Mark TANG Primary [...] Problem Status W/U Status Risk Notes Problem [id number] Colon cancer screening (Z12.11) Active confirmed Problem 043712948 Long-term use of aspirin therapy (Z79.82) Active confirmed Problem 937221258 Irritable bowel syndrome with constipation (K58.1) Active confirmed Problem 34425321 Hypertension, unspecified type (I10) Active confirmed Plan Of Treatment Future Test Test Name Order Date COLONOSCOPY 09/29/2017 Insurance Providers Payer Name Payer Address Payer Phone Subscriber Number Group Number Insured Name Patient Relationship to Insured Coverage Start Date Coverage End Date MEDICARE OF [place] [address] [place] [id number] SIMIN DE GUZMAN Self - patient is the insured MEDEX ATTN CLAIMS [address] [place] [phone] [id number] SIMIN DE GUZMAN Self - patient is the insured Medical (General) History Medical History History ICD Code irritable bowel syndrome kidney stones Atrial fibrillation, single episode, res olved, not on anticoagulation hypertension elevated cholesterol osteoarthritis valvular heart disease Surgical History Surgery Date(Month/Year) hemorrhoidectomy hysterectomy carpal tunnel release dilatation and curettage appendectomy bladder suspension
--- OUTSIDE RECORDS SUMMARY | 2025-07-26 07:10 | XMS_ITS | Clinical Summary ---
Author Organization [facility] Address [address] [place] [address] Phone Care Team Providers Care Color Shop Helper Name Role Phone Agustin Martínez MD Primary [...] file Insurance MEDICARE PART A & B [place] [employer] MEDEX SUPPLEMENT MEDICARE PART A & B [employer] MEDEX SUPPLEMENT MEDICARE PART A & B [employer] MEDEX SUPPLEMENT MEDICARE PART A & B [facility] MEDEX SUPPLEMENT MEDICARE PART A & B [employer] MEDEX SUPPLEMENT MEDICARE PART A & B [employer] MEDEX SUPPLEMENT Care Teams Color Shop Helper Relationship Specialty Start Date End Date Agustin Martínez MD [address] [place] [address] [place] [address] PCP - General Internal Medicine 02/09/24 Additional Source Comments The information contained in this document represents components of the legal health record. It is not the complete legal health record.[facility]
[2025-07-26 08:45] LABS: Anion Gap 16 (12-20); Blood Urea Nitrogen 16 mg/dL (9-16); Calcium 9.4 mg/dL (8.4-10.2); Carbon Dioxide 26 mmol/L (22-29); Chloride 106 mmol/L (96-108); Estimated Glomerular Filt Rate 49; Potassium 4.1 mmol/L (3.3-5.1); Sodium 144 mmol/L (135-145)
[2025-07-28 20:35] LABS: Prot Elec - Albumin 4.1 g/dL (3.8-4.8); Prot Elec - Alpha1 0.3 g/dL (0.2-0.3); Prot Elec - Alpha2 0.8 g/dL (0.5-0.9); Prot Elec - Beta 1 0.4 g/dL (0.4-0.6); Prot Elec - Beta 2 0.3 g/dL (0.2-0.5); Prot Elec - Gamma 0.8 g/dL (0.8-1.7); Prot Elec - Total Protein 6.7 g/dL (6.1-8.1)
[2025-07-30 11:59] LABS: PEU-Protein Creat Ratio Rand 0.055 (0.024-0.184); PEU-Rand. Prot/Creat Ratio 55 mg/g creat (24-184); PEU-Random Ur. Gamma Globulin 0 %; PEU-Random Urine A1 Globulin 0 %; PEU-Random Urine A2 Globulin 0 %; PEU-Random Urine Albumin 100 %; PEU-Random Urine Beta Globulin 0 %; PEU-Random Urine Creatinine 145 mg/dL (20-275); PEU-Random Urine Protein 8 mg/dL (5-24)
[2025-07-31 14:22] LABS: Kappa, Serum 189 mg/dL (176-443); Kappa/Lambda Ratio, Serum 1.70 (1.29-2.55); Lambda, Serum 111 mg/dL (91-240)
== END 2025-07-26 07:08 | disposition home or self-care (01) ==
LOC: HO.LAB 07:07
PROVIDERS: PCP Internal Medicine; Visit Provider Internal Medicine Cardiovascular Disease
DX: I50.32 Chronic diastolic (congestive) heart failure (principal); I48.92 Unspecified atrial flutter
CPT/HCPCS: 80048; 82570; 83883; 84156; 84165; 84166

== ENCOUNTER 2025-11-07 08:44 | Outpatient (AMB) | payer MEDICARE, SELFPAY ==
--- NOTE | 2025-11-07 08:49 | A.OFFPC_ITS ---
Vital Signs 11/07/25 08:53 11/07/25 09:19 Height 5 ft 2 in BP 176/88 H 128/72 Respiration 16 Pulse 68 Pulse Source Pulse Oximeter Temp 97.5 F Temp Source Temporal Artery Scan Pulse Oximetry (%) 99 Oxygen Delivery Method Room Air Intake Visit Reasons: 6 month f/u Demand Planner Required: No Accompanied by: Self / Same As Patient Allergies Sulfa (Sulfonamide Antibiotics) Allergy (Intermediate, Verified 11/07/25 08:50) RASH Medication List - Last Reconciled 11/07/25 by DARIO Mishra amiodarone 200 mg PO DAILY apixaban (Eliquis) 5 mg PO BID dicyclomine 10 mg PO QID PRN diltiazem HCl 30 mg PO BID fluticasone propionate 50 mcg/actuation (Allergy Relief (fluticasone)) 1 spray intranasal BID furosemide 20 mg PO Q OTHER DAY loratadine (Allergy Relief (loratadine)) 10 mg PO DAILY lorazepam 0.5 mg PO BEDTIME mometasone 0.1% 1 appl topical DAILY PRN Tobacco use date assessed: 05/09/25 Dental Screening Dental Screen Date: 05/09/25 HPI HPI Comments History of Present Illness Details The patient is an 84 year old female with a past medical history of afib, dCHF, hyperlipidemia, MR, anxiety, macular degeneration presenting for follow up HTN/HLD/AFibFlutter/HRpEF- Follows with Dr. Rojas. On amiodarone, eliquis, diltiazem, furosemide. She underwent cardioversionx6, now in sinus. Blood pressure is well controlled. Mild [place], unchanged. No weight gain, increased edema, lightheadedness, palpitations, chest pains. Chronic allergic rhinitis-postnasal drip, maxillary sinus pressure, congestion, ear pressure. Currently using Xyzal which she feels is drying out her sinuses. Does get nosebleeds resolves with 3 tissues, never going over 10 minutes. Concerned about going to an imaging system administrator due to transportation Anxiety-stable on lorazepam. Concerns: Allergies as above Cerumen impaction- L>R, with hearing loss Bulging vein right forehead-no pain over the temporal. Reports pain is only present when washing her face. Reports using med to hot temperature water ROS: See HPI EXAM: Constitutional - Awake and Alert, No apparent distress Eyes - PERRL Cardiovascular - S1S2, RRR, No edema. Bulging vein of the right forehead, nontender to palpation Respiratory - Normal lung expansion, Normal respiratory effort, No respiratory distress, CTA bilaterally Extremities - no calf tenderness bilaterally, no swelling Skin - Warm/Dry Neurological - Alert & oriented x3 Psychological - Appropriate affect PFSH Medical History (Updated 11/07/25 @ 09:31 by DARIO Mishra) Chronic sinusitis Allergic rhinitis Macular degeneration HTN (hypertension) History of cardioversion Low back pain Cough (~03/26/25) History of cardioversion Paroxysmal atrial flutter Chronic heart failure with preserved ejection fraction (HFpEF) Atrial flutter Kidney stone High cholesterol Mitral valve disorder Afib Surgical History History of colonoscopy (~01/12/18) Hx of cystoscopy History of carpal tunnel release H/O lithotripsy H/O: hysterectomy Family History Mother No problems noted. Father No problems noted. Social History Household Members: None Housing: House Are you a primary healthcare customer service to a significant other at home: No Do you presently have visiting nurse or other home services: No Comment: [facility] [place] overfolw Patient Tobacco Use Status: Never used Tobacco e-Cigarette/Vaping Use: Never Used Second Hand Smoke Exposure: No Advance Directives Date on File: 01/19/21 service: No Current occupational status: retired Cognitive needs: No Hearing needs: No Vision needs: No Questionnaire Thrive Questionnaire Date Thrive assessed: 05/09/25 ANTWAN-7 AMB Questionnaire ANTWAN-7 Date ANTWAN - 7 assessed: 05/09/25 Source: Developed by Drs. Jordon Balbuena, Ju Rojo, Emmanuel Sweeney and colleagues, with an educational debbie from [employer]. Physical exam (Primary Care) Vital Signs: Last Vital Signs Temp 97.5 F 11/07/25 08:53 Pulse 68 11/07/25 08:53 Resp 16 11/07/25 08:53 BP 128/72 11/07/25 09:19 Pulse Ox 99 11/07/25 08:53 Oxygen Delivery Method Room Air 11/07/25 08:53 Tobacco/Smoking Status: Tobacco use Status Tobacco use date assessed 05/09/25 11/07/25 08:52 Patient Tobacco Use Status Never used Tobacco 11/07/25 08:52 e-Cigarette/Vaping Use Never Used 11/07/25 08:52 Thrive Assessment: Date of Thrive Assessment Date Thrive assessed 05/09/25 11/07/25 08:52 Office Procedures Cerumen Removal From which ear canal was the cerumen removed: left Removal: irrigation, otoscope w/curette and cerumen loop/spoon Notes: patient tolerated procedure well, no complications and ear canal clear [id number] Wax Removal by Spoon/Curette Coding Level of Care Code Add On Preventative Visit Only Diagnoses HTN (hypertension) I10 Chronic heart failure with preserved ejection fraction (HFpEF) I50.32 Paroxysmal atrial flutter I48.92 Impacted cerumen, left ear H61.22 Allergic rhinitis J30.9 CPT Codes Office Procedure - CPT: 88291-Iee Wax Removal by Spoon/Curette ([id number]) Assessment & Plan Assessment & Plan (1) HTN (hypertension): Code(s): I10 - Essential (primary) hypertension Category: Medical Plan: Controlled on recheck. Continue Lasix, diltiazem. Low-sodium diet (2) Chronic heart failure with preserved ejection fraction (HFpEF): Code(s): I50.32 - Chronic diastolic (congestive) heart failure Category: Medical Plan: Compensated. Continue Lasix, diltiazem. Continue following with cardiology as scheduled (3) Paroxysmal atrial flutter: Code(s): I48.92 - Unspecified atrial flutter Category: Medical Plan: Rate controlled. Continue amiodarone-TSH ordered. Continue Eliquis for anticoagulation, no significant bleeding. Has gotten nosebleed secondary to nasal sprays, advised to present to the ED if heavy bleeding or bleeding that does not stop in 30 minutes. Continue diltiazem for rate control (4) Impacted cerumen, left ear: Code(s): H61.22 - Impacted cerumen, left ear Category: Medical Plan: Cerumen irrigation as well as removal with curette performed in the left ear. Patient tolerated this well, no adverse effects. Hearing has improved. (5) Allergic rhinitis: Code(s): J30.9 - Allergic rhinitis, unspecified Category: Medical Plan: Trial loratadine, saline nasal sprays, and fluticasone. Referral to imaging system administrator his placed. Plan Follow-up in the office in 6 months. Labs ordered to be completed today. We will re-evaluate lipid panel as last LDL was significantly elevated at 191. Recommend diet lower in saturated fats and highly processed foods. Orders: Orders TSH reflex Free T4 Today I10 - Essential (primary) hypertension, I48.92 - Unspecified atrial flutter, Z79.899 - Other chcf (current) drug therapy Basic Metabolic Panel Today I10 - Essential (primary) hypertension, I48.92 - Unspecified atrial flutter, Z79.899 - Other termite control representative (current) drug therapy Lipid Panel Today I10 - Essential (primary) hypertension, I48.92 - Unspecified atrial flutter, Z79.899 - Other termite control representative (current) drug therapy Liver Panel Today I10 - Essential (primary) hypertension, I48.92 - Unspecified atrial flutter, Z79.899 - Other termite control representative (current) drug therapy Referrals Allergy & Immunology Referral J30.9 - Allergic rhinitis, unspecified, J32.9 - Chronic sinusitis, unspecified Medications: New fluticasone propionate 50 mcg/actuation (Allergy Relief (fluticasone)) administer into each nostril 1 spray intranasal BID 16 grams 5RF loratadine (Allergy Relief (loratadine)) 10 mg PO DAILY 90 caps 1RF Discontinued levocetirizine (Xyzal) Discontinued Reason: Doctor's Order 5 mg PO DAILY PRN 90 tabs 1RF allergy symptoms
[2025-11-07 08:53] VITALS: BP 176/88; PULSE 68; RESP 16; TEMP 36.4; O2SAT 99
[2025-11-07 09:19] VITALS: BP 128/72
== END 2025-11-07 09:41 | disposition home or self-care (01) ==
LOC: HO.HMCHD 08:44
PROVIDERS: Visit Provider Physician Assistant
DX: I10 Essential (primary) hypertension (principal); I50.32 Chronic diastolic (congestive) heart failure; I48.92 Unspecified atrial flutter; H61.22 Impacted cerumen, left ear; J30.9 Allergic rhinitis, unspecified

== ENCOUNTER → 2025-11-07 08:44 | Outpatient (BNVA) | payer MEDICARE, SELFPAY | PROVIDERS: Visit Provider Physician Assistant | DX: I10 Essential (primary) hypertension (principal); I50.32 Chronic diastolic (congestive) heart failure; I48.92 Unspecified atrial flutter; H61.22 Impacted cerumen, left ear; J30.9 Allergic rhinitis, unspecified; Z79.899 Other long term (current) drug therapy; J32.9 Chronic sinusitis, unspecified | CPT/HCPCS: 69210; 99212 ==

== ENCOUNTER 2025-11-17 15:14 | Outpatient (AMB) | payer MEDICARE, SELFPAY ==
--- NOTE | 2025-11-17 15:15 | A.OFFVIS_ITS ---
Vital Signs 11/17/25 15:16 Height 5 ft 2 in Weight 134 lb 7.712 oz BMI 24.6 BP 138/74 Blood Pressure Location Lt brachial Position Sitting Pulse 62 Intake Visit Reasons: 3 mth fu labs/ PYP scan- Intake Note: 3 month follow-up with ekg Rn Visiting Required: No Allergies Sulfa (Sulfonamide Antibiotics) Allergy (Intermediate, Verified 11/07/25 08:50) RASH Medication List - Last Reconciled 11/17/25 by Claudy Rojas MD amiodarone 200 mg PO DAILY apixaban (Eliquis) 5 mg PO BID dicyclomine 10 mg PO QID PRN diltiazem HCl 30 mg PO BID fluticasone propionate 50 mcg/actuation (Allergy Relief (fluticasone)) 1 spray intranasal BID furosemide 20 mg PO Q OTHER DAY loratadine (Allergy Relief (loratadine)) 10 mg PO DAILY lorazepam 0.5 mg PO BEDTIME mometasone 0.1% 1 appl topical DAILY PRN vitamin B complex 1 tab PO DAILY HPI Comments Details: Saundra comes for follow-up, accompanied by her son. She is doing well overall from atrial fibrillation perspective. She had 1 episode of recurrence which self-terminated after increase Cardizem dose under stressful situation. Otherwise she says while in sinus rhythm she feels really well. She denies any overt heart failure symptoms. No bleeding issues or neurologic events. [facility], [facility] Medical History Chronic sinusitis Allergic rhinitis Macular degeneration HTN (hypertension) History of cardioversion Low back pain Cough (~03/26/25) History of cardioversion Paroxysmal atrial flutter Chronic heart failure with preserved ejection fraction (HFpEF) Atrial flutter Kidney stone High cholesterol Mitral valve disorder Afib Surgical History History of colonoscopy (~01/12/18) Hx of cystoscopy History of carpal tunnel release H/O lithotripsy H/O: hysterectomy Family History Mother No problems noted. Father No problems noted. Social History Household Members: None Housing: House Are you a primary manager wound care to a significant other at home: No Do you presently have visiting nurse or other home services: No Comment: [facility] overfolw Patient Tobacco Use Status: Never used Tobacco e-Cigarette/Vaping Use: Never Used Second Hand Smoke Exposure: No Advance Directives Date on File: 01/19/21 service: No Current occupational status: retired Cognitive needs: No Hearing needs: No Vision needs: No Review of Systems Const Denies chills, Denies fatigue, Denies fever(s), Denies frequent falls, Denies weakness, Denies weight gain and Denies weight loss ENT Denies dizziness Card Denies chest pain, Denies leg edema, Denies lightheadedness, Denies palpitations, Denies dyspnea, Denies dyspnea on exertion, Denies orthopnea and Denies other (loss of consciousness) Resp Denies cough, Denies dyspnea and Denies dyspnea on exertion GI Denies hematochezia and Denies change in stool character Musc Denies abnormal gait, Denies muscle weakness, Denies numbness, Denies radiating pain into limb and Denies tingling Neuro Denies abnormal gait, Denies dizziness, Denies frequent falls, Denies numbness, Denies tingling and Denies weakness Endo Denies fatigue and Denies palpitations Physical Exam Vital Signs: Last Vital Signs Pulse 62 11/17/25 15:16 BP 138/74 11/17/25 15:16 BMI result Body Mass Index 24.6 Const General: cooperative, healthy appearing, comfortable and no acute distress Orientation/consciousness: patient oriented x3 Neck Neck: Yes normal visual inspection Resp Effort & Inspection: normal respiratory effort Auscultation: clear to auscultation bilaterally, no crackles, no rales, no rhonchi and no wheezes Cardio Jugular venous distension: no JVD Rate: regular rate Rhythm: regular rhythm Heart sounds: S1 normal heart sound present, S2 normal heart sound present, no murmurs and no rubs Neuro General: patient oriented x3 Extrem General: Yes normal to inspection, No no pedal edema and No calf tenderness Psych Appearance: grossly normal Mental Status: mental status grossly normal Speech and movement: Normal speech and movement present Office Procedures EKG Details: EKGs shows sinus rhythm with low-voltage QRS with poor R-wave progression [id number]-[id number], Complete Assessment & Plan Assessment & Plan (1) Paroxysmal atrial flutter: Code(s): I48.92 - Unspecified atrial flutter Category: Medical Plan: Paroxysmal atrial flutter in this elderly woman which is poorly tolerated with heart failure syndrome. She has had multiple cardioversion in the past. We have discussed ablation therapy given that she is on amiodarone in his overall in good functional status. She is quite anxious and afraid about it and does not want to think about it or participate in this at this point time. Continue amiodarone as well as Cardizem therapy. Continue full oral anticoagulation, currently on Eliquis 5 mg b.i.d.. Quarterly renal function test should be pursued. Avoidance of stimulants was discussed. Stress mitigation strategies were discussed. (2) Chronic heart failure with preserved ejection fraction (HFpEF): Code(s): I50.32 - Chronic diastolic (congestive) heart failure Category: Medical Plan: Heart failure preserved ejection fraction, clinically euvolemic well compensated has done well with rhythm control approach. Continue rhythm control approach. Currently on furosemide every other day continue the same. Daily weight monitoring avoidance salt loading was discussed. Additional diuretics as need be. We discussed about potentially pursuing further workup for amyloidosis, she wants to defer. Will follow up in the clinic in 3 months time, sooner PRN. Thank you for allowing me to partake in her care Coding Level of Care Code Est Pt Level 4 (79883) Diagnoses Paroxysmal atrial flutter I48.92 Chronic heart failure with preserved ejection fraction (HFpEF) I50.32 CPT Codes EKG - CPT: 61704-[id number], Complete ([id number])
[2025-11-17 15:16] VITALS: BP 138/74; PULSE 62; BMI 24.6
--- OUTSIDE RECORDS SUMMARY | 2025-11-17 18:21 | XMS_ITS | Patient Health Record ---
Author Organization [facility] Address [address] [place] [address] Care Team Providers Care T[employer] Bagger Name Role Phone Janette(inactive) Mark TANG Primary Care Provider U Ariel Albert Jr Unavailable Allergies Allergen (clinical drug ingredient) Drug/Non Drug Allergy documented on EMR Reaction Allergy Type Onset Date Status Sulfa Unknown Drug Allergy Active Reason For Referral No Information Medications Medication SIG (Take, Route, Frequency, Duration) Notes Start Date End Date Status Klor-Con 10 10 MEQ Tablet Extended Release 1 tablet with food Orally once a day Active Lipitor 10 MG Tablet 1 tablet Orally Onc e a day Active hydroCHLOROthiazide 25 MG Tablet 1 tablet in the morning Orally Once a day Active Vitamin B Complex - Tablet 1 Orally QD Active Dicyclomine HCl 10 MG Capsule 2 capsules Orally prn Active Aspir-81 81 MG Tablet Delaye d Release 1 tablet Orally Once a day Active LORazepam 0.5 MG Tablet 1 tablet as need ed Orally Once a day Active Norvasc 5 MG Tablet 1 tablet Orally Once a day Active Social History Tobacco Use: Social History Observation Description Date Details (start date - stop date) Never Smoker NA - NA Social History Drugs/Alcohol: Social Info Question Answer Notes Alcohol Screen Did you have a drink containing alcohol in the past year? No Points 0 Interpretation Negative Tobacco Use: Social Info Question Answer Notes Tobacco Use/Smoking Patient is a nonsmoker Additional Details Category Social Info Options Details Miscellaneous: Marital status: Occupation: retired Problems Problem Type SNOMED Code ICD Code Onset Dates Problem Status W/U Status Risk Notes Problem Colon cancer screening (646904967) Colon cancer screening (Z12.11) Active confirmed Problem Long-term current use of antiplatelet drug (442673943538071) Long-term use of aspirin therapy (Z79.82) Active confirmed Problem Irritable bowel syndrome characterized by constipation (775863017) Irritable bowel syndrome with constipation (K58.1) Active confirmed Problem Essential hypertension (02241568) Hypertension, unspecified type (I10) Active confirmed Plan Of Treatment Future Test Test Name Order Date COLONOSCOPY 09/29/2017 Insurance Providers Payer Name Payer Address Payer Phone Subscriber Number Group Number Insured Name Patient Relationship to Insured Coverage Start Date Coverage End Date MEDICARE OF [place] [address] [place] [address] [id number] SIMIN DE GUZMAN Self - patient is the insured [employer] ATT[employer] CLAIMS [address] [place] [address] [phone] [id number] SIMIN DE GUZMAN Self - patient is the insured Medical (General) History Medical History History ICD Code irritable bowel syndrome kidney stones Atrial fibrillation, single episode, res olved, not on anticoagulation hypertension elevated cholesterol osteoarthritis valvular heart disease Surgical History Surgery Date(Month/Year) hemorrhoidectomy hysterectomy carpal tunnel release dilatation and curettage appendectomy bladder suspension
--- OUTSIDE RECORDS SUMMARY | 2025-11-17 18:21 | XMS_ITS | Clinical Summary ---
Author Organization [facility] Address [address] [place] [address] Phone Care Team Providers Care Complaint Evaluation Supervisor Name Role Phone Agustin Martínez MD Primary [...] VACCINE (1 - 1-dose 75+ series) 2015 INFLUENZA VACCINE (#1) 2025 COVID-19 VACCINE (1 - 2024-2 6 season) 2025 HEPATITIS A VACCINES Aged Out No long [...] file Insurance MEDICARE PART A & B [email or web address] MEDEX SUPPLEMENT MEDICARE PART A & B [employer] SUPPLEMENT MEDICARE PART A & B [email or web address] MED[employer] SUPPLEMENT MEDICARE PART A & B [facility] MEDEX SUPPLEMENT MEDICARE PART A & B [employer] MEDEX SUPPLEMENT MEDICARE PART A & B [email or web address] MEDEX SUPPLEMENT Care Teams Complaint Evaluation Supervisor Relationship Specialty Start Date End Date Agustin Martínez MD [address] [place] [address] [place] [address] PCP - General Internal Medicine 02/09/24 Additional Source Comments The information contained in this document represents components of the legal health record. It is not the complete legal health record.[facility]
== END 2025-11-17 16:13 | disposition home or self-care (01) ==
LOC: HO.HCS 15:14
PROVIDERS: PCP Internal Medicine; Visit Provider Internal Medicine Cardiovascular Disease
DX: I48.92 Unspecified atrial flutter (principal); I50.32 Chronic diastolic (congestive) heart failure
CPT/HCPCS: 93010; 99214

== ENCOUNTER → 2025-11-17 15:14 | Outpatient (BNVA) | payer MEDICARE, SELFPAY | PROVIDERS: PCP Internal Medicine; Visit Provider Internal Medicine Cardiovascular Disease | DX: I48.92 Unspecified atrial flutter (principal); I50.32 Chronic diastolic (congestive) heart failure | CPT/HCPCS: 93005; 99212 ==